=== PATIENT | male | born 1945 | race Caucasian/White ===

== ENCOUNTER 2016-05-16 05:41 | Day surgery (SDC) | payer MEDICARE, MEDICAID ==
[~2016-05-16] VITALS: Ht 177.8 cm; Wt 101.8 kg
[~2016-05-16 05:41] MED LIST: ALBU17I INH; ALLO300T2 PO; COLA100C PO; CYCL-36 PO; DUONI NEB; FURO1TAB93 PO; HYDR-3534 PO; HYDR25 PO; LACT10SO47 PO; MULT-65 PO; PRAM1LOT4; TEMA30CA PO; THIA100T PO; [UNRECOGNIZED DRUG - CODE] PO
[2016-05-16 06:55] VITALS: BP 136/75; PULSE 78; RESP 20; TEMP 98; O2SAT 91
[2016-05-16] MEDS ORDERED: VITA100T54 PO (07:09)
[2016-05-16] MEDS ORDERED: DIPH25CA PO (07:09)
[2016-05-16] MEDS ORDERED: ZOFR8TAB PO (07:09)
[2016-05-16] MEDS ORDERED: ALLO300T2 PO (07:09)
[2016-05-16] MEDS ORDERED: TIZA4CAP3 PO (07:09)
[2016-05-16] MEDS ORDERED: ROBA100S5 (07:09)
[2016-05-16] MEDS ORDERED: CYCL1TAB29 PO (07:09)
[2016-05-16] MEDS ORDERED: LINA145C PO (07:09)
[2016-05-16] MEDS ORDERED: MULT1TAB84 PO (07:09)
[2016-05-16] MEDS ORDERED: TRAZ50TA12 PO (07:09)
[2016-05-16] MEDS ORDERED: TEMA30CA PO (07:09)
[2016-05-16] MEDS ORDERED: TERB1CRE11 TOPICAL (07:09)
[2016-05-16] MEDS ORDERED: FLEE5TAB PO (07:09)
[2016-05-16] MEDS ORDERED: DOCU100C PO (07:09)
[2016-05-16] MEDS ORDERED: MUCI30TA2 PO (07:09)
[2016-05-16] MEDS ORDERED: FURO40TA PO (07:09)
[2016-05-16] MEDS ORDERED: ALBU0.63 NEB (07:09)
[2016-05-16] MEDS ORDERED: MILKSUS PO (07:09)
[2016-05-16] MEDS ORDERED: HYDR-3580 PO (07:09)
[2016-05-16] MEDS ORDERED: HYDR50TA94 PO (07:09)
[2016-05-16] MEDS ORDERED: IPRA0.02 NEB (07:09)
[2016-05-16] MEDS ORDERED: [UNRECOGNIZED DRUG - CODE] TOPICAL (07:09)
[2016-05-16] MEDS ORDERED: VENTAER INH (07:09)
[2016-05-16] MEDS ORDERED: LACT10SO PO (07:09)
[2016-05-16] MEDS ORDERED: ADVA250A INH (07:09)
[2016-05-16] MEDS ORDERED: ceFAZolin 2 GM PREMIX 50 ML - implanted port removal IV SCH (07:15)
[2016-05-16] MEDS ORDERED: SODIUM CHLORIDE 0.9% 1000 ML IV SCH (07:15)
[2016-05-16 07:34] LABS: APTT (PATIENT) 26.4 SEC (24.3-30.1); INTERNATIONAL NORMALIZED RATIO 1.1 RATIO
[2016-05-16] MEDS ORDERED: fentaNYL CITRATE 250 MCG/5 ML AMP ONE (07:41)
[2016-05-16] MEDS ORDERED: MIDAZOLAM HCL 5 MG/5 ML VIAL ONE (07:41)
[2016-05-16] MEDS ORDERED: LIDOCAINE 1%/EPINEPHrine 1:100,000 SOLN 20 ML VIAL ONE (08:02)
--- NOTE | 2016-05-16 08:51 | PD.RAD ---
Post Procedure Progress Note Pre Procedure Diagnosis: (1) Leukemia (2) Malfunctioning port catheter Post Procedure Diagnosis: (1) Leukemia (2) Malfunctioning port catheter Procedure Date: May 16, 2016 Supervising Radiologist: Antwon Whitman Proceduralist/Assist: Finn Denney, RT(R), Nicky Foreman RT(R)() Anesthesia: Local, Analgesia, Conscious Sedation Plan of Activity Patient to Unit: ROPU Patient Condition: Good See PACS Report for procedural detail/treatment Central Venous Access Device Procedure 1 Right Internal Jugular Infusaport Removal Georgian: 8 Antwon Whitman MD May 16, 2016 08:51
[2016-05-16 08:55] VITALS: BP 129/68; PULSE 80; RESP 18; TEMP 98.2; O2SAT 91
[2016-05-16] MEDS ORDERED: ACETAMINOPHEN/HYDROcodone 325 MG/10 MG TAB PO PRN (09:00)
[2016-05-16 09:10] VITALS: BP 128/57; PULSE 78; RESP 16; O2SAT 93
[2016-05-16 09:40] VITALS: BP 121/56; PULSE 75; RESP 18; O2SAT 94
[2016-05-16 10:10] VITALS: BP 116/71; PULSE 72; RESP 18; O2SAT 93
--- NOTE | 2016-05-16 10:31 | RADRPT ---
EXAM DATE/TIME: 05/16/2016 07:30 [facility] COMPARISON: No previous studies available for comparison. INDICATIONS : Patient with hisory of leukemia in need of port removal. MEDICAL HISTORY : 1.SCC Back 2.Leukemia 3.COPD 4.Pulmonary nodules 5.CLL 6.Arthrirtis 7. Hx of MRSA SURGICAL HISTORY : 1.Port placement 2.Bone marrow biopsy ENCOUNTER: Subsequent ACUITY: 4-6 months PAIN SCORE: 8/10 LOCATION: Back. SEDATION TIME: 30 minutes 1.) 5 mg midazolam (Versed) IV 2.) 250 mcg fentanyl (Sublimaze) IV Prophylactic antibiotics were administered with appropriate pre-procedure timing. Vancomycin within 2 hrs of procedure, Ancef (or alternative) within 1 hr of procedure. PROCEDURE : 1. Removal of [id number]. 2. Conscious sedation with continuous EKG and oximetry monitoring. The risk, benefits and potential complications of [id number] removal were discussed. Written conse nt was obtained. The patient was placed supine. The chest wall was prepped in sterile fashion. Full sterile techniqu e was used, including cap, mask, sterile gloves and gown, and a large sterile sheet. Hand hygiene an d 2% chlorhexidine and/or Betadine/alcohol prep was utilized per protocol for cutaneous antisepsis. The skin and subcutaneous tissues were infiltrated with local anesthetic solution. A small incision w as made, the subcutaneous pocket was opened. The port was dissected from the subcutaneous tissues and easily removed in one piece. The pocket incision was closed with subcuticular Vicryl suture. Steri -Strips were applied. Conscious sedation was performed with the prescribed dosages and duration as above in the presence of an independent trained radiology nurse to assist in the monitoring of the patient. EKG and oximetry remained stable throughout the procedure. The patient tolerated the procedure well and there were no complications. The patient was sent to post anesthesia recovery in stable condition. CONCLUSION: Uncomplicated port removal as above. Antwon Whitman MD on May 16, 2016 at 10:29 Board Certified Radiologist. This report was verified electronically.
== END 2016-05-16 10:35 | disposition home or self-care (01) ==
LOC: HROP 05:41 → HRIP 05:49 → HROP 10:35
PROVIDERS: ATTEND Internal Medicine Hematology & Oncology
DX: Z45.2 Encounter for adjustment and management of vascular access device (principal); C95.90 Leukemia, unspecified not having achieved remission; J44.9 Chronic obstructive pulmonary disease, unspecified; Z86.14 Personal history of Methicillin resistant Staphylococcus aureus infection
CPT/HCPCS: 36590; 85610; 85730; 99152; 99153; J0690; J2250; J3010; J7030

== ENCOUNTER 2016-06-28 08:35 | Emergency (ER) | payer MEDICARE, MEDICAID ==
[~2016-06-28] VITALS: Ht 175.3 cm; Wt 100.0 kg
[~2016-06-28 08:35] MED LIST changes: +ADVA250A INH; +ALBU0.63 NEB; -ALBU17I INH; -COLA100C PO; -CYCL-36 PO; +CYCL1TAB29 PO; +DIPH25CA PO; +DOCU100C PO; -DUONI NEB; +FLEE5TAB PO; -FURO1TAB93 PO; +FURO40TA PO; -HYDR-3534 PO; +HYDR-3580 PO; -HYDR25 PO; +HYDR50TA94 PO; +IPRA0.02 NEB; +LACT10SO PO; -LACT10SO47 PO; +LINA145C PO; +MILKSUS PO; +MUCI30TA2 PO; -MULT-65 PO; +MULT1TAB84 PO; -PRAM1LOT4; +ROBA100S5; +TERB1CRE11 TOPICAL; -THIA100T PO; +TIZA4CAP3 PO; +TRAZ50TA12 PO; +VENTAER INH; +VITA100T54 PO; +ZOFR8TAB PO; -[UNRECOGNIZED DRUG - CODE] PO; +[UNRECOGNIZED DRUG - CODE] TOPICAL
[2016-06-28 08:43] VITALS: BP 131/64; PULSE 84; RESP 20; TEMP 98; O2SAT 92
[2016-06-28 09:36] VITALS: BP 119/67; PULSE 77; RESP 19; O2SAT 93
--- NOTE | 2016-06-28 09:58 | PD ---
HPI Chief Complaint: Syncope/Near-Syncope Time Seen by Provider: 09:20 Travel History International Travel<30 days: No Contact w/Intl Traveler<30days: No Traveled to known affect area: No History of Present Illness HPI 70-year-old male complains of syncope and left knee pain and left foot pain. Patient states that he had a syncopal episode last night. Patient states that he fell on the left knee and injured his left knee and left foot. Patient denies any headache. Patient denies any visual change. Patient denies any neck pain. Patient denies any chest pain or shortness of breath. Patient denies abdominal pain. Patient denies any focal weakness or numbness of extremity. Patient has history of COPD, CLL status post chemotherapy, hypertension, chronic pain. PFSH Past Medical History Arthritis: No Asthma: No Blood Disorders: No Anxiety: No Depression: No Heart Rhythm Problems: No Cancer: Yes (LEUKEMIA) Cardiovascular Problems: No High Cholesterol: No Chemotherapy: No Chest Pain: No Congestive Heart Failure: No Cirrhosis: No COPD: Yes Cerebrovascular Accident: No Diabetes: No Diminished Hearing: No Endocrine: No GERD: No Glaucoma: No Gout: Yes Headaches: No Hepatitis: No Hiatal Hernia: No Hypertension: Yes Immune Disorder: No Kidney Stones: No Medical other: Yes (CHRONIC PAIN) Musculoskeletal: No Neurologic: No Psychiatric: No Reproductive: No Respiratory: Yes (COPD) Immunizations Current: Yes Myocardial Infarction: No Pneumonia: Yes Radiation Therapy: No Renal Failure: No Seizures: No Sickle Cell Disease: No Sleep Apnea: No Thyroid Disease: No Ulcer: No Past Surgical History Abdominal Surgery: No AICD: No Cardiac Surgery: No Ear Surgery: No Endocrine Surgery: No Eye Surgery: No Genitourinary Surgery: No Gynecologic Surgery: No Joint Replacement: Yes (HIP REPLACEMENT-RIGHT) Oral Surgery: No Pacemaker: No Thoracic Surgery: No Tonsillectomy: Yes Other Surgery: Yes (PORT REMOVED) Social History Alcohol Use: Yes (BEER) Tobacco Use: No Substance Use: No Allergies-Medications (Allergen,Severity, Reaction): Coded Allergies: No Known Allergies (Verified , 06/28/16) Reported Meds & Prescriptions Reported Meds & Active Scripts Active Reported Ventolin Hfa 18 GM Inh (Albuterol Sulfate) 90 Mcg/Act Aer 2 Puff INH Q6H PRN Zofran (Ondansetron HCl) 8 Mg Tab 8 Mg PO Q8HR PRN Diphenhydramine (Diphenhydramine HCl) 25 Mg Cap 25 Mg PO Q4H PRN Bisacodyl EC (Bisacodyl) 5 Mg Tabec 5 Mg PO DAILY PRN Albuterol Neb (Albuterol Sulfate) 0.63 Mg/3 Ml Neb 0.63 Mg NEB Q6HR NEB PRN Vitamin B-1 (Thiamine HCl) 100 Mg Tab 100 Mg PO DAILY Trazodone (Trazodone HCl) 50 Mg Tab 50 Mg PO HS Tizanidine (Tizanidine HCl) 4 Mg Cap 4 Mg PO HS Terbinafine Topical 1 % Cream 1 Applic TOPICAL DAILY Temazepam 30 Mg Cap 30 Mg PO HS PRN Linzess (Linaclotide) 145 Mcg Cap 145 Mcg PO DAILY Lactulose Liq (Lactulose) 10 Gm/15 Ml Soln 30 Ml PO BID Ipratropium Neb (Ipratropium [place]) 0.5 Mg/2.5 Ml Amp 0.5 Mg NEB Q6HR NEB Hydrocodone-Acetaminophen 7.5-325 mg Tab 1 Tab PO Q4H PRN Furosemide 40 Mg Tab 40 Mg PO BID Eucerin Skin Calming Itch Topical (Menthol Topical) 0.1 % Lot 1 Applic TOPICAL DIRECTED PRN Docusate Sodium 100 Mg Cap 100 Mg PO BID Multivitamin Adults (Multiple Vitamins W/ Minerals) 1 Tab 1 Tab PO DAILY Allopurinol 300 Mg Tab 300 Mg PO DAILY Advair Diskus Inh (Fluticasone-Salmeterol Inh) 250-50 Mcg/Blist Aer 1 Puff INH BID Rinse mouth after use. Review of Systems General / Constitutional: No: Fever Eyes: No: Visual changes HENT: No: Headaches Cardiovascular: No: Chest Pain or Discomfort Respiratory: No: Shortness of Breath Gastrointestinal: No: Abdominal Pain Genitourinary: No: Dysuria Musculoskeletal: Positive: Pain Skin: No Rash Neurologic: Positive: Syncope, No: Weakness Psychiatric: No: Depression Endocrine: No: Polydipsia Hematologic/Lymphatic: No: Easy Bruising Physical Exam Narrative GENERAL: Well-nourished, well-developed patient. SKIN: Focused skin assessment warm/dry. HEAD: Normocephalic. EYES: No scleral icterus. No injection or drainage. NECK: Supple, trachea midline. No JVD or lymphadenopathy. CARDIOVASCULAR: Regular rate and rhythm without murmurs, gallops, or rubs. RESPIRATORY: Breath sounds equal bilaterally. No accessory muscle use. GASTROINTESTINAL: Abdomen soft, non-tender, nondistended. MUSCULOSKELETAL: No cyanosis, or edema. BACK: Nontender without obvious deformity. No CVA tenderness. Neurologic exam: Patient's awake and alert oriented 3. No obvious focal neurological deficit. Data Data Last Documented VS Vital Signs Date Time Temp Pulse Resp B/P Pulse Ox O2 Delivery O2 Flow Rate FiO2 06/28/16 10:08 93 Room Air 06/28/16 09:36 77 19 119/67 06/28/16 08:43 98.0 Orders Electrocardiogram (06/28/16 ) Complete Blood Count With Diff (06/28/16 09:52) Basic Metabolic Panel (Bmp) (06/28/16 09:52) Prothrombin Time / Inr (Pt) (06/28/16 09:52) Act Partial Throm Time (Ptt) (06/28/16 09:52) Ct Brain W/O Iv Contrast(Rout) (06/28/16 09:52) Iv Access Insert/Monitor (06/28/16 09:52) Ecg Monitoring (06/28/16 09:52) Oximetry (06/28/16 09:52) Foot, Complete ([id number]) (06/28/16 09:52) Knee, Complete (4vws) (06/28/16 09:52) Acetamin-Hydrocod 325-7.5 Mg ([place] 7.5 (06/28/16 11:00) Labs Laboratory Tests Test 06/28/16 09:45 White Blood Count 15.8 TH/MM3 Red Blood Count 4.75 MIL/MM3 Hemoglobin 14.5 GM/DL Hematocrit 43.9 % Mean Corpuscular Volume 92.4 FL Mean Corpuscular Hemoglobin 30.5 PG Mean Corpuscular Hemoglobin 33.0 % Concent Red Cell Distribution Width 13.4 % Platelet Count 303 TH/MM3 Mean Platelet Volume 8.3 FL Neutrophils (%) (Auto) 66.9 % Lymphocytes (%) (Auto) 20.6 % Monocytes (%) (Auto) 8.5 % Eosinophils (%) (Auto) 3.1 % Basophils (%) (Auto) 0.9 % Neutrophils # (Auto) 10.6 TH/MM3 Lymphocytes # (Auto) 3.3 TH/MM3 Monocytes # (Auto) 1.3 TH/MM3 Eosinophils # (Auto) 0.5 TH/MM3 Basophils # (Auto) 0.1 TH/MM3 CBC Comment DIFF FINAL Differential Comment Prothrombin Time 12.0 SEC Prothromb Time International 1.1 RATIO Ratio Activated Partial 25.9 SEC Thromboplast Time Sodium Level 137 MEQ/L Potassium Level 4.3 MEQ/L Chloride Level 99 MEQ/L Carbon Dioxide Level 30.2 MEQ/L Anion Gap 8 MEQ/L Blood Urea Nitrogen 7 MG/DL Creatinine 0.84 MG/DL Estimat Glomerular Filtration 90 ML/MIN Rate Random Glucose 128 MG/DL Calcium Level 8.8 MG/DL MDM Medical Decision Making Medical Screen Exam Complete: Yes Emergency Medical Condition: Yes Medical Record Reviewed: Yes Interpretation(s) Last Impressions Knee X-Ray 06/28/16951 Signed Impressions: Service Date/Time: Tuesday, June 28, 2016 10:22 - CONCLUSION: 1. There is no evidence of acute fracture. Jermaine Desir MD Head CT 06/28/16951 Signed Impressions: Service Date/Time: Tuesday, June 28, 2016 10:25 - CONCLUSION: 1. No evidence of acute intracranial pathology. No masses are identified. Jermaine Desir MD Foot X-Ray 06/28/16951 Signed Impressions: Service Date/Time: Tuesday, June 28, 2016 10:20 - CONCLUSION: 1. Possible acute fracture through an old fracture of the proximal both flanks of the fifth digit. Jermaine Desir MD 11:04 AM. CBC WBC 15.8. Normal differential. BMP within normal limit. Differential Diagnosis Differential diagnosis including vasovagal reaction, electrolyte imbalance, dehydration, arrhythmia, TIA, CVA, contusion, fracture, dislocation. Narrative Course 70-year-old male with syncope and left knee left foot injury. Adrián taped fourth and fifth toes. [place]om[place] wrap left knee. Diagnosis Primary Impression: Fracture of fifth toe, left, closed Qualified Code: S92.502A - Fracture of fifth toe, left, closed, initial encounter Additional Impressions: Contusion of left knee Qualified Code: S80.02XA - Contusion of left knee, initial encounter Syncope Qualified Code: R55 - Syncope, unspecified syncope type Patient Instructions: General Instructions Additional Instructions: Continue with medications. Follow-up with drum stock clerk or orthopedist. Follow- up with personal physician. Return if needed. Med/Other Pt SpecificInfo: No Change to Meds Disposition: 01 DISCHARGE HOME Condition: Stable Maurice Roper MD June 28, 2016 09:58
[2016-06-28 10:08] VITALS: O2SAT 93
[2016-06-28 10:24] LABS: AUTOMATED NEUTROPHIL # 10.6 TH/MM3 (1.8-7.7); BASOPHIL # 0.1 TH/MM3 (0-0.2); BASOPHIL % 0.9 % (0.0-2.0); EOSINOPHIL # 0.5 TH/MM3 (0-0.4); EOSINOPHIL % 3.1 % (0.0-4.0); HEMATOCRIT 43.9 % (39.0-51.0); HEMO FLAGS DIFF FINAL; LYMPH % 20.6 % (9.0-44.0); LYMPHOCYTE # 3.3 TH/MM3 (1.0-4.8); MEAN CELL VOLUME 92.4 FL (80.0-100.0); MEAN CORPUSCULAR HEMOGLOBIN 30.5 PG (27.0-34.0); MONO % 8.5 % (0.0-8.0); NEUT % 66.9 % (16.0-70.0); PLATELET COUNT 303 TH/MM3 (150-450); RED BLOOD COUNT 4.75 MIL/MM3 (4.50-5.90); RED CELL DISTRIBUTION WIDTH 13.4 % (11.6-17.2); WHITE BLOOD COUNT 15.8 TH/MM3 (4.0-11.0)
[2016-06-28 10:34] LABS: APTT (PATIENT) 25.9 SEC (24.3-30.1); INTERNATIONAL NORMALIZED RATIO 1.1 RATIO
--- NOTE | 2016-06-28 10:45 | RADRPT ---
EXAM DATE/TIME: 06/28/2016 10:20 [facility] COMPARISON: No previous studies available for comparison. INDICATIONS : Left foot pain after falling this morning. MEDICAL HISTORY : Leukemia. COPD. Pulmonary nodules. Arthritis. History of MRSA. SURGICAL HISTORY : None. ENCOUNTER: Initial ACUITY: 1 day PAIN SCORE: 9/10 LOCATION: Left foot. FINDINGS: There is an old fracture of the shaft of the fifth metatarsal. There is also an old fracture of the p roximal thigh to the fifth digit with a new lucency which may reflect acute fracture. No other fractu res are identified. Bony mineralization is normal. An inferior calcaneal spur is present. CONCLUSION: 1. Possible acute fracture through an old fracture of the proximal both flanks of the fifth digit. Jermaine Desir MD on June 28, 2016 at 10:41 Board Certified Radiologist. This report was verified electronically.
--- NOTE | 2016-06-28 10:46 | RADRPT ---
EXAM DATE/TIME: 06/28/2016 10:22 [facility] COMPARISON: No previous studies available for comparison. INDICATIONS : Left anterior knee pain after falling this morning. MEDICAL HISTORY : Leukemia. COPD. Pulmonary nodules. Arthritis. History of MRSA. SURGICAL HISTORY : None. ENCOUNTER: Initial ACUITY: 1 day PAIN SCORE: 9/10 LOCATION: Left anterior knee. FINDINGS: There is mild osteoarthritis with joint space narrowing but no significant marginal osteophyte format ion in the medial tibiofemoral compartment. There is no evidence of acute fracture. Bony mineralizati on is normal. There is no evidence of joint effusion. CONCLUSION: 1. There is no evidence of acute fracture. Jermaine Desir MD on June 28, 2016 at 10:44 Board Certified Radiologist. This report was verified electronically.
--- NOTE | 2016-06-28 10:48 | RADRPT ---
EXAM DATE/TIME: 06/28/2016 10:25 [facility] COMPARISON: No previous studies available for comparison. INDICATIONS : Patient with syncope. RADIATION DOSE: 56.35 CTDIvol (mGy) MEDICAL HISTORY : Hypertension. Chronic obstructive pulmonary disease. Leukemia. SURGICAL HISTORY : hip replacement ENCOUNTER: Initial ACUITY: 1 day PAIN SCALE: 0/10 LOCATION: cranial TECHNIQUE: Multiple contiguous axial images were obtained of the head. Using automated exposure control and adj ustment of the mA and/or kV according to patient size, radiation dose was kept as low as reasonably a chievable to obtain optimal diagnostic quality images. FINDINGS: CEREBRUM: The ventricles are normal for age. No evidence of midline shift, mass lesion, hemorrhage or acute in farction. No extra-axial fluid collections are seen. POSTERIOR FOSSA: The cerebellum and brainstem are intact. The 4th ventricle is midline. The cerebellopontine angle i s unremarkable. EXTRACRANIAL: The visualized portion of the orbits is intact. SKULL: The calvaria is intact. No evidence of skull fracture. CONCLUSION: 1. No evidence of acute intracranial pathology. No masses are identified. Jermaine Desir MD on June 28, 2016 at 10:44 Board Certified Radiologist. This report was verified electronically.
[2016-06-28 10:52] LABS: BICARBONATE 30.2 MEQ/L (21.0-32.0); POTASSIUM 4.3 MEQ/L (3.5-5.1)
[2016-06-28] MEDS ORDERED: ACETAMINOPHEN/HYDROcodone 325 MG/7.5 MG TAB PO ONE (11:00)
[2016-06-28 11:17] VITALS: BP 124/67
--- NOTE | 2016-06-29 11:18 | EKG ---
Date Performed: 06/28/2016 Time Performed: 09:20:30 PTAGE: 70 years EKG: Sinus rhythm WITH OCCASIONAL VENTRICULAR PREMATURE COMPLEXES BORDERLINE LEFT AXIS DEVIATION INCOMPLETE RIGHT BUND LE BRANCH BLOCK BORDERLINE ECG PREVIOUS TRACING : 05/28/2013 22.27 DOCTOR: Ochoa Herrera Interpretating Date/Time 06/29/2016 11:16:08
== END 2016-06-28 11:21 | disposition home or self-care (01) ==
LOC: NEPC 08:35
DX: S92.502A Displaced unspecified fracture of left lesser toe(s), initial encounter for closed fracture (principal); S80.02XA Contusion of left knee, initial encounter; R55 Syncope and collapse; W19.XXXA Unspecified fall, initial encounter
CPT/HCPCS: 70450; 73564; 73630; 80048; 85025; 85610; 85730; 93005

== ENCOUNTER 2016-08-10 11:22 | Inpatient (IN) | payer MEDICARE, MEDICAID ==
[2016-08-10] VITALS (10 sets, daily range): BP systolic 100–112; BP diastolic 62–73; PULSE 78–87; RESP 18–20; TEMP 96.4–97.7; O2SAT 92–97
[~2016-08-10] VITALS: Ht 175.3 cm; Wt 112.5 kg
[~2016-08-10 11:22] MED LIST changes: -CYCL1TAB29 PO; -HYDR50TA94 PO; -MILKSUS PO; -MUCI30TA2 PO; -ROBA100S5
--- NOTE | 2016-08-10 11:30 | PD ---
Physical Exam Date Seen by Provider: Aug 10, 2016 Time Seen by Provider: 11:29 Narrative 70 yo male that comes here for evaluation of abnormal blood work. Dr Ball his oncologist did lab work today and sent him here for eval. Unclear as to why. He does feel SOB and has abdominal pain and diarrhea. Pain is 8/10. Vitals are stable in triage. Awaiting bed placement. Data Data Last Documented VS Vital Signs Date Time Temp Pulse Resp B/P Pulse Ox O2 Delivery O2 Flow Rate FiO2 08/10/16 11:25 97.7 86 20 112/63 94 Room Air [facility] Medical Record Reviewed: Yes Supervised Visit with LAUREN: No Isauro Raya Aug 10, 2016 11:30
--- NOTE | 2016-08-10 11:38 | PD ---
HPI Chief Complaint: Abnormal Results Time Seen by Provider: 11:38 Travel History International Travel<30 days: No Contact w/Intl Traveler<30days: No Traveled to known affect area: No History of Present Illness HPI 70-year-old male with history of hypertension, COPD, leukemia, currently undergoing chemotherapy with Dr. Ball, resents to the emergency department at the direction of Dr. Ball after lab work being done this morning that showed the patient was in liver failure. Patient states that the last week "or so" his abdomen has become distended. He states he is more short of breath but attributes this to not being able to get his medications secondary to financial reasons. Patient states he resides in a assisted living facility and they have been giving his medications but he is uncertain what he takes. He does tell me that he takes Lortab every 4 hours [id number] for pain. He denies any bowel or bladder changes. No chest pain. Denies any recent illnesses, fever, or chills. Patient does report one beer daily and states he "has a prescription for this." He has no other symptoms to report. PFSH Past Medical History Arthritis: No Asthma: No Blood Disorders: No Anxiety: No Depression: No Heart Rhythm Problems: No Cancer: Yes (LEUKEMIA) Cardiovascular Problems: No High Cholesterol: No Chemotherapy: No Chest Pain: No Congestive Heart Failure: No Cirrhosis: No COPD: Yes Cerebrovascular Accident: No Diabetes: No Diminished Hearing: No Endocrine: No GERD: No Glaucoma: No Gout: Yes Headaches: No Hepatitis: No Hiatal Hernia: No Hypertension: Yes Immune Disorder: No Kidney Stones: No Musculoskeletal: No Neurologic: No Psychiatric: No Reproductive: No Respiratory: Yes Immunizations Current: Yes Myocardial Infarction: No Pneumonia: Yes Radiation Therapy: No Renal Failure: No Seizures: No Sickle Cell Disease: No Sleep Apnea: No Thyroid Disease: No Ulcer: No Past Surgical History Abdominal Surgery: No AICD: No Cardiac Surgery: No Ear Surgery: No Endocrine Surgery: No Eye Surgery: No Genitourinary Surgery: No Gynecologic Surgery: No Joint Replacement: Yes (HIP REPLACEMENT-RIGHT) Oral Surgery: No Pacemaker: No Thoracic Surgery: No Tonsillectomy: Yes Other Surgery: Yes (PORT REMOVED) Social History Alcohol Use: Yes (BEER) Tobacco Use: No Substance Use: No Allergies-Medications (Allergen,Severity, Reaction): Coded Allergies: No Known Allergies (Verified , 08/10/16) Reported Meds & Prescriptions Reported Meds & Active Scripts Active Reported Hydroxyzine HCl 50 Mg Tab 50 Mg PO Q6HR PRN [Perez Tonic] 15 Ml PO DAILY Flexeril (Cyclobenzaprine HCl) 10 Mg Tab 10 Mg PO HS Duoneb (Ipratropium-Albuterol Neb) 0.5-2.5 Mg/3 Ml Neb 3 Ml NEB BID NEB PRN Temazepam 15 Mg Cap 15 Mg PO HS PRN Multi-Vitamins (Multiple Vitamin) 1 Tab Tab 1 Tab PO DAILY Zofran (Ondansetron HCl) 8 Mg Tab 8 Mg PO Q8HR PRN Diphenhydramine (Diphenhydramine HCl) 25 Mg Cap 25 Mg PO Q6HR PRN Vitamin B-1 (Thiamine HCl) 100 Mg Tab 100 Mg PO DAILY Trazodone (Trazodone HCl) 50 Mg Tab 50 Mg PO HS Tizanidine (Tizanidine HCl) 4 Mg Cap 4 Mg PO HS Terbinafine Topical 1 % Cream 1 Applic TOPICAL DAILY Linzess (Linaclotide) 145 Mcg Cap 145 Mcg PO DAILY Lactulose Liq (Lactulose) 10 Gm/15 Ml Soln 30 Ml PO BID Hydrocodone-Acetaminophen 7.5-325 mg Tab 1 Tab PO Q4H PRN Furosemide 40 Mg Tab 40 Mg PO BID Docusate Sodium 100 Mg Cap 100 Mg PO BID Allopurinol 300 Mg Tab 300 Mg PO DAILY Advair Diskus Inh (Fluticasone-Salmeterol Inh) 250-50 Mcg/Blist Aer 1 Puff INH BID Rinse mouth after use. Review of Systems Except as stated in HPI: all other systems reviewed are Neg Physical Exam Narrative GENERAL: Well-nourished but chronically ill-appearing male patient, lying on the stretcher, in no acute distress. SKIN: Focused skin assessment warm/dry. HEAD: Atraumatic. Normocephalic. EYES: Pupils equal and round. scleral icterus. No injection or drainage. ENT: No nasal bleeding or discharge. Mucous membranes pink and moist. NECK: Trachea midline. No JVD. CARDIOVASCULAR: Regular rate and rhythm. RESPIRATORY: Shallow, unlabored respirations.. Diminished to auscultation. Breath sounds equal bilaterally. GASTROINTESTINAL: Ascitic abdomen, rotund, distended, discomfort elicited with palpation.. Hepatic and splenic margins not palpable. MUSCULOSKELETAL: No obvious deformities. No clubbing. No cyanosis. No edema. NEUROLOGICAL: Awake and alert. No obvious cranial nerve deficits. Motor grossly within normal limits. Normal speech. Data Data Last Documented VS Vital Signs Date Time Temp Pulse Resp B/P Pulse Ox O2 Delivery O2 Flow Rate FiO2 08/10/16 11:55 97 Nasal Cannula 2.00 08/10/16 11:49 87 20 08/10/16 11:25 97.7 112/63 Orders Electrocardiogram (08/10/16 ) B-Type Natriuretic Peptide (08/10/16 11:46) Act Partial Throm Time (Ptt) (08/10/16 11:46) Prothrombin Time / Inr (Pt) (08/10/16 11:46) Urinalysis - C+S If Indicated (08/10/16 11:46) Iv Access Insert/Monitor (08/10/16 11:46) Ecg Monitoring (08/10/16 11:46) Oximetry (08/10/16 11:46) Oxygen Administration (08/10/16 11:46) Sodium Chloride 0.9% Flush (Ns Flush) (08/10/16 12:00) Albuterol-Ipratropium Neb (Duoneb Neb) (08/10/16 12:00) Chest, Single Ap (08/10/16 ) Labs Laboratory Tests Test 08/10/16 12:00 Prothrombin Time 16.7 SEC Prothromb Time International 1.5 RATIO Ratio Activated Partial 29.4 SEC Thromboplast Time MDM Medical Decision Making Medical Screen Exam Complete: Yes Emergency Medical Condition: Yes Medical Record Reviewed: Yes Differential Diagnosis Liver failure versus electrolyte abnormality versus cirrhosis versus COPD versus pneumonia versus CHF Narrative Course 70-year-old male presents to emergency department for evaluation. Patient had lab work done this morning that showed CBC with leukocytosis of 18. This is a steady increase from patient's recent lab work. CMP is with mild hyponatremia 133. Total bilirubin is 2.3, AST is 759, ALT is 270, alkaline phosphatase is 390, will lactate dehydrogenase is 678. As the labs were drawn this morning in our facilities lab, I will not repeat them. I have added coags. Laboratory Tests Test 08/10/16 12:00 Prothrombin Time 16.7 SEC Prothromb Time International 1.5 RATIO Ratio Activated Partial 29.4 SEC Thromboplast Time Patient is short of breath. Chest x-ray is ordered in addition to DuoNeb treatment. [facility]. Diagnosis Primary Impression: Acute liver disease Additional Impressions: Abnormal liver enzymes Leukemia Qualified Code: C95.10 - Chronic leukemia, not having achieved remission COPD (chronic obstructive pulmonary disease) Qualified Code: J44.9 - Chronic obstructive pulmonary disease, unspecified COPD type Admitting Information Admitting Physician Requests: Admit Condition: Stable Rose Mary Estrada Aug 10, 2016 11:38
[2016-08-10] MEDS ORDERED: RESP: ALBUTEROL 2.5 MG/IPRATROPIUM 0.5 MG NEB (SCH) INH ONE (12:00)
[2016-08-10] MEDS ORDERED: SODIUM CHLORIDE 0.9% FLUSH 10 ML FLUSH IVF PRN (12:00)
[2016-08-10] MEDS ORDERED: MULTTAB4 PO (12:08)
[2016-08-10] MEDS ORDERED: HYDR50TA94 PO (12:08)
[2016-08-10] MEDS ORDERED: CYCL1TAB29 PO (12:08)
[2016-08-10] MEDS ORDERED: [UNRECOGNIZED DRUG - OTHER] PO (12:08)
[2016-08-10] MEDS ORDERED: TEMA15CA PO (12:08)
[2016-08-10] MEDS ORDERED: IPRASOL NEB (12:08)
[2016-08-10 12:26] LABS: APTT (PATIENT) 29.4 SEC (24.3-30.1); INTERNATIONAL NORMALIZED RATIO 1.5 RATIO; PROTHROMBIN TIME - PATIENT 16.7 SEC (9.8-11.6)
--- NOTE | 2016-08-10 12:57 | RADRPT ---
EXAM DATE/TIME: 08/10/2016 12:33 [facility] COMPARISON: No previous studies available for comparison. INDICATIONS : Shortness of breath. MEDICAL HISTORY : Chronic obstructive pulmonary disease. SURGICAL HISTORY : None. ENCOUNTER: Initial ACUITY: 4 - 6 days PAIN SCORE: 0/10 LOCATION: Bilateral chest FINDINGS: There is patchy infiltrate in the right lower lung zone. Left lung appears grossly clear. No signific ant effusion suspected. Cardiac contours are satisfactory technique and projection. CONCLUSION: Right base infiltrate Serjio Montenegro MD on August 10, 2016 at 12:54 Board Certified Radiologist. This report was verified electronically.
[2016-08-10] MEDS ORDERED: LACTULOSE SYRUP 20 GM/30 ML CUP PO PRN (13:15)
[2016-08-10] MEDS ORDERED: SENNOSIDES 8.6 MG TAB PO PRN (13:15)
[2016-08-10] MEDS ORDERED: MAGNESIUM HYDROXIDE SUSP 30 ML CUP PO PRN (13:15)
[2016-08-10] MEDS ORDERED: SODIUM CHLORIDE 0.9% FLUSH 10 ML FLUSH IV FLUSH PRN (13:15)
[2016-08-10] MEDS ORDERED: NALOXONE HCL 0.4 MG/ML AMP IV PRN (13:15)
[2016-08-10] MEDS ORDERED: BISACODYL 10 MG SUPP RECTAL PRN (13:15)
--- NOTE | 2016-08-10 14:08 | HHI.HP ---
[facility] Service [facility] Primary Care Physician Juan Campbell MD Admission Diagnosis Acute elevation of liver enzymes Diagnoses: Chief Complaint: Acute liver failure and distended abdomen Travel History International Travel<30 Days: No Contact w/Intl Traveler <30 Da: No Traveled to Known Affected Are: No History of Present Illness This is a 70-year-old male past medical history chronic lymphocytic leukemia in remission who presented to the emergency department due to abnormal labs. Patient is a poor historian. He stated that he saw Dr. Ball his oncologist today and he was told to go to the emergency department due to abnormal labs. He stated that his abdomen became larger about 2 weeks ago but he is unsure. He stated that he chronically has shortness of breathing and has not worsened. Patient denies any fevers or chills. He also denies any cough. Patient stated that he has been constipated for many days but is not able to give me any estimated time. He did admit to having small amounts of diarrhea today. Patient stated that he is not a heavy drinker and that he was told by his physician that he has a prescription to drink 1 beer day. Patient stated that he has not seen his primary care physician in a few months and that he has not been given any of his medication because of this. He stated that he is only taking 5 medication and one of them is Lortab. He denies any dependence on alcohol. Patient stated that he is due for his Lortab at 2 PM today. Patient denies any past liver disease or ascites. He stated that this is the first occurrence. Review of Systems Constitutional: DENIES: Diaphoretic episodes, Fatigue, Fever, Weight gain, Weight loss, Chills, Dizziness, Change in appetite, Night Sweats Endocrine: DENIES: Heat/cold intolerance, Polydipsia, Polyuria, Polyphagia Eyes: DENIES: Blurred vision, Diplopia, Eye inflammation, Eye pain, Vision loss , Photosensitivity, Double Vision Ears, nose, mouth, throat: DENIES: Tinnitus, Hearing loss, Vertigo, Nasal discharge, Oral lesions, Throat pain, Hoarseness, Ear Pain, Running Nose, Epistaxis, Sinus Pain, Toothache, Odynophagia Respiratory: COMPLAINS OF: Shortness of breath, DENIES: Apneas, Cough, Snoring , Wheezing, Hemoptysis, Sputum production Cardiovascular: DENIES: Chest pain, Palpitations, Syncope, Dyspnea on Exertion , PND, Lower Extremity Edema, Orthopnea, Claudication Gastrointestinal: DENIES: Abdominal pain, Black stools, Bloody stools, Constipation, Diarrhea, Nausea, Vomiting, Difficulty Swallowing, Anorexia Genitourinary: DENIES: Sexual dysfunction, Urinary frequency, Urinary incontinence, Urgency, Hematuria, Dysuria, Nocturia, Penile Discharge, Testicular Pain, Testicular Swelling Musculoskeletal: DENIES: Joint pain, Muscle aches, Stiffness, Joint Swelling, Back pain, Neck pain Integumentary: DENIES: Abnormal pigmentation, Nail changes, Pruritus, Rash Hematologic/lymphatic: DENIES: Bruising, Lymphadenopathy Immunologic/allergic: DENIES: Eczema, Urticaria Neurologic: DENIES: Abnormal gait, Headache, Localized weakness, Paresthesias, Seizures, Speech Problems, Tremor, Poor Balance Psychiatric: DENIES: Anxiety, Confusion, Mood changes, Depression, Hallucinations, Agitation, Suicidal Ideation, Homicidal Ideation, Delusions Past Family Social History Past Medical History COPD Pulmonary nodules Chronic lymphocytic leukemia completed treatment in May 2014 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 He stated that he is only taking 5 medication and he is unsure the name of this medication. Hydroxyzine HCl 50 Mg Tab 50 Mg PO Q6HR PRN [Perez Tonic] 15 Ml PO DAILY Flexeril (Cyclobenzaprine HCl) 10 Mg Tab 10 Mg PO HS Duoneb (Ipratropium-Albuterol Neb) 0.5-2.5 Mg/3 Ml Neb 3 Ml NEB BID NEB PRN Temazepam 15 Mg Cap 15 Mg PO HS PRN Multi-Vitamins (Multiple Vitamin) 1 Tab Tab 1 Tab PO DAILY Zofran (Ondansetron HCl) 8 Mg Tab 8 Mg PO Q8HR PRN Diphenhydramine (Diphenhydramine HCl) 25 Mg Cap 25 Mg PO Q6HR PRN Vitamin B-1 (Thiamine HCl) 100 Mg Tab 100 Mg PO DAILY Trazodone (Trazodone HCl) 50 Mg Tab 50 Mg PO HS Tizanidine (Tizanidine HCl) 4 Mg Cap 4 Mg PO HS Terbinafine Topical 1 % Cream 1 Applic TOPICAL DAILY Linzess (Linaclotide) 145 Mcg Cap 145 Mcg PO DAILY Lactulose Liq (Lactulose) 10 Gm/15 Ml Soln 30 Ml PO BID Hydrocodone-Acetaminophen 7.5-325 mg Tab 1 Tab PO Q4H PRN Furosemide 40 Mg Tab 40 Mg PO BID Docusate Sodium 100 Mg Cap 100 Mg PO BID Allopurinol 300 Mg Tab 300 Mg PO DAILY Advair Diskus Inh (Fluticasone-Salmeterol Inh) 250-50 Mcg/Blist Aer 1 Puff INH BID Rinse mouth after use. Allergies: Coded Allergies: No Known Allergies (Verified , 08/10/16) Active Ordered Medications Current Medications Sodium Chloride (NS Flush) 2 ml UNSCH PRN IVF FLUSH AFTER USING IV ACCESS Last administered on 08/10/16 11:51; Start 08/10/16 at 12:00; Stop 08/10/16 at 13:12 ; Status DC Albuterol/ Ipratropium (Duoneb Neb) 1 ampule ONCE ONCE INH Last administered on 08/10/16 11:55; Start 08/10/16 at 12:00; Stop 08/10/16 at 12:01; Status DC Sodium Chloride (NS Flush) 2 ml UNSCH PRN IV FLUSH FLUSH AFTER USING IV ACCESS ; Start 08/10/16 at 13:15 Sodium Chloride (NS Flush) 2 ml BID IV FLUSH ; Start 08/10/16 at 21:00 Naloxone HCl (Narcan Inj) 0.4 mg UNSCH PRN IV SEE LABEL COMMENTS; Start at 13:15 Senna/Docusate Sodium (Sharlene-Colace) 1 tab BID PO ; Start 08/10/16 at 21:00 Magnesium Hydroxide (Milk Of Magnesia Liq) 30 ml Q12H PRN PO MILD - MODERATE CONSTIPATION; Start 08/10/16 at 13:15 Sennosides (Senokot) 17.2 mg Q12H PRN PO MODERATE - SEVERE CONSTIPATION; Start 08/10/16 at 13:15 Bisacodyl (Dulcolax Supp) 10 mg DAILY PRN RECTAL SEVERE CONSITIPATION; Start at 13:15 Lactulose (Lactulose Liq) 30 ml DAILY PRN PO SEVERE CONSITIPATION; Start at 13:15 Oxycodone HCl (Roxicodone) 5 mg Q4H PRN PO pain 1-8 Last administered on t 14:04; Start 08/10/16 at 13:15 Oxycodone HCl (Roxicodone) 10 mg Q4H PRN PO pain 9-10; Start 08/10/16 at 13:15 Furosemide (Lasix) 20 mg BID@09,18 PO ; Start 08/10/16 at 14:15; Stop 08/10/16 at 14:15; Status DC Spironolactone (Aldactone) 50 mg BID@09,18 PO ; Start 08/10/16 at 18:00; Status UNV Allopurinol (Zyloprim) 300 mg DAILY PO ; Start 08/11/16 at 09:00; Status UNV Lactulose (Lactulose Liq) 30 ml BID PO ; Start 08/10/16 at 21:00; Status UNV Trazodone HCl (Desyrel) 50 mg HS PO ; Start 08/10/16 at 21:00; Status UNV Non-Formulary Medication 1 puff BID INH ; Start 08/10/16 at 21:00; Status UNV Non-Formulary Medication 145 mcg DAILY PO ; Start 08/11/16 at 09:00; Status UNV Furosemide (Lasix) 40 mg BID@09,18 PO ; Start 08/10/16 at 14:15; Status UNV Family History Unable to obtain. Patient is a poor historian. Social History Denies any tobacco use or illicit drug use. Patient drinks 1 beer a day. Physical Exam Vital Signs Vital Signs Date Time Temp Pulse Resp B/P Pulse Ox O2 Delivery O2 Flow Rate FiO2 08/10/16 11:55 97 Nasal Cannula 2.00 08/10/16 11:49 96 Room Air 08/10/16 11:49 87 20 96 Room Air 08/10/16 11:47 98 20 96 Room Air 08/10/16 11:25 97.7 86 20 112/63 94 Room Air Physical Exam GENERAL: This is a well-nourished, well-developed patient, in no apparent distress. SKIN: old scar on back. HEAD: Atraumatic. Normocephalic. No temporal or scalp tenderness. EYES: Pupils equal round and reactive. Extraocular motions intact. No scleral icterus. No injection or drainage. ENT: Nose without bleeding, purulent drainage or septal hematoma. Throat without erythema, tonsillar hypertrophy or exudate. Uvula midline. Airway patent. NECK: Trachea midline. No JVD or lymphadenopathy. Supple, nontender, no meningeal signs. CARDIOVASCULAR: Regular rate and rhythm without murmurs, gallops, or rubs. RESPIRATORY: Clear to auscultation. Breath sounds equal bilaterally. No wheezes , rales, or rhonchi. GASTROINTESTINAL: Abdomen soft. Positive for distention and positive fluid wave. Positive for diffuse tenderness to palpation with moderate amount of pressure to the abdomen. No hepato-splenomegaly, or palpable masses. No guarding. MUSCULOSKELETAL: Extremities without clubbing, cyanosis, or edema. No joint tenderness, effusion, or edema noted. No calf tenderness. Negative Homans sign bilaterally. NEUROLOGICAL: Awake and alert. Cranial nerves II through XII intact. Motor and sensory grossly within normal limits. Five out of 5 muscle strength in all muscle groups. Normal speech. Laboratory Laboratory Tests Test 08/10/16 12:00 Prothrombin Time 16.7 Prothromb Time International 1.5 Ratio Activated Partial 29.4 Thromboplast Time B-Type Natriuretic Peptide 100 Imaging Last Impressions Chest X-Ray 08/10/16 0000 Signed Impressions: Service Date/Time: Wednesday, August 10, 2016 12:33 - CONCLUSION: Right base infiltrate Serjio Montenegro MD Assessment and Plan Assessment and Plan 70-year-old male with history of chronic lymphocytic leukemia in remission who presented with Acute liver failure with new onset ascites -AST 759, LT 270, alkaline phosphatase 390, LDH 678, total protein 5.9. Prior his LFTs in April 2016 was within normal limits. -Will need to do a workup. Will trend LFTs. Get a therapeutic and diagnostic paracentesis and ultrasound of the abdomen including the liver. Will get hepatitis panel. -Patient is already on lactulose but this seems to be more for his constipation. Will continue with lactulose. -Patient is on Lasix 40 mg by mouth twice a day ID unsure if she was compliant with this medication and on just sure why he was on this medication. Will continue with Lasix 40 mg by mouth twice a day. Start patient on spironolactone 50 mg twice a day. -Consult GI. Chronic lymphocytic leukemia status post chemotherapy completion in May 2014. -Patient is following up with Dr. Ball as outpatient. Last PET scan was in February 2016 which showed mild uptake in bilateral neck, axillae, mediastinum and retroperitoneum. Leukocytosis -close to patient's baseline. continue to monitor. COPD -Stable. Patient stated that he chronically has shortness of breathing and that this has not worsened. CXR shows mild right lower infiltrate which is most likely fluid. no signs of infection. -Will resume his home medication. Chronic musculoskeletal pain/osteoarthritis -Since patient is in liver failure will discontinue Lortab and give oxycodone as needed. Constipation -continue lactulose. Will give a suppository since it has been many weeks. Anxiety/Gout -Resume home medication. DVT prophylaxis -SCDs. INR 1.5. Code Status full Discussed Condition With patient Emma Herzog MD Aug 10, 2016 14:08
[2016-08-10] MEDS ORDERED: FUROSEMIDE 20 MG TAB PO SCH (14:15)
--- NOTE | 2016-08-10 14:37 | RADRPT ---
EXAM DATE/TIME: 08/10/2016 13:32 [facility] COMPARISON: CT ABDOMEN & PELVIS W CONTRAST, December 17, 2010, 21:17. INDICATIONS : Increased labs MEDICAL HISTORY : Hypertension. COPD. Leukemia. SURGICAL HISTORY : Tonsillectomy. Right broken femur repair. Right hip replacement ENCOUNTER: Initial ACUITY: 3 days PAIN SCORE: 7/10 LOCATION: Bilateral abdomen MEASUREMENTS: LIVER: 21.6 cm length COMMON DUCT: 5 mm RIGHT KIDNEY: 10.3 x 4.1 x 3.4 cm LEFT KIDNEY: 11.5 x 4.9 x 5.0 cm SPLEEN: 16.0 cm length AORTA: 2.0cm maximal FINDINGS: LIVER: Diffusely heterogeneous hepatic echotexture with hepatomegaly. No significant intrahepatic ductal dil atation. There is a small amount of ascites. COMMON DUCT: No intraluminal mass or stone visualized. GALLBLADDER: Small bowel wall thickening measuring up to 6 mm with small amount of sludge in very small stones in the gallbladder. There is a small amount of pericholecystic fluid. No significant sonographic Hinkle sign. Gallbladder wall thickening and sludge is last does appear unchanged from prior CT exam. PANCREAS: Visualized portions of the pancreas are grossly unremarkable. RIGHT KIDNEY: No hydronephrosis, stone or mass. LEFT KIDNEY: No hydronephrosis, stone or mass. SPLEEN: Spleen is enlarged measuring 16 cm containing scattered echogenic foci consistent with splenic calcif ications noted on our CT exam. The AORTA: Incompletely visualized but nonaneurysmal in its visualized portions. IVC: Obscured by bowel gas. CONCLUSION: 1. Hepatomegaly with diffusely coarse hepatic echogenicity similar to prior CT examination and consis tent with early cirrhotic changes although differential consideration includes leukemic infiltration in this patient with history of leukemia. 2. Persistent splenomegaly with small amount of ascites likely due to portal hypertension. Again, kiet kemic infiltration is in the differential. 3. Sludge and small number of stones in the gallbladder with associated gallbladder wall thickening a nd pericholecystic fluid. Suspect the gallbladder wall thickening and pericholecystic fluid are due t o patient's ascites and the sludge/stones are chronic in etiology. HIDA scan may be performed to eval uate for cystic duct patency if there is concern regarding acute cholecystitis. Sung Gomez MD on August 10, 2016 at 14:18 Board Certified Radiologist. This report was verified electronically.
[2016-08-10] MEDS: FUROSEMIDE 40 MG TAB PO SCH ×2 (15:19→16:50)
--- NOTE | 2016-08-10 15:44 | RADRPT ---
EXAM DATE/TIME: 08/10/2016 14:47 [facility] COMPARISON: No previous studies available for comparison. INDICATIONS : Ascites. MEDICAL HISTORY : Hypertension. Chronic obstructive pulmonary disease. Methicillin-resistant Staphylococcus aureus. Pne umonia. Dyspnea. Leukemia. Measles. SURGICAL HISTORY : Tonsillectomy. Right hip replacement. ENCOUNTER: Initial ACUITY: 1 day PAIN SCORE: 2/10 LOCATION: Abdomen. AREA EVALUATED: Abdomen. FINDINGS: Imaging of the abdomen and pelvis was performed to evaluate for ascites for possible paracentesis. CONCLUSION: There is no significant ascites. Tong Read MD FACR on August 10, 2016 at 15:41 Board Certified Radiologist. This report was verified electronically.
--- NOTE | 2016-08-10 16:09 | PD.CONS ---
HPI History of Present Illness This is a 70 year old male patient with a history of chronic lymphocytic leukemia, currently in remission, who is referred to the hospital for evaluation of elevated LFTs. He was diagnosed with chronic lymphocytic leukemia and 2013 and treated with Rituxan/Bendamustine x 6 and completed this in May of 2014. He is followed by Dr. Fontanez. He had routine lab work on and was found to have elevated LFTs with total bilirubin 2.3, AST 759, ALT 270, alkaline phosphatase 390. US (08/10/16)---> hepatomegaly with diffusely coarse hepatic echogenicity similar to prior CT examination consistent with early cirrhotic changes other differential consideration includes leukemic infiltration in this patient with a history of leukemia. Persistent splenomegaly with a small amount of ascites likely due to portal hypertension. Again leukemic infiltration is in the differential. Sludge and small number of stones in the gallbladder with associated all bladder wall thickening and pericholecystic fluid suspect the gallbladder wall thickening and pericholecystic fluid or due to patient's ascites on the sludge/stones or chronic in nature. HIDA scan may be performed to evaluate for cystic duct patency if there is a concern regarding acute cholecystitis. The patient reports that he has chronic constipation and takes lens some lactulose at home. He reports that 3 days ago he had not had a bowel movement in several days and therefore he took a dose of milk of magnesia, but did not have a bowel movement by the next day and therefore took another dose at 8 PM yesterday. He reports that this morning he had 2 dark liquid stools followed by a third large solid bowel movement. He did not see any red blood. For the past few days he has had lower abdominal pain which she describes as a constant dull ache that is mild without any radiation. He has had decreased appetite since the weekend and reports that he was unable to eat yesterday that he was able to drink 4-5 32 ounce cups of water. Last night he vomited clear emesis. He denies any fevers or chills. He denies any right upper quadrant pain her pain associated with food intake, although he does have right upper quadrant tenderness on exam. He has lost 65 pounds over the past 2 years but states this was plan and he hasn't lost any significant weight recently. He denies any history of ascites, but states he has been having worsening abdominal distention over the past 2 days. He denies any known history of liver disease or liver cirrhosis. He denies any known history of gallbladder issues. He reports that he can usually eat whatever he feels like he does not have any food intolerances. He does not believe he is been started on any new medications. He has never had an EGD or colonoscopy. 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 back in 2010 Gout Insomnia Anxiety/depression Chronic musculoskeletal pain Chronic constipation Past Surgical History Bone marrow biopsy Port placement and removal Excision of skin cancer in his back Hip surgery Coded Allergies: No Known Allergies (Verified , 08/10/16) Medications Allergies Coded Allergies Type Severity Reaction Last Updated Verified No Known Allergies 08/10/16 Yes Active Scripts Medications Dose Route/Sig Days Date Category Dose Instructions Hydroxyzine HCl 50 Mg Tab 50 Mg PO Q6HR PRN 08/10/16 Reported [Perez Tonic] 15 Ml PO DAILY 08/10/16 Reported Flexeril (Cyclobenzaprine HCl) 10 Mg Tab 10 Mg PO HS 08/10/16 Reported Duoneb (Ipratropium-Albuterol Neb) 0.5-2.5 Mg/3 Ml Neb 3 Ml NEB BID NEB PRN 08/10/16 Reported Temazepam 15 Mg Cap 15 Mg PO HS PRN 08/10/16 Reported Multi-Vitamins (Multiple Vitamin) 1 Tab Tab 1 Tab PO DAILY 08/10/16 Reported Zofran (Ondansetron HCl) 8 Mg Tab 8 Mg PO Q8HR PRN 05/16/16 Reported Diphenhydramine (Diphenhydramine HCl) 25 Mg Cap 25 Mg PO Q6HR PRN 05/16/16 Reported Vitamin B-1 (Thiamine HCl) 100 Mg Tab 100 Mg PO DAILY 05/16/16 Reported Trazodone (Trazodone HCl) 50 Mg Tab 50 Mg PO HS 05/16/16 Reported Tizanidine (Tizanidine HCl) 4 Mg Cap 4 Mg PO HS 05/16/16 Reported Terbinafine Topical 1 % Cream 1 Applic TOPICAL DAILY 05/16/16 Reported Linzess (Linaclotide) 145 Mcg Cap 145 Mcg PO DAILY 05/16/16 Reported Lactulose Liq (Lactulose) 10 Gm/15 Ml Soln 30 Ml PO BID 05/16/16 Reported Hydrocodone-Acetaminophen 7.5-325 mg Tab 1 Tab PO Q4H PRN 05/16/16 Reported Furosemide 40 Mg Tab 40 Mg PO BID 05/16/16 Reported Docusate Sodium 100 Mg Cap 100 Mg PO BID 05/16/16 Reported Allopurinol 300 Mg Tab 300 Mg PO DAILY 05/16/16 Reported Advair Diskus Inh (Fluticasone-Salmeterol Inh) 250-50 Mcg/Blist Aer 1 Puff INH BID 05/16/16 Reported Rinse mouth after use. Family History Mother from unknown type of cancer Does not know his father's history Social History Quit smoking 10 years ago Was a heavy drinker up until currently drinks 1 beer per day at the assisted living facility Review of Systems Constitutional: COMPLAINS OF: Weight loss (planned), Change in appetite, DENIES: Fatigue, Fever, Chills Respiratory: COMPLAINS OF: Cough, Wheezing, Sputum production Cardiovascular: DENIES: Chest pain Gastrointestinal: COMPLAINS OF: Abdominal pain, Constipation, Nausea, Vomiting , Anorexia, Swelling of Abdomen, DENIES: Black stools, Bloody stools Musculoskeletal: COMPLAINS OF: Joint pain, Back pain Integumentary: DENIES: Abnormal pigmentation Hematologic/lymphatic: COMPLAINS OF: Bruising Immunologic/allergic: DENIES: Eczema Neurologic: DENIES: Headache Psychiatric: DENIES: Confusion GI Exam Vitals I&O Vital Signs Date Time Temp Pulse Resp B/P Pulse Ox O2 Delivery O2 Flow Rate FiO2 08/10/16 15:31 107/63 08/10/16 14:45 97.3 79 20 93 08/10/16 14:05 97.7 74 17 100/62 98 08/10/16 11:55 97 Nasal Cannula 2.00 08/10/16 11:49 96 Room Air 08/10/16 11:49 87 20 96 Room Air 08/10/16 11:47 98 20 96 Room Air 08/10/16 11:25 97.7 86 20 112/63 94 Room Air Imaging Last Impressions Chest X-Ray 08/10/16 0000 Signed Impressions: Service Date/Time: Wednesday, August 10, 2016 12:33 - CONCLUSION: Right base infiltrate Serjio Montenegro MD Abdomen Ultrasound 08/10/16 0000 Signed Impressions: Service Date/Time: Wednesday, August 10, 2016 14:47 - CONCLUSION: There is no significant ascites. Tong Read MD FACR Laboratory Test 08/10/16 12:00 Prothrombin Time 16.7 SEC Prothromb Time International 1.5 RATIO Ratio Activated Partial 29.4 SEC Thromboplast Time B-Type Natriuretic Peptide 100 PG/ML Physical Examination HEENT: Normocephalic; atraumatic; no jaundice. CHEST: Resp. even/unlabored, diminished. CARDIAC: RRR ABDOMEN: Soft, distended with ascites, RUQ tenderness; hepatosplenomegaly; bowel sounds are present in all four quadrants. EXTREMITIES: No clubbing, cyanosis, or edema. SKIN: Normal; no rash; no jaundice. 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 Assessment and Plan Plan ASSESSMENT: - Elevated LFTs, unclear etiology. Pt with past hx of heavy ETOH use, now drinks 1 beer per day for several years (has rx at [facility]). Denies any known hx of liver cirrhosis or gallbladder disease. Does have hx of CLL. US (08/10/16)---> hepatomegaly with diffusely coarse hepatic echogenicity similar to prior CT examination consistent with early cirrhotic changes other differential consideration includes leukemic infiltration in this patient with a history of leukemia. Persistent splenomegaly with a small amount of ascites likely due to portal hypertension. Again leukemic infiltration is in the differential. Sludge and small number of stones in the gallbladder with associated all bladder wall thickening and pericholecystic fluid suspect the gallbladder wall thickening and pericholecystic fluid or due to patient's ascites on the sludge/stones or chronic in nature. HIDA scan may be performed to evaluate for cystic duct patency if there is a concern regarding acute cholecystitis. LFTs with total bilirubin 2.3, AST 759, ALT 270, alkaline phosphatase 390. DDx biliary dz vs. liver cirrhosis vs. leukemic infiltration. Will get MRCP to r/o biliary obstruction. Liver workup. - Ascites. US with small amount of ascites, not amenable to paracentesis. Lasix, Spironolactone. - Chronic constipation, takes Linzess, Lactulose. Had BM this am. - Chronic lymphocytic leukemia and 2014 and treated with Rituxan/Bendamustine x 6 and completed this in May of 2014. He is followed by Dr. Ball. - Leukocytosis. WBC 18.0. - Hyponatremia, Chronic pain, COPD, Gout, Anxiety/Depression per primary PLAN: - Clear liquids - MRCP to r/o obstruction - Cont. Lactulose - Cont. Spironolactone, Lasix - Hepatitis profile - AFP - HA, ASMA, AMA - Ferritin, Iron saturation - Alpha 1 antitrypsin, Ceruloplasmin - CBC, CMP - ? Antibiotics, will wait until seen and examined by Dr. Hyman - Further recommendations to follow based on results of above. Michelle Rajan Aug 10, 2016 16:09
[2016-08-10] MEDS: RESP: ALBUTEROL 2.5 MG/IPRATROPIUM 0.5 MG NEB (SCH) NEB ×2 (17:15→19:42)
[2016-08-10] MEDS ORDERED: SODIUM CHLORIDE 0.65% NASAL SPRAY 45 ML BTL NASAL PRN (17:15)
[2016-08-10] MEDS: SPIRONOLACTONE 50 MG TAB PO SCH (17:19)
[2016-08-10 18:12] LABS: AMPHETAMINE, URINE NEG (NEG); BARBITURATES, URINE NEG (NEG); COCAINE, URINE NEG (NEG)
--- NOTE | 2016-08-10 18:22 | RADRPT ---
EXAM DATE/TIME: 08/10/2016 17:57 [facility] COMPARISON: CHEST SINGLE AP, May 09, 2012, 12:22. CHEST SINGLE AP, August 10, 2016, 12:33. INDICATIONS : Short of breath. Aerated right lung infiltrate and pneumonia. MEDICAL HISTORY : Hypertension. Chronic obstructive pulmonary disease. Pneumonia. Dyspnea. Leukemia. Measles. SURGICAL HISTORY : None. ENCOUNTER: Subsequent ACUITY: 1 day PAIN SCORE: 0/10 LOCATION: chest FINDINGS: PA and lateral views the chest were obtained and demonstrate a mild increase in the right lower lobe infiltrate. There is blunting of the right posterior and lateral costophrenic angle consistent with a small effusion. There is mild scarring. The heart size remains within normal limits. The bony thorax is intact. CONCLUSION: 1. Mild interval increase in right lower lobe infiltrate characteristic of pneumonia. 2. Small right effusion. Kevin Hadley MD on August 10, 2016 at 18:19 Board Certified Radiologist. This report was verified electronically.
[2016-08-10 18:57] LABS: HEMATOCRIT 42.4 % (39.0-51.0); MEAN CELL VOLUME 93.9 FL (80.0-100.0); MEAN CORPUSCULAR HEMOGLOBIN 30.5 PG (27.0-34.0); MEAN CORPUSCULAR HGB CONC 32.5 % (32.0-36.0); PLATELET COUNT 210 TH/MM3 (150-450); RED BLOOD COUNT 4.52 MIL/MM3 (4.50-5.90); REVIEW FLAG FINAL; WHITE BLOOD COUNT 17.7 TH/MM3 (4.0-11.0)
[2016-08-10 19:25] LABS: TRANSFERRIN IRON PROFILE 203 MG/DL (200-360)
[2016-08-10 19:27] LABS: FERRITIN 793 NG/ML (26-388)
[2016-08-10 20:08] LABS: MRSA PCR NEGATIVE (NEGATIVE); STAPH AUREUS PCR NEGATIVE (NEGATIVE)
[2016-08-10] MEDS: BUDESONIDE-FORMOTEROL 160/4.5 MCG INHALER INH SCH (20:29)
[2016-08-10] MEDS: DOCUSATE SODIUM 50 MG/SENNA 8.6 MG TAB PO SCH (20:30)
[2016-08-10] MEDS: LACTULOSE SYRUP 20 GM/30 ML CUP PO SCH (21:00)
[2016-08-10] MEDS: traZODone HCL 50 MG TAB PO SCH (22:41)
[2016-08-10] MEDS: SODIUM CHLORIDE 0.9% FLUSH 10 ML FLUSH IV FLUSH SCH (22:42)
[2016-08-10] MEDS: diphenhydrAMINE HCL 25 MG CAP PO PRN (23:50)
[2016-08-11] VITALS (7 sets, daily range): BP systolic 111–131; BP diastolic 55–78; PULSE 85–130; RESP 18–20; TEMP 96–98; O2SAT 92–98
[2016-08-11] MEDS: diphenhydrAMINE HCL 25 MG CAP PO PRN ×2 (07:28→20:33)
[2016-08-11] MEDS: RESP: ALBUTEROL 2.5 MG/IPRATROPIUM 0.5 MG NEB (SCH) NEB ×2 (08:07→19:57)
--- NOTE | 2016-08-11 08:10 | EKG ---
Date Performed: 08/10/2016 Time Performed: 11:57:20 PTAGE: 70 years EKG: Sinus rhythm POSSIBLE RIGHT VENTRICULAR CONDUCTION DELAY LEFT ANTERIOR FASCICULAR BLOCK ABNORMAL ECG PREVIOUS TRACING : 06/28/2016 09.20 DOCTOR: Elroy Gan Interpretating Date/Time 08/11/2016 08:04:22
[2016-08-11 08:12] LABS: AUTOMATED NEUTROPHIL # 11.6 TH/MM3 (1.8-7.7); BASOPHIL # 0.1 TH/MM3 (0-0.2); BASOPHIL % 0.7 % (0.0-2.0); EOSINOPHIL # 0.2 TH/MM3 (0-0.4); EOSINOPHIL % 1.3 % (0.0-4.0); HEMATOCRIT 40.4 % (39.0-51.0); HEMO FLAGS DIFF FINAL; LYMPH % 25.1 % (9.0-44.0); LYMPHOCYTE # 4.6 TH/MM3 (1.0-4.8); MEAN CORPUSCULAR HEMOGLOBIN 31.7 PG (27.0-34.0); MEAN CORPUSCULAR HGB CONC 34.1 % (32.0-36.0); MONO % 9.4 % (0.0-8.0); NEUT % 63.5 % (16.0-70.0); PLATELET COUNT 199 TH/MM3 (150-450); RED BLOOD COUNT 4.34 MIL/MM3 (4.50-5.90); RED CELL DISTRIBUTION WIDTH 16.3 % (11.6-17.2); WHITE BLOOD COUNT 18.3 TH/MM3 (4.0-11.0)
[2016-08-11 08:13] LABS: INTERNATIONAL NORMALIZED RATIO 1.5 RATIO; PROTHROMBIN TIME - PATIENT 16.5 SEC (9.8-11.6)
[2016-08-11 08:39] LABS: ALT (GPT) 409 U/L (12-78); ANION GAP 9 MEQ/L (5-15); BICARBONATE 29.2 MEQ/L (21.0-32.0); BLOOD UREA NITROGEN 9 MG/DL (7-18); CHLORIDE 95 MEQ/L (98-107); SODIUM (NA) 133 MEQ/L (136-145)
[2016-08-11 08:45] LABS: ALKALINE PHOSPHATASE 368 U/L (45-117); AST (GOT) 1145 U/L (15-37); INDIRECT BILIRUBIN 0.8 MG/DL (0.0-0.8); TOTAL BILIRUBIN ADULT 3.2 MG/DL (0.2-1.0)
[2016-08-11] MEDS ORDERED: LINZESS 145 MCG PO SCH (09:00)
[2016-08-11] MEDS: SPIRONOLACTONE 50 MG TAB PO SCH ×2 (09:32→19:38)
[2016-08-11] MEDS: ONDANSETRON HCL 4 MG/2 ML VIAL IV PUSH PRN ×2 (09:33→23:33)
[2016-08-11] MEDS: ALLOPURINOL 300 MG TAB PO SCH (09:33)
[2016-08-11] MEDS: SODIUM CHLORIDE 0.9% FLUSH 10 ML FLUSH IV FLUSH SCH ×2 (09:33→20:39)
[2016-08-11] MEDS: FUROSEMIDE 40 MG TAB PO SCH ×2 (09:33→19:38)
[2016-08-11] MEDS: BUDESONIDE-FORMOTEROL 160/4.5 MCG INHALER INH SCH ×2 (09:34→20:35)
[2016-08-11] MEDS: DOCUSATE SODIUM 50 MG/SENNA 8.6 MG TAB PO SCH ×2 (09:36→20:36)
[2016-08-11] MEDS: LACTULOSE SYRUP 20 GM/30 ML CUP PO SCH ×2 (09:36→20:36)
--- NOTE | 2016-08-11 10:32 | HHI.PR ---
Subjective Remarks Follow up for acute liver failure Patient is no complaints. He had one episode nausea this morning that resolved Zofran. Denied any nausea vomiting when I interviewed patient. Denied any abdominal pain. He remains afebrile. Objective Vitals Vital Signs Date Time Temp Pulse Resp B/P Pulse Ox O2 Delivery O2 Flow Rate FiO2 08/11/16 08:00 97.9 130 20 111/70 92 08/11/16 04:13 19 08/11/16 04:00 97.7 85 18 130/78 98 08/11/16 00:00 96.0 110 18 114/77 94 08/10/16 21:00 78 08/10/16 20:00 96.4 78 18 112/73 92 08/10/16 19:45 96 21 08/10/16 15:31 107/63 08/10/16 15:03 85 08/10/16 14:45 97.3 79 20 93 08/10/16 14:05 97.7 74 17 100/62 98 08/10/16 11:55 97 Nasal Cannula 2.00 08/10/16 11:49 96 Room Air 08/10/16 11:49 87 20 96 Room Air 08/10/16 11:47 98 20 96 Room Air 08/10/16 11:25 97.7 86 20 112/63 94 Room Air I/O 08/10/16 08/10/16 08/10/16 08/11/16 08/11/16 08/11/16 07:00 15:00 23:00 07:00 15:00 23:00 Output Total 100 ml Balance -100 ml Output Urine Total 100 ml Bladder Scan Volume Amount 334 ml Result Diagram: 08/11/16 0644 08/11/16 0644 Imaging Last Impressions Chest X-Ray 08/10/16 1306 Signed Impressions: Service Date/Time: Wednesday, August 10, 2016 17:57 - CONCLUSION: 1. Mild interval increase in right lower lobe infiltrate characteristic of pneumonia. 2. Small right effusion. Kevin Hadley MD Abdomen Ultrasound 08/10/16 0000 Signed Impressions: Service Date/Time: Wednesday, August 10, 2016 14:47 - CONCLUSION: There is no significant ascites. Tong Read MD FACR Objective Remarks GENERAL: SKIN: Warm and dry. HEAD: Normocephalic. EYES: No scleral icterus. No injection or drainage. NECK: Supple, trachea midline. No JVD or lymphadenopathy. CARDIOVASCULAR: Regular rate and rhythm without murmurs, gallops, or rubs. RESPIRATORY: Breath sounds equal bilaterally. No accessory muscle use. GASTROINTESTINAL: Abdomen soft, distended, no TTP. MUSCULOSKELETAL: No cyanosis, or edema. BACK: Nontender without obvious deformity. No CVA tenderness. Medications and IVs Current Medications Sodium Chloride (NS Flush) 2 ml UNSCH PRN IVF FLUSH AFTER USING IV ACCESS Last administered on 08/10/16 11:51; Start 08/10/16 at 12:00; Stop 08/10/16 at 13:12 ; Status DC Albuterol/ Ipratropium (Duoneb Neb) 1 ampule ONCE ONCE INH Last administered on 08/10/16 11:55; Start 08/10/16 at 12:00; Stop 08/10/16 at 12:01; Status DC Sodium Chloride (NS Flush) 2 ml UNSCH PRN IV FLUSH FLUSH AFTER USING IV ACCESS ; Start 08/10/16 at 13:15 Sodium Chloride (NS Flush) 2 ml BID IV FLUSH Last administered on 08/11/16 09: 33; Start 08/10/16 at 21:00 Naloxone HCl (Narcan Inj) 0.4 mg UNSCH PRN IV SEE LABEL COMMENTS; Start at 13:15 Senna/Docusate Sodium (Sharlene-Colace) 1 tab BID PO Last administered on 09:36; Start 08/10/16 at 21:00 Magnesium Hydroxide (Milk Of Magnesia Liq) 30 ml Q12H PRN PO MILD - MODERATE CONSTIPATION; Start 08/10/16 at 13:15 Sennosides (Senokot) 17.2 mg Q12H PRN PO MODERATE - SEVERE CONSTIPATION Last administered on 08/10/16 15:19; Start 08/10/16 at 13:15 Bisacodyl (Dulcolax Supp) 10 mg DAILY PRN RECTAL SEVERE CONSITIPATION; Start at 13:15 Lactulose (Lactulose Liq) 30 ml DAILY PRN PO SEVERE CONSITIPATION; Start at 13:15 Oxycodone HCl (Roxicodone) 5 mg Q4H PRN PO pain 1-8 Last administered on 14:04; Start 08/10/16 at 13:15 Oxycodone HCl (Roxicodone) 10 mg Q4H PRN PO pain 9-10 Last administered on 08/11 07:28; Start 08/10/16 at 13:15 Furosemide (Lasix) 20 mg BID@,18 PO ; Start 08/10/16 at 14:15; Stop 08/10/16 at 14:15; Status DC Spironolactone (Aldactone) 50 mg BID@,18 PO Last administered on 08/11/16 09 :32; Start 08/10/16 at 18:00 Allopurinol (Zyloprim) 300 mg DAILY PO Last administered on 08/11/16 09:33; Start 08/11/16 at 09:00 Lactulose (Lactulose Liq) 30 ml BID PO Last administered on 08/11/16 09:36; Start 08/10/16 at 21:00 Trazodone HCl (Desyrel) 50 mg HS PO Last administered on 08/10/16 22:41; Start 08/10/16 at 21:00 Budesonide/ Formoterol Fumarate (Symbicort 160-4.5 Inh) 2 puff BID INH Last administered on 08/11/16 09:34; Start 08/10/16 at 21:00 Patient Own Medication PT OWN MED: LINZ... DAILY PO ; Start 08/11/16 at 09:00; Status Hold Furosemide (Lasix) 40 mg BID@18 PO Last administered on 08/11/16 09:33; Start 08/10/16 at 15:15 Albuterol/ Ipratropium (Duoneb Neb) 1 ampule Q12HR NEB NEB Last administered on 08/11/16 08:07; Start 08/10/16 at 17:15 Sodium Chloride ([place] Aime Powers) 1 spray Q2H PRN NASAL CONGESTION Last administered on 08/10/16 20:29; Start 08/10/16 at 17:15 Diphenhydramine HCl (Benadryl) 25 mg Q6HR PRN PO ALLERGIES Last administered on 08/11/16 07:28; Start 08/10/16 at 23:45 Ondansetron HCl (Zofran Inj) 4 mg Q6H PRN IV PUSH NAUSEA AND VOMITING Last administered on 08/11/16t 09:33; Start 08/11/16 at 08:00 A/P Assessment and Plan 70-year-old male with history of chronic lymphocytic leukemia in remission who presented with Acute liver failure -AST 759, LT 270, alkaline phosphatase 390, LDH 678, total protein 5.9. Prior his LFTs in April 2016 was within normal limits. -LFTs continued to increase. Abdominal ultrasound shows early signs of liver cirrhosis versus infiltrate. Recommended patient to avoid alcohol use completely. He agreed. -Patient had MRCP done this morning pending results and he is schedule also for HIDA scan today. -Continue with Lasix and spinal lactone. -GI is following. Chronic lymphocytic leukemia status post chemotherapy completion in May 2014. -Patient is following up with Dr. Ball as outpatient. Last PET scan was in February 2016 which showed mild uptake in bilateral neck, axillae, mediastinum and retroperitoneum. Leukocytosis -close to patient's baseline. continue to monitor. COPD -Stable. Patient stated that he chronically has shortness of breathing and that this has not worsened. CXR shows mild right lower infiltrate which is most likely fluid. no signs of infection. -Continue with home medication. Chronic musculoskeletal pain/osteoarthritis -Since patient is in liver failure Lortab was discontinued when he is now on oxycodone. Constipation -continue lactulose. Status post suppository. Per patient he had a bowel movement. Anxiety/Gout -Continue home medication. DVT prophylaxis -SCDs. INR 1.5. Discharge Planning Acute liver failure continues to worsen. Pending workup from further management. Emma Herzog MD Aug 11, 2016 10:32
--- NOTE | 2016-08-11 10:40 | RADRPT ---
EXAM DATE/TIME: 08/11/2016 08:38 [facility] COMPARISON: No previous studies available for comparison. INDICATIONS : Abdominal pain with distension. MEDICAL HISTORY : Hypertension. Leukemia. SURGICAL HISTORY : Rt hip replacement, port placed ENCOUNTER: Subsequent ACUITY: 2 day PAIN SCORE: 3/10 LOCATION: abdomen TECHNIQUE: Multiplanar, multisequence magnetic resonance imaging of the abdomen was performed. High-resolution 3D dataset was utilized to reconstruct maximum-intensity projection (MIP) images. FINDINGS: INTRAHEPATIC BILE DUCTS: Within normal limits. No significant anatomical variant is present. EXTRAHEPATIC BILE DUCTS: The common bile duct measures 5 mm. No stone or filling defect is identified. GALLBLADDER: Gallbladder is moderately distended. There is noticeable thickening or intraluminal filling defects. LIVER: Liver is enlarged measuring 25 cm in craniocaudad dimension. There are no discrete or focal space-occ upying lesions. Portal vein is patent but demonstrates slight increase signal intensity compared to t he other vascular structures. PANCREAS: The main pancreatic duct is normal in size. There is no significant anatomical variant. Signal inte nsity is within normal limits. No mass is visualized on this non-contrast exam. OTHER: Moderate amount of free fluid is identified in the abdomen. The spleen is enlarged measuring 15.4 cm in craniocaudad dimension. CONCLUSION: 1. Hepatosplenomegaly 2. Distended gallbladder otherwise no evidence of biliary obstructive disease. 3. Small to moderate ascites 4. Altered flow in the portal vein which may be indicative of portal hypertension. 5. No other significant abnormalities identified. Steve Acuna MD on August 11, 2016 at 10:28 Board Certified Radiologist. This report was verified electronically.
[2016-08-11 10:58] LABS: BLOOD, URINE NEG (NEG); GLUCOSE,URINE NEG (NEG); HYALINE CAST, URINE 64 /lpf (RARE); KETONE, URINE NEG (NEG); MUCUS URINE FEW /lpf (OCC); NITRITE,URINE NEG (NEG); PH, URINE 5.5 (5.0-8.5); SQUAMOUS EPITHELIAL CELL URINE 1 /hpf (0-5); TRANSITIONAL EPI CELLS, URINE 1 /hpf
[2016-08-11 11:02] LABS: URINE COLOR DARK-BROWN (YELLW/STRAW)
[2016-08-11 11:03] LABS: COMMENT (UR) CULTURE INDICATED; CULTURE IF INDICATED CULTURE INDICATED
[2016-08-11] MEDS ORDERED: SINCALIDE 5 MCG/5 ML VIAL IV ONE (12:16)
--- NOTE | 2016-08-11 15:02 | RADRPT ---
EXAM DATE/TIME: 08/11/2016 10:13 [facility] COMPARISON: No previous studies available for comparison. INDICATIONS : Abdominal pain, nausea and vomiting. DOSE: 4.1 mCi Tc99m Mebrofenin IV MEDICATION: 1.86 mcg Cholecystokinin IV; No symptomatic response. Cholecystokinin was administered by slow infusion over 8 minutes beginning at 80 minutes. MEDICAL HISTORY : Chronic obstructive pulmonary disease. Hypertension. Lymphocytic leukemia. SURGICAL HISTORY : Right leg and hip surgery. ENCOUNTER: Initial ACUITY: 2 days PAIN SCALE: 0/10 LOCATION: Right upper quadrant TECHNIQUE: Following the intravenous administration of radiotracer, dynamic sequential image were performed with continuous acquisition. Time-activity curves were generated. FINDINGS: HEPATIIC KINETICS: There is prompt uptake of radiotracer in the liver. No focal defects are seen. There is normal rate of washout from the hepatic parenchyma. BILIARY CLEARANCE: Activity is first seen in the extrahepatic biliary system at 35 minutes. There is normal excretion i nto the small bowel. GALLBLADDER: Activity is first seen in the gallbladder at 20 minutes. POST CHOLECYSTOKININ: After Cholecystokinin administration, there is prompt emptying of the gallbladder with a normal eject ion fraction. Common bile duct kinetics are normal and there is no evidence of biliary obstruction. BILIARY ENTERIC REFLUX: None observed. CLINICAL: The patient was asymptomatic after Cholecystokinin administration. CONCLUSION: 1. Normal HIDA scan confirming patency of the cystic and common bile ducts. 2. Normal gallbladder EF. 3. The patient was asymptomatic with administration of CCK. Sung Gomez MD on August 11, 2016 at 14:47 Board Certified Radiologist. This report was verified electronically.
--- NOTE | 2016-08-11 16:40 | HHI.GIFU ---
Subjective Remarks Pt resting in bed. Admits jaundice 40y ago. Objective Vitals I&O Vital Signs Date Time Temp Pulse Resp B/P Pulse Ox O2 Delivery O2 Flow Rate FiO2 08/11/16 16:00 97.5 95 18 120/68 92 08/11/16 13:00 98.0 102 18 117/66 93 08/11/16 08:00 97.9 130 20 111/70 92 08/11/16 04:13 19 08/11/16 04:00 97.7 85 18 130/78 98 08/11/16 00:00 96.0 110 18 114/77 94 08/10/16 21:00 78 08/10/16 20:00 96.4 78 18 112/73 92 08/10/16 19:45 96 21 I/O 08/10/16 08/10/16 08/10/16 08/11/16 08/11/16 08/11/16 07:00 15:00 23:00 07:00 15:00 23:00 Output Total 100 ml Balance -100 ml Output Urine Total 100 ml Bladder Scan Volume Amount 334 ml Laboratory Laboratory Tests Test 08/10/16 08/10/16 08/11/16 17:00 17:50 06:44 Urine Opiates Screen POS Urine Barbiturates Screen NEG Urine Amphetamines Screen NEG Urine Benzodiazepines Screen NEG Urine Cocaine Screen NEG Urine Cannabinoids Screen NEG Urine Color DARK-BROWN Urine Turbidity HAZY Urine pH 5.5 Urine Specific [place] 1.022 Urine Protein TRACE Urine Glucose (UA) NEG Urine Ketones NEG Urine Occult Blood NEG Urine Nitrite NEG Urine Bilirubin SMALL Urine Urobilinogen 2.0 Urine Leukocyte Esterase MOD Urine RBC 2 Urine WBC 9 Urine Squamous Epithelial 1 Cells Urine Transitional Epithelial 1 Cells Urine Hyaline Casts 64 Urine Mucus FEW Microscopic Urinalysis Comment CULTURE INDICATED White Blood Count 17.7 18.3 Red Blood Count 4.52 4.34 Hemoglobin 13.8 13.8 Hematocrit 42.4 40.4 Mean Corpuscular Volume 93.9 93.0 Mean Corpuscular Hemoglobin 30.5 31.7 Mean Corpuscular Hemoglobin 32.5 34.1 Concent Red Cell Distribution Width 16.0 16.3 Platelet Count 210 199 Mean Platelet Volume 9.8 9.9 Iron Level 60 Total Iron Binding Capacity 284 Percent Iron Saturation 21.1 Ferritin 793 Lactate Dehydrogenase 644 Total Protein 6.0 5.7 Tumor Marker Alpha Fetoprotein 1.6 Hepatitis A IgM Antibody NEGATIVE Hepatitis B Surface Antigen POSITIVE Hepatitis B Core IgM Antibody REACTIVE Hepatitis C Antibody REACTIVE Neutrophils (%) (Auto) 63.5 Lymphocytes (%) (Auto) 25.1 Monocytes (%) (Auto) 9.4 Eosinophils (%) (Auto) 1.3 Basophils (%) (Auto) 0.7 Neutrophils # (Auto) 11.6 Lymphocytes # (Auto) 4.6 Monocytes # (Auto) 1.7 Eosinophils # (Auto) 0.2 Basophils # (Auto) 0.1 CBC Comment DIFF FINAL Differential Comment Prothrombin Time 16.5 Prothromb Time International 1.5 Ratio Sodium Level 133 Potassium Level 4.0 Chloride Level 95 Carbon Dioxide Level 29.2 Anion Gap 9 Blood Urea Nitrogen 9 Creatinine 0.90 Random Glucose 82 Calcium Level 8.7 Total Bilirubin 3.2 Direct Bilirubin 2.4 Indirect Bilirubin 0.8 Aspartate Amino Transf 1145 (AST/SGOT) Alanine Aminotransferase 409 (ALT/SGPT) Alkaline Phosphatase 368 Albumin 2.9 Date/Time Procedure Status Source Growth 08/10/16 17:00 Urine Culture Received Urine Clean Catch Pending Imaging Last Impressions Hepatobiliary Scan Nuclear Medicine 08/11/16 0000 Signed Impressions: Service Date/Time: July 10:13 - CONCLUSION: 1. Normal HIDA scan confirming patency of the cystic and common bile ducts. 2. Normal gallbladder EF. 3. The patient was asymptomatic with administration of CCK. Sung Gomez MD Cholangiopancreatography MRI 08/11/16 0000 Signed Impressions: Service Date/Time: July 08:38 - CONCLUSION: 1. Hepatosplenomegaly 2. Distended gallbladder otherwise no evidence of biliary obstructive disease. 3. Small to moderate ascites 4. Altered flow in the portal vein which may be indicative of portal hypertension. 5. No other significant abnormalities identified. Steve Acuna MD Chest X-Ray 08/10/16 1306 Signed Impressions: Service Date/Time: Wednesday, August 10, 2016 17:57 - CONCLUSION: 1. Mild interval increase in right lower lobe infiltrate characteristic of pneumonia. 2. Small right effusion. Kevin Hadley MD Abdomen Ultrasound 08/10/16 0000 Signed Impressions: Service Date/Time: Wednesday, August 10, 2016 14:47 - CONCLUSION: There is no significant ascites. Tong Read MD FACR Physical Exam HEENT: PERRL; normocephalic; atraumatic; no jaundice. CHEST: wheezes CARDIAC: RRR ABDOMEN: Soft, distended, diffuse TTP; no hepatosplenomegaly; bowel sounds are present in all four quadrants. EXTREMITIES: No clubbing, cyanosis, or edema. SKIN: Normal; no rash; no jaundice. PHLEBOTOMY DIRECTOR: No focal deficits; alert and oriented times three. Assessment and Plan Plan ASSESSMENT: - Elevated LFTs, unclear etiology. worsening. labs c/w acute Hep B infection, antibody to hep C pos. HIDA 08-11-16 neg. MRCP --> Hepatosplenomegaly 2. Distended gallbladder otherwise no evidence of biliary obstructive disease. 3. Small to moderate ascites 4. Altered flow in the portal vein which may be indicative of portal hypertension. 5. No other significant abnormalities identified. Pt with past hx of heavy ETOH use, now drinks 1 beer per day for several years (has rx at [facility]). Denies any known hx of liver cirrhosis or gallbladder disease. Does have hx of CLL. US (08/10/16)---> hepatomegaly with diffusely coarse hepatic echogenicity similar to prior CT examination consistent with early cirrhotic changes other differential consideration includes leukemic infiltration in this patient with a history of leukemia. Persistent splenomegaly with a small amount of ascites likely due to portal hypertension. Again leukemic infiltration is in the differential. Sludge and small number of stones in the gallbladder with associated all bladder wall thickening and pericholecystic fluid suspect the gallbladder wall thickening and pericholecystic fluid or due to patient's ascites on the sludge/stones or chronic in nature. HIDA scan may be performed to evaluate for cystic duct patency if there is a concern regarding acute cholecystitis. AFP 1.6, iron 60, TIBC 284, sat 21.1, ferritin 793 - Ascites. US with small amount of ascites, not amenable to paracentesis. Lasix, Spironolactone. - Chronic constipation, takes Linzess, Lactulose. Had BM yesterday - Chronic lymphocytic leukemia and 2013 and treated with Rituxan/Bendamustine x 6 and completed this in May of 2014. He is followed by Dr. Ball. - Leukocytosis. WBC 18.0. - Hyponatremia, Chronic pain, COPD, Gout, Anxiety/Depression per primary PLAN: - Clear liquids - Cont. Lactulose - Cont. Spironolactone, Lasix - hep B quant, hep BE ag, hep C genotype & quant - await liver w/u - CBC, CMP - Further recommendations to follow based on results of above. This pt seen by myself and Dr Hyman and this note is written on his behalf Bernie Pruett Aug 11, 2016 16:40
[2016-08-11] MEDS: POLYETHYLENE GLYCOL 17 GM PKG PO SCH ×2 (20:32→21:53)
[2016-08-11] MEDS: traZODone HCL 50 MG TAB PO SCH (20:36)
[2016-08-12] VITALS (9 sets, daily range): BP systolic 100–172; BP diastolic 60–92; PULSE 80–135; RESP 18–22; TEMP 96.6–99.6; O2SAT 91–93
--- NOTE | 2016-08-12 02:37 | RADRPT ---
EXAM DATE/TIME: 08/12/2016 01:56 [facility] COMPARISON: CHEST PA & LAT, August 10, 2016, 17:57. INDICATIONS : Pt has history of CHF and was coughing up fluid. MEDICAL HISTORY : Congestive heart failure. Hypertension. Chronic obstructive pulmonary disease. Pneumonia. SURGICAL HISTORY : None. ENCOUNTER: Initial ACUITY: 1 day PAIN SCORE: 6/10 LOCATION: Bilateral chest FINDINGS: There is improvement in aeration of the right lung base, however persistent parenchymal infiltrate re sadaf. Old right proximal humeral fracture is again seen. The rest of the examination has not signifi cantly changed. CONCLUSION: Slight improvement in right lung base infiltrate. Aleshia Santoro MD on August 12, 2016 at 2:35 Board Certified Radiologist. This report was verified electronically.
[2016-08-12 03:25] LABS: AUTOMATED NEUTROPHIL # 14.2 TH/MM3 (1.8-7.7); BASOPHIL # 0.5 TH/MM3 (0-0.2); BASOPHIL % 2.7 % (0.0-2.0); EOSINOPHIL # 0.1 TH/MM3 (0-0.4); EOSINOPHIL % 0.5 % (0.0-4.0); HEMATOCRIT 41.4 % (39.0-51.0); LYMPH % 14.8 % (9.0-44.0); MEAN CELL VOLUME 93.9 FL (80.0-100.0); MEAN CORPUSCULAR HEMOGLOBIN 31.4 PG (27.0-34.0); MEAN CORPUSCULAR HGB CONC 33.4 % (32.0-36.0); MONO % 11.1 % (0.0-8.0); NEUT % 70.9 % (16.0-70.0); PLATELET COUNT 209 TH/MM3 (150-450); RED BLOOD COUNT 4.41 MIL/MM3 (4.50-5.90); RED CELL DISTRIBUTION WIDTH 16.2 % (11.6-17.2)
[2016-08-12 03:35] LABS: HEMO FLAGS AUTO DIFF
[2016-08-12 03:53] LABS: ALT (GPT) 485 U/L (12-78); ANION GAP 12 MEQ/L (5-15); BICARBONATE 27.5 MEQ/L (21.0-32.0); BLOOD UREA NITROGEN 12 MG/DL (7-18); CHLORIDE 93 MEQ/L (98-107); POTASSIUM 4.1 MEQ/L (3.5-5.1); SODIUM (NA) 132 MEQ/L (136-145)
[2016-08-12 03:59] LABS: ALKALINE PHOSPHATASE 380 U/L (45-117); AST (GOT) 1231 U/L (15-37); TOTAL BILIRUBIN ADULT 3.9 MG/DL (0.2-1.0)
[2016-08-12 04:11] LABS: BASOPHILS 1 % (0-2); NEUTROPHIL # MANUAL DIFF 14.6 TH/MM3 (1.8-7.7); POLYS (SEG NEUTROPHILS) 73 % (16-70); SCAN/DIFF FINAL DIFF MANUAL; WBC DIFF SAMPLE 100
[2016-08-12 04:12] LABS: OVALOCYTES 1+ (NORMAL); PLATELET ESTIMATE SMEAR NORMAL (NORMAL); PLATELET MORPHOLOGY NORMAL (NORMAL)
[2016-08-12] MEDS ORDERED: LEVOFLOXACIN 750 MG PREMIX INJ 150 ML IV SCH (05:00)
[2016-08-12] MEDS: SPIRONOLACTONE 50 MG TAB PO SCH ×2 (08:29→17:07)
[2016-08-12] MEDS: LACTULOSE SYRUP 20 GM/30 ML CUP PO SCH ×2 (08:29→21:02)
[2016-08-12] MEDS: FUROSEMIDE 40 MG TAB PO SCH ×2 (08:29→17:07)
[2016-08-12] MEDS: ALLOPURINOL 300 MG TAB PO SCH (08:29)
[2016-08-12] MEDS: DOCUSATE SODIUM 50 MG/SENNA 8.6 MG TAB PO SCH ×2 (08:29→21:02)
[2016-08-12] MEDS: BUDESONIDE-FORMOTEROL 160/4.5 MCG INHALER INH SCH ×2 (08:35→21:03)
[2016-08-12] MEDS: SODIUM CHLORIDE 0.9% FLUSH 10 ML FLUSH IV FLUSH SCH ×2 (08:35→21:02)
[2016-08-12] MEDS: RESP: ALBUTEROL 2.5 MG/IPRATROPIUM 0.5 MG NEB (SCH) NEB ×2 (08:49→19:46)
--- NOTE | 2016-08-12 10:10 | HHI.PR ---
Subjective Remarks Follow-up for hepatitis Patient denies abdominal pain, nausea vomiting. Remains afebrile. Patient asking for his pain medication to be schedule every 4 hours. Pain has been chronic. No other complaints. Objective Vitals Vital Signs Date Time Temp Pulse Resp B/P Pulse Ox O2 Delivery O2 Flow Rate FiO2 08/12/16 08:00 96.6 89 20 106/60 92 08/12/16 05:12 97.5 85 20 100/65 92 08/12/16 04:38 20 08/12/16 02:32 102/62 08/12/16 00:00 99.6 135 22 172/92 91 08/11/16 21:00 122 08/11/16 20:06 97.5 88 18 131/55 92 08/11/16 16:00 97.5 95 18 120/68 92 08/11/16 13:00 98.0 102 18 117/66 93 I/O 08/11/16 08/11/16 08/11/16 08/12/16 08/12/16 08/12/16 07:00 15:00 23:00 07:00 15:00 23:00 Intake Total 1200 ml 240 ml Output Total 150 ml Balance 1200 ml 240 ml -150 ml Intake Oral 1200 ml 240 ml Output Urine Total 150 ml # Voids 3 1 # Bowel Movements 0 Result Diagram: 08/12/1622108/12/16221 Objective Remarks GENERAL: SKIN: Warm and dry. HEAD: Normocephalic. EYES: No scleral icterus. No injection or drainage. NECK: Supple, trachea midline. No JVD or lymphadenopathy. CARDIOVASCULAR: Regular rate and rhythm without murmurs, gallops, or rubs. RESPIRATORY: Breath sounds equal bilaterally. No accessory muscle use. GASTROINTESTINAL: Abdomen soft, distended less taunt, no TTP. MUSCULOSKELETAL: No cyanosis, or edema. BACK: Nontender without obvious deformity. No CVA tenderness. Medications and IVs Current Medications Sodium Chloride (NS Flush) 2 ml UNSCH PRN IVF FLUSH AFTER USING IV ACCESS Last administered on 08/10/16 11:51; Start 08/10/16 at 12:00; Stop 08/10/16 at 13:12 ; Status DC Albuterol/ Ipratropium (Duoneb Neb) 1 ampule ONCE ONCE INH Last administered on 08/10/16 11:55; Start 08/10/16 at 12:00; Stop 08/10/16 at 12:01; Status DC Sodium Chloride (NS Flush) 2 ml UNSCH PRN IV FLUSH FLUSH AFTER USING IV ACCESS ; Start 08/10/16 at 13:15 Sodium Chloride (NS Flush) 2 ml BID IV FLUSH Last administered on 08/12/16 08: 35; Start 08/10/16 at 21:00 Naloxone HCl (Narcan Inj) 0.4 mg UNSCH PRN IV SEE LABEL COMMENTS; Start at 13:15 Senna/Docusate Sodium (Sharlene-Colace) 1 tab BID PO Last administered on 08:29; Start 08/10/16 at 21:00 Magnesium Hydroxide (Milk Of Magnesia Liq) 30 ml Q12H PRN PO MILD - MODERATE CONSTIPATION; Start 08/10/16 at 13:15 Sennosides (Senokot) 17.2 mg Q12H PRN PO MODERATE - SEVERE CONSTIPATION Last administered on 08/10/16 15:19; Start 08/10/16 at 13:15 Bisacodyl (Dulcolax Supp) 10 mg DAILY PRN RECTAL SEVERE CONSITIPATION; Start at 13:15 Lactulose (Lactulose Liq) 30 ml DAILY PRN PO SEVERE CONSITIPATION; Start at 13:15 Oxycodone HCl (Roxicodone) 5 mg Q4H PRN PO pain 1-8 Last administered on 14:04; Start 08/10/16 at 13:15 Oxycodone HCl (Roxicodone) 10 mg Q4H PRN PO pain 9-10 Last administered on 08/12 08:29; Start 08/10/16 at 13:15 Furosemide (Lasix) 20 mg BID@09,18 PO ; Start 08/10/16 at 14:15; Stop 08/10/16 at 14:15; Status DC Spironolactone (Aldactone) 50 mg BID@09,18 PO Last administered on 08/12/16 08 :29; Start 08/10/16 at 18:00 Allopurinol (Zyloprim) 300 mg DAILY PO Last administered on 08/12/16 08:29; Start 08/11/16 at 09:00 Lactulose (Lactulose Liq) 30 ml BID PO Last administered on 08/12/16 08:29; Start 08/10/16 at 21:00 Trazodone HCl (Desyrel) 50 mg HS PO Last administered on 08/11/16 20:36; Start 08/10/16 at 21:00 Budesonide/ Formoterol Fumarate (Symbicort 160-4.5 Inh) 2 puff BID INH Last administered on 08/12/16 08:35; Start 08/10/16 at 21:00 Patient Own Medication PT OWN MED: LINZ... DAILY PO ; Start 08/11/16 at 09:00; Status Hold Furosemide (Lasix) 40 mg BID@09,18 PO Last administered on 08/12/16 08:29; Start 08/10/16 at 15:15 Albuterol/ Ipratropium (Duoneb Neb) 1 ampule Q12HR NEB NEB Last administered on 08/12/16 08:49; Start 08/10/16 at 17:15 Sodium Chloride ([place]) 1 spray Q2H PRN NASAL CONGESTION Last administered on 08/10/16 20:29; Start 08/10/16 at 17:15 Diphenhydramine HCl (Benadryl) 25 mg Q6HR PRN PO ALLERGIES Last administered on 08/11/16 20:33; Start 08/10/16 at 23:45 Ondansetron HCl (Zofran Inj) 4 mg Q6H PRN IV PUSH NAUSEA AND VOMITING Last administered on 08/11/16 23:33; Start 08/11/16 at 08:00 Sincalide (Kinevac Inj) 1.86 mcg STK-MED ONCE IV Last administered on 12:16; Start 08/11/16 at 12:16; Stop 08/11/16 at 12:17; Status DC Polyethylene Glycol 34 gm 34 gm Q2HR PO Last administered on 08/11/16 20:32; Start 08/11/16 at 20:00; Stop 08/11/16 at 22:01; Status DC Levofloxacin/ Dextrose (Levaquin 750 Mg Premix Inj) 150 ml @ 100 mls/hr Q24H IV Last administered on 08/12/16t 05:52; Start 08/12/16 at 05:00 A/P Assessment and Plan 70-year-old male with history of chronic lymphocytic leukemia in remission who presented with Elevated LFTs secondary to Hepatitis B/C complicated by small amount ascites and portal hypertension -On admission AST 759, LT 270, alkaline phosphatase 390, LDH 678, total protein 5.9. Prior his LFTs in April 2016 was within normal limits. -abdominal ultrasound shows early signs of liver cirrhosis versus infiltrate. HIDA scan negative. MRCP showed possible portal hypertension. -LFTs continue to trend up. Patient is asymptomatic. -Continue with Lasix and spironolactone. -GI is following. Continue to trend LFTs. Leukocytosis -Patient baseline is elevated secondary to history of CLL. -Most likely virally versus CLL. -There are no clinical signs of bacterial infection. Workup has been negative so far. Unsure why Levaquin was started at 5 AM. Will discontinue Levaquin. -Continue to monitor leukocytosis. Chronic lymphocytic leukemia status post chemotherapy completion in May 2014. -Patient is following up with Dr. Ball as outpatient. Last PET scan was in February 2016 which showed mild uptake in bilateral neck, axillae, mediastinum and retroperitoneum. COPD -Stable. Patient stated that he chronically has shortness of breathing and that this has not worsened. CXR shows mild right lower infiltrate which is most likely fluid. no signs of infection. -Continue with home medication. Chronic musculoskeletal pain/osteoarthritis -Will have nurse confirm patient's pain medication dosage with his pharmacist. He was on hydrocodone at home but due to his elevated liver enzymes he was put on oxycodone in the hospital. Continue her current regimen. Constipation -continue lactulose. Status post suppository. Per patient he had a bowel movement. Anxiety/Gout -Continue home medication. DVT prophylaxis -SCDs. INR 1.5. Discharge Planning Continue with management per GI. LFTs continues to worsens. Emma Herzog MD Aug 12, 2016 10:10
[2016-08-12] MEDS: diphenhydrAMINE HCL 25 MG CAP PO PRN ×2 (13:05→23:00)
--- NOTE | 2016-08-12 14:29 | HHI.GIFU ---
Subjective Remarks Resting in bed. Nausea without vomiting, lower abdominal discomfort. No bowel movement. Objective Vitals I&O Vital Signs Date Time Temp Pulse Resp B/P Pulse Ox O2 Delivery O2 Flow Rate FiO2 08/12/16 12:00 96.9 92 18 110/68 93 08/12/16 08:00 96.6 89 20 106/60 92 08/12/16 07:36 83 08/12/16 05:12 97.5 85 20 100/65 92 08/12/16 04:38 20 08/12/16 02:32 102/62 08/12/16 00:00 99.6 135 22 172/92 91 08/11/16 21:00 122 08/11/16 20:06 97.5 88 18 131/55 92 08/11/16 16:00 97.5 95 18 120/68 92 I/O 08/11/16 08/11/16 08/11/16 08/12/16 08/12/16 08/12/16 07:00 15:00 23:00 07:00 15:00 23:00 Intake Total 1200 ml 240 ml Output Total 150 ml Balance 1200 ml 240 ml -150 ml Intake Oral 1200 ml 240 ml Output Urine Total 150 ml # Voids 3 1 # Bowel Movements 0 Laboratory Laboratory Tests Test 08/12/16 08/12/16 02:22 08:35 White Blood Count 20.0 Red Blood Count 4.41 Hemoglobin 13.8 Hematocrit 41.4 Mean Corpuscular Volume 93.9 Mean Corpuscular Hemoglobin 31.4 Mean Corpuscular Hemoglobin 33.4 Concent Red Cell Distribution Width 16.2 Platelet Count 209 Mean Platelet Volume 10.1 Neutrophils (%) (Auto) 70.9 Lymphocytes (%) (Auto) 14.8 Monocytes (%) (Auto) 11.1 Eosinophils (%) (Auto) 0.5 Basophils (%) (Auto) 2.7 Neutrophils # (Auto) 14.2 Lymphocytes # (Auto) 3.0 Monocytes # (Auto) 2.2 Eosinophils # (Auto) 0.1 Basophils # (Auto) 0.5 CBC Comment AUTO DIFF Differential Total Cells 100 Counted Neutrophils % (Manual) 73 Lymphocytes % 17 Monocytes % 9 Basophils % 1 Neutrophils # (Manual) 14.6 Differential Comment FINAL DIFF MANUAL Atypical Lymphocytes Platelet Estimate NORMAL Platelet Morphology Comment NORMAL Ovalocytes 1+ Sodium Level 132 Potassium Level 4.1 Chloride Level 93 Carbon Dioxide Level 27.5 Anion Gap 12 Blood Urea Nitrogen 12 Creatinine 1.21 Random Glucose 113 Calcium Level 8.8 Magnesium Level 2.0 Total Bilirubin 3.9 Aspartate Amino Transf 1231 (AST/SGOT) Alanine Aminotransferase 485 (ALT/SGPT) Alkaline Phosphatase 380 B-Type Natriuretic Peptide 81 Total Protein 6.1 Albumin 3.0 Nasal Screen MRSA (PCR) MRSA NOT DETECTED Date/Time Procedure Status Source Growth 08/10/16 17:00 Urine Culture Received Urine Clean Catch Pending Imaging Last Impressions Chest X-Ray 08/12/16 0000 Signed Impressions: Service Date/Time: Friday, August 12, 2016 01:56 - CONCLUSION: Slight improvement in right lung base infiltrate. Aleshia Santoro MD Hepatobiliary Scan Nuclear Medicine 08/11/16 0000 Signed Impressions: Service Date/Time: July 10:13 - CONCLUSION: 1. Normal HIDA scan confirming patency of the cystic and common bile ducts. 2. Normal gallbladder EF. 3. The patient was asymptomatic with administration of CCK. Sung Gomez MD Cholangiopancreatography MRI 08/11/16 0000 Signed Impressions: Service Date/Time: July 08:38 - CONCLUSION: 1. Hepatosplenomegaly 2. Distended gallbladder otherwise no evidence of biliary obstructive disease. 3. Small to moderate ascites 4. Altered flow in the portal vein which may be indicative of portal hypertension. 5. No other significant abnormalities identified. Steve Acuna MD Abdomen Ultrasound 08/10/16 0000 Signed Impressions: Service Date/Time: Wednesday, August 10, 2016 14:47 - CONCLUSION: There is no significant ascites. Tong Read MD FACR Physical Exam HEENT: Normocephalic; atraumatic CHEST: Resp even/unlabored, diminished. CARDIAC: RRR ABDOMEN: Soft, mildly distended, mild lower abdominal tenderness; no hepatosplenomegaly; bowel sounds are present in all four quadrants. EXTREMITIES: No clubbing, cyanosis, or edema. SKIN: Normal; no rash; no jaundice. TUBE BALANCER: No focal deficits; alert and oriented times three. Assessment and Plan Plan ASSESSMENT: - Elevated LFTs, likely secondary to acute hepatitis B. Pt with past hx of heavy ETOH use, now drinks 1 beer per day for several years (has rx at [facility]). Denies any known hx of liver cirrhosis or gallbladder disease. Does have hx of CLL. US (08/10/16)---> hepatomegaly with diffusely coarse hepatic echogenicity similar to prior CT examination consistent with early cirrhotic changes other differential consideration includes leukemic infiltration in this patient with a history of leukemia. Persistent splenomegaly with a small amount of ascites likely due to portal hypertension. Again leukemic infiltration is in the differential. Sludge and small number of stones in the gallbladder with associated all bladder wall thickening and pericholecystic fluid suspect the gallbladder wall thickening and pericholecystic fluid or due to patient's ascites on the sludge/stones or chronic in nature. HIDA scan may be performed to evaluate for cystic duct patency if there is a concern regarding acute cholecystitis. MRCP (08/11/16)-----> 1. Hepatosplenomegaly 2. Distended gallbladder otherwise no evidence of biliary obstructive disease. 3. Small to moderate ascites 4. Altered flow in the portal vein which may be indicative of portal hypertension. 5. No other significant abnormalities identified. HIDA (08/11/16)----> 1. Normal HIDA scan confirming patency of the cystic and common bile ducts. 2. Normal gallbladder EF. 3. The patient was asymptomatic with administration of CCK. AFP 1.6, iron sat 21.1%, ferritin 793, Ceruloplasmin/alpha 1 antitrypsin pending, HA negative, ASMA negative, AMA pending. LFTs slightly higher today T. Bili 3.9, AST 1231, ALT 485, Alk Phosph 380. THis is most likely secondary to acute hepatitis b. - Acute hepatitis B, with Heb Bs Ag (+), Hep B Core IgM ab (+), DNA Viral load pending. - Hepatitis C Antibodies (+). Genotype and viral load pending. - Ascites. US with small amount of ascites, not amenable to paracentesis. Lasix, Spironolactone. - Chronic constipation, takes Linzess, Lactulose at home. No bm. Will add Miralax. - Lower abdominal pain. ? related to constipation. Will add miralax. - Chronic lymphocytic leukemia and 2014 and treated with Rituxan/Bendamustine x 6 and completed this in May of 2014. He is followed by Dr. Ball. - Leukocytosis. WBC 20.0. - Hyponatremia, Chronic pain, COPD, Gout, Anxiety/Depression per primary PLAN: - DANIELA - Add Miralax - Cont. Lactulose - Cont. Spironolactone, Lasix - Await Hepatitis B Viral DNA - Await Hepatitis C Genotype/Viral load - Await AMA, Ceruloplasmin, Alpha 1 Antitrypsin - Monitor CBC, CMP - Further recommendations to follow based on results of above. - This pt seen by myself and Dr Hyman and this note is written on his behalf Michelle Rajan Aug 12, 2016 14:29
[2016-08-12] MEDS: POLYETHYLENE GLYCOL 17 GM PKG PO SCH (15:16)
--- NOTE | 2016-08-12 20:11 | EKG ---
Date Performed: 08/12/2016 Time Performed: 19:38:43 PTAGE: 70 years EKG: SINUS TACHYCARDIA LOW QRS VOLTAGE IN PRECORDIAL LEADS INCOMPLETE RIGHT BUNDLE BRANCH BLOCK LEFT ANTERIOR FASCICULAR BLOCK ANTEROSEPTAL MYOCARDIAL INFARCTION , PROBABLY OLD ABNORMAL ECG In [facility], rate has increased. PREVIOUS TRACING : 08/10/2016 11.57 DOCTOR: Benjamin Wilson Interpretating Date/Time 08/12/2016 20:10:59
[2016-08-12] MEDS: traZODone HCL 50 MG TAB PO SCH (21:02)
[2016-08-12] MEDS ORDERED: LORazepam 0.5 MG TAB PO ONE (23:45)
[2016-08-13] VITALS (10 sets, daily range): BP systolic 100–129; BP diastolic 59–68; PULSE 80–133; RESP 14–22; TEMP 96.7–97.6; O2SAT 90–94
[2016-08-13 07:27] LABS: HEMATOCRIT 39.7 % (39.0-51.0); MEAN CELL VOLUME 94.8 FL (80.0-100.0); MEAN CORPUSCULAR HEMOGLOBIN 30.6 PG (27.0-34.0); MEAN CORPUSCULAR HGB CONC 32.3 % (32.0-36.0); PLATELET COUNT 186 TH/MM3 (150-450); RED BLOOD COUNT 4.18 MIL/MM3 (4.50-5.90); RED CELL DISTRIBUTION WIDTH 16.9 % (11.6-17.2); REVIEW FLAG FINAL; WHITE BLOOD COUNT 17.8 TH/MM3 (4.0-11.0)
[2016-08-13] MEDS: RESP: ALBUTEROL 2.5 MG/IPRATROPIUM 0.5 MG NEB (SCH) NEB ×2 (07:32→20:06)
[2016-08-13 07:48] LABS: ALT (GPT) 477 U/L (12-78); ANION GAP 10 MEQ/L (5-15); BLOOD UREA NITROGEN 17 MG/DL (7-18); CHLORIDE 93 MEQ/L (98-107); GLOMERULAR FILTRATION RATE 53 ML/MIN (>89); SODIUM (NA) 130 MEQ/L (136-145)
[2016-08-13 07:55] LABS: ALKALINE PHOSPHATASE 310 U/L (45-117); AST (GOT) 1192 U/L (15-37); TOTAL BILIRUBIN ADULT 4.7 MG/DL (0.2-1.0)
[2016-08-13] MEDS: DOCUSATE SODIUM 50 MG/SENNA 8.6 MG TAB PO SCH ×2 (08:30→20:53)
[2016-08-13] MEDS: ONDANSETRON HCL 4 MG/2 ML VIAL IV PUSH PRN (08:30)
[2016-08-13] MEDS: ALLOPURINOL 300 MG TAB PO SCH (08:31)
[2016-08-13] MEDS: FUROSEMIDE 40 MG TAB PO SCH (08:31)
[2016-08-13] MEDS: POLYETHYLENE GLYCOL 17 GM PKG PO SCH (08:32)
[2016-08-13] MEDS: LACTULOSE SYRUP 20 GM/30 ML CUP PO SCH ×2 (08:32→20:52)
[2016-08-13] MEDS: SODIUM CHLORIDE 0.9% FLUSH 10 ML FLUSH IV FLUSH SCH ×2 (08:35→20:55)
[2016-08-13] MEDS: BUDESONIDE-FORMOTEROL 160/4.5 MCG INHALER INH SCH ×2 (08:35→20:52)
[2016-08-13] MEDS: SPIRONOLACTONE 50 MG TAB PO SCH ×2 (10:19→16:57)
[2016-08-13] MEDS: diphenhydrAMINE HCL 25 MG CAP PO PRN (10:20)
--- NOTE | 2016-08-13 11:24 | HHI.PR ---
Subjective Remarks Follow-up for hepatitis Patient complaining of constipation for about 5-6 days, mild shortness of breath. No fever or chills, says with difficulty with urination but no dysuria but with mild frequency. Also with mild nausea but no vomiting. No abdominal pain. Objective Vitals Vital Signs Date Time Temp Pulse Resp B/P Pulse Ox O2 Delivery O2 Flow Rate FiO2 08/13/16 08:59 97.5 80 14 129/66 92 08/13/16 05:35 16 08/13/16 04:00 97.3 120 18 103/65 91 08/13/16 03:50 18 08/13/16 00:00 96.7 133 18 100/68 91 08/12/16 20:03 99 08/12/16 20:00 96.7 130 18 108/68 92 08/12/16 16:00 97.2 80 18 112/64 93 08/12/16 12:00 96.9 92 18 110/68 93 I/O 08/12/16 08/12/16 08/12/16 08/13/16 08/13/16 08/13/16 07:00 15:00 23:00 07:00 15:00 23:00 Intake Total 1320 ml 240 ml Output Total 150 ml Balance 1170 ml 240 ml Intake Oral 1320 ml 240 ml Output Urine Total 150 ml # Voids 1 1 # Bowel Movements 0 Result Diagram: 08/13/1613 08/13/16 0613 Objective Remarks SKIN: Warm and dry. HEAD: Normocephalic. EYES: No scleral icterus. No injection or drainage. NECK: Supple, trachea midline. No JVD or lymphadenopathy. CARDIOVASCULAR: Regular rate and rhythm without murmurs, gallops, or rubs. RESPIRATORY: Breath sounds equal bilaterally. No accessory muscle use. GASTROINTESTINAL: Abdomen soft, distended less taut, no TTP. MUSCULOSKELETAL: 1+ edema. BACK: Nontender without obvious deformity. No CVA tenderness. A/P Assessment and Plan 70-year-old male with history of chronic lymphocytic leukemia in remission who presented with Acute hepatitis B and hepatitis C with ascites and portal hypertension -On admission AST 759, LT 270, alkaline phosphatase 390, LDH 678, total protein 5.9. Prior his LFTs in April 2016 was within normal limits. LFTs still elevated, recheck LFTs tomorrow. -abdominal ultrasound shows early signs of liver cirrhosis versus infiltrate. HIDA scan negative. MRCP showed possible portal hypertension. GI following. Hold Lasix today with increasing creatinine, continue spironolactone, check BMP. Work up pending. Leukocytosis likely secondary to UTI -Patient baseline is elevated secondary to history of CLL. -Most likely virally versus CLL. Urine culture positive for staph epidermidis sensitive to Macrobid, since with leukocytosis, will opt to treat Chronic lymphocytic leukemia status post chemotherapy completion in May 2014. -Patient is following up with Dr. Ball as outpatient. Last PET scan was in February 2016 which showed mild uptake in bilateral neck, axillae, mediastinum and retroperitoneum. COPD -Stable. Patient stated that he chronically has shortness of breathing and that this has not worsened. CXR shows mild right lower infiltrate which is most likely fluid. no signs of infection. -Continue with home medication. Chronic musculoskeletal pain/osteoarthritis -Will have nurse confirm patient's pain medication dosage with his pharmacist. He was on hydrocodone at home but due to his elevated liver enzymes he was put on oxycodone in the hospital. Continue current regimen. Constipation -continue lactulose. Will give suppository and magnesium titrate. Continue MiraLAX daily Anxiety/Gout -Continue home medication. Hyponatremia-hold Lasix today, recheck BMP. DVT prophylaxis -SCDs. INR 1.5. Discharge Planning Once cleared by Tyler Bowen MD Aug 13, 2016 11:24
[2016-08-13] MEDS ORDERED: MAGNESIUM CITRATE SOLN 300 ML BTL PO ONE (11:30)
[2016-08-13] MEDS ORDERED: BISACODYL 10 MG SUPP RECTAL ONE (11:30)
[2016-08-13] MEDS ORDERED: POLYETHYLENE GLYCOL 17 GM PKG PO ONE (11:30)
[2016-08-13] MEDS: NITROFURANTOIN MONOHYD MACROCR 100 MG CAP PO SCH ×2 (12:13→16:57)
--- NOTE | 2016-08-13 15:59 | HHI.GIFU ---
Subjective Remarks Pt still has not had a BM. Reports that his abdomen isn't any more distended than it has been He is passing gas Just finished a bottle of Mag Citrate. (Yolanda Riley) Objective Vitals I&O Vital Signs Date Time Temp Pulse Resp B/P Pulse Ox O2 Delivery O2 Flow Rate FiO2 08/13/16 13:55 90 08/13/16 12:00 97.5 83 20 108/59 90 08/13/16 08:59 97.5 80 14 129/66 92 08/13/16 08:30 90 08/13/16 05:35 16 08/13/16 04:00 97.3 120 18 103/65 91 08/13/16 03:50 18 08/13/16 00:00 96.7 133 18 100/68 91 08/12/16 20:03 99 08/12/16 20:00 96.7 130 18 108/68 92 08/12/16 16:00 97.2 80 18 112/64 93 I/O 08/12/16 08/12/16 08/12/16 08/13/16 08/13/16 08/13/16 07:00 15:00 23:00 07:00 15:00 23:00 Intake Total 1320 ml 240 ml Output Total 150 ml Balance 1170 ml 240 ml Intake Oral 1320 ml 240 ml Output Urine Total 150 ml # Voids 1 1 # Bowel Movements 0 Laboratory Laboratory Tests Test 08/13/16 06:13 White Blood Count 17.8 Red Blood Count 4.18 Hemoglobin 12.8 Hematocrit 39.7 Mean Corpuscular Volume 94.8 Mean Corpuscular Hemoglobin 30.6 Mean Corpuscular Hemoglobin 32.3 Concent Red Cell Distribution Width 16.9 Platelet Count 186 Mean Platelet Volume 9.7 Sodium Level 130 Potassium Level 4.0 Chloride Level 93 Carbon Dioxide Level 27.0 Anion Gap 10 Blood Urea Nitrogen 17 Creatinine 1.32 Estimat Glomerular Filtration 53 Rate Random Glucose 99 Calcium Level 8.6 Total Bilirubin 4.7 Aspartate Amino Transf 1192 (AST/SGOT) Alanine Aminotransferase 477 (ALT/SGPT) Alkaline Phosphatase 310 Total Protein 5.4 Albumin 2.6 Date/Time Procedure Status Source Growth 08/10/16 17:00 Urine Culture - Final Complete Urine Clean Catch Staphylococcus Epidermidis Imaging Last Impressions Chest X-Ray 08/12/16 0000 Signed Impressions: Service Date/Time: Friday, August 12, 2016 01:56 - CONCLUSION: Slight improvement in right lung base infiltrate. Aleshia Santoro MD Hepatobiliary Scan Nuclear Medicine 08/11/16 0000 Signed Impressions: Service Date/Time: July 10:13 - CONCLUSION: 1. Normal HIDA scan confirming patency of the cystic and common bile ducts. 2. Normal gallbladder EF. 3. The patient was asymptomatic with administration of CCK. Sung Gomez MD Cholangiopancreatography MRI 08/11/16 0000 Signed Impressions: Service Date/Time: July 08:38 - CONCLUSION: 1. Hepatosplenomegaly 2. Distended gallbladder otherwise no evidence of biliary obstructive disease. 3. Small to moderate ascites 4. Altered flow in the portal vein which may be indicative of portal hypertension. 5. No other significant abnormalities identified. Steve Acuna MD Abdomen Ultrasound 08/10/16 0000 Signed Impressions: Service Date/Time: Wednesday, August 10, 2016 14:47 - CONCLUSION: There is no significant ascites. Tong Read MD FACR Physical Exam HEENT: Normocephalic; atraumatic CHEST: Resp even/unlabored, diminished. CARDIAC: RRR ABDOMEN: Soft, mildly distended, mild lower abdominal tenderness; no hepatosplenomegaly; bowel sounds are present in all four quadrants. EXTREMITIES: No clubbing, cyanosis, or edema. SKIN: Normal; no rash; no jaundice. GATE TENDER: No focal deficits; alert and oriented times three. (Yolanda Riley) Assessment and Plan Plan ASSESSMENT: - Elevated LFTs, likely secondary to acute hepatitis B. Pt with past hx of heavy ETOH use, now drinks 1 beer per day for several years (has rx at [facility]). Denies any known hx of liver cirrhosis or gallbladder disease. Does have hx of CLL. US (08/10/16)---> hepatomegaly with diffusely coarse hepatic echogenicity similar to prior CT examination consistent with early cirrhotic changes other differential consideration includes leukemic infiltration in this patient with a history of leukemia. Persistent splenomegaly with a small amount of ascites likely due to portal hypertension. Again leukemic infiltration is in the differential. Sludge and small number of stones in the gallbladder with associated gallbladder wall thickening and pericholecystic fluid suspect the gallbladder wall thickening and pericholecystic fluid or due to patient's ascites on the sludge/stones or chronic in nature. MRCP (08/11/16)-----> 1. Hepatosplenomegaly 2. Distended gallbladder otherwise no evidence of biliary obstructive disease. Small to moderate ascites Altered flow in the portal vein which may be indicative of portal hypertension. HIDA (08/11/16)----> 1. Normal HIDA scan confirming patency of the cystic and common bile ducts. 2. Normal gallbladder EF. 3. The patient was asymptomatic with administration of CCK. AFP 1.6, iron sat 21.1%, ferritin 793, Ceruloplasmin/alpha 1 antitrypsin pending, HA negative, ASMA negative, AMA pending. Transaminases slightly decreased today, AST 1192 , ALT 477, Alk Phosph 310. TBili increased today to 4.7. This is most likely secondary to acute hepatitis B. - Acute hepatitis B, with Heb Bs Ag (+), Hep B Core IgM ab (+), DNA Viral load pending. - Hepatitis C Antibodies (+). Genotype and viral load pending. - Ascites. US with small amount of ascites, not amenable to paracentesis. Lasix, Spironolactone. - Chronic constipation, takes Linzess, Lactulose at home. No bm. Miralax daily added. Pt given Dulcolax, Miralax and mag citrate on 08/13. - Lower abdominal pain. ? related to constipation. Miralax daily added. - Chronic lymphocytic leukemia and 2014 and treated with Rituxan/Bendamustine x 6 and completed this in May of 2014. He is followed by Dr. Ball. - Leukocytosis. WBC 17.8 - Hyponatremia, Chronic pain, COPD, Gout, Anxiety/Depression per primary PLAN: - DANIELA - Cont. Miralax - Cont. Lactulose - Cont. Spironolactone, Lasix - Await Hepatitis B Viral DNA - Await Hepatitis C Genotype/Viral load - Await AMA, Ceruloplasmin, Alpha 1 Antitrypsin - Monitor CBC, CMP - Further recommendations to follow based on results of above. - The pt was seen and examined by myself and Dr Carolina and this note is written on his behalf (Yolanda Riley) Physician Comments Patient seen and examined Agree with above Continue with current supportive care Monitor labs (John Carolina MD) Yolanda Riley Aug 13, 2016 15:59 John Carolina MD Aug 13, 2016 18:46
[2016-08-13] MEDS: traZODone HCL 50 MG TAB PO SCH (20:53)
[2016-08-13 23:51] LABS: MITOCHONDRIAL ABS LESS THAN 20.0 U (())
[2016-08-14] VITALS (8 sets, daily range): BP systolic 100–125; BP diastolic 54–79; PULSE 72–122; RESP 16–24; TEMP 96.6–97.3; O2SAT 90–94
[2016-08-14] MEDS: diphenhydrAMINE HCL 25 MG CAP PO PRN ×3 (00:02→21:19)
[2016-08-14] MEDS ORDERED: LORazepam 0.5 MG TAB PO ONE (02:15)
[2016-08-14 07:23] LABS: AUTOMATED NEUTROPHIL # 14.2 TH/MM3 (1.8-7.7); BASOPHIL # 0.2 TH/MM3 (0-0.2); BASOPHIL % 1.2 % (0.0-2.0); BICARBONATE 25.6 MEQ/L (21.0-32.0); EOSINOPHIL % 0.3 % (0.0-4.0); HEMATOCRIT 38.6 % (39.0-51.0); HEMO FLAGS AUTO DIFF; INDIRECT BILIRUBIN 1.2 MG/DL (0.0-0.8); LYMPH % 15.3 % (9.0-44.0); MEAN CELL VOLUME 92.9 FL (80.0-100.0); MEAN CORPUSCULAR HEMOGLOBIN 31.4 PG (27.0-34.0); MEAN CORPUSCULAR HGB CONC 33.8 % (32.0-36.0); MONO % 11.4 % (0.0-8.0); NEUT % 71.8 % (16.0-70.0); PLATELET COUNT 207 TH/MM3 (150-450); POTASSIUM 4.6 MEQ/L (3.5-5.1); RED BLOOD COUNT 4.16 MIL/MM3 (4.50-5.90); RED CELL DISTRIBUTION WIDTH 16.5 % (11.6-17.2); WHITE BLOOD COUNT 19.8 TH/MM3 (4.0-11.0)
[2016-08-14] MEDS: RESP: ALBUTEROL 2.5 MG/IPRATROPIUM 0.5 MG NEB (SCH) NEB ×2 (08:33→21:04)
[2016-08-14] MEDS: DOCUSATE SODIUM 50 MG/SENNA 8.6 MG TAB PO SCH ×2 (09:00→21:15)
[2016-08-14] MEDS: POLYETHYLENE GLYCOL 17 GM PKG PO SCH (09:00)
--- NOTE | 2016-08-14 09:23 | HHI.PR ---
Subjective Remarks Follow-up for cirrhosis, acute renal failure Afebrile, pain is controlled. No overnight events. No urinary symptoms, shortness of breath, cough or diarrhea. Feels weaker today, mild nausea, does not necessarily feels better than yesterday. Objective Vitals Vital Signs Date Time Temp Pulse Resp B/P Pulse Ox O2 Delivery O2 Flow Rate FiO2 08/14/16 08:00 96.6 80 20 109/79 90 08/14/16 04:00 97.3 90 18 125/58 91 08/14/16 01:41 122 08/14/16 00:00 96.7 98 18 116/63 90 08/13/16 20:08 94 21 08/13/16 20:00 97.6 90 18 128/63 91 08/13/16 19:15 95 08/13/16 16:00 97.0 89 22 124/62 90 08/13/16 13:55 90 08/13/16 12:00 97.5 83 20 108/59 90 I/O 08/13/16 08/13/16 08/13/16 08/14/16 08/14/16 08/14/16 07:00 15:00 23:00 07:00 15:00 23:00 Intake Total 1200 ml Balance 1200 ml Intake Oral 1200 ml # Voids 4 Result Diagram: 08/14/16 0616 08/14/16 0616 Objective Remarks Not in distress. SKIN: Warm and dry. HEAD: Normocephalic. EYES: No scleral icterus. NECK: Supple, trachea midline. No JVD or lymphadenopathy. CARDIOVASCULAR: Regular rate and rhythm without murmurs, gallops, or rubs. RESPIRATORY: Breath sounds equal bilaterally. No accessory muscle use. GASTROINTESTINAL: Abdomen soft, distended less taut, no TTP. MUSCULOSKELETAL: Trace edema. BACK: Nontender without obvious deformity. No CVA tenderness. A/P Assessment and Plan This is a 70-year-old male with history of chronic lymphocytic leukemia in remission who presented with abnormal lab work. Acute hepatitis B and hepatitis C with ascites and portal hypertension - LFTs still worsening. Prior his LFTs in April 2016 was within normal limits. Recheck LFTs tomorrow. Start normal saline. -abdominal ultrasound shows early signs of liver cirrhosis versus infiltrate. HIDA scan negative. MRCP showed possible portal hypertension. GI following. Diuretics on hold. Leukocytosis likely secondary to UTI -Patient baseline is elevated secondary to history of CLL. -Most likely virally versus CLL. Urine culture positive for staph epidermidis sensitive to Macrobid, since with leukocytosis, will opt to treat however patient's kidney function is worsening. Hold Macrobid, recheck urinalysis. Acute renal failure-could be from overdiuresis, hold Lasix and Aldactone, hold allopurinol. Check urinalysis, recheck BMP tomorrow, start normal saline. Chronic lymphocytic leukemia status post chemotherapy completion in May 2014. -Patient is following up with Dr. Ball as outpatient. Last PET scan was in February 2016 which showed mild uptake in bilateral neck, axillae, mediastinum and retroperitoneum. COPD -Stable. Patient stated that he chronically has shortness of breathing and that this has not worsened. CXR shows mild right lower infiltrate which is most likely fluid. no signs of infection. -Continue with home medication. Chronic musculoskeletal pain/osteoarthritis -Continue oxycodone for now Constipation -continue lactulose, MiraLAX and magnesium citrate. Suppository as needed Anxiety/Gout - Allopurinol on hold due to worsening renal function Hyponatremia-hold Lasix and spironolactone, recheck BMP tomorrow. Start normal saline DVT prophylaxis -SCDs. INR 1.5. Discharge Planning Discharged once medically cleared to home. Tyler Sorto MD Aug 14, 2016 09:22
[2016-08-14] MEDS: LACTULOSE SYRUP 20 GM/30 ML CUP PO SCH ×2 (10:19→21:19)
[2016-08-14] MEDS: SODIUM CHLORIDE 0.9% FLUSH 10 ML FLUSH IV FLUSH SCH ×2 (10:24→21:00)
[2016-08-14] MEDS: BUDESONIDE-FORMOTEROL 160/4.5 MCG INHALER INH SCH ×2 (10:25→21:20)
[2016-08-14] MEDS: SODIUM CHLOR 0.9% 1000 ML INJ 1,000 ML IV SCH ×2 (10:29→21:20)
[2016-08-14 10:33] LABS: BANDS 2 % (0-6); NEUTROPHIL # MANUAL DIFF 13.9 TH/MM3 (1.8-7.7); POLYS (SEG NEUTROPHILS) 68 % (16-70); WBC DIFF SAMPLE 100
[2016-08-14 10:34] LABS: PLATELET ESTIMATE SMEAR NORMAL (NORMAL); PLATELET MORPHOLOGY NORMAL (NORMAL); SCAN/DIFF FINAL DIFF MANUAL; TARGET CELLS 1+ (NORMAL)
--- NOTE | 2016-08-14 15:07 | HHI.GIFU ---
GI Follow-up Note Consult Follow-up Subjective: Patient laying in bed comfortably, feels weak, tired, abdominal pain better, back pain.Discussed about hep b and c diagnosis .constipation better Objective: PHYSICAL EXAMINATION: Vitals signs stable No fever Vital Signs Date Time Temp Pulse Resp B/P Pulse Ox O2 Delivery O2 Flow Rate FiO2 08/14/16 13:07 97.1 84 24 103/54 94 08/14/16 08:00 96.6 80 20 109/79 90 HEENT: Pupils round and reactive to light; normocephalic; atraumatic; jaundice. Throat is clear. NECK: Neck is supple, no JVD, no lymphadenopathy. CHEST: Chest is clear to auscultation and percussion. CARDIAC: Regular rate and rhythm with no murmur gallop or rubs. ABDOMEN: Soft, distended, nontender; no hepatosplenomegaly; bowel sounds are present in all four quadrants. EXTREMITIES: No clubbing, cyanosis, or edema. SKIN: Normal; no rash; jaundice. 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 Available Data (labs, X- Rays, Procedues) : Laboratory Tests Test 08/13/16 08/13/16 08/14/16 06:13 12:15 06:16 White Blood Count 17.8 TH/MM3 19.8 TH/MM3 Red Blood Count 4.18 MIL/MM3 4.16 MIL/MM3 Hemoglobin 12.8 GM/DL 13.1 GM/DL Hematocrit 39.7 % 38.6 % Mean Corpuscular Volume 94.8 FL 92.9 FL Mean Corpuscular Hemoglobin 30.6 PG 31.4 PG Mean Corpuscular Hemoglobin 32.3 % 33.8 % Concent Red Cell Distribution Width 16.9 % 16.5 % Platelet Count 186 TH/MM3 207 TH/MM3 Mean Platelet Volume 9.7 FL 10.5 FL Sodium Level 130 MEQ/L 129 MEQ/L Potassium Level 4.0 MEQ/L 4.6 MEQ/L Chloride Level 93 MEQ/L 92 MEQ/L Carbon Dioxide Level 27.0 MEQ/L 25.6 MEQ/L Anion Gap 10 MEQ/L 11 MEQ/L Blood Urea Nitrogen 17 MG/DL 25 MG/DL Creatinine 1.32 MG/DL 1.63 MG/DL Estimat Glomerular Filtration 53 ML/MIN 42 ML/MIN Rate Random Glucose 99 MG/DL 101 MG/DL Calcium Level 8.6 MG/DL 8.9 MG/DL Total Bilirubin 4.7 MG/DL 5.0 MG/DL Aspartate Amino Transf 1192 U/L 1247 U/L (AST/SGOT) Alanine Aminotransferase 477 U/L 506 U/L (ALT/SGPT) Alkaline Phosphatase 310 U/L 297 U/L Total Protein 5.4 GM/DL 5.5 GM/DL Albumin 2.6 GM/DL 2.7 GM/DL Nasal Screen MRSA (PCR) MRSA NOT DETECTED Neutrophils (%) (Auto) 71.8 % Lymphocytes (%) (Auto) 15.3 % Monocytes (%) (Auto) 11.4 % Eosinophils (%) (Auto) 0.3 % Basophils (%) (Auto) 1.2 % Neutrophils # (Auto) 14.2 TH/MM3 Lymphocytes # (Auto) 3.0 TH/MM3 Monocytes # (Auto) 2.3 TH/MM3 Eosinophils # (Auto) 0.0 TH/MM3 Basophils # (Auto) 0.2 TH/MM3 CBC Comment AUTO DIFF Differential Total Cells 100 Counted Neutrophils % (Manual) 68 % Band Neutrophils % 2 % Lymphocytes % 18 % Monocytes % 12 % Neutrophils # (Manual) 13.9 TH/MM3 Differential Comment FINAL DIFF MANUAL Platelet Estimate NORMAL Platelet Morphology Comment NORMAL Target Cells 1+ Hematology Comments Direct Bilirubin 3.8 MG/DL Indirect Bilirubin 1.2 MG/DL ASSESSMENT/PLAN: liver cirrhosis multifactorial-acute hepatitis b , hep c ab positive pending viral load constipation-improving acute hepatitis b - stable lfts Recommendations pt/inr , cbc, cmp daily ammonia level continue Lactulose fu hep c viral load further recommendations about treatment once hepatitis c viral load available results to be faxed [facility] consider HIV testing avoid etoh and hepatotoxics It was a pleasure seeing Tommy Rogers. Thank you for this consult. Entered by: Haley Hua MD Aug 14, 2016 15:07
[2016-08-14 17:52] LABS: HCV RNA PCR IU/ML LESS THAN 15 IU/mL (()); HCV RNA PCR LOGIU/ML LESS THAN 1.18 (())
[2016-08-14] MEDS: traZODone HCL 50 MG TAB PO SCH (21:19)
[2016-08-14 21:36] LABS: INTERNATIONAL NORMALIZED RATIO 1.8 RATIO; PROTHROMBIN TIME - PATIENT 20.4 SEC (9.8-11.6)
[2016-08-14 23:40] LABS: BLOOD, URINE SMALL (NEG); COMMENT (UR) CULT NOT INDICATED; CULTURE IF INDICATED CULT NOT INDICATED; GLUCOSE,URINE NEG (NEG); HYALINE CAST, URINE 119 /lpf (RARE); KETONE, URINE NEG (NEG); MUCUS URINE FEW /lpf (OCC); NITRITE,URINE NEG (NEG); PH, URINE 5.5 (5.0-8.5); SQUAMOUS EPITHELIAL CELL URINE 1 /hpf (0-5); TRANSITIONAL EPI CELLS, URINE <1 /hpf
[2016-08-14 23:42] LABS: URINE COLOR ORANGE (YELLW/STRAW)
[2016-08-15] VITALS (8 sets, daily range): BP systolic 92–121; BP diastolic 57–70; PULSE 73–128; RESP 16–20; TEMP 96–97.8; O2SAT 91–94
[2016-08-15] MEDS: diphenhydrAMINE HCL 25 MG CAP PO PRN (03:20)
[2016-08-15] MEDS: SODIUM CHLOR 0.9% 1000 ML INJ 1,000 ML IV SCH ×2 (05:29→12:51)
[2016-08-15 05:53] LABS: AUTOMATED NEUTROPHIL # 14.8 TH/MM3 (1.8-7.7); BASOPHIL # 0.1 TH/MM3 (0-0.2); BASOPHIL % 0.8 % (0.0-2.0); EOSINOPHIL # 0.1 TH/MM3 (0-0.4); EOSINOPHIL % 0.4 % (0.0-4.0); HEMO FLAGS DIFF FINAL; LYMPH % 12.5 % (9.0-44.0); LYMPHOCYTE # 2.4 TH/MM3 (1.0-4.8); MEAN CELL VOLUME 94.4 FL (80.0-100.0); MEAN CORPUSCULAR HEMOGLOBIN 31.2 PG (27.0-34.0); NEUT % 76.3 % (16.0-70.0); PLATELET COUNT 244 TH/MM3 (150-450); RED BLOOD COUNT 4.55 MIL/MM3 (4.50-5.90); RED CELL DISTRIBUTION WIDTH 16.8 % (11.6-17.2); WHITE BLOOD COUNT 19.4 TH/MM3 (4.0-11.0)
[2016-08-15 06:17] LABS: INDIRECT BILIRUBIN 1.4 MG/DL (0.0-0.8)
[2016-08-15 07:21] LABS: BICARBONATE 24.3 MEQ/L (21.0-32.0); POTASSIUM 4.6 MEQ/L (3.5-5.1)
[2016-08-15] MEDS: RESP: ALBUTEROL 2.5 MG/IPRATROPIUM 0.5 MG NEB (SCH) NEB ×2 (08:38→19:10)
[2016-08-15] MEDS: SODIUM CHLORIDE 0.9% FLUSH 10 ML FLUSH IV FLUSH SCH ×2 (09:00→21:05)
[2016-08-15] MEDS: DOCUSATE SODIUM 50 MG/SENNA 8.6 MG TAB PO SCH ×2 (09:00→21:05)
[2016-08-15] MEDS: LACTULOSE SYRUP 20 GM/30 ML CUP PO SCH ×2 (09:09→21:05)
[2016-08-15] MEDS: POLYETHYLENE GLYCOL 17 GM PKG PO SCH ×2 (09:09→21:05)
[2016-08-15] MEDS: BUDESONIDE-FORMOTEROL 160/4.5 MCG INHALER INH SCH ×2 (09:10→21:08)
--- NOTE | 2016-08-15 11:34 | HHI.PR ---
Subjective Remarks In the wheelchair, sleepy. No fever or chills. Cough at times. Says she had some abdominal pain and some nausea in the morning. Did not vomit. Able to keep some food down. No fever or chills. No diarrhea. Objective Vitals Vital Signs Date Time Temp Pulse Resp B/P Pulse Ox O2 Delivery O2 Flow Rate FiO2 08/15/16 08:00 96.4 86 18 107/66 92 08/15/16 04:20 18 08/15/16 04:00 97.6 85 16 110/62 92 08/15/16 00:00 97.8 120 18 104/68 91 08/14/16 20:04 80 08/14/16 20:00 96.8 72 16 110/57 91 08/14/16 16:00 96.9 80 20 100/62 93 08/14/16 13:07 97.1 84 24 103/54 94 I/O 08/14/16 08/14/16 08/14/16 08/15/16 08/15/16 08/15/16 07:00 15:00 23:00 07:00 15:00 23:00 Intake Total 1440 ml 1200 ml Balance 1440 ml 1200 ml Intake Oral 1440 ml 1200 ml # Voids 4 5 # Bowel Movements 1 Result Diagram: 08/15/16 0438 08/15/16 0438 Imaging Last Impressions Chest X-Ray 08/12/16 0000 Signed Impressions: Service Date/Time: Friday, August 12, 2016 01:56 - CONCLUSION: Slight improvement in right lung base infiltrate. Aleshia Santoro MD Hepatobiliary Scan Nuclear Medicine 08/11/16 0000 Signed Impressions: Service Date/Time: July 10:13 - CONCLUSION: 1. Normal HIDA scan confirming patency of the cystic and common bile ducts. 2. Normal gallbladder EF. 3. The patient was asymptomatic with administration of CCK. Sung Gomez MD Cholangiopancreatography MRI 08/11/16 0000 Signed Impressions: Service Date/Time: July 08:38 - CONCLUSION: 1. Hepatosplenomegaly 2. Distended gallbladder otherwise no evidence of biliary obstructive disease. 3. Small to moderate ascites 4. Altered flow in the portal vein which may be indicative of portal hypertension. 5. No other significant abnormalities identified. Steve Acuna MD Abdomen Ultrasound 08/10/16 0000 Signed Impressions: Service Date/Time: Wednesday, August 10, 2016 14:47 - CONCLUSION: There is no significant ascites. Tong Read MD FACR Objective Remarks General: Elderly male, in wheelchair. Not in distress. NECK: Supple, trachea midline. No JVD or lymphadenopathy. CARDIOVASCULAR: Regular rate and rhythm without murmurs, gallops, or rubs. RESPIRATORY: Breath sounds equal bilaterally. No accessory muscle use. GASTROINTESTINAL: Abdomen soft, distended less taut, no TTP. MUSCULOSKELETAL: Trace edema. BACK: Nontender without obvious deformity. No CVA tenderness. A/P Assessment and Plan This is a 70-year-old male with history of chronic lymphocytic leukemia in remission who presented with abnormal lab work. Acute hepatitis B and hepatitis C with ascites and portal hypertension LFTs still worsening. Prior his LFTs in April 2016 was within normal limits. Recheck LFTs tomorrow. Start normal saline. -abdominal ultrasound shows early signs of liver cirrhosis versus infiltrate. HIDA scan negative. MRCP showed possible portal hypertension. GI following. Diuretics on hold. Leukocytosis likely secondary to UTI -Patient baseline is elevated secondary to history of CLL. -Most likely virally versus CLL. Urine culture positive for staph epidermidis sensitive to Macrobid, since with leukocytosis, will opt to treat however patient's kidney function is worsening. Hold Macrobid, recheck urinalysis. Acute renal failure-could be from overdiuresis, hold Lasix and Aldactone, hold allopurinol. Check urinalysis, recheck BMP tomorrow, start normal saline. Chronic lymphocytic leukemia status post chemotherapy completion in May 2014. -Patient is following up with Dr. Ball as outpatient. Last PET scan was in February 2016 which showed mild uptake in bilateral neck, axillae, mediastinum and retroperitoneum. COPD -Stable. Patient stated that he chronically has shortness of breathing and that this has not worsened. CXR shows mild right lower infiltrate which is most likely fluid. no signs of infection. -Continue with home medication. Chronic musculoskeletal pain/osteoarthritis -Continue oxycodone for now Constipation -continue lactulose, MiraLAX and magnesium citrate. Suppository as needed Anxiety/Gout - Allopurinol on hold due to worsening renal function Hyponatremia-hold Lasix and spironolactone, recheck BMP tomorrow. Start normal saline Physical deconditioning. Consult PT DVT prophylaxis -SCDs. INR 1.5. Discharge Planning Discharged once medically cleared to home. Chanell Meehan MD Aug 15, 2016 11:34
[2016-08-15] MEDS ORDERED: MAGNESIUM HYDROXIDE SUSP 30 ML CUP PO ONE (13:00)
--- NOTE | 2016-08-15 13:09 | HHI.GIFU ---
Subjective Remarks Pt OOB to wheelchair. He is having some abd discomfort. He had a liquid stool today and previous stool was 5 days prior and also liquid. He is passing gas but feels distended. Objective Vitals I&O Vital Signs Date Time Temp Pulse Resp B/P Pulse Ox O2 Delivery O2 Flow Rate FiO2 08/15/16 08:00 96.4 86 18 107/66 92 08/15/16 04:20 18 08/15/16 04:00 97.6 85 16 110/62 92 08/15/16 00:00 97.8 120 18 104/68 91 08/14/16 20:04 80 08/14/16 20:00 96.8 72 16 110/57 91 08/14/16 16:00 96.9 80 20 100/62 93 08/14/16 13:07 97.1 84 24 103/54 94 I/O 08/14/16 08/14/16 08/14/16 08/15/16 08/15/16 08/15/16 07:00 15:00 23:00 07:00 15:00 23:00 Intake Total 1440 ml 1200 ml Balance 1440 ml 1200 ml Intake Oral 1440 ml 1200 ml # Voids 4 5 # Bowel Movements 1 Laboratory Laboratory Tests Test 08/14/16 08/14/16 08/15/16 21:05 22:40 04:38 Prothrombin Time 20.4 Prothromb Time International 1.8 Ratio Ammonia 46 Urine Color ORANGE Urine Turbidity CLEAR Urine pH 5.5 Urine Specific [place] 1.016 Urine Protein NEG Urine Glucose (UA) NEG Urine Ketones NEG Urine Occult Blood SMALL Urine Nitrite NEG Urine Bilirubin SMALL Urine Urobilinogen 4.0 Urine Leukocyte Esterase SMALL Urine RBC LESS THAN 1 Urine WBC 2 Urine Squamous Epithelial 1 Cells Urine Transitional Epithelial <1 Cells Urine Hyaline Casts 119 Urine Mucus FEW Microscopic Urinalysis Comment CULT NOT INDICATED White Blood Count 19.4 Red Blood Count 4.55 Hemoglobin 14.2 Hematocrit 43.0 Mean Corpuscular Volume 94.4 Mean Corpuscular Hemoglobin 31.2 Mean Corpuscular Hemoglobin 33.0 Concent Red Cell Distribution Width 16.8 Platelet Count 244 Mean Platelet Volume 9.4 Neutrophils (%) (Auto) 76.3 Lymphocytes (%) (Auto) 12.5 Monocytes (%) (Auto) 10.0 Eosinophils (%) (Auto) 0.4 Basophils (%) (Auto) 0.8 Neutrophils # (Auto) 14.8 Lymphocytes # (Auto) 2.4 Monocytes # (Auto) 2.0 Eosinophils # (Auto) 0.1 Basophils # (Auto) 0.1 CBC Comment DIFF FINAL Differential Comment Sodium Level 127 Potassium Level 4.6 Chloride Level 90 Carbon Dioxide Level 24.3 Anion Gap 13 Blood Urea Nitrogen 33 Creatinine 1.77 Estimat Glomerular Filtration 38 Rate Random Glucose 92 Calcium Level 9.2 Total Bilirubin 7.0 Direct Bilirubin 5.6 Indirect Bilirubin 1.4 Aspartate Amino Transf 1495 (AST/SGOT) Alanine Aminotransferase 584 (ALT/SGPT) Alkaline Phosphatase 317 Total Protein 6.0 Albumin 3.0 Date/Time Procedure Status Source Growth 08/10/16 17:00 Urine Culture - Final Complete Urine Clean Catch Staphylococcus Epidermidis Imaging Last Impressions Chest X-Ray 08/12/16 0000 Signed Impressions: Service Date/Time: Friday, August 12, 2016 01:56 - CONCLUSION: Slight improvement in right lung base infiltrate. Aleshia Santoro MD Hepatobiliary Scan Nuclear Medicine 08/11/16 0000 Signed Impressions: Service Date/Time: July 10:13 - CONCLUSION: 1. Normal HIDA scan confirming patency of the cystic and common bile ducts. 2. Normal gallbladder EF. 3. The patient was asymptomatic with administration of CCK. Sung Gomez MD Cholangiopancreatography MRI 08/11/16 0000 Signed Impressions: Service Date/Time: July 08:38 - CONCLUSION: 1. Hepatosplenomegaly 2. Distended gallbladder otherwise no evidence of biliary obstructive disease. 3. Small to moderate ascites 4. Altered flow in the portal vein which may be indicative of portal hypertension. 5. No other significant abnormalities identified. Steve Acuna MD Abdomen Ultrasound 08/10/16 0000 Signed Impressions: Service Date/Time: Wednesday, August 10, 2016 14:47 - CONCLUSION: There is no significant ascites. Tong Read MD FACR Physical Exam HEENT: Normocephalic; atraumatic CHEST: Resp even/unlabored, diminished. CARDIAC: RRR ABDOMEN: semi firm, distended, diffuse TTP; bowel sounds are present in all four quadrants. EXTREMITIES: No clubbing, cyanosis, BLE edema SKIN: Normal; no rash; no jaundice. 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 Assessment and Plan Plan ASSESSMENT: - Elevated LFTs, likely secondary to acute hepatitis B. Pt with past hx of heavy ETOH use, now drinks 1 beer per day for several years (has rx at [facility]). Denies any known hx of liver cirrhosis or gallbladder disease. Does have hx of CLL. US (08/10/16)---> hepatomegaly with diffusely coarse hepatic echogenicity similar to prior CT examination consistent with early cirrhotic changes other differential consideration includes leukemic infiltration in this patient with a history of leukemia. Persistent splenomegaly with a small amount of ascites likely due to portal hypertension. Again leukemic infiltration is in the differential. Sludge and small number of stones in the gallbladder with associated gallbladder wall thickening and pericholecystic fluid suspect the gallbladder wall thickening and pericholecystic fluid or due to patient's ascites on the sludge/stones or chronic in nature. MRCP (08/11/16)-----> 1. Hepatosplenomegaly 2. Distended gallbladder otherwise no evidence of biliary obstructive disease. Small to moderate ascites Altered flow in the portal vein which may be indicative of portal hypertension. HIDA (08/11/16)----> 1. Normal HIDA scan confirming patency of the cystic and common bile ducts. 2. Normal gallbladder EF. 3. The patient was asymptomatic with administration of CCK. AFP 1.6, iron sat 21.1%, ferritin 793, Ceruloplasmin/alpha 1 antitrypsin unremarkable, HA negative, ASMA negative, AMA neg. This is most likely secondary to acute hepatitis B. - Acute hepatitis B, with Heb Bs Ag (+), Hep B Core IgM ab (+), DNA Viral load pending. - Hepatitis C Antibodies (+). viral load <15, Genotype pending. - Ascites. US with small amount of ascites, not amenable to paracentesis. Lasix, Spironolactone. - Chronic constipation, takes Linzess, Lactulose at home. No bm. Miralax daily added. Pt given Dulcolax, Miralax and mag citrate on 08/13. - Lower abdominal pain. ? related to constipation. Miralax daily added. - Chronic lymphocytic leukemia and 2014 and treated with Rituxan/Bendamustine x 6 and completed this in May of 2014. He is followed by Dr. Ball. - Leukocytosis. worsening - Hyponatremia, Chronic pain, COPD, Gout, Anxiety/Depression per primary PLAN: - heart healthy diet, low sodium - KUB - if edema/ascites worsens consider adding albumin - one time scheduled dose MOM - Cont. Miralax - Cont. Lactulose - Await Hepatitis B Viral DNA - Await Hepatitis C Genotype - Monitor CBC, CMP - Further recommendations to follow based on results of above. - The pt was seen and examined by myself and Dr Hyman and this note is written on his behalf Bernie Pruett Aug 15, 2016 13:09
--- NOTE | 2016-08-15 15:57 | RADRPT ---
EXAM DATE/TIME: 08/15/2016 14:50 [facility] COMPARISON: No previous studies available for comparison. INDICATIONS : Abdominal pain and distention. MEDICAL HISTORY : None. SURGICAL HISTORY : None. ENCOUNTER: Initial ACUITY: 4 - 6 days PAIN SCORE: 10/10 LOCATION: Bilateral lower quadrant abdomen. FINDINGS: Air is seen throughout the colon. There are no dilated loops of bowel. No abnormal calcifications. Ri ght femoral medullary heron fixation. Degenerative changes in the lower lumbar spine. CONCLUSION: 1. Nonobstructive bowel gas pattern. Sung Gomez MD on August 15, 2016 at 15:53 Board Certified Radiologist. This report was verified electronically.
[2016-08-15 19:54] LABS: HEPATITIS C RNA GENOTYPE NOT DETECTED (())
[2016-08-15] MEDS: traZODone HCL 50 MG TAB PO SCH (21:04)
[2016-08-16] VITALS (14 sets, daily range): BP systolic 92–131; BP diastolic 53–78; PULSE 98–134; RESP 18–21; TEMP 95.5–98; O2SAT 91–94
[2016-08-16] MEDS: diphenhydrAMINE HCL 25 MG CAP PO PRN (00:53)
[2016-08-16] MEDS ORDERED: LORazepam 0.5 MG TAB PO ONE (01:45)
[2016-08-16] MEDS: SODIUM CHLOR 0.9% 1000 ML INJ 1,000 ML IV SCH ×3 (02:00→21:13)
[2016-08-16] MEDS ORDERED: METOPROLOL TARTRATE 25 MG TAB PO ONE (03:45)
[2016-08-16 06:07] LABS: AUTOMATED NEUTROPHIL # 14.1 TH/MM3 (1.8-7.7); BASOPHIL % 0.2 % (0.0-2.0); EOSINOPHIL % 0.2 % (0.0-4.0); HEMATOCRIT 42.7 % (39.0-51.0); HEMO FLAGS DIFF FINAL; LYMPH % 15.9 % (9.0-44.0); MEAN CELL VOLUME 93.7 FL (80.0-100.0); MEAN CORPUSCULAR HEMOGLOBIN 31.3 PG (27.0-34.0); MEAN CORPUSCULAR HGB CONC 33.4 % (32.0-36.0); MONO % 9.2 % (0.0-8.0); NEUT % 74.5 % (16.0-70.0); PLATELET COUNT 293 TH/MM3 (150-450); RED BLOOD COUNT 4.55 MIL/MM3 (4.50-5.90); RED CELL DISTRIBUTION WIDTH 17.5 % (11.6-17.2); WHITE BLOOD COUNT 18.9 TH/MM3 (4.0-11.0)
[2016-08-16 06:32] LABS: BICARBONATE 26.7 MEQ/L (21.0-32.0); MAGNESIUM 3.5 MG/DL (1.5-2.5); POTASSIUM 5.1 MEQ/L (3.5-5.1)
[2016-08-16] MEDS: RESP: ALBUTEROL 2.5 MG/IPRATROPIUM 0.5 MG NEB (SCH) NEB ×2 (07:43→21:37)
[2016-08-16] MEDS: POLYETHYLENE GLYCOL 17 GM PKG PO SCH ×3 (09:57→21:00)
[2016-08-16] MEDS: BUDESONIDE-FORMOTEROL 160/4.5 MCG INHALER INH SCH ×2 (09:58→21:13)
[2016-08-16] MEDS: LACTULOSE SYRUP 20 GM/30 ML CUP PO SCH ×3 (09:58→17:42)
[2016-08-16] MEDS: SODIUM CHLORIDE 0.9% FLUSH 10 ML FLUSH IV FLUSH SCH ×2 (09:58→21:00)
[2016-08-16] MEDS: DOCUSATE SODIUM 50 MG/SENNA 8.6 MG TAB PO SCH ×2 (09:58→21:00)
--- NOTE | 2016-08-16 10:02 | HHI.PR ---
Subjective Remarks Patient seen and examined this morning. Afebrile, tachycardic to 123, rest rate 18, pressure 170/61, pulse ox 94. Patient reports that he continue to have abdominal pain. Sitting in his wheelchair. He's felt nauseated this morning but denies any vomiting. He reports being able to eat and keep his food. Objective Vital Signs Date Time Temp Pulse Resp B/P Pulse Ox O2 Delivery O2 Flow Rate FiO2 08/16/16 08:00 95.8 100 18 105/54 91 08/16/16 06:05 114 08/16/16 04:03 96.8 123 18 107/61 94 08/16/16 02:26 134 08/16/16 01:54 18 08/16/16 01:35 127 08/16/16 00:34 98.0 98 18 131/78 93 08/16/16 00:18 129 08/15/16 21:16 97.2 73 18 121/70 93 08/15/16 20:06 128 08/15/16 19:14 91 21 08/15/16 16:00 96.3 122 18 92/67 94 08/15/16 12:00 96.0 126 20 100/57 92 I/O 08/15/16 08/15/16 08/15/16 08/16/16 08/16/16 08/16/16 07:00 15:00 23:00 07:00 15:00 23:00 Intake Total 1200 ml 2126 ml 400 ml 300 ml Balance 1200 ml 2126 ml 400 ml 300 ml Intake Oral 1200 ml 480 ml 400 ml 300 ml IV Total 1646 ml # Voids 5 3 1 1 # Bowel Movements 0 0 Result Diagram: 08/16/16 0347 08/16/16 0347 Imaging Last Impressions Abdomen X-Ray 08/15/16 0000 Signed Impressions: Service Date/Time: Monday, August 15, 2016 14:50 - CONCLUSION: 1. Nonobstructive bowel gas pattern. Sung Gomez MD Chest X-Ray 08/12/16 0000 Signed Impressions: Service Date/Time: Friday, August 12, 2016 01:56 - CONCLUSION: Slight improvement in right lung base infiltrate. Aleshia Santoro MD Hepatobiliary Scan Nuclear Medicine 08/11/16 0000 Signed Impressions: Service Date/Time: July 10:13 - CONCLUSION: 1. Normal HIDA scan confirming patency of the cystic and common bile ducts. 2. Normal gallbladder EF. 3. The patient was asymptomatic with administration of CCK. Sung Gomez MD Cholangiopancreatography MRI 08/11/16 0000 Signed Impressions: Service Date/Time: July 08:38 - CONCLUSION: 1. Hepatosplenomegaly 2. Distended gallbladder otherwise no evidence of biliary obstructive disease. 3. Small to moderate ascites 4. Altered flow in the portal vein which may be indicative of portal hypertension. 5. No other significant abnormalities identified. Steve Acuna MD Abdomen Ultrasound 08/10/16 0000 Signed Impressions: Service Date/Time: Wednesday, August 10, 2016 14:47 - CONCLUSION: There is no significant ascites. Tong Read MD FACR Objective Remarks General: Elderly male, in wheelchair. Not in distress. NECK: Supple, trachea midline. No JVD or lymphadenopathy. CARDIOVASCULAR: Regular rate and rhythm without murmurs, gallops, or rubs. RESPIRATORY: Breath sounds equal bilaterally. No accessory muscle use. GASTROINTESTINAL: Abdomen soft, distended to palpation, no TTP. MUSCULOSKELETAL: Trace edema. BACK: Nontender without obvious deformity. No CVA tenderness. Medications and IVs Current Medications Medications (Trade) Dose Ordered Sig/David Route Start Time Stop Time Status Last Admin (NS Flush) 2 ml UNSCH PRN IV FLUSH 08/10/16 13:15 (NS Flush) 2 ml BID IV FLUSH 08/10/16 21:00 08/15/16 21:05 (Narcan Inj) 0.4 mg UNSCH PRN IV 08/10/16 13:15 (Sharlene-Colace) 1 tab BID PO 08/10/16 21:00 08/15/16 21:05 (Milk Of Magnesia Liq) 30 ml Q12H PRN PO 08/10/16 13:15 (Senokot) 17.2 mg Q12H PRN PO 08/10/16 13:15 08/10/16 15:19 (Dulcolax Supp) 10 mg DAILY PRN RECTAL 08/10/16 13:15 (Lactulose Liq) 30 ml DAILY PRN PO 08/10/16 13:15 (Roxicodone) 5 mg Q4H PRN PO 08/10/16 13:15 08/14/16 14:09 (Roxicodone) 10 mg Q4H PRN PO 08/10/16 13:15 08/16/16 00:54 (Aldactone) 50 mg BID@,18 PO 08/10/16 18:00 Hold 08/13/16 16:57 (Zyloprim) 300 mg DAILY PO 08/11/16 09:00 Hold 08/13/16 08:31 (Lactulose Liq) 30 ml BID PO 08/10/16 21:00 08/15/16 21:05 (Desyrel) 50 mg HS PO 08/10/16 21:00 08/15/16 21:04 (Symbicort 160-4.5 Inh) 2 puff BID INH 08/10/16 21:00 08/15/16 21:08 Patient Own Medication PT OWN MED: LINZ... DAILY PO 08/11/16 09:00 Hold (Lasix) 40 mg BID@ PO 08/10/16 15:15 Hold 08/13/16 08:31 ([place] Aime [place]) 1 spray Q2H PRN NASAL 08/10/16 17:15 08/10/16 20:29 (Benadryl) 25 mg Q6HR PRN PO 08/10/16 23:45 08/16/16 00:53 (Zofran Inj) 4 mg Q6H PRN IV PUSH 08/11/16 08:00 08/13/16 08:30 Nitrofurantoin Macrocrystals 100 mg 100 mg BIDPC PO 08/13/16 12:00 Hold 08/13/16 16:57 (NS 1000 ml Inj) 1,000 ml @ 100 mls/hr Q10H IV 08/14/16 10:00 08/16/16 02:00 (Miralax) 34 gm BID PO 08/15/16 21:00 08/18/16 09:01 08/15/16 21:05 A/P Problem List: (1) Acute liver disease ICD Code: K76.9 (2) COPD (chronic obstructive pulmonary disease) ICD Code: J44.9 (3) Leukocytosis ICD Code: D72.829 (4) Acute hepatitis B ICD Code: B16.9 (5) Acute renal failure ICD Code: N17.9 (6) Gout ICD Code: M10.9 (7) CLL (chronic lymphocytic leukemia) ICD Code: C91.10 Assessment and Plan This is a 70-year-old male with history of chronic lymphocytic leukemia in remission who presented with abnormal lab work found to have acute Hepatitis B. Acute hepatitis B and chronic hepatitis C with ascites and portal hypertension LFTs still worsening. Prior his LFTs in April 2016 was within normal limits. Recheck LFTs tomorrow. Start normal saline. -abdominal ultrasound shows early signs of liver cirrhosis versus infiltrate. HIDA scan negative. MRCP showed possible portal hypertension. GI following. Diuretics on hold. -Hep B DNA viral load pending -Hep C genotype pending Leukocytosis likely secondary to UTI -Patient baseline is elevated secondary to history of CLL. -Most likely virally versus CLL. Urine culture positive for staph epidermidis sensitive to Macrobid, since with leukocytosis, will opt to treat however patient's kidney function is worsening. Hold Macrobid, recheck urinalysis. Acute renal failure-could be from overdiuresis, hold Lasix and Aldactone, hold allopurinol. Check urinalysis, recheck BMP tomorrow, continue normal saline. Continues to worsen -Consult Nephrology Chronic lymphocytic leukemia status post chemotherapy completion in May 2014. -Patient is following up with Dr. Ball as outpatient. Last PET scan was in February 2016 which showed mild uptake in bilateral neck, axillae, mediastinum and retroperitoneum. COPD -Stable. Patient stated that he chronically has shortness of breathing and that this has not worsened. CXR shows mild right lower infiltrate which is most likely fluid. no signs of infection. -Continue with home medication. Chronic musculoskeletal pain/osteoarthritis -Continue oxycodone for now Constipation -continue lactulose, MiraLAX and magnesium citrate. Suppository as needed Anxiety/Gout - Allopurinol on hold due to worsening renal function Hyponatremia- recheck BMP tomorrow. continue normal saline. improved at 131 - Hold Lasix due to DEMETRIO Physical deconditioning. Consult PT DVT prophylaxis -SCDs. INR 1.5. Discharge Planning Pending clinical improvement Problem Qualifiers (1) COPD (chronic obstructive pulmonary disease): Qualified Code: J44.9 - Chronic obstructive pulmonary disease, unspecified COPD type Shaan Echeverria MD R2 Aug 16, 2016 10:02
--- NOTE | 2016-08-16 11:32 | HHI.GIFU ---
Subjective Remarks Resting in w/c. Very lethargic today. Does arouse and oriented to self and place, but drifts back off. States he had a bowel movement yesterday, none today. Objective Vitals I&O Vital Signs Date Time Temp Pulse Resp B/P Pulse Ox O2 Delivery O2 Flow Rate FiO2 08/16/16 08:25 113 08/16/16 08:00 95.8 100 18 105/54 91 08/16/16 06:05 114 08/16/16 04:03 96.8 123 18 107/61 94 08/16/16 02:26 134 08/16/16 01:54 18 08/16/16 01:35 127 08/16/16 00:34 98.0 98 18 131/78 93 08/16/16 00:18 129 08/15/16 21:16 97.2 73 18 121/70 93 08/15/16 20:06 128 08/15/16 19:14 91 21 08/15/16 16:00 96.3 122 18 92/67 94 08/15/16 12:00 96.0 126 20 100/57 92 I/O 08/15/16 08/15/16 08/15/16 08/16/16 08/16/16 08/16/16 07:00 15:00 23:00 07:00 15:00 23:00 Intake Total 1200 ml 2126 ml 400 ml 300 ml Balance 1200 ml 2126 ml 400 ml 300 ml Intake Oral 1200 ml 480 ml 400 ml 300 ml IV Total 1646 ml # Voids 5 3 1 1 # Bowel Movements 0 0 Laboratory Laboratory Tests Test 08/16/16 03:47 White Blood Count 18.9 Red Blood Count 4.55 Hemoglobin 14.3 Hematocrit 42.7 Mean Corpuscular Volume 93.7 Mean Corpuscular Hemoglobin 31.3 Mean Corpuscular Hemoglobin 33.4 Concent Red Cell Distribution Width 17.5 Platelet Count 293 Mean Platelet Volume 9.1 Neutrophils (%) (Auto) 74.5 Lymphocytes (%) (Auto) 15.9 Monocytes (%) (Auto) 9.2 Eosinophils (%) (Auto) 0.2 Basophils (%) (Auto) 0.2 Neutrophils # (Auto) 14.1 Lymphocytes # (Auto) 3.0 Monocytes # (Auto) 1.7 Eosinophils # (Auto) 0.0 Basophils # (Auto) 0.0 CBC Comment DIFF FINAL Differential Comment Sodium Level 131 Potassium Level 5.1 Chloride Level 92 Carbon Dioxide Level 26.7 Anion Gap 12 Blood Urea Nitrogen 47 Creatinine 2.32 Estimat Glomerular Filtration 28 Rate Random Glucose 88 Calcium Level 9.1 Magnesium Level 3.5 Imaging Last Impressions Abdomen X-Ray 08/15/16 0000 Signed Impressions: Service Date/Time: Monday, August 15, 2016 14:50 - CONCLUSION: 1. Nonobstructive bowel gas pattern. Sung Gomez MD Chest X-Ray 08/12/16 0000 Signed Impressions: Service Date/Time: Friday, August 12, 2016 01:56 - CONCLUSION: Slight improvement in right lung base infiltrate. Aleshia Santoro MD Hepatobiliary Scan Nuclear Medicine 08/11/16 0000 Signed Impressions: Service Date/Time: July 10:13 - CONCLUSION: 1. Normal HIDA scan confirming patency of the cystic and common bile ducts. 2. Normal gallbladder EF. 3. The patient was asymptomatic with administration of CCK. Sung Gomez MD Cholangiopancreatography MRI 08/11/16 0000 Signed Impressions: Service Date/Time: July 08:38 - CONCLUSION: 1. Hepatosplenomegaly 2. Distended gallbladder otherwise no evidence of biliary obstructive disease. 3. Small to moderate ascites 4. Altered flow in the portal vein which may be indicative of portal hypertension. 5. No other significant abnormalities identified. Steve Acuna MD Abdomen Ultrasound 08/10/16 0000 Signed Impressions: Service Date/Time: Wednesday, August 10, 2016 14:47 - CONCLUSION: There is no significant ascites. Tong Read MD FACR Physical Exam HEENT: Normocephalic; atraumatic CHEST: Resp even/unlabored, diminished. CARDIAC: RRR ABDOMEN: Abdomen bloated, mildly distended, nontender, bowel sounds are hypoactive EXTREMITIES: No clubbing, cyanosis, BLE edematous/cool, pulses present SKIN: Normal; no rash; no jaundice. MENTAL HEALTH PROGRAM DIRECTOR: No focal deficits; lethargic, oriented to self and place Assessment and Plan Plan ASSESSMENT: - Elevated LFTs, likely secondary to acute hepatitis B. Pt with past hx of heavy ETOH use, now drinks 1 beer per day for several years (has rx at [facility]). Denies any known hx of liver cirrhosis or gallbladder disease. Does have hx of CLL. US (08/10/16)---> hepatomegaly with diffusely coarse hepatic echogenicity similar to prior CT examination consistent with early cirrhotic changes other differential consideration includes leukemic infiltration in this patient with a history of leukemia. Persistent splenomegaly with a small amount of ascites likely due to portal hypertension. Again leukemic infiltration is in the differential. Sludge and small number of stones in the gallbladder with associated gallbladder wall thickening and pericholecystic fluid suspect the gallbladder wall thickening and pericholecystic fluid or due to patient's ascites on the sludge/stones or chronic in nature. MRCP (08/11/16)-----> 1. Hepatosplenomegaly 2. Distended gallbladder otherwise no evidence of biliary obstructive disease. Small to moderate ascites Altered flow in the portal vein which may be indicative of portal hypertension. HIDA (08/11/16)----> 1. Normal HIDA scan confirming patency of the cystic and common bile ducts. 2. Normal gallbladder EF. 3. The patient was asymptomatic with administration of CCK. AFP 1.6, iron sat 21.1%, ferritin 793, Ceruloplasmin 45, alpha 1 antitrypsin 235, HA negative, ASMA negative, AMA neg. This is most likely secondary to acute hepatitis B. - Acute hepatitis B, with Heb Bs Ag (+), Hep B Core IgM ab (+), DNA Viral load pending. - Suspected Cirrhosis. Liver workup as above. - Hepatitis C Antibodies (+). viral load <15. HE DOES NOT HAVE AN ACTIVE HCV INFECTION. - Ascites. US with small amount of ascites, not amenable to paracentesis. Diuretics on hold secondary to worsening renal function. - Chronic constipation, takes Linzess, Lactulose at home. Had BM yesterday, none today. On bowel regimen. - Hepatic Encephalopathy. More lethargic today. Ammonia on 08/14 was 46. Increase Lactulose to TID. Add Xifaxan. - DEMETRIO. Worsening renal function. Creat 2.32. - Chronic lymphocytic leukemia and 2014 and treated with Rituxan/Bendamustine x 6 and completed this in May of 2014. He is followed by Dr. Ball. - Leukocytosis. worsening - Hyponatremia, Chronic pain, COPD, Gout, Anxiety/Depression per primary PLAN: - Heart healthy diet, low sodium - Cont. bowel regimen - Add Ammonia/LFT for today - Increase Lactulose to TID dosing - Add Xifaxan - Await Hepatitis B Viral DNA - Monitor CBC, CMP - If no improvement, consider renal evaluation, albumin - Further recommendations to follow based on results of above. - The pt was seen and examined by myself and Dr Hyman and this note is written on his behalf Michelle Rajan Aug 16, 2016 11:32
[2016-08-16] MEDS ORDERED: HEPARIN SODIUM - SQ 10,000 UNITS/ML VIAL SQ SCH (14:00)
--- NOTE | 2016-08-16 14:15 | PD.CONS ---
HPI Service Nephrology Consult Requested By Dr. Shaan Echeverria Reason for Consult Acute renal failure Primary Care Physician Juan Campbell MD History of Present Illness Patient is a 70-year-old male with history of chronic lymphocytic leukemia treated in 2014, he follows with Dr. Fontanez who sent him here as liver functions were abnormal, during the investigation it was discovered he has active hepatitis B infection, and C antibody was positive however the viral titers a low, his liver functions continued to deteriorate and urine output has declined as well he has retention of fluid in the legs and today he is somnolent, he is unable to provide much of history. He denies getting blood transfusions recently. 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 Gout Insomnia Anxiety/depression Chronic musculoskeletal pain Past Surgical History Excision of skin cancer in his back Bone marrow biopsy Port placement and removal Hip surgery Reported Medications Reported Meds & Active Scripts Active Reported Hydroxyzine HCl 50 Mg Tab 50 Mg PO Q6HR PRN [Perez Tonic] 15 Ml PO DAILY Flexeril (Cyclobenzaprine HCl) 10 Mg Tab 10 Mg PO HS Duoneb (Ipratropium-Albuterol Neb) 0.5-2.5 Mg/3 Ml Neb 3 Ml NEB BID NEB PRN Temazepam 15 Mg Cap 15 Mg PO HS PRN Multi-Vitamins (Multiple Vitamin) 1 Tab Tab 1 Tab PO DAILY Zofran (Ondansetron HCl) 8 Mg Tab 8 Mg PO Q8HR PRN Diphenhydramine (Diphenhydramine HCl) 25 Mg Cap 25 Mg PO Q6HR PRN Vitamin B-1 (Thiamine HCl) 100 Mg Tab 100 Mg PO DAILY Trazodone (Trazodone HCl) 50 Mg Tab 50 Mg PO HS Tizanidine (Tizanidine HCl) 4 Mg Cap 4 Mg PO HS Terbinafine Topical 1 % Cream 1 Applic TOPICAL DAILY Linzess (Linaclotide) 145 Mcg Cap 145 Mcg PO DAILY Lactulose Liq (Lactulose) 10 Gm/15 Ml Soln 30 Ml PO BID Hydrocodone-Acetaminophen 7.5-325 mg Tab 1 Tab PO Q4H PRN Furosemide 40 Mg Tab 40 Mg PO BID Docusate Sodium 100 Mg Cap 100 Mg PO BID Allopurinol 300 Mg Tab 300 Mg PO DAILY Advair Diskus Inh (Fluticasone-Salmeterol Inh) 250-50 Mcg/Blist Aer 1 Puff INH BID Rinse mouth after use. Active Ordered Medications Current Medications Medications (Trade) Dose Ordered Sig/David Route Start Time Stop Time Status Last Admin (NS Flush) 2 ml UNSCH PRN IV FLUSH 08/10/16 13:15 (NS Flush) 2 ml BID IV FLUSH 08/10/16 21:00 08/15/16 21:05 (Narcan Inj) 0.4 mg UNSCH PRN IV 08/10/16 13:15 (Sharlene-Colace) 1 tab BID PO 08/10/16 21:00 08/16/16 09:58 (Milk Of Magnesia Liq) 30 ml Q12H PRN PO 08/10/16 13:15 (Senokot) 17.2 mg Q12H PRN PO 08/10/16 13:15 08/10/16 15:19 (Dulcolax Supp) 10 mg DAILY PRN RECTAL 08/10/16 13:15 (Lactulose Liq) 30 ml DAILY PRN PO 08/10/16 13:15 (Aldactone) 50 mg BID@,18 PO 08/10/16 18:00 Hold 08/13/16 16:57 (Zyloprim) 300 mg DAILY PO 08/11/16 09:00 Hold 08/13/16 08:31 (Desyrel) 50 mg HS PO 08/10/16 21:00 08/15/16 21:04 (Symbicort 160-4.5 Inh) 2 puff BID INH 08/10/16 21:00 08/16/16 09:58 Patient Own Medication PT OWN MED: LINZ... DAILY PO 08/11/16 09:00 Hold (Lasix) 40 mg BID@,18 PO 08/10/16 15:15 Hold 08/13/16 08:31 ([place] Aime [place]) 1 spray Q2H PRN NASAL 08/10/16 17:15 08/10/16 20:29 (Benadryl) 25 mg Q6HR PRN PO 08/10/16 23:45 08/16/16 00:53 (Zofran Inj) 4 mg Q6H PRN IV PUSH 08/11/16 08:00 08/13/16 08:30 Nitrofurantoin Macrocrystals 100 mg 100 mg BIDPC PO 08/13/16 12:00 Hold 08/13/16 16:57 (NS 1000 ml Inj) 1,000 ml @ 100 mls/hr Q10H IV 08/14/16 10:00 08/16/16 02:00 (Miralax) 34 gm BID PO 08/15/16 21:00 08/18/16 09:01 08/16/16 13:46 (Heparin Inj) 5,000 units Q8HR SQ 08/16/16 14:00 Hold (Roxicodone) 5 mg Q6HR PRN PO 08/16/16 12:00 (Roxicodone) 10 mg Q6HR PRN PO 08/16/16 12:00 (Lactulose Liq) 30 ml TID PO 08/16/16 13:00 08/16/16 13:46 (Xifaxan) 550 mg BID PO 08/16/16 21:00 Family History Noncontributory Social History Denies smoking he admits to drinking 1 beer per day Physical Exam Vital Signs Vital Signs Date Time Temp Pulse Resp B/P Pulse Ox O2 Delivery O2 Flow Rate FiO2 08/16/16 12:04 110 08/16/16 12:00 96.0 108 18 92/57 93 08/16/16 08:25 113 08/16/16 08:00 95.8 100 18 105/54 91 08/16/16 06:05 114 08/16/16 04:03 96.8 123 18 107/61 94 08/16/16 02:26 134 08/16/16 01:54 18 08/16/16 01:35 127 08/16/16 00:34 98.0 98 18 131/78 93 08/16/16 00:18 129 08/15/16 21:16 97.2 73 18 121/70 93 08/15/16 20:06 128 08/15/16 19:14 91 21 08/15/16 16:00 96.3 122 18 92/67 94 Physical Exam GENERAL: Well-nourished, well-developed lethargic patient. SKIN: Warm and dry. HEAD: Normocephalic. EYES: No scleral icterus. No injection or drainage. NECK: Supple, trachea midline. No JVD or lymphadenopathy. CARDIOVASCULAR: Regular rate and rhythm without murmurs, gallops, or rubs. RESPIRATORY: Breath sounds equal bilaterally. No accessory muscle use. GASTROINTESTINAL: Abdomen soft, non-tender, nondistended. EXTREMITIES: No cyanosis, 2+ edema. NEUROLOGICAL: Drowsy and lethargic Laboratory Laboratory Tests Test 08/16/16 03:47 White Blood Count 18.9 Red Blood Count 4.55 Hemoglobin 14.3 Hematocrit 42.7 Mean Corpuscular Volume 93.7 Mean Corpuscular Hemoglobin 31.3 Mean Corpuscular Hemoglobin 33.4 Concent Red Cell Distribution Width 17.5 Platelet Count 293 Mean Platelet Volume 9.1 Neutrophils (%) (Auto) 74.5 Lymphocytes (%) (Auto) 15.9 Monocytes (%) (Auto) 9.2 Eosinophils (%) (Auto) 0.2 Basophils (%) (Auto) 0.2 Neutrophils # (Auto) 14.1 Lymphocytes # (Auto) 3.0 Monocytes # (Auto) 1.7 Eosinophils # (Auto) 0.0 Basophils # (Auto) 0.0 CBC Comment DIFF FINAL Differential Comment Sodium Level 131 Potassium Level 5.1 Chloride Level 92 Carbon Dioxide Level 26.7 Anion Gap 12 Blood Urea Nitrogen 47 Creatinine 2.32 Estimat Glomerular Filtration 28 Rate Random Glucose 88 Calcium Level 9.1 Magnesium Level 3.5 Result Diagram: 08/16/16 0347 08/16/16 0347 Imaging Last Impressions Abdomen X-Ray 08/15/16 0000 Signed Impressions: Service Date/Time: Monday, August 15, 2016 14:50 - CONCLUSION: 1. Nonobstructive bowel gas pattern. Sung Gomez MD Chest X-Ray 08/12/16 0000 Signed Impressions: Service Date/Time: Friday, August 12, 2016 01:56 - CONCLUSION: Slight improvement in right lung base infiltrate. K. Salvatore Santoro MD Hepatobiliary Scan Nuclear Medicine 08/11/16 0000 Signed Impressions: Service Date/Time: July 10:13 - CONCLUSION: 1. Normal HIDA scan confirming patency of the cystic and common bile ducts. 2. Normal gallbladder EF. 3. The patient was asymptomatic with administration of CCK. Sung Gomez MD Cholangiopancreatography MRI 08/11/16 0000 Signed Impressions: Service Date/Time: July 08:38 - CONCLUSION: 1. Hepatosplenomegaly 2. Distended gallbladder otherwise no evidence of biliary obstructive disease. 3. Small to moderate ascites 4. Altered flow in the portal vein which may be indicative of portal hypertension. 5. No other significant abnormalities identified. Steve Acuna MD Abdomen Ultrasound 08/10/16 0000 Signed Impressions: Service Date/Time: Wednesday, August 10, 2016 14:47 - CONCLUSION: There is no significant ascites. Tong Read MD FACR Assessment and Plan Problem List: (1) Acute renal failure Plan: Patient is likely have developed hepatorenal syndrome with declining urine output due to liver dysfunction, patient has acute hepatitis due to hepatitis B infection Treatment is supportive Give him albumin and Lasix Follow CMP Avoid dye study or nephrotoxins (2) Acute hepatitis B Plan: Acute infection GI is following (3) Acute liver disease Plan: Elevated liver enzymes due to hepatitis B (4) Leukemia Plan: History of CLL in the past (5) Hyponatremia Plan: Due to liver disease and acute renal insufficiency Problem Qualifiers (1) Leukemia: Qualified Code: C95.10 - Chronic leukemia, not having achieved remission Dante Cruz MD Aug 16, 2016 14:14
[2016-08-16] MEDS ORDERED: ALBUMIN HUMAN 25% 25 GM/100 ML BAGP IV ONE (15:00)
[2016-08-16] MEDS ORDERED: FUROSEMIDE 40 MG/4 ML VIAL IV PUSH ONE (16:00)
[2016-08-16 18:13] LABS: INDIRECT BILIRUBIN 1.9 MG/DL (0.0-0.8); TOTAL BILIRUBIN ADULT 8.7 MG/DL (0.2-1.0)
[2016-08-16] MEDS: traZODone HCL 50 MG TAB PO SCH (21:12)
[2016-08-16] MEDS: RIFAXIMIN 550 MG TAB PO SCH (21:12)
[2016-08-17] VITALS (8 sets, daily range): BP systolic 97–129; BP diastolic 57–71; PULSE 75–119; RESP 18–24; TEMP 96.1–97.7; O2SAT 92–95
[2016-08-17 07:19] LABS: HEMATOCRIT 42.5 % (39.0-51.0); MEAN CELL VOLUME 94.5 FL (80.0-100.0); MEAN CORPUSCULAR HEMOGLOBIN 31.9 PG (27.0-34.0); MEAN CORPUSCULAR HGB CONC 33.7 % (32.0-36.0); PLATELET COUNT 247 TH/MM3 (150-450); RED CELL DISTRIBUTION WIDTH 17.9 % (11.6-17.2); REVIEW FLAG FINAL; WHITE BLOOD COUNT 16.9 TH/MM3 (4.0-11.0)
[2016-08-17 07:30] LABS: ALT (GPT) 535 U/L (12-78); ANION GAP 14 MEQ/L (5-15); BICARBONATE 20.5 MEQ/L (21.0-32.0); BLOOD UREA NITROGEN 59 MG/DL (7-18); CHLORIDE 96 MEQ/L (98-107); GLOMERULAR FILTRATION RATE 27 ML/MIN (>89); POTASSIUM 5.1 MEQ/L (3.5-5.1); SODIUM (NA) 130 MEQ/L (136-145)
[2016-08-17 07:37] LABS: ALKALINE PHOSPHATASE 248 U/L (45-117); AST (GOT) 1515 U/L (15-37); TOTAL BILIRUBIN ADULT 9.6 MG/DL (0.2-1.0)
[2016-08-17] MEDS: RESP: ALBUTEROL 2.5 MG/IPRATROPIUM 0.5 MG NEB (SCH) NEB ×2 (08:02→19:26)
[2016-08-17] MEDS: DOCUSATE SODIUM 50 MG/SENNA 8.6 MG TAB PO SCH ×2 (09:00→21:00)
[2016-08-17] MEDS: POLYETHYLENE GLYCOL 17 GM PKG PO SCH ×2 (09:00→21:00)
--- NOTE | 2016-08-17 09:17 | HHI.PR ---
Subjective Remarks Follow up for Hepatitis B, DEMETRIO - possibly acute hepatorenal syndrome. Patient is currently doing well. Denies any chest pain, shortness of breath, fever, chills. Objective Vitals Vital Signs Date Time Temp Pulse Resp B/P Pulse Ox O2 Delivery O2 Flow Rate FiO2 08/17/16 08:04 95 08/17/16 08:00 96.5 83 18 110/65 95 08/17/16 04:00 96.9 109 18 116/67 93 08/17/16 00:00 96.7 119 18 102/61 93 08/16/16 21:15 92 21 08/16/16 20:00 97.1 114 18 96/53 93 08/16/16 17:27 111 106/73 08/16/16 17:00 95.5 105 21 103/74 92 08/16/16 12:04 110 08/16/16 12:00 96.0 108 18 92/57 93 I/O 08/16/16 08/16/16 08/16/16 08/17/16 08/17/16 08/17/16 07:00 15:00 23:00 07:00 15:00 23:00 Intake Total 300 ml 1253 ml 567 ml 251 ml 360 ml Output Total 700 ml 300 ml Balance 300 ml 1253 ml -133 ml 251 ml 60 ml Intake Oral 300 ml 480 ml 450 ml 360 ml IV Total 773 ml 117 ml 251 ml Output Urine Total 700 ml 300 ml # Voids 1 3 # Bowel Movements 0 3 Result Diagram: 08/17/16 0639 08/17/16 0639 Imaging Last Impressions Abdomen X-Ray 08/15/16 0000 Signed Impressions: Service Date/Time: Monday, August 15, 2016 14:50 - CONCLUSION: 1. Nonobstructive bowel gas pattern. Sung Gomez MD Chest X-Ray 08/12/16 0000 Signed Impressions: Service Date/Time: Friday, August 12, 2016 01:56 - CONCLUSION: Slight improvement in right lung base infiltrate. Aleshia Santoro MD Hepatobiliary Scan Nuclear Medicine 08/11/16 0000 Signed Impressions: Service Date/Time: July 10:13 - CONCLUSION: 1. Normal HIDA scan confirming patency of the cystic and common bile ducts. 2. Normal gallbladder EF. 3. The patient was asymptomatic with administration of CCK. Sung Gomez MD Cholangiopancreatography MRI 08/11/16 0000 Signed Impressions: Service Date/Time: July 08:38 - CONCLUSION: 1. Hepatosplenomegaly 2. Distended gallbladder otherwise no evidence of biliary obstructive disease. 3. Small to moderate ascites 4. Altered flow in the portal vein which may be indicative of portal hypertension. 5. No other significant abnormalities identified. Steve Acuna MD Abdomen Ultrasound 08/10/16 0000 Signed Impressions: Service Date/Time: Wednesday, August 10, 2016 14:47 - CONCLUSION: There is no significant ascites. Tong Read MD FACR Objective Remarks GENERAL: Alert, NAD. SKIN: Warm and dry. HEAD: Normocephalic. EYES: No scleral icterus. No injection or drainage. NECK: Supple, trachea midline. No JVD or lymphadenopathy. CARDIOVASCULAR: Regular rate and rhythm without murmurs, gallops, or rubs. RESPIRATORY: Breath sounds equal bilaterally. No accessory muscle use. GASTROINTESTINAL: Abdomen soft, mildly tender to palpation, nondistended. MUSCULOSKELETAL: No cyanosis. Lower ext trace edema. BACK: Nontender without obvious deformity. No CVA tenderness. A/P Assessment and Plan Mr. Rogers is a 69-year-old male with a history of hypertension, COPD, CLL who presented to the emergency department on 08/10/2016 due to suspected liver failure. He reported abdominal distention in the week prior to this admission. Patient developed acute kidney injury during this admission which likely indicates hepatorenal syndrome. - Liver cirrhosis - likely due to Hep B. - Hepatitis B - Hepato-renal syndrome - type 1 - LFTs are still elevated. - abdominal ultrasound shows early signs of liver cirrhosis versus infiltrate. HIDA scan negative. - MRCP showed possible portal hypertension. - Discussed with Nephrology (Dr. Cruz) regarding octreotide, midodrine in addition to Albumin. - Continue lactulose, rifaximin. - CLL status post chemotherapy completion in May 2014. Patient follows up with Dr. Ball in the outpatient setting. - COPD - continue DuoNeb, Symbicort - Hypertension - hold furosemide. Full code. Heparin subcutaneous. Isa Richards DO Aug 17, 2016 9:17 am
[2016-08-17] MEDS: RIFAXIMIN 550 MG TAB PO SCH ×2 (09:39→22:21)
[2016-08-17] MEDS: SODIUM CHLORIDE 0.9% FLUSH 10 ML FLUSH IV FLUSH SCH ×2 (09:39→22:21)
[2016-08-17] MEDS: BUDESONIDE-FORMOTEROL 160/4.5 MCG INHALER INH SCH ×2 (09:39→22:17)
[2016-08-17] MEDS: LACTULOSE SYRUP 20 GM/30 ML CUP PO SCH ×5 (09:39→21:00)
[2016-08-17] MEDS: SODIUM CHLOR 0.9% 1000 ML INJ 1,000 ML IV SCH ×2 (09:40→22:00)
[2016-08-17] MEDS: MORPHINE SULFATE 4 MG/ML INJ IV PUSH PRN (12:25)
--- NOTE | 2016-08-17 12:49 | HHI.NPPN ---
Objective Data Data 08/16/16 08/17/16 19:00 07:00 Intake Total 1253 ml 818 ml Output Total 700 ml Balance 553 ml 818 ml Intake Oral 480 ml 450 ml IV Total 773 ml 368 ml Output Urine Total 700 ml # Voids 3 # Bowel Movements 3 Vital Signs Date Time Temp Pulse Resp B/P Pulse Ox O2 Delivery O2 Flow Rate FiO2 08/17/16 12:00 97.0 115 24 97/60 93 08/17/16 08:04 95 08/17/16 08:00 96.5 83 18 110/65 95 08/17/16 04:00 96.9 109 18 116/67 93 08/17/16 00:00 96.7 119 18 102/61 93 08/16/16 21:15 92 21 08/16/16 20:00 97.1 114 18 96/53 93 08/16/16 17:27 111 106/73 08/16/16 17:00 95.5 105 21 103/74 92 -: 08/17/16 0639 08/17/16 0639 Microbiology 08/16/16 Aerobic Blood Culture - Preliminary, Resulted NO GROWTH IN 1 DAY 08/16/16 Anaerobic Blood Culture - Preliminary, Resulted NO GROWTH IN 1 DAY 08/16/16 Aerobic Blood Culture - Preliminary, Resulted NO GROWTH IN 1 DAY 08/16/16 Anaerobic Blood Culture - Preliminary, Resulted NO GROWTH IN 1 DAY Physical Exam General Appearance: Well Nourished, Pale Neck Neck Exam: Neck Supple Pulmonary Resp Exam: Clear Bilaterally, Breath Sounds Equal Cardiology CV Exam: Regular, Normal Sinus Rhythm Gastrointestinal/Abdomen GI Exam: Soft, Distended Extremeties Extremities Exam: Moderate Edema Assessment/Plan Problem List: (1) Acute renal failure Plan: Patient is likely have developed hepatorenal syndrome with declining urine output due to liver dysfunction, patient has acute hepatitis due to hepatitis B infection Treatment is supportive add Octreotide and Midodrine UOP improved Avoid dye study or nephrotoxins (2) Acute hepatitis B Plan: Acute infection GI is following (3) Acute liver disease Plan: Elevated liver enzymes due to hepatitis B (4) Leukemia Plan: History of CLL in the past (5) Hyponatremia Plan: Due to liver disease and acute renal insufficiency Problem Qualifiers (1) Leukemia: Qualified Code: C95.10 - Chronic leukemia, not having achieved remission Dante Cruz MD Aug 17, 2016 12:48
[2016-08-17 13:52] LABS: HEP B DNA R1 17000000 IU/mL (()); HEP B DNA R2 7.23 (())
--- NOTE | 2016-08-17 14:53 | HHI.GIFU ---
Subjective Remarks Pt resting in bed. Has some abd discomfort. Objective Vitals I&O Vital Signs Date Time Temp Pulse Resp B/P Pulse Ox O2 Delivery O2 Flow Rate FiO2 08/17/16 12:00 97.0 115 24 97/60 93 08/17/16 08:04 95 08/17/16 08:00 96.5 83 18 110/65 95 08/17/16 04:00 96.9 109 18 116/67 93 08/17/16 00:00 96.7 119 18 102/61 93 08/16/16 21:15 92 21 08/16/16 20:00 97.1 114 18 96/53 93 08/16/16 17:27 111 106/73 08/16/16 17:00 95.5 105 21 103/74 92 I/O 08/16/16 08/16/16 08/16/16 08/17/16 08/17/16 08/17/16 07:00 15:00 23:00 07:00 15:00 23:00 Intake Total 300 ml 1253 ml 567 ml 251 ml 840 ml Output Total 700 ml 300 ml Balance 300 ml 1253 ml -133 ml 251 ml 540 ml Intake Oral 300 ml 480 ml 450 ml 840 ml IV Total 773 ml 117 ml 251 ml Output Urine Total 700 ml 300 ml # Voids 1 3 # Bowel Movements 0 3 0 Laboratory Laboratory Tests Test 08/16/16 08/17/16 17:16 06:39 Total Bilirubin 8.7 9.6 Direct Bilirubin 6.8 Indirect Bilirubin 1.9 Aspartate Amino Transf 1504 1515 (AST/SGOT) Alanine Aminotransferase 561 535 (ALT/SGPT) Alkaline Phosphatase 260 248 Ammonia 91 Total Protein 6.0 5.8 Albumin 3.2 2.9 White Blood Count 16.9 Red Blood Count 4.50 Hemoglobin 14.3 Hematocrit 42.5 Mean Corpuscular Volume 94.5 Mean Corpuscular Hemoglobin 31.9 Mean Corpuscular Hemoglobin 33.7 Concent Red Cell Distribution Width 17.9 Platelet Count 247 Mean Platelet Volume 8.8 Sodium Level 130 Potassium Level 5.1 Chloride Level 96 Carbon Dioxide Level 20.5 Anion Gap 14 Blood Urea Nitrogen 59 Creatinine 2.37 Estimat Glomerular Filtration 27 Rate Random Glucose 71 Calcium Level 8.9 Date/Time Procedure Status Source Growth 08/16/16 17:16 Aerobic Blood Culture - Preliminary Resulted Blood Peripheral NO GROWTH IN 1 DAY 08/16/16 17:16 Anaerobic Blood Culture - Preliminary Resulted Blood Peripheral NO GROWTH IN 1 DAY Imaging Last Impressions Abdomen X-Ray 08/15/16 0000 Signed Impressions: Service Date/Time: Monday, August 15, 2016 14:50 - CONCLUSION: 1. Nonobstructive bowel gas pattern. Sung Gomez MD Chest X-Ray 08/12/16 0000 Signed Impressions: Service Date/Time: Friday, August 12, 2016 01:56 - CONCLUSION: Slight improvement in right lung base infiltrate. Aleshia Santoro MD Hepatobiliary Scan Nuclear Medicine 08/11/16 0000 Signed Impressions: Service Date/Time: July 10:13 - CONCLUSION: 1. Normal HIDA scan confirming patency of the cystic and common bile ducts. 2. Normal gallbladder EF. 3. The patient was asymptomatic with administration of CCK. Sung Gomez MD Cholangiopancreatography MRI 08/11/16 0000 Signed Impressions: Service Date/Time: July 08:38 - CONCLUSION: 1. Hepatosplenomegaly 2. Distended gallbladder otherwise no evidence of biliary obstructive disease. 3. Small to moderate ascites 4. Altered flow in the portal vein which may be indicative of portal hypertension. 5. No other significant abnormalities identified. Steve Acuna MD Abdomen Ultrasound 08/10/16 0000 Signed Impressions: Service Date/Time: Wednesday, August 10, 2016 14:47 - CONCLUSION: There is no significant ascites. Tong Read MD FACR Physical Exam HEENT: Normocephalic; atraumatic CHEST: Resp even/unlabored, diminished. CARDIAC: RRR ABDOMEN: Abdomen bloated, mildly distended, dull, bowel sounds are hypoactive EXTREMITIES: No clubbing, cyanosis, BLE edematous/cool, pulses present SKIN: Normal; no rash; no jaundice. 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 Pt with past hx of heavy ETOH use, now drinks 1 beer per day for several years (has rx at [facility]). Denies any known hx of liver cirrhosis or gallbladder disease. Does have hx of CLL. US (08/10/16)---> hepatomegaly with diffusely coarse hepatic echogenicity similar to prior CT examination consistent with early cirrhotic changes other differential consideration includes leukemic infiltration in this patient with a history of leukemia. Persistent splenomegaly with a small amount of ascites likely due to portal hypertension. Again leukemic infiltration is in the differential. Sludge and small number of stones in the gallbladder with associated gallbladder wall thickening and pericholecystic fluid suspect the gallbladder wall thickening and pericholecystic fluid or due to patient's ascites on the sludge/stones or chronic in nature. MRCP (08/11/16)-----> 1. Hepatosplenomegaly 2. Distended gallbladder otherwise no evidence of biliary obstructive disease. Small to moderate ascites Altered flow in the portal vein which may be indicative of portal hypertension. HIDA (08/11/16)----> 1. Normal HIDA scan confirming patency of the cystic and common bile ducts. 2. Normal gallbladder EF. 3. The patient was asymptomatic with administration of CCK. AFP 1.6, iron sat 21.1%, ferritin 793, Ceruloplasmin 45, alpha 1 antitrypsin 235, HA negative, ASMA negative, AMA neg. This is most likely secondary to acute hepatitis B. - Acute hepatitis B, with Heb Bs Ag (+), Hep B Core IgM ab (+), viral load 17, 000,000 BE ag pos. - Suspected Cirrhosis. Liver workup as above. - Hepatitis C Antibodies (+). viral load <15. HE DOES NOT HAVE AN ACTIVE HCV INFECTION. - Ascites. US with small amount of ascites, not amenable to paracentesis. Diuretics on hold secondary to worsening renal function. - Chronic constipation, takes Linzess, Lactulose at home. Had BM yesterday, none today. On bowel regimen. - Hepatic Encephalopathy. More lethargic today. Ammonia on 08/14 was 46. Increase Lactulose to TID. Add Xifaxan. - DEMETRIO. Worsening renal function. Creat 2.37. poss HRS per nephrology, urine Na pending. on midodrine, ocreotide - Chronic lymphocytic leukemia and 2014 and treated with Rituxan/Bendamustine x 6 and completed this in May of 2014. He is followed by Dr. Ball. - Leukocytosis. improving - Hyponatremia, Chronic pain, COPD, Gout, Anxiety/Depression per primary PLAN: - Heart healthy diet, low sodium - Cont. bowel regimen - rck ammonia - Increase Lactulose to QID dosing - continue xifaxan - Monitor CBC, CMP - Further recommendations to follow based on results of above. - The pt was seen and examined by myself and Dr Hyman and this note is written on his behalf Bernie Pruett Aug 17, 2016 2:53 pm Bernie Pruett Aug 17, 2016 2:53 pm
[2016-08-17] MEDS: OCTREOTIDE INJ 50 MCG/ML AMP SQ SCH ×2 (15:34→22:22)
[2016-08-17] MEDS: MIDODRINE 5 MG TAB PO SCH (18:21)
[2016-08-17] MEDS: traZODone HCL 50 MG TAB PO SCH (22:21)
[2016-08-18] VITALS (16 sets, daily range): BP systolic 80–114; BP diastolic 38–61; PULSE 78–94; RESP 15–22; TEMP 96.9–98.2; O2SAT 92–97
[2016-08-18] MEDS: MIDODRINE 5 MG TAB PO SCH (05:52)
[2016-08-18] MEDS: OCTREOTIDE INJ 50 MCG/ML AMP SQ SCH (05:53)
[2016-08-18 06:55] LABS: ALKALINE PHOSPHATASE 259 U/L (45-117); ALT (GPT) 603 U/L (12-78); ANION GAP 14 MEQ/L (5-15); AST (GOT) 1719 U/L (15-37); BICARBONATE 19.5 MEQ/L (21.0-32.0); BLOOD UREA NITROGEN 75 MG/DL (7-18); CHLORIDE 98 MEQ/L (98-107); GLOMERULAR FILTRATION RATE 21 ML/MIN (>89); SODIUM (NA) 131 MEQ/L (136-145); TOTAL BILIRUBIN ADULT 11.2 MG/DL (0.2-1.0)
[2016-08-18] MEDS: RESP: ALBUTEROL 2.5 MG/IPRATROPIUM 0.5 MG NEB (SCH) NEB ×2 (07:40→20:41)
[2016-08-18] MEDS: RIFAXIMIN 550 MG TAB PO SCH ×2 (07:54→20:17)
[2016-08-18] MEDS: SODIUM CHLOR 0.9% 1000 ML INJ 1,000 ML IV SCH ×5 (07:55→23:30)
[2016-08-18] MEDS: BUDESONIDE-FORMOTEROL 160/4.5 MCG INHALER INH SCH ×2 (07:55→20:20)
[2016-08-18] MEDS: LACTULOSE SYRUP 20 GM/30 ML CUP PO SCH ×3 (07:55→20:17)
[2016-08-18] MEDS: SODIUM CHLORIDE 0.9% FLUSH 10 ML FLUSH IV FLUSH SCH ×2 (07:55→20:17)
[2016-08-18] MEDS: DOCUSATE SODIUM 50 MG/SENNA 8.6 MG TAB PO SCH ×2 (07:59→20:16)
[2016-08-18] MEDS: POLYETHYLENE GLYCOL 17 GM PKG PO SCH (07:59)
[2016-08-18] MEDS ORDERED: INSULIN HUMAN REGULAR 1,000 UNITS/10 ML VIAL IV PUSH ONE ×2 (08:00→15:30)
[2016-08-18] MEDS ORDERED: RESP: ALBUTEROL CONC 2.5 MG/0.5 ML NEB INH ONE (08:00)
[2016-08-18] MEDS ORDERED: DEXTROSE 50% IN WATER 50 ML VIAL(D50) IV PUSH ONE ×2 (08:00→15:30)
--- NOTE | 2016-08-18 08:02 | HHI.PR ---
Subjective Remarks Follow up for hepatorenal syndrome, liver cirrhosis, Hep B. Patient is moaning due to pain. Answers questions appropriately. No fever, chills. Objective Vitals Vital Signs Date Time Temp Pulse Resp B/P Pulse Ox O2 Delivery O2 Flow Rate FiO2 08/18/16 07:40 94 Nasal Cannula 2.00 08/18/16 04:00 96.9 78 17 104/55 92 08/18/16 00:00 97.3 90 18 99/61 93 08/17/16 20:00 75 08/17/16 20:00 96.1 76 18 129/57 94 08/17/16 19:26 92 21 08/17/16 16:00 97.7 88 18 120/71 95 08/17/16 12:00 97.0 115 24 97/60 93 08/17/16 08:04 95 I/O 08/17/16 08/17/16 08/17/16 08/18/16 08/18/16 08/18/16 07:00 15:00 23:00 07:00 15:00 23:00 Intake Total 251 ml 840 ml 2155 ml Output Total 300 ml Balance 251 ml 540 ml 2155 ml Intake Oral 840 ml IV Total 251 ml 2155 ml Output Urine Total 300 ml # Bowel Movements 0 Result Diagram: 08/17/16 0639 08/18/16 0612 Imaging Last Impressions Abdomen X-Ray 08/15/16 0000 Signed Impressions: Service Date/Time: Monday, August 15, 2016 14:50 - CONCLUSION: 1. Nonobstructive bowel gas pattern. Sung Gomez MD Chest X-Ray 08/12/16 0000 Signed Impressions: Service Date/Time: Friday, August 12, 2016 01:56 - CONCLUSION: Slight improvement in right lung base infiltrate. Aleshia Santoro MD Hepatobiliary Scan Nuclear Medicine 08/11/16 0000 Signed Impressions: Service Date/Time: July 10:13 - CONCLUSION: 1. Normal HIDA scan confirming patency of the cystic and common bile ducts. 2. Normal gallbladder EF. 3. The patient was asymptomatic with administration of CCK. Sung Gomez MD Cholangiopancreatography MRI 08/11/16 0000 Signed Impressions: Service Date/Time: July 08:38 - CONCLUSION: 1. Hepatosplenomegaly 2. Distended gallbladder otherwise no evidence of biliary obstructive disease. 3. Small to moderate ascites 4. Altered flow in the portal vein which may be indicative of portal hypertension. 5. No other significant abnormalities identified. Steve Acuna MD Abdomen Ultrasound 08/10/16 0000 Signed Impressions: Service Date/Time: Wednesday, August 10, 2016 14:47 - CONCLUSION: There is no significant ascites. Tong Read MD FACR Objective Remarks GENERAL: Alert, NAD. SKIN: Warm and dry. HEAD: Normocephalic. EYES: No scleral icterus. No injection or drainage. NECK: Supple, trachea midline. No JVD or lymphadenopathy. CARDIOVASCULAR: Regular rate and rhythm without murmurs, gallops, or rubs. RESPIRATORY: Breath sounds equal bilaterally. No accessory muscle use. GASTROINTESTINAL: Abdomen soft, mildly tender to palpation, nondistended. MUSCULOSKELETAL: No cyanosis. Lower ext 2+ edema. BACK: Nontender without obvious deformity. No CVA tenderness. Procedures None. A/P Assessment and Plan Mr. Rogers is a 69-year-old male with a history of hypertension, COPD, CLL who presented to the emergency department on 08/10/2016 due to suspected liver failure. He reported abdominal distention in the week prior to this admission. Patient developed acute kidney injury during this admission which likely indicates hepatorenal syndrome. - Liver cirrhosis - likely due to Hep B. - Hepatitis B - Hepato-renal syndrome - type 1 - LFTs are still elevated, AST, ALT, Alk Phos, Total bilirubin trending up. - abdominal ultrasound shows early signs of liver cirrhosis versus infiltrate. HIDA scan negative. - MRCP showed possible portal hypertension. - Discussed with Nephrology (Dr. Cruz) on 08/17/2016 regarding octreotide, midodrine in addition to Albumin. - Continue lactulose, rifaximin. - Hyperkalemia - likely due to acute kidney injury related to hepatorenal syndrome. - Hyponatremia - Na 131. - K+ 5.1 --> 6.0. - Will start patient on Kayexalate. Also give patient Insulin, D50, Albuterol. - Will check BMP at around 5PM. - CLL status post chemotherapy completion in May 2014. Patient follows up with Dr. Ball in the outpatient setting. - COPD - continue DuoNeb, Symbicort - Hypertension - hold furosemide. Full code. Heparin subcutaneous. Isa Richards DO Aug 18, 2016 8:02 am
[2016-08-18] MEDS: SODIUM POLYSTYRENE SULFONATE SUSP 15 GM/60 ML CUP PO SCH ×3 (08:55→20:17)
--- NOTE | 2016-08-18 10:35 | HHI.GIFU ---
Subjective Remarks Resting in bed. Extremely lethargic. Remains distended, diffuse tenderness, but all moans when lower extremities touched lightly. (+) BM. Objective Vitals I&O Vital Signs Date Time Temp Pulse Resp B/P Pulse Ox O2 Delivery O2 Flow Rate FiO2 08/18/16 08:00 97.0 84 22 100/57 92 08/18/16 07:40 94 Nasal Cannula 2.00 08/18/16 04:00 96.9 78 17 104/55 92 08/18/16 00:00 97.3 90 18 99/61 93 08/17/16 20:00 75 08/17/16 20:00 96.1 76 18 129/57 94 08/17/16 19:26 92 21 08/17/16 16:00 97.7 88 18 120/71 95 08/17/16 12:00 97.0 115 24 97/60 93 I/O 08/17/16 08/17/16 08/17/16 08/18/16 08/18/16 08/18/16 07:00 15:00 23:00 07:00 15:00 23:00 Intake Total 251 ml 840 ml 2155 ml Output Total 300 ml 300 ml Balance 251 ml 540 ml 2155 ml -300 ml Intake Oral 840 ml IV Total 251 ml 2155 ml Output Urine Total 300 ml 300 ml # Bowel Movements 0 Laboratory Laboratory Tests Test 08/18/16 08/18/16 06:12 08:30 Sodium Level 131 Potassium Level 6.0 Chloride Level 98 Carbon Dioxide Level 19.5 Anion Gap 14 Blood Urea Nitrogen 75 Creatinine 3.02 Estimat Glomerular Filtration 21 Rate Random Glucose 77 Calcium Level 8.7 Total Bilirubin 11.2 Aspartate Amino Transf 1719 (AST/SGOT) Alanine Aminotransferase 603 (ALT/SGPT) Alkaline Phosphatase 259 Ammonia 11 Total Protein 6.1 Albumin 2.9 Urine Osmolality 412 Urine Random Sodium 7 Date/Time Procedure Status Source Growth 08/16/16 17:16 Aerobic Blood Culture - Preliminary Resulted Blood Peripheral NO GROWTH IN 1 DAY 08/16/16 17:16 Anaerobic Blood Culture - Preliminary Resulted Blood Peripheral NO GROWTH IN 1 DAY Imaging Last Impressions Abdomen X-Ray 08/15/16 0000 Signed Impressions: Service Date/Time: Monday, August 15, 2016 14:50 - CONCLUSION: 1. Nonobstructive bowel gas pattern. Sung Gomez MD Chest X-Ray 08/12/16 0000 Signed Impressions: Service Date/Time: Friday, August 12, 2016 01:56 - CONCLUSION: Slight improvement in right lung base infiltrate. Aleshia Santoro MD Hepatobiliary Scan Nuclear Medicine 08/11/16 0000 Signed Impressions: Service Date/Time: July 10:13 - CONCLUSION: 1. Normal HIDA scan confirming patency of the cystic and common bile ducts. 2. Normal gallbladder EF. 3. The patient was asymptomatic with administration of CCK. Sung Gomez MD Cholangiopancreatography MRI 08/11/16 0000 Signed Impressions: Service Date/Time: , August 11, 2016 08:38 - CONCLUSION: 1. Hepatosplenomegaly 2. Distended gallbladder otherwise no evidence of biliary obstructive disease. 3. Small to moderate ascites 4. Altered flow in the portal vein which may be indicative of portal hypertension. 5. No other significant abnormalities identified. Steve Acuna MD Abdomen Ultrasound 08/10/16 0000 Signed Impressions: Service Date/Time: Wednesday, August 10, 2016 14:47 - CONCLUSION: There is no significant ascites. Tong Read MD FACR Physical Exam HEENT: Normocephalic; atraumatic CHEST: Resp shallow, even/unlabored, diminished. CARDIAC: RRR ABDOMEN: Abdomen distended, mildly distended, dull, bowel sounds are hypoactive EXTREMITIES: No clubbing, cyanosis, BLE edematous/cool, pulses present SKIN: Normal; no rash; no jaundice. 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 Pt with past hx of heavy ETOH use, now drinks 1 beer per day for several years (has rx at [facility]). Denies any known hx of liver cirrhosis or gallbladder disease. Does have hx of CLL. US (08/10/16)---> hepatomegaly with diffusely coarse hepatic echogenicity similar to prior CT examination consistent with early cirrhotic changes other differential consideration includes leukemic infiltration in this patient with a history of leukemia. Persistent splenomegaly with a small amount of ascites likely due to portal hypertension. Again leukemic infiltration is in the differential. Sludge and small number of stones in the gallbladder with associated gallbladder wall thickening and pericholecystic fluid suspect the gallbladder wall thickening and pericholecystic fluid or due to patient's ascites on the sludge/stones or chronic in nature. MRCP (08/11/16)-----> 1. Hepatosplenomegaly 2. Distended gallbladder otherwise no evidence of biliary obstructive disease. Small to moderate ascites Altered flow in the portal vein which may be indicative of portal hypertension. HIDA (08/11/16)----> 1. Normal HIDA scan confirming patency of the cystic and common bile ducts. 2. Normal gallbladder EF. 3. The patient was asymptomatic with administration of CCK. AFP 1.6, iron sat 21.1%, ferritin 793, Ceruloplasmin 45, alpha 1 antitrypsin 235, HA negative, ASMA negative, AMA neg. This is most likely secondary to acute hepatitis B. LFTs continue to rise with T. Bili 11.2, AST 1719, ALT 603, Alk Phosph 259. He also has worsening renal function and is being treated for possible hepatorenal syndrome by renal. - Acute hepatitis B, with Heb Bs Ag (+), Hep B Core IgM ab (+), viral load 17, 000,000 BE ag pos. - Suspected Cirrhosis. Liver workup as above. - Hepatitis C Antibodies (+). viral load <15. HE DOES NOT HAVE AN ACTIVE HCV INFECTION. - Ascites. US with small amount of ascites, not amenable to paracentesis on , but he does seem to have worsening fluid retention/ascites and rpt. US has been ordered. Albumin. Diuretics on hold secondary to worsening renal function. - Chronic constipation, takes Linzess, Lactulose at home. S/P Miralax. On Lactulose. (+) BM. Also has kaexylate ordered for hyperkalemia and this will help with his constipation as well. - Hepatic Encephalopathy. Ammonia level improved 11. Lactulose, Xifaxan. Remains somnolent, AMS is likely multifactorial at this point. - DEMETRIO, likely hepatorenal syndrome with worsening renal function, decreasing UOP , and electrolyte abnormalities. Octreotide, Midodrine, Albumin. Avoid dye study and nephrotoxins. - Chronic lymphocytic leukemia and 2014 and treated with Rituxan/Bendamustine x 6 and completed this in May of 2014. He is followed by Dr. Ball. - Leukocytosis. WBC 16.9. Going for repeat US to evaluate ascites. If significant ascites, will get paracentesis with fluid cultures/studies - Hyponatremia, Chronic pain, COPD, Gout, Anxiety/Depression per primary PLAN: - Heart healthy diet, low sodium - Await US, if enough fluid consider diagnostic paracentesis - Cont. Lactulose - Cont. Xifaxan - Midodrine, Octreotide, Kaexylate per renal - Monitor CBC, CMP - Trial of baraclude - D/W Dr. Richards - Renal following - [facility] for acute liver disease with hepatorenal in patient with acute hep b/suspected underlying cirrhosis for management vs transplant evaluation. Of note, patient does drink one beer per day and has a history of CLL. - CM to fax face sheet, H&P, last progress notes, labs, and imaging to [facility] at . - Further recommendations to follow based on results of above. - The pt was seen and examined by myself and Dr Hyman and this note is written on his behalf Michelle Rajan Aug 18, 2016 10:35
[2016-08-18] MEDS ORDERED: TERBUTALINE INJ 1 MG/ML AMP SQ PRN (12:30)
[2016-08-18] MEDS ORDERED: NOREPINEPHRINE INJ 4 MG in SODIUM CHLOR 0.9% 250 ML INJ 246 ML IV SCH (12:30)
--- NOTE | 2016-08-18 13:08 | PD.PROCEDR ---
Central Line Procedure REASON FOR PROCEDURE Central venous access PROCEDURE PERFORMED Central line placement: L subclavian central line CONSENT Informed consent for procedure was obtained from patient ANESTHESIA Local injection of 1% Lidocaine DESCRIPTION OF THE PROCEDURE The patient was placed in supine, mild Trendelenburg position. The area was exposed and cleansed with ChloraPrep, times two. Large sterile drape was used to cover the patient, with the site exposed, under sterile conditions including cap, face mask, sterile gown, and sterile gloves. On single attempt, the introducer needle was inserted with negative pressure in syringe and venous flash was obtained. The guide wire was then advanced without any restriction and the needle was removed. The dilator was used without any complications. Using Seldinger technique the 20 CM 7F triple lumen catheter was advanced over the guide wire to a depth of 18 centimeters. The guide wire was removed. All ports were aspirated with dark venous blood return and flushed easily with sterile saline. All ports were capped. Antibiotic disc was placed around central line at puncture site. The central line was secured to the skin with two interrupted 2.0 silk sutures. The area was bandaged with sterile see- through central line bandage. COMPLICATIONS: No apparent complications ESTIMATED BLOOD LOSS: Less than 1 cc. Immanuel Bassett MD Aug 18, 2016 13:08
--- NOTE | 2016-08-18 13:10 | PD.PROCEDR ---
Procedure Note Procedure Procedure Notes: Paracentesis Indication: Moderate Ascites Informed consent obtained from patient A time-out was completed verifying correct patient, procedure, site, positioning , and special equipment if applicable. The patient's right LQ was prepped and draped in a sterile manner after the appropriate infiltration level was confirmed by ultrasound. 1% lidocaine was used anesthetize the surrounding skin. A 10-blade scalpel used to make the incision. The paracentesis Angio cath was then introduced without difficulty and needle was removed. Catheter was connected to Vacutainer bottle and 600 ml of yellow biliary stained ascitic fluid was removed. Estimated Blood Loss: <1 ml The patient tolerated the procedure well and there were no immediate complications. Fluid send out for further studies Immanuel Bassett MD Aug 18, 2016 13:10
[2016-08-18] MEDS ORDERED: ALBUMIN HUMAN 25% 25 GM/100 ML BAGP IV ONE (13:20)
--- NOTE | 2016-08-18 13:33 | RADRPT ---
EXAM DATE/TIME: 08/18/2016 12:59 [facility] COMPARISON: CHEST SINGLE AP, August 12, 2016, 1:56. INDICATIONS : Central line placment. MEDICAL HISTORY : Hypertension. Chronic obstructive pulmonary disease. Congestive heart failure. SURGICAL HISTORY : None. ENCOUNTER: Subsequent ACUITY: 1 day PAIN SCORE: Non-responsive. LOCATION: Bilateral chest FINDINGS: Interval placement of left subclavian central line with tip in the very proximal SVC. Progression of bilateral linear airspace disease with likely trace left and small right pleural effusions. Cardiac s ilhouette is mildly enlarged. Remainder of the exam is unchanged. CONCLUSION: 1. Left subclavian central line with tip in the proximal SVC. No pneumothorax. 2. Progressive bilateral lower lobe linear airspace disease, likely worsening atelectasis. 3. Probable trace left and small right pleural effusions. Sung Gomez MD on August 18, 2016 at 13:22 Board Certified Radiologist. This report was verified electronically.
--- NOTE | 2016-08-18 13:35 | PD.CONS ---
[facility] Service Critical Care Medicine Consult Requested By Dr. Brian Reason for Consult Hypotension Hyperkalemia Encephalopathy Hepatorenal syndrome Primary Care Physician Juan Campbell MD History of Present Illness Patient is a is a 70 year old male patient with history of chronic lymphocytic leukemia, in remission, who was admitted to the hospital for evaluation of elevated LFTs. His lab work on 08/09/16 showed elevated LFTs, total bilirubin 2.3, AST 759, ALT 270, alkaline phosphatase 390. US on 08/10/16 showed early cirrhotic change. Gastroenterology was consulted and further workup revealed patient had acute hepatitis B. Hepatitis C was also positive. Patient was placed on Xifaxan and lactulose by GI for elevated ammonia. Admission creatinine was normal but started climbing up by day 2 of admission. Creatinine was 1.3 on 08/13/16 nephrology was consulted for probable hepatorenal syndrome. Patient was placed on IV albumin, octreotide, and Midodrine for possible HRS. Despite these measures, patient's creatinine continued to deteriorate and he becameoliguric. Urine output was only 300 mL in the last 24 hours. AM labs today showed BUN 75 creatinine 3 with a potassium of 6. This was treated with Kayexalate, IV insulin and dextrose Halicat was called due to blood pressure 82/38. Patient was very lethargic and Dr. Brian transferred to ICU. Patient was started Norepinephrine and critical care was consulted. I evaluated the patient immediately. Patient is currently lethargic hypotensive with systolic blood pressure in mid 80s on 4 mcg/m of Levophed. I have ordered 1 L normal saline bolus, and 25 g IV albumin. I placed a left subclavian central line. A bedside ultrasound showed moderate ascites, I performed a paracentesis and removed 600 ml biliary tinged ascitic fluid. GI and Nephrology following. Repeat labs are pending at this time. Started on cefepime 1 g IV every 8 hours. Review of Systems ROS Limitations: Altered Mental Status (as per HPI), Other Past Family Social History Allergies: Coded Allergies: *MDRO Multi-Drug Resistant Organism (Verified Adverse Reaction, Unknown, Cleared, 08/12/16) *Cleared - MRSA PCR screens negative on 08/10/16 & 08/12/16* MRSA (back) - 12/16/10 MRSA (elbow) - 10/01/03, 11/13/03 Past Medical History COPD Hx of CLL, completed treatment in May 2014 Squamous cell carcinoma of skin Gout Anxiety/depression Chronic pain Past Surgical History Bone marrow biopsy Port placement Hip surgery Skin cancer excision Reported Medications Hydroxyzine HCl 50 Mg Tab 50 Mg PO Q6HR PRN Flexeril (Cyclobenzaprine HCl) 10 Mg Tab 10 Mg PO HS Duoneb (Ipratropium-Albuterol Neb) 0.5-2.5 Mg/3 Ml Neb 3 Ml NEB BID NEB PRN Temazepam 15 Mg Cap 15 Mg PO HS PRN Multi-Vitamins (Multiple Vitamin) 1 Tab Tab 1 Tab PO DAILY Zofran (Ondansetron HCl) 8 Mg Tab 8 Mg PO Q8HR PRN Diphenhydramine (Diphenhydramine HCl) 25 Mg Cap 25 Mg PO Q6HR PRN Vitamin B-1 (Thiamine HCl) 100 Mg Tab 100 Mg PO DAILY Trazodone (Trazodone HCl) 50 Mg Tab 50 Mg PO HS Tizanidine (Tizanidine HCl) 4 Mg Cap 4 Mg PO HS Terbinafine Topical 1 % Cream 1 Applic TOPICAL DAILY Linzess (Linaclotide) 145 Mcg Cap 145 Mcg PO DAILY Lactulose Liq (Lactulose) 10 Gm/15 Ml Soln 30 Ml PO BID Hydrocodone-Acetaminophen 7.5-325 mg Tab 1 Tab PO Q4H PRN Furosemide 40 Mg Tab 40 Mg PO BID Docusate Sodium 100 Mg Cap 100 Mg PO BID Allopurinol 300 Mg Tab 300 Mg PO DAILY Advair Diskus Inh (Fluticasone-Salmeterol Inh) 250-50 Mcg/Blist Aer 1 Puff INH BID Active Ordered Medications Reviewed Family History Unknown cancer in mother Social History Used to drink heavily until 2013, currently drinks 1 beer a day Quit smoking 10 years ago Physical Exam Vital Signs Vital Signs Date Time Temp Pulse Resp B/P Pulse Ox O2 Delivery O2 Flow Rate FiO2 08/18/16 11:48 97.2 82 16 82/38 92 08/18/16 08:00 97.0 84 22 100/57 92 08/18/16 07:40 94 Nasal Cannula 2.00 08/18/16 04:00 96.9 78 17 104/55 92 08/18/16 00:00 97.3 90 18 99/61 93 08/17/16 20:00 75 08/17/16 20:00 96.1 76 18 129/57 94 08/17/16 19:26 92 21 08/17/16 16:00 97.7 88 18 120/71 95 Physical Exam GENERAL: Patient is critically ill, hypotensive, lethargic SKIN: Warm and dry. Jaundiced HEAD: Normocephalic. EYES: Positive scleral icterus. No injection or drainage. ENT: Oral cavity is dry. Airway patent NECK: Supple, trachea midline. No JVD or lymphadenopathy. CARDIOVASCULAR: Regular rate and rhythm without murmurs, gallops, or rubs. Hypotensive on 4 mcg/m of Levothroid RESPIRATORY: Breath sounds equal bilaterally, diminished at the bases. No accessory muscle use. GASTROINTESTINAL: Abdomen soft, mildly tender to palpation, bedside ultrasound shows moderate lower quadrant sinusitis MUSCULOSKELETAL: No cyanosis. Lower ext 2+ edema. Chronic venous stasis changes BACK: Nontender without obvious deformity. No CVA tenderness. NEURO: Patient is lethargic but wakes up Laboratory Laboratory Tests Test 08/18/16 08/18/16 06:12 08:30 Sodium Level 131 Potassium Level 6.0 Chloride Level 98 Carbon Dioxide Level 19.5 Anion Gap 14 Blood Urea Nitrogen 75 Creatinine 3.02 Estimat Glomerular Filtration 21 Rate Random Glucose 77 Calcium Level 8.7 Total Bilirubin 11.2 Aspartate Amino Transf 1719 (AST/SGOT) Alanine Aminotransferase 603 (ALT/SGPT) Alkaline Phosphatase 259 Ammonia 11 Total Protein 6.1 Albumin 2.9 Urine Osmolality 412 Urine Random Sodium 7 Date/Time Procedure Status Source Growth 08/16/16 17:16 Aerobic Blood Culture - Preliminary Resulted Blood Peripheral NO GROWTH IN 2 DAYS 08/16/16 17:16 Anaerobic Blood Culture - Preliminary Resulted Blood Peripheral NO GROWTH IN 2 DAYS Result Diagram: 08/17/16 0639 08/18/16 0612 Imaging Imaging studies personally reviewed Septic Shock Reassessment Heart: Regular rate and rhythm Lungs: Diminished Skin: Cold Peripheral Pulses: Weak Right Radial Weak Left Radial Capillary Refill: Sluggish Assessment and Plan Assessment and Plan NEURO: Acute metabolic encephalopathy - His mental status changes seems to be secondary to sepsis and hepatic encephalopathy - Continue lactulose and Xifaxan - Ammonia level has decreased to 11 from 91. Repeat RESP: Bilateral lower lobe infiltrates/atelectasis - Nasal cannula oxygen - DuoNeb every 6 hours when necessary - Aggressive pulmonary toilet - Rule out healthcare associated pneumonia, cefepime started CV: Shock Lactic acidosis - Normal saline IV fluids 1 L bolus, and maintenance fluid at 125 mL per hour - Norepinephrine to keep map above 65, will also benefit hepatorenal syndrome - Continue IV albumin, midodrine and octreotide - Trend lactic acid. Elevation could be secondary to lack of clearance and sepsis GI: Hepatorenal syndrome Acute hepatic failure Acute hepatitis B Liver cirrhosis - Gastroenterology and nephrology following. GI had contacted [facility] for transplant eval - Trial of Baraclude for Hep B treatment - Continue supportive care, with IV albumin, Levophed, Midrin and octreotide for hepatorenal syndrome - Bedside paracentesis performed 08/18/16 with 600 mL of biliary tinged ascites fluid removed-fluid studies sent - Transfuse FFP, platelets as needed : Hyperkalemia Acute kidney failure/hepatorenal syndrome - Monitor renal function closely. Altman catheter. Remains oliguric to anuric - Received Kayexalate and IV insulin/D50 for hyperkalemia, repeat stat CMP - Currently receiving octreotide Midrin IV albumin and now on norepinephrine - May need hemodialysis depending on the labs. Dr. Cruz following ID: Severe sepsis - Source of sepsis could be SBP or HCAP - Blood cultures and fluid cultures sent. - Empiric cefepime renally adjusted HEME: Coagulopathy secondary to liver failure - Monitor CBC, CMP, INR - FFP, Vit K as needed ENDO: - Hyperkalemia treatment as above PROPH: - Bilateral lower extremity SCDs. Avoid chemical DVT prophylaxis secondary to coagulopathy. IV Protonix LINES: - Left subclavian central line placed emergently CC time 88 min excluding procedures Patient is critically ill, showing signs of acute decompensation. His mental status is deteriorating and he was hypotensive requiring norepinephrine. Broad- spectrum antibiotics added, millan cultured. Liver enzymes also deteriorating, gastroenterology has contacted [facility] for emergent transplant evaluation. At this time with multiorgan failure (liver failure, renal failure , shock, severe sepsis, encephalopathy and coagulopathy) prognosis is guarded Code Status Full Discussed Condition With GI team and Immanuel Lopez MD Aug 18, 2016 13:35
[2016-08-18] MEDS: CEFEPIME INJ 1,000 MG in SODIUM CHLORIDE 0.9% INJ 100 ML IV SCH ×2 (14:00→20:17)
[2016-08-18 14:19] LABS: HEMATOCRIT 37.3 % (39.0-51.0); MEAN CORPUSCULAR HEMOGLOBIN 31.3 PG (27.0-34.0); PLATELET COUNT 254 TH/MM3 (150-450); RED BLOOD COUNT 3.92 MIL/MM3 (4.50-5.90); RED CELL DISTRIBUTION WIDTH 18.8 % (11.6-17.2); REVIEW FLAG FINAL; WHITE BLOOD COUNT 15.3 TH/MM3 (4.0-11.0)
[2016-08-18 14:29] LABS: INTERNATIONAL NORMALIZED RATIO 2.9 RATIO; PROTHROMBIN TIME - PATIENT 33.3 SEC (9.8-11.6)
[2016-08-18 14:52] LABS: ALKALINE PHOSPHATASE 209 U/L (45-117); ANION GAP 13 MEQ/L (5-15); AST (GOT) 1513 U/L (15-37); BICARBONATE 21.2 MEQ/L (21.0-32.0); BLOOD UREA NITROGEN 75 MG/DL (7-18); CHLORIDE 100 MEQ/L (98-107); GLOMERULAR FILTRATION RATE 19 ML/MIN (>89); LDH SERUM 662 U/L (87-241); POTASSIUM 5.9 MEQ/L (3.5-5.1); SODIUM (NA) 134 MEQ/L (136-145); TOTAL BILIRUBIN ADULT 9.8 MG/DL (0.2-1.0)
--- NOTE | 2016-08-18 14:52 | HHI.NPPN ---
Subjective Additional Remarks transfer to [facility] [place] was hypotensive Objective Data Data 08/17/16 08/18/16 19:00 07:00 Intake Total 840 ml 2155 ml Output Total 300 ml Balance 540 ml 2155 ml Intake Oral 840 ml IV Total 2155 ml Output Urine Total 300 ml # Bowel Movements 0 Vital Signs Date Time Temp Pulse Resp B/P Pulse Ox O2 Delivery O2 Flow Rate FiO2 08/18/16 11:48 97.2 82 16 82/38 92 08/18/16 08:00 97.0 84 22 100/57 92 08/18/16 07:40 94 Nasal Cannula 2.00 08/18/16 04:00 96.9 78 17 104/55 92 08/18/16 00:00 97.3 90 18 99/61 93 08/17/16 20:00 75 08/17/16 20:00 96.1 76 18 129/57 94 08/17/16 19:26 92 21 08/17/16 16:00 97.7 88 18 120/71 95 -: 08/18/16 1342 08/18/16 0612 Microbiology 08/18/16 Urine Culture, Received Pending 08/18/16 Gram Stain, Received Pending 08/18/16 Body Fluid Culture, Received Pending Physical Exam General Appearance: Well Nourished, Pale Neck Neck Exam: Neck Supple Pulmonary Resp Exam: Clear Bilaterally, Breath Sounds Equal Cardiology CV Exam: Regular, Normal Sinus Rhythm Gastrointestinal/Abdomen GI Exam: Soft, Distended Extremeties Extremities Exam: Moderate Edema Assessment/Plan Problem List: (1) Acute renal failure Plan: Patient is likely have developed hepatorenal syndrome with declining urine output due to liver dysfunction, patient has acute hepatitis due to hepatitis B infection Treatment add Octreotide and vasopressor, he had low BP stopped Octreotide Avoid dye study or nephrotoxins hyperkalemia was treated repeat LABS pending (2) Acute hepatitis B Plan: Acute infection GI is following (3) Acute liver disease Plan: Elevated liver enzymes due to hepatitis B (4) Leukemia Plan: History of CLL in the past (5) Hyponatremia Plan: Due to liver disease and acute renal insufficiency Problem Qualifiers (1) Leukemia: Qualified Code: C95.10 - Chronic leukemia, not having achieved remission Dante Cruz MD Aug 18, 2016 14:52
[2016-08-18 15:04] LABS: PERITONEAL WBC 27 /MM3 (0-10)
[2016-08-18 15:06] LABS: ALT (GPT) 539 U/L (12-78)
[2016-08-18 15:28] LABS: PERITONEAL LYMPHS 79 %; PERITONEAL POLYS(SEGS) 14 %
[2016-08-18] MEDS ORDERED: CHLORHEXIDINE GLUCONATE 2 % 1 PACK (2 CLOTHS)(extra cloths) TOPICAL PRN (15:30)
[2016-08-18] MEDS ORDERED: SODIUM BICARBONATE 8.4% SOLN 50 MEQ/50 ML VIAL IV PUSH ONE ×2 (15:30)
[2016-08-18 15:34] LABS: PERITONEAL MONOS 7 %
[2016-08-18] MEDS ORDERED: CALCIUM GLUCONATE INJ 2 GM in DEXTROSE 5% IN WATER 100ML INJ 100 ML IV ONE ×2 (16:00)
[2016-08-18] MEDS ORDERED: DEXTROSE 50% IN WATER 50 ML SYRINGE IV ONE (18:00)
[2016-08-18] MEDS: traZODone HCL 50 MG TAB PO SCH (20:17)
[2016-08-18 22:08] LABS: ALT (GPT) 517 U/L (12-78); ANION GAP 11 MEQ/L (5-15); BICARBONATE 20.7 MEQ/L (21.0-32.0); BLOOD UREA NITROGEN 80 MG/DL (7-18); CHLORIDE 102 MEQ/L (98-107); GLOMERULAR FILTRATION RATE 18 ML/MIN (>89); POTASSIUM 5.8 MEQ/L (3.5-5.1); SODIUM (NA) 134 MEQ/L (136-145)
[2016-08-18 22:14] LABS: ALKALINE PHOSPHATASE 202 U/L (45-117); AST (GOT) 1542 U/L (15-37); TOTAL BILIRUBIN ADULT 8.9 MG/DL (0.2-1.0)
[2016-08-19] VITALS (14 sets, daily range): BP systolic 99–125; BP diastolic 54–62; PULSE 83–119; RESP 16–20; TEMP 98–99.1; O2SAT 91–92
[2016-08-19] MEDS: MORPHINE SULFATE 4 MG/ML INJ IV PUSH PRN (01:50)
[2016-08-19] MEDS: RESP: ALBUTEROL 2.5 MG/IPRATROPIUM 0.5 MG NEB (SCH) NEB ×4 (03:32→20:20)
[2016-08-19] MEDS: CHLORHEXIDINE GLUCONATE 2 % 1 PACK (2 CLOTHS)(taper/protocol) TOPICAL SCH (04:00)
[2016-08-19] MEDS: ENTECAVIR 0.5 MG TAB PO SCH (05:19)
[2016-08-19] MEDS: CEFEPIME INJ 1,000 MG in SODIUM CHLORIDE 0.9% INJ 100 ML IV SCH ×3 (05:19→21:34)
[2016-08-19 05:26] LABS: AUTOMATED NEUTROPHIL # 11.8 TH/MM3 (1.8-7.7); BASOPHIL # 0.1 TH/MM3 (0-0.2); BASOPHIL % 0.8 % (0.0-2.0); EOSINOPHIL # 0.1 TH/MM3 (0-0.4); EOSINOPHIL % 0.4 % (0.0-4.0); HEMATOCRIT 34.7 % (39.0-51.0); HEMO FLAGS DIFF FINAL; LYMPH % 15.7 % (9.0-44.0); LYMPHOCYTE # 2.6 TH/MM3 (1.0-4.8); MEAN CELL VOLUME 93.9 FL (80.0-100.0); MONO % 11.7 % (0.0-8.0); NEUT % 71.4 % (16.0-70.0); PLATELET COUNT 227 TH/MM3 (150-450); RED CELL DISTRIBUTION WIDTH 18.4 % (11.6-17.2); WHITE BLOOD COUNT 16.6 TH/MM3 (4.0-11.0)
--- NOTE | 2016-08-19 05:42 | RADRPT ---
EXAM DATE/TIME: 08/19/2016 04:22 [facility] COMPARISON: CHEST SINGLE AP, August 18, 2016, 12:59. INDICATIONS : Evaluate for respiratory disease. MEDICAL HISTORY : Hypertension. Chronic obstructive pulmonary disease. Congestive heart failure. SURGICAL HISTORY : None. ENCOUNTER: Subsequent ACUITY: 1 week PAIN SCORE: Non-responsive. LOCATION: chest FINDINGS: A single view of the chest demonstrates persistent bibasilar airspace disease with associated effusio ns, right greater than left. Heart size is borderline prominent. Osseous structures are intact with d egenerative spurring of the dorsal spine. Stable position of the left subclavian central venous kj ter with the tip projecting over the central venous system. CONCLUSION: Stable bibasilar airspace disease with associated effusions, right greater than left. Antwon Whitman MD on August 19, 2016 at 5:39 Board Certified Radiologist. This report was verified electronically.
[2016-08-19 05:52] LABS: ALT (GPT) 485 U/L (12-78); ANION GAP 14 MEQ/L (5-15); BICARBONATE 21.1 MEQ/L (21.0-32.0); CHLORIDE 102 MEQ/L (98-107); GLOMERULAR FILTRATION RATE 17 ML/MIN (>89); MAGNESIUM 3.6 MG/DL (1.5-2.5); POTASSIUM 5.5 MEQ/L (3.5-5.1); SODIUM (NA) 137 MEQ/L (136-145)
[2016-08-19 05:53] LABS: BLOOD UREA NITROGEN 84 MG/DL (7-18)
[2016-08-19 05:58] LABS: ALKALINE PHOSPHATASE 201 U/L (45-117); AST (GOT) 1443 U/L (15-37); TOTAL BILIRUBIN ADULT 9.2 MG/DL (0.2-1.0)
--- NOTE | 2016-08-19 08:31 | HHI.CCPN ---
Subjective Remarks/Hospital Course Patient is a is a 70 year old male patient with history of chronic lymphocytic leukemia, in remission, who was admitted to the hospital for evaluation of elevated LFTs. His lab work on 08/09/16 showed elevated LFTs, total bilirubin 2.3, AST 759, ALT 270, alkaline phosphatase 390. US on 08/10/16 showed early cirrhotic change. Gastroenterology was consulted and further workup revealed patient had acute hepatitis B. Hepatitis C was also positive. Patient was placed on Xifaxan and lactulose by GI for elevated ammonia. Admission creatinine was normal but started climbing up by day 2 of admission. Creatinine was 1.3 on 08/13/16 nephrology was consulted for probable hepatorenal syndrome. Patient was placed on IV albumin, octreotide, and Midodrine for possible HRS. Despite these measures, patient's creatinine continued to deteriorate and he becameoliguric. Urine output was only 300 mL in the last 24 hours. AM labs today showed BUN 75 creatinine 3 with a potassium of 6. This was treated with Kayexalate, IV insulin and dextrose Halicat was called due to blood pressure 82/38. Patient was very lethargic and Dr. Brian transferred to ICU. Patient was started Norepinephrine and critical care was consulted. I evaluated the patient immediately. Patient is currently lethargic hypotensive with systolic blood pressure in mid 80s on 4 mcg/m of Levophed. I have ordered 1 L normal saline bolus, and 25 g IV albumin. I placed a left subclavian central line. A bedside ultrasound showed moderate ascites, I performed a paracentesis and removed 600 ml biliary tinged ascitic fluid. GI and Nephrology following. Repeat labs are pending at this time. Started on cefepime 1 g IV every 8 hours. 08/19 No events overnight. Afebrile. Off Levophed. Renal function worse today with Cr: 3.60 from 3.40 with UO: 850 ml in Objective Vital Signs Date Time Temp Pulse Resp B/P Pulse Ox O2 Delivery O2 Flow Rate FiO2 08/19/16 06:00 119 08/19/16 06:00 107/57 08/19/16 04:00 98.3 17 91 08/18/16 20:41 Nasal Cannula 3.00 08/17/16 19:26 21 Intake and Output 08/18/16 08/18/16 08/19/16 08:00 16:00 00:00 Intake Total 2155 ml 762 ml Output Total 300 ml 300 ml Balance 2155 ml -300 ml 462 ml Result Diagram: 08/19/16 0445 08/19/16 0445 Other Results Laboratory Tests Test 08/18/16 08/18/16 08/18/16 08/18/16 08:30 13:32 13:42 13:50 Urine Osmolality 412 MOSM/KG Urine Random Sodium 7 MEQ/L Peritoneal Fluid WBC 27 /MM3 Peritoneal Fluid RBC 1095 /MM3 Peritoneal Fluid Neutrophils 14 % Peritoneal Fluid Lymphocytes 79 % Peritoneal Fluid Monocytes 7 % White Blood Count 15.3 TH/MM3 Red Blood Count 3.92 MIL/MM3 Hemoglobin 12.3 GM/DL Hematocrit 37.3 % Mean Corpuscular Volume 95.0 FL Mean Corpuscular Hemoglobin 31.3 PG Mean Corpuscular Hemoglobin 33.0 % Concent Red Cell Distribution Width 18.8 % Platelet Count 254 TH/MM3 Mean Platelet Volume 8.9 FL Sodium Level 134 MEQ/L Potassium Level 5.9 MEQ/L Chloride Level 100 MEQ/L Carbon Dioxide Level 21.2 MEQ/L Anion Gap 13 MEQ/L Blood Urea Nitrogen 75 MG/DL Creatinine 3.28 MG/DL Estimat Glomerular Filtration 19 ML/MIN Rate Random Glucose 99 MG/DL Lactic Acid Level 5.0 mmol/L Calcium Level 7.9 MG/DL Total Bilirubin 9.8 MG/DL Aspartate Amino Transf 1513 U/L (AST/SGOT) Alanine Aminotransferase 539 U/L (ALT/SGPT) Alkaline Phosphatase 209 U/L Ammonia 38 MCMOL/L Lactate Dehydrogenase 662 U/L Total Protein 5.6 GM/DL Albumin 2.8 GM/DL Tumor Marker Alpha Fetoprotein 0.8 NG/ML Prothrombin Time 33.3 SEC Prothromb Time International 2.9 RATIO Ratio Nasal Screen MRSA (PCR) MRSA NOT DETECTED Test 08/18/16 08/18/16 08/18/16 08/19/16 16:10 16:15 19:50 04:45 Blood Type B POSITIVE B POSITIVE Blood Bank Comment Sodium Level 134 MEQ/L 137 MEQ/L Potassium Level 5.8 MEQ/L 5.5 MEQ/L Chloride Level 102 MEQ/L 102 MEQ/L Carbon Dioxide Level 20.7 MEQ/L 21.1 MEQ/L Anion Gap 11 MEQ/L 14 MEQ/L Blood Urea Nitrogen 80 MG/DL 84 MG/DL Creatinine 3.40 MG/DL 3.60 MG/DL Estimat Glomerular Filtration 18 ML/MIN 17 ML/MIN Rate Random Glucose 114 MG/DL 98 MG/DL Calcium Level 8.3 MG/DL 8.1 MG/DL Total Bilirubin 8.9 MG/DL 9.2 MG/DL Aspartate Amino Transf 1542 U/L 1443 U/L (AST/SGOT) Alanine Aminotransferase 517 U/L 485 U/L (ALT/SGPT) Alkaline Phosphatase 202 U/L 201 U/L Total Protein 5.2 GM/DL 5.5 GM/DL Albumin 2.6 GM/DL 2.7 GM/DL White Blood Count 16.6 TH/MM3 Red Blood Count 3.70 MIL/MM3 Hemoglobin 11.8 GM/DL Hematocrit 34.7 % Mean Corpuscular Volume 93.9 FL Mean Corpuscular Hemoglobin 32.0 PG Mean Corpuscular Hemoglobin 34.0 % Concent Red Cell Distribution Width 18.4 % Platelet Count 227 TH/MM3 Mean Platelet Volume 8.6 FL Neutrophils (%) (Auto) 71.4 % Lymphocytes (%) (Auto) 15.7 % Monocytes (%) (Auto) 11.7 % Eosinophils (%) (Auto) 0.4 % Basophils (%) (Auto) 0.8 % Neutrophils # (Auto) 11.8 TH/MM3 Lymphocytes # (Auto) 2.6 TH/MM3 Monocytes # (Auto) 1.9 TH/MM3 Eosinophils # (Auto) 0.1 TH/MM3 Basophils # (Auto) 0.1 TH/MM3 CBC Comment DIFF FINAL Differential Comment Magnesium Level 3.6 MG/DL Imaging Last Impressions Chest X-Ray 08/19/16 0600 Signed Impressions: Service Date/Time: Friday, August 19, 2016 04:22 - CONCLUSION: Stable bibasilar airspace disease with associated effusions, right greater than left. Antwon Whitman MD Abdomen X-Ray 08/15/16 0000 Signed Impressions: Service Date/Time: Monday, August 15, 2016 14:50 - CONCLUSION: 1. Nonobstructive bowel gas pattern. Sung Gomez MD Hepatobiliary Scan Nuclear Medicine 08/11/16 0000 Signed Impressions: Service Date/Time: July 10:13 - CONCLUSION: 1. Normal HIDA scan confirming patency of the cystic and common bile ducts. 2. Normal gallbladder EF. 3. The patient was asymptomatic with administration of CCK. Sung Gomez MD Cholangiopancreatography MRI 08/11/16 0000 Signed Impressions: Service Date/Time: July 08:38 - CONCLUSION: 1. Hepatosplenomegaly 2. Distended gallbladder otherwise no evidence of biliary obstructive disease. 3. Small to moderate ascites 4. Altered flow in the portal vein which may be indicative of portal hypertension. 5. No other significant abnormalities identified. Steve Acuna MD Abdomen Ultrasound 08/10/16 0000 Signed Impressions: Service Date/Time: Wednesday, August 10, 2016 14:47 - CONCLUSION: There is no significant ascites. Tong Read MD FACR Objective Remarks GENERAL: Patient is lying in bed in NAD SKIN: Warm and dry. Jaundiced HEAD: Normocephalic. EYES: Positive scleral icterus. No injection or drainage. ENT: Oral cavity is dry. Airway patent NECK: Supple, trachea midline. No JVD or lymphadenopathy. CARDIOVASCULAR: Regular rate and rhythm without murmurs, gallops, or rubs. RESPIRATORY: Breath sounds equal bilaterally, diminished at the bases. No accessory muscle use. GASTROINTESTINAL: Abdomen soft, mildly tender to palpation, MUSCULOSKELETAL: No cyanosis. Lower ext 2+ edema. Chronic venous stasis changes BACK: Nontender without obvious deformity. No CVA tenderness. NEURO: Awake Procedures None. A/P Assessment and Plan NEURO: Acute metabolic encephalopathy- improving - Continue lactulose and Xifaxan. Check Ammonia level ( 38 yesterday) RESP: Bilateral lower lobe infiltrates/atelectasis -Continue with oxygen keep sat >92% - DuoNeb every 6 hours when necessary CV: s/p Shock Lactic acidosis - Off Levophed monitor HR and BP keep MAP>65mmHg - Serial lactic acid monitoring. Elevated lactic acid likely 2nd sepsis and Liver disease GI: Hepatorenal syndrome Acute hepatic failure Acute hepatitis B Liver cirrhosis - GI and nephrology following. GI [facility] eval - Trial of Baraclude for Hep B treatment - Continue supportive care, with IV albumin, resume Midodrine, Octreotide - s/p paracentesis 08/18/16 with 600 mL of biliary tinged ascites fluid removed- fluid studies sent : Acute kidney failure/hepatorenal syndrome - Monitor renal function, I/O's, avoid nephrotoxins - Cr: 3.6 from 3.4 with UOP: 850ml in 24 hrs, Will give Kayexalate 30gms x1 for K 5.5 repeat K level. -Renal is following- Dr. Cruz, change IVF D5 NS@75ml/hr, on Midodrine and Octreotide -US abdomen: No hydronephrosis ID: Severe sepsis Leukocytosis - Continue with abx ( Cefepime, add Zyvox) avoid Vanco given his renal dysfunction. monitor for signs of infections ( Fever, WBC) follow up on cxs 08/18 Urine cx: Group D enterococcus 08/10 Urine cx: Staph Epi HEME: Coagulopathy secondary to liver failure - Monitor CBC, CMP, INR - FFP, Vit K as needed ENDO: - SSI if needed for glycemic control PROPH: - Bilateral lower extremity SCDs. Avoid chemical DVT prophylaxis secondary to coagulopathy. IV Protonix LINES: - Left subclavian central line placed 08/18 Level 3 Malcolm Camarillo MD Aug 19, 2016 08:31
[2016-08-19] MEDS: SODIUM CHLORIDE 0.9% FLUSH 10 ML FLUSH IV FLUSH SCH ×2 (08:37→21:37)
[2016-08-19] MEDS: SODIUM CHLOR 0.9% 1000 ML INJ 1,000 ML IV SCH (08:38)
[2016-08-19] MEDS ORDERED: SODIUM POLYSTYRENE SULFONATE SUSP 15 GM/60 ML CUP PO ONE ×2 (09:45→16:30)
[2016-08-19] MEDS: DEXT 5%-NACL 0.9% 1000 ML INJ 1,000 ML IV SCH ×2 (09:52→21:36)
--- NOTE | 2016-08-19 09:52 | HHI.NPPN ---
Subjective Additional Remarks transfer to [facility] [place] was hypotensive Objective Data Data 08/18/16 08/19/16 19:00 07:00 Intake Total 1585 ml Output Total 300 ml 550 ml Balance -300 ml 1035 ml Intake Oral 70 ml IV Total 950 ml FFP 565 ml Output Urine Total 300 ml 550 ml Vital Signs Date Time Temp Pulse Resp B/P Pulse Ox O2 Delivery O2 Flow Rate FiO2 08/19/16 08:07 92 Nasal Cannula 3.00 08/19/16 08:00 98.7 88 20 124/61 91 08/19/16 08:00 88 08/19/16 08:00 124/61 08/19/16 06:00 119 08/19/16 06:00 119 107/57 08/19/16 04:00 87 116/56 08/19/16 04:00 87 08/19/16 04:00 98.3 87 17 116/56 91 08/19/16 02:00 86 08/19/16 00:00 86 08/19/16 00:00 98.0 86 17 99/54 92 08/18/16 22:00 94 08/18/16 20:41 92 Nasal Cannula 3.00 08/18/16 20:40 92 20 114/53 92 08/18/16 20:00 90 08/18/16 20:00 98.2 90 15 108/54 93 08/18/16 17:20 97.8 84 16 110/55 97 08/18/16 17:00 97.8 84 16 110/55 97 08/18/16 16:00 97.8 84 16 80/55 97 08/18/16 15:58 97.8 84 16 103/55 97 08/18/16 15:39 82 08/18/16 14:00 97.8 84 16 80/55 97 08/18/16 12:00 97.8 84 16 80/55 97 08/18/16 11:48 97.2 82 16 82/38 92 -: 08/19/16 0445 08/19/16 0445 Microbiology 08/18/16 Gram Stain - Final, Resulted 08/18/16 Body Fluid Culture, Resulted Pending 08/18/16 Aerobic Blood Culture, Received Pending 08/18/16 Anaerobic Blood Culture, Received Pending 08/19/16 Aerobic Blood Culture, Received Pending 08/19/16 Anaerobic Blood Culture, Received Pending Physical Exam General Appearance: Well Nourished, Pale Neck Neck Exam: Neck Supple Pulmonary Resp Exam: Clear Bilaterally, Breath Sounds Equal Cardiology CV Exam: Regular, Normal Sinus Rhythm Gastrointestinal/Abdomen GI Exam: Soft, Distended Extremeties Extremities Exam: Moderate Edema Assessment/Plan Problem List: (1) Acute renal failure Plan: Patient is non oliguric UOP 850 CC BP improved off vasopressor IVF changed Avoid dye study or nephrotoxins hyperkalemia was treated K 5.5 monitor ARF due to severe Liver dysfunction from Hep B infection (2) Acute hepatitis B Plan: Acute infection GI is following (3) Acute liver disease Plan: Elevated liver enzymes due to hepatitis B (4) Leukemia Plan: History of CLL in the past (5) Hyponatremia Plan: Due to liver disease and acute renal insufficiency resolved Problem Qualifiers (1) Leukemia: Qualified Code: C95.10 - Chronic leukemia, not having achieved remission Dante Cruz MD Aug 19, 2016 09:52
[2016-08-19] MEDS: BUDESONIDE-FORMOTEROL 160/4.5 MCG INHALER INH SCH ×2 (09:54→21:34)
[2016-08-19] MEDS: LACTULOSE SYRUP 20 GM/30 ML CUP PO SCH ×4 (09:54→21:33)
[2016-08-19] MEDS: ALBUMIN HUMAN 25% 12.5 GM/50 ML BAGP IV SCH ×2 (09:54→21:34)
[2016-08-19] MEDS: RIFAXIMIN 550 MG TAB PO SCH ×2 (09:56→21:34)
[2016-08-19] MEDS: PANTOPRAZOLE SODIUM 40 MG VIAL IV PUSH SCH (09:57)
[2016-08-19] MEDS: DOCUSATE SODIUM 50 MG/SENNA 8.6 MG TAB PO SCH ×2 (09:57→21:34)
--- NOTE | 2016-08-19 11:15 | HHI.GIFU ---
GI Follow-up Note Consult Follow-up Called and spoke to Janna at [facility] to discuss status of transfer. States medical team is still reviewing case and will notify us later today to let us know if they will accept the patient. Entered by: Michelle Cheng Aug 19, 2016 11:15
[2016-08-19 15:33] LABS: BLOOD GAS BASE EXCESS -6.6 mmol/L (-2-2); BLOOD GAS CARBOXYHEMOGLOBIN 1.6 % (0-4); BLOOD GAS HCO3 18 mmol/L (22-26); BLOOD GAS METHEMOGLOBIN 1.1 % (0-2); BLOOD GAS O2 HGB SATURATION 91 % (90-100); BLOOD GAS OXYGEN CONTENT 16.5 Vol % (12.0-20.0); BLOOD GAS PCO2 32 mmHg (38-42); BLOOD GAS PO2 73 mmHg (61-120); BLOOD GAS TOTAL HGB 12.9 G/DL (12.0-16.0); CRITICAL VALUE NO; DRAW SITE RT RADIAL; LITER FLOW 3 L/M; NUMBER OF ARTERIAL PUNCTURES 1; OXYGEN DEVICE NASAL CANNULA; STAT YES; TEMP CORR TO 98.6; ULNAR PULSE PRESENT
[2016-08-19] MEDS ORDERED: OCTREOTIDE INJ 50 MCG/ML AMP SQ SCH (15:45)
--- NOTE | 2016-08-19 16:07 | HHI.GIFU ---
Subjective Remarks Resting in bed. Extremely lethargic. Does arouse, but confused and drifts right back to sleep. Spoke to Dr. Novoa at [facility]- states that he is not a candidate for transplant and does not feel that they can offer anything more than this facility, given the fact that he is not a transplant candidate. Objective Vitals I&O Vital Signs Date Time Temp Pulse Resp B/P Pulse Ox O2 Delivery O2 Flow Rate FiO2 08/19/16 14:00 88 08/19/16 12:00 99.1 91 20 118/58 92 08/19/16 12:00 91 08/19/16 10:00 90 08/19/16 08:07 92 Nasal Cannula 3.00 08/19/16 08:00 98.7 88 20 124/61 91 08/19/16 08:00 88 08/19/16 08:00 124/61 08/19/16 06:00 119 08/19/16 06:00 119 107/57 08/19/16 04:00 87 116/56 08/19/16 04:00 87 08/19/16 04:00 98.3 87 17 116/56 91 08/19/16 02:00 86 08/19/16 00:00 86 08/19/16 00:00 98.0 86 17 99/54 92 08/18/16 22:00 94 08/18/16 20:41 92 Nasal Cannula 3.00 08/18/16 20:40 92 20 114/53 92 08/18/16 20:00 90 08/18/16 20:00 98.2 90 15 108/54 93 08/18/16 17:20 97.8 84 16 110/55 97 08/18/16 17:00 97.8 84 16 110/55 97 08/18/16 16:00 97.8 84 16 80/55 97 08/18/16 15:58 97.8 84 16 103/55 97 I/O 08/18/16 08/18/16 08/18/16 08/19/16 08/19/16 08/19/16 07:00 15:00 23:00 07:00 15:00 23:00 Intake Total 2155 ml 762 ml 823 ml 851 ml Output Total 300 ml 300 ml 250 ml 250 ml Balance 2155 ml -300 ml 462 ml 573 ml 601 ml Intake Oral 50 ml 20 ml IV Total 2155 ml 410 ml 540 ml 851 ml FFP 302 ml 263 ml Output Urine Total 300 ml 300 ml 250 ml 250 ml # Bowel Movements 0 Laboratory Laboratory Tests Test 08/18/16 08/18/16 08/18/16 08/19/16 16:10 16:15 19:50 04:45 Blood Type B POSITIVE B POSITIVE Blood Bank Comment Sodium Level 134 137 Potassium Level 5.8 5.5 Chloride Level 102 102 Carbon Dioxide Level 20.7 21.1 Anion Gap 11 14 Blood Urea Nitrogen 80 84 Creatinine 3.40 3.60 Estimat Glomerular Filtration 18 17 Rate Random Glucose 114 98 Calcium Level 8.3 8.1 Total Bilirubin 8.9 9.2 Aspartate Amino Transf 1542 1443 (AST/SGOT) Alanine Aminotransferase 517 485 (ALT/SGPT) Alkaline Phosphatase 202 201 Total Protein 5.2 5.5 Albumin 2.6 2.7 White Blood Count 16.6 Red Blood Count 3.70 Hemoglobin 11.8 Hematocrit 34.7 Mean Corpuscular Volume 93.9 Mean Corpuscular Hemoglobin 32.0 Mean Corpuscular Hemoglobin 34.0 Concent Red Cell Distribution Width 18.4 Platelet Count 227 Mean Platelet Volume 8.6 Neutrophils (%) (Auto) 71.4 Lymphocytes (%) (Auto) 15.7 Monocytes (%) (Auto) 11.7 Eosinophils (%) (Auto) 0.4 Basophils (%) (Auto) 0.8 Neutrophils # (Auto) 11.8 Lymphocytes # (Auto) 2.6 Monocytes # (Auto) 1.9 Eosinophils # (Auto) 0.1 Basophils # (Auto) 0.1 CBC Comment DIFF FINAL Differential Comment Magnesium Level 3.6 Test 08/19/16 08/19/16 08:25 15:24 Lactic Acid Level 3.7 Ammonia 57 Blood Gas Puncture Site RT RADIAL Blood Gas Patient Temperature 98.6 Blood Gas HCO3 18 Blood Gas Base Excess -6.6 Blood Gas Oxygen Saturation 91 Arterial Blood pH 7.36 Arterial Blood Partial 32 Pressure CO2 Arterial Blood Partial 73 Pressure O2 Arterial Blood Oxygen Content 16.5 Arterial Blood 1.6 Carboxyhemoglobin Arterial Blood Methemoglobin 1.1 Blood Gas Hemoglobin 12.9 Oxygen Delivery Device NASAL CANNULA Blood Gas Liter Flow 3 Date/Time Procedure Status Source Growth 08/19/16 06:29 Aerobic Blood Culture Received Blood Peripheral Pending 08/19/16 06:29 Anaerobic Blood Culture Received Blood Peripheral Pending 08/18/16 19:50 Aerobic Blood Culture - Preliminary Resulted Blood Peripheral NO GROWTH IN 1 DAY 08/18/16 19:50 Anaerobic Blood Culture - Preliminary Resulted Blood Peripheral NO GROWTH IN 1 DAY 08/18/16 13:32 Gram Stain - Final Resulted Fluid Peritoneal Fluid 08/18/16 13:32 Body Fluid Culture - Preliminary Resulted Fluid Peritoneal Fluid NO GROWTH IN 24 HOURS. 08/18/16 08:30 Urine Culture - Preliminary Resulted Urine Catheterized Urine Group D Enterococcus Imaging Last Impressions Chest X-Ray 08/19/16 0600 Signed Impressions: Service Date/Time: Friday, August 19, 2016 04:22 - CONCLUSION: Stable bibasilar airspace disease with associated effusions, right greater than left. Antwon Whitman MD Abdomen X-Ray 08/15/16 0000 Signed Impressions: Service Date/Time: Monday, August 15, 2016 14:50 - CONCLUSION: 1. Nonobstructive bowel gas pattern. Sung Gomez MD Hepatobiliary Scan Nuclear Medicine 08/11/16 0000 Signed Impressions: Service Date/Time: July 10:13 - CONCLUSION: 1. Normal HIDA scan confirming patency of the cystic and common bile ducts. 2. Normal gallbladder EF. 3. The patient was asymptomatic with administration of CCK. Sung Gomez MD Cholangiopancreatography MRI 08/11/16 0000 Signed Impressions: Service Date/Time: July 08:38 - CONCLUSION: 1. Hepatosplenomegaly 2. Distended gallbladder otherwise no evidence of biliary obstructive disease. 3. Small to moderate ascites 4. Altered flow in the portal vein which may be indicative of portal hypertension. 5. No other significant abnormalities identified. Steve Acuna MD Abdomen Ultrasound 08/10/16 0000 Signed Impressions: Service Date/Time: Wednesday, August 10, 2016 14:47 - CONCLUSION: There is no significant ascites. Tong Read MD FACR Physical Exam HEENT: Normocephalic; atraumatic CHEST: Resp shallow, even/unlabored, diminished. CARDIAC: RRR ABDOMEN: Abdomen distended, mildly distended, dull, bowel sounds are hypoactive EXTREMITIES: No clubbing, cyanosis, BLE edematous/cool, pulses present SKIN: Normal; no rash; no jaundice. 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 Pt with past hx of heavy ETOH use, now drinks 1 beer per day for several years (has rx at [facility]). Denies any known hx of liver cirrhosis or gallbladder disease. Does have hx of CLL. US (08/10/16)---> hepatomegaly with diffusely coarse hepatic echogenicity similar to prior CT examination consistent with early cirrhotic changes other differential consideration includes leukemic infiltration in this patient with a history of leukemia. Persistent splenomegaly with a small amount of ascites likely due to portal hypertension. Again leukemic infiltration is in the differential. Sludge and small number of stones in the gallbladder with associated gallbladder wall thickening and pericholecystic fluid suspect the gallbladder wall thickening and pericholecystic fluid or due to patient's ascites on the sludge/stones or chronic in nature. MRCP (08/11/16)-----> 1. Hepatosplenomegaly 2. Distended gallbladder otherwise no evidence of biliary obstructive disease. Small to moderate ascites Altered flow in the portal vein which may be indicative of portal hypertension. HIDA (08/11/16)----> 1. Normal HIDA scan confirming patency of the cystic and common bile ducts. 2. Normal gallbladder EF. 3. The patient was asymptomatic with administration of CCK. AFP 1.6, iron sat 21.1%, ferritin 793, Ceruloplasmin 45, alpha 1 antitrypsin 235, HA negative, ASMA negative, AMA neg. This is most likely secondary to acute hepatitis B. He also has worsening renal function and is being treated for possible hepatorenal syndrome by renal- midodine, octreotide. LFT 9.2, AST 1443, ALT 485, Alk Phosph 201. Spoke to Dr. Novoa at [facility]. Per hepatology department, patient is not a candidate for transplant and was not accepted as medical management transfer, as they do not feel that they have anything to offer at their facility that we cannot provide, given the fact that he is not a transplant candidate. Will ask CM to look for family/next of kin, run accurint report. - Acute hepatitis B, with Heb Bs Ag (+), Hep B Core IgM ab (+), viral load 17, 000,000 BE ag pos. Started on Baraclude. - Hepatic encephalopathy. Lactulose. Xifaxan. - Suspected Cirrhosis. Liver workup as above. - Hepatitis C Antibodies (+). viral load <15. HE DOES NOT HAVE AN ACTIVE HCV INFECTION. This is either a false positive or he cleared the the virus on his own. - Ascites. US with small amount of ascites, not amenable to paracentesis on . Had paracentesis at bedside on 08/18/16. Peritoneal WBC 27, RBC 1095. Rest of studies still pending. Peritoneal culture no growth 24 hours. Diuretics on hold secondary to worsening renal function. - Chronic constipation, takes Linzess, Lactulose at home. S/P Miralax. On Lactulose. (+) BM. Also has kaexylate ordered for hyperkalemia and this will help with his constipation as well. - Hepatic Encephalopathy. Ammonia level improved 11. Lactulose, Xifaxan. Remains somnolent, AMS is likely multifactorial at this point. - DEMETRIO, likely hepatorenal syndrome with worsening renal function, decreasing UOP , and electrolyte abnormalities. Octreotide, Midodrine, Albumin. Avoid dye study and nephrotoxins. - Leukocytosis. WBC 16.9. Going for repeat US to evaluate ascites. If significant ascites, will get paracentesis with fluid cultures/studies - Hyponatremia, Chronic pain, COPD, Gout, Anxiety/Depression per primary - Chronic lymphocytic leukemia and 2014 and treated with Rituxan/Bendamustine x 6 and completed this in May of 2014. He is followed by Dr. Ball. 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 Lactulose - Cont. Xifaxan - Cont. Baraclude - Midodrine, Octreotide per renal - Monitor labs - Renal following - Per Dr. Novoa at [facility], patient is not a candidate for transplant. Not accepted for tx, as they feel that they do not have anything to offer that cannot be done at this facility, given the fact that he is not a candidate for transplant. - CM to assist with trying to locate any family/next of kin, accurint report - Further recommendations to follow based on results of above. - The pt was seen and examined by myself and Dr Hyman and this note is written on his behalf Michelle Rajan Aug 19, 2016 16:07
[2016-08-19] MEDS ORDERED: SODIUM BICARBONATE 8.4% INJ 50 MEQ/50 ML SYR IV PUSH ONE (17:00)
[2016-08-19] MEDS: LINEZOLID 600 MG PREMIX 300 ML IV SCH (17:50)
[2016-08-19] MEDS: MIDODRINE 5 MG TAB PO SCH (17:51)
[2016-08-19] MEDS: OCTREOTIDE INJ 50 MCG/ML AMP IV PUSH SCH (17:52)
[2016-08-20] VITALS (17 sets, daily range): BP systolic 111–122; BP diastolic 59–69; PULSE 82–130; RESP 17–26; TEMP 98.3–100.6; O2SAT 91–96
[2016-08-20] MEDS: LACTULOSE SYRUP 20 GM/30 ML CUP PO SCH ×6 (01:00→19:45)
[2016-08-20] MEDS: OCTREOTIDE INJ 50 MCG/ML AMP IV PUSH SCH ×3 (02:56→16:51)
[2016-08-20] MEDS: RESP: ALBUTEROL 2.5 MG/IPRATROPIUM 0.5 MG NEB (SCH) NEB ×4 (04:02→20:08)
[2016-08-20] MEDS: CHLORHEXIDINE GLUCONATE 2 % 1 PACK (2 CLOTHS)(taper/protocol) TOPICAL SCH (04:19)
[2016-08-20] MEDS: LINEZOLID 600 MG PREMIX 300 ML IV SCH ×2 (04:19→16:50)
[2016-08-20 04:42] LABS: BODY FLUID LDH 115 U/L (()); BODY FLUID LDH SOURCE PERITONEAL (())
[2016-08-20 05:16] LABS: AUTOMATED NEUTROPHIL # 11.1 TH/MM3 (1.8-7.7); BASOPHIL # 0.1 TH/MM3 (0-0.2); BASOPHIL % 0.9 % (0.0-2.0); EOSINOPHIL % 0.3 % (0.0-4.0); HEMATOCRIT 37.3 % (39.0-51.0); HEMO FLAGS DIFF FINAL; LYMPH % 15.7 % (9.0-44.0); LYMPHOCYTE # 2.4 TH/MM3 (1.0-4.8); MEAN CELL VOLUME 94.4 FL (80.0-100.0); MEAN CORPUSCULAR HEMOGLOBIN 31.8 PG (27.0-34.0); MEAN CORPUSCULAR HGB CONC 33.7 % (32.0-36.0); MONO % 11.7 % (0.0-8.0); NEUT % 71.4 % (16.0-70.0); PLATELET COUNT 191 TH/MM3 (150-450); RED BLOOD COUNT 3.95 MIL/MM3 (4.50-5.90); RED CELL DISTRIBUTION WIDTH 19.2 % (11.6-17.2); WHITE BLOOD COUNT 15.5 TH/MM3 (4.0-11.0)
[2016-08-20 05:35] LABS: INTERNATIONAL NORMALIZED RATIO 2.5 RATIO; PROTHROMBIN TIME - PATIENT 29.1 SEC (9.8-11.6)
[2016-08-20] MEDS: MIDODRINE 5 MG TAB PO SCH ×3 (05:38→16:51)
[2016-08-20] MEDS: CEFEPIME INJ 1,000 MG in SODIUM CHLORIDE 0.9% INJ 100 ML IV SCH ×3 (05:38→21:47)
[2016-08-20] MEDS: ENTECAVIR 0.5 MG TAB PO SCH (05:38)
[2016-08-20] MEDS: MORPHINE SULFATE 4 MG/ML INJ IV PUSH PRN ×2 (05:39→12:24)
[2016-08-20 06:26] LABS: ALKALINE PHOSPHATASE 205 U/L (45-117); ALT (GPT) 480 U/L (12-78); ANION GAP 13 MEQ/L (5-15); AST (GOT) 1318 U/L (15-37); BICARBONATE 22.1 MEQ/L (21.0-32.0); CHLORIDE 105 MEQ/L (98-107); GLOMERULAR FILTRATION RATE 15 ML/MIN (>89); MAGNESIUM 3.6 MG/DL (1.5-2.5); POTASSIUM 4.9 MEQ/L (3.5-5.1); SODIUM (NA) 140 MEQ/L (136-145); TOTAL BILIRUBIN ADULT 10.9 MG/DL (0.2-1.0)
[2016-08-20 06:27] LABS: BLOOD UREA NITROGEN 82 MG/DL (7-18)
[2016-08-20] MEDS: RIFAXIMIN 550 MG TAB PO SCH ×2 (08:26→19:45)
[2016-08-20] MEDS: ALBUMIN HUMAN 25% 12.5 GM/50 ML BAGP IV SCH ×2 (08:26→21:43)
[2016-08-20] MEDS: PANTOPRAZOLE SODIUM 40 MG VIAL IV PUSH SCH (08:26)
[2016-08-20] MEDS: DOCUSATE SODIUM 50 MG/SENNA 8.6 MG TAB PO SCH ×2 (08:26→19:46)
[2016-08-20] MEDS: BUDESONIDE-FORMOTEROL 160/4.5 MCG INHALER INH SCH ×2 (08:27→19:45)
[2016-08-20] MEDS: SODIUM CHLORIDE 0.9% FLUSH 10 ML FLUSH IV FLUSH SCH ×2 (08:27→19:45)
[2016-08-20] MEDS: ACETYLCYSTEINE 20% 6,000 MG/30 ML ORAL SOLN VIAL PO SCH ×2 (09:00→19:46)
--- NOTE | 2016-08-20 11:29 | HHI.NPPN ---
Subjective Additional Remarks Renal function is worse. On IVF. Notes were reviewed. Poorly responsive. Objective Data Data 08/19/16 08/20/16 19:00 07:00 Intake Total 851 ml 1316 ml Output Total 250 ml 600 ml Balance 601 ml 716 ml Intake Oral 30 ml IV Total 851 ml 1236 ml Albumin 50 ml Output Urine Total 250 ml 600 ml # Bowel Movements 0 2 Vital Signs Date Time Temp Pulse Resp B/P Pulse Ox O2 Delivery O2 Flow Rate FiO2 08/20/16 08:00 93 Venturi Mask 6.00 50 08/20/16 06:00 124 08/20/16 05:05 93 Venturi Mask 6.00 50 08/20/16 04:00 121 118/67 08/20/16 04:00 98.9 121 18 118/67 91 08/20/16 04:00 121 08/20/16 02:00 122 08/20/16 00:00 87 111/59 08/20/16 00:00 87 08/20/16 00:00 98.9 87 18 111/59 92 08/19/16 22:00 87 08/19/16 20:21 92 Nasal Cannula 3.50 08/19/16 20:00 99.1 86 17 107/58 91 08/19/16 20:00 86 08/19/16 20:00 86 107/58 08/19/16 18:00 83 08/19/16 16:00 99.0 83 16 125/62 91 08/19/16 16:00 88 08/19/16 14:00 88 08/19/16 12:00 99.1 91 20 118/58 92 08/19/16 12:00 91 -: 08/20/16 0410 08/20/16 0410 Physical Exam General Appearance: Well Nourished, Pale Neck Neck Exam: Neck Supple Pulmonary Resp Exam: Clear Bilaterally, Breath Sounds Equal Cardiology CV Exam: Regular, Normal Sinus Rhythm Gastrointestinal/Abdomen GI Exam: Soft, Distended Extremeties Extremities Exam: Moderate Edema Assessment/Plan Problem List: (1) Acute renal failure Plan: Worsening renal function: poor prognosis, may have to consider HRS. On D5NS, on albumin. Obtain urine electrolytes. Avoid nephrotoxins. Poor prognosis. (2) Acute hepatitis B Plan: Acute infection GI is following (3) Acute liver disease Plan: Elevated liver enzymes due to hepatitis B (4) Leukemia Plan: History of CLL in the past (5) Hyponatremia Plan: Resolved. Problem Qualifiers (1) Leukemia: Qualified Code: C95.10 - Chronic leukemia, not having achieved remission Danish Ahumada MD Aug 20, 2016 11:29
[2016-08-20] MEDS: DEXT 5%-NACL 0.9% 1000 ML INJ 1,000 ML IV SCH (12:40)
[2016-08-20] MEDS ORDERED: ALBUMIN HUMAN 25% 25 GM/100 ML BAGP IV ONE (13:45)
--- NOTE | 2016-08-20 14:05 | HHI.CCPN ---
Subjective Remarks/Hospital Course Patient is a is a 70 year old male patient with history of chronic lymphocytic leukemia, in remission, who was admitted to the hospital for evaluation of elevated LFTs. His lab work on 08/09/16 showed elevated LFTs, total bilirubin 2.3, AST 759, ALT 270, alkaline phosphatase 390. US on 08/10/16 showed early cirrhotic change. Gastroenterology was consulted and further workup revealed patient had acute hepatitis B. Hepatitis C was also positive. Patient was placed on Xifaxan and lactulose by GI for elevated ammonia. Admission creatinine was normal but started climbing up by day 2 of admission. Creatinine was 1.3 on 08/13/16 nephrology was consulted for probable hepatorenal syndrome. Patient was placed on IV albumin, octreotide, and Midodrine for possible HRS. Despite these measures, patient's creatinine continued to deteriorate and he becameoliguric. Urine output was only 300 mL in the last 24 hours. AM labs today showed BUN 75 creatinine 3 with a potassium of 6. This was treated with Kayexalate, IV insulin and dextrose Halicat was called due to blood pressure 82/38. Patient was very lethargic and Dr. Brian transferred to ICU. Patient was started Norepinephrine and critical care was consulted. I evaluated the patient immediately. Patient is currently lethargic hypotensive with systolic blood pressure in mid 80s on 4 mcg/m of Levophed. I have ordered 1 L normal saline bolus, and 25 g IV albumin. I placed a left subclavian central line. A bedside ultrasound showed moderate ascites, I performed a paracentesis and removed 600 ml biliary tinged ascitic fluid. GI and Nephrology following. Repeat labs are pending at this time. Started on cefepime 1 g IV every 8 hours. 08/19 No events overnight. Afebrile. Off Levophed. Renal function worse today with Cr: 3.60 from 3.40 with UO: 850 ml in 08/20: Patient is more encephalopathic today, less responsive. Very lethargic, low grade fever. Bedside ultrasound shows reaccumulation of ascites fluid left lower quadrant. Renal function slightly worsened with increasing creatinine, urine output 850 mL in 24 hours. Tachycardic with heart rate in the 130s sinus rhythm, SIRS response most likely due to new infection Objective Vital Signs Date Time Temp Pulse Resp B/P Pulse Ox O2 Delivery O2 Flow Rate FiO2 08/20/16 12:29 16 08/20/16 12:00 130 08/20/16 12:00 116/65 08/20/16 08:00 93 Venturi Mask 6.00 50 08/20/16 08:00 99.0 Intake and Output 08/19/16 08/19/16 08/20/16 08:00 16:00 00:00 Intake Total 823 ml 851 ml 816 ml Output Total 250 ml 250 ml 300 ml Balance 573 ml 601 ml 516 ml Result Diagram: 08/20/16 0410 08/20/16 0410 Other Results Laboratory Tests Test 08/19/16 15:24 Blood Gas Puncture Site RT RADIAL Blood Gas Patient Temperature 98.6 Blood Gas HCO3 18 mmol/L (22-26) Blood Gas Base Excess -6.6 mmol/L (-2-2) Blood Gas Oxygen Saturation 91 % (90-100) Arterial Blood pH 7.36 (7.380-7.420) Arterial Blood Partial 32 mmHg (38-42) Pressure CO2 Arterial Blood Partial 73 mmHg Pressure O2 (61-120) Arterial Blood Oxygen Content 16.5 Vol % (12.0-20.0) Arterial Blood 1.6 % (0-4) Carboxyhemoglobin Arterial Blood Methemoglobin 1.1 % (0-2) Blood Gas Hemoglobin 12.9 G/DL (12.0-16.0) Oxygen Delivery Device NASAL CANNULA Blood Gas Liter Flow 3 L/M Imaging Last Impressions Chest X-Ray 08/19/16 0600 Signed Impressions: Service Date/Time: Friday, August 19, 2016 04:22 - CONCLUSION: Stable bibasilar airspace disease with associated effusions, right greater than left. Antwon Whitman MD Abdomen X-Ray 08/15/16 0000 Signed Impressions: Service Date/Time: Monday, August 15, 2016 14:50 - CONCLUSION: 1. Nonobstructive bowel gas pattern. Sung Gomez MD Hepatobiliary Scan Nuclear Medicine 08/11/16 0000 Signed Impressions: Service Date/Time: July 10:13 - CONCLUSION: 1. Normal HIDA scan confirming patency of the cystic and common bile ducts. 2. Normal gallbladder EF. 3. The patient was asymptomatic with administration of CCK. Sung Gomez MD Cholangiopancreatography MRI 08/11/16 0000 Signed Impressions: Service Date/Time: July 08:38 - CONCLUSION: 1. Hepatosplenomegaly 2. Distended gallbladder otherwise no evidence of biliary obstructive disease. 3. Small to moderate ascites 4. Altered flow in the portal vein which may be indicative of portal hypertension. 5. No other significant abnormalities identified. Steve Acuna MD Abdomen Ultrasound 08/10/16 0000 Signed Impressions: Service Date/Time: Wednesday, August 10, 2016 14:47 - CONCLUSION: There is no significant ascites. Tong Read MD FACR Objective Remarks GENERAL: Patient is lying in bed very lethargic critically ill SKIN: Warm and dry. Jaundiced HEAD: Normocephalic. EYES: Positive scleral icterus. No injection or drainage. ENT: Oral cavity is dry. Airway patent NECK: Supple, trachea midline. No JVD or lymphadenopathy. CARDIOVASCULAR: Tachycardic rate and rhythm without murmurs, gallops, or rubs. RESPIRATORY: Breath sounds equal bilaterally, diminished at the bases. No accessory muscle use. GASTROINTESTINAL: Abdomen soft, mildly tender to palpation, LLQ ascites MUSCULOSKELETAL: No cyanosis. Lower ext 2+ edema. Chronic venous stasis changes BACK: Nontender without obvious deformity. No CVA tenderness. NEURO: Patient is unresponsive moaning, but protecting airway. Did not follow commands Procedures None. A/P Assessment and Plan NEURO: Acute metabolic encephalopathy-worsening - Acute worsening of mental status today most likely from new sepsis - Continue lactulose (currently hospital out of lactulose per RN) and Xifaxan. Check Ammonia level ( 57 on 08/19/16) RESP: Bilateral lower lobe infiltrates/atelectasis - Continue with oxygen keep sat >92% - DuoNeb every 6 hours when necessary - Send sputum culture if available - ABX as below CV: Shock -resolved SIRS/sinus tachycardia Lactic acidosis - New-onset sinus tachycardia/service response may indicate new infection - Off Levophed monitor HR and BP keep MAP>65mmHg - Serial lactic acid monitoring. Elevated lactic acid likely 2nd sepsis and Liver disease GI: Hepatorenal syndrome Acute hepatic failure Acute hepatitis B Liver cirrhosis - GI and nephrology following. GI had contacted [facility] for transplant eval-GI poke to Dr. Novoa at [facility]- states that he is not a candidate for transplant. - Trial of Baraclude for Hep B treatment - Continue supportive care, with IV albumin, resume Midodrine, Octreotide - s/p paracentesis 08/18/16 with 600 mL of biliary tinged ascites fluid removed- fluid studies sent. Repeat paracentesis today : Acute kidney failure/hepatorenal syndrome - Monitor renal function, I/O's, avoid nephrotoxins. Interval worsening of kidney function - Cr: 3.6 from 3.4 with UOP: 850ml in 24 hrs, 08/19. Repeat CMP today -Renal is following- Dr. Cruz, changed IVF D5 NS@75ml/hr, on Midodrine and Octreotide -US abdomen: No hydronephrosis ID: Severe sepsis Leukocytosis - Continue with abx ( Cefepime, Zyvox) avoid Vanco given his renal dysfunction. monitor for signs of infections ( Fever, WBC) follow up on cxs - Consider antifungal if not improving in 24 hours 08/18 Urine cx: Group D enterococcus 08/10 Urine cx: Staph Epi Repeat cultures today, blood urine and sputum HEME: Coagulopathy secondary to liver failure - Monitor CBC, CMP, INR - FFP, Vit K as needed ENDO: - SSI if needed for glycemic control PROPH: - Bilateral lower extremity SCDs. Avoid chemical DVT prophylaxis secondary to coagulopathy. IV Protonix LINES: - Left subclavian central line placed 08/18 CCT 35 MIN Patient took a turn for the worse currently more encephalopathy unresponsive tachycardic indicating worsening metabolic encephalopathy and probable new sepsis. Further workup including cultures and paracentesis indicated. Add antifungal coverage also if not improving. Prognosis guarded Immanuel Bassett MD Aug 20, 2016 14:05
[2016-08-20 14:38] LABS: ALKALINE PHOSPHATASE 190 U/L (45-117); ALT (GPT) 452 U/L (12-78); ANION GAP 14 MEQ/L (5-15); AST (GOT) 1189 U/L (15-37); BICARBONATE 22.1 MEQ/L (21.0-32.0); BLOOD UREA NITROGEN 87 MG/DL (7-18); CHLORIDE 106 MEQ/L (98-107); GLOMERULAR FILTRATION RATE 14 ML/MIN (>89); SODIUM (NA) 142 MEQ/L (136-145)
--- NOTE | 2016-08-20 15:03 | EKG ---
Date Performed: 08/20/2016 Time Performed: 12:48:01 PTAGE: 70 years EKG: SINUS TACHYCARDIA LOW QRS VOLTAGE IN PRECORDIAL LEADS INCOMPLETE RIGHT BUNDLE BRANCH BLOCK LEFT ANTERIOR FASCICULAR BLOCK POSSIBLE ANTERIOR MYOCARDIAL INFARCTION , PROBABLY OLD ABNORMAL ECG PREVIOUS TRACING : 08/12/2016 19.38 Compared to prior tracing no significant change DOCTOR: Hugh Contreras Interpretating Date/Time 08/20/2016 15:03:20
--- NOTE | 2016-08-20 15:10 | PD.PROCEDR ---
Procedure Note Procedure Procedure Notes: Paracentesis Moderate Ascites, new sepsis r/o SBP Informed consent obtained from patient A time-out was completed verifying correct patient, procedure, site, positioning , and special equipment if applicable. The patient's left LQ was prepped and draped in a sterile manner after the appropriate infiltration level was confirmed by ultrasound. 1% lidocaine was used anesthetize the surrounding skin. A 10-blade scalpel used to make the incision. The paracentesis Angio cath was then introduced without difficulty and needle was removed. Catheter was connected to Vacutainer bottle and 2000 ml of yellow bile stained ascitic fluid was removed. Estimated Blood Loss: <1 ml. The patient tolerated the procedure well and there were no immediate complications. Fluid send out for further studies Immanuel Bassett MD Aug 20, 2016 15:10
[2016-08-20 17:05] LABS: PERITONEAL LYMPHS 72 %; PERITONEAL MONOS 10 %; PERITONEAL POLYS(SEGS) 18 %; PERITONEAL WBC 82 /MM3 (0-10)
--- NOTE | 2016-08-20 18:42 | HHI.GIFU ---
GI Follow-up Note Consult Follow-up Subjective: Patient laying in bed , confused , lethargic , s/p paracentesis today.NGT was placed today, Lactulose restarted today along with Rifaximin.No next of kin available Objective: PHYSICAL EXAMINATION: Vitals signs stable No fever HEENT: Pupils round and reactive to light; normocephalic; atraumatic; jaundice. Throat is clear. NECK: Neck is supple, no JVD, no lymphadenopathy. CHEST: Chest is clear to auscultation and percussion. CARDIAC: Regular rate and rhythm with no murmur gallop or rubs. ABDOMEN: Soft, distended, nontender; no hepatosplenomegaly; bowel sounds are present in all four quadrants. EXTREMITIES: No clubbing, cyanosis, or edema. SKIN: Normal; no rash; jaundice. YEAST PUMPER: lethargic , confused Available Data (labs, X- Rays, Procedues) : Laboratory Tests Test 08/18/16 08/19/16 08/19/16 08/19/16 19:50 04:45 08:25 13:00 Sodium Level 134 MEQ/L 137 MEQ/L Potassium Level 5.8 MEQ/L 5.5 MEQ/L 5.3 MEQ/L Chloride Level 102 MEQ/L 102 MEQ/L Carbon Dioxide Level 20.7 MEQ/L 21.1 MEQ/L Anion Gap 11 MEQ/L 14 MEQ/L Blood Urea Nitrogen 80 MG/DL 84 MG/DL Creatinine 3.40 MG/DL 3.60 MG/DL Estimat Glomerular Filtration 18 ML/MIN 17 ML/MIN Rate Random Glucose 114 MG/DL 98 MG/DL Calcium Level 8.3 MG/DL 8.1 MG/DL Total Bilirubin 8.9 MG/DL 9.2 MG/DL Aspartate Amino Transf 1542 U/L 1443 U/L (AST/SGOT) Alanine Aminotransferase 517 U/L 485 U/L (ALT/SGPT) Alkaline Phosphatase 202 U/L 201 U/L Total Protein 5.2 GM/DL 5.5 GM/DL Albumin 2.6 GM/DL 2.7 GM/DL White Blood Count 16.6 TH/MM3 Red Blood Count 3.70 MIL/MM3 Hemoglobin 11.8 GM/DL Hematocrit 34.7 % Mean Corpuscular Volume 93.9 FL Mean Corpuscular Hemoglobin 32.0 PG Mean Corpuscular Hemoglobin 34.0 % Concent Red Cell Distribution Width 18.4 % Platelet Count 227 TH/MM3 Mean Platelet Volume 8.6 FL Neutrophils (%) (Auto) 71.4 % Lymphocytes (%) (Auto) 15.7 % Monocytes (%) (Auto) 11.7 % Eosinophils (%) (Auto) 0.4 % Basophils (%) (Auto) 0.8 % Neutrophils # (Auto) 11.8 TH/MM3 Lymphocytes # (Auto) 2.6 TH/MM3 Monocytes # (Auto) 1.9 TH/MM3 Eosinophils # (Auto) 0.1 TH/MM3 Basophils # (Auto) 0.1 TH/MM3 CBC Comment DIFF FINAL Differential Comment Magnesium Level 3.6 MG/DL Lactic Acid Level 3.7 mmol/L Ammonia 57 MCMOL/L Test 08/19/16 08/19/16 08/20/16 08/20/16 15:24 21:10 04:10 13:13 Blood Gas Puncture Site RT RADIAL Blood Gas Patient Temperature 98.6 Blood Gas HCO3 18 mmol/L Blood Gas Base Excess -6.6 mmol/L Blood Gas Oxygen Saturation 91 % Arterial Blood pH 7.36 Arterial Blood Partial 32 mmHg Pressure CO2 Arterial Blood Partial 73 mmHg Pressure O2 Arterial Blood Oxygen Content 16.5 Vol % Arterial Blood 1.6 % Carboxyhemoglobin Arterial Blood Methemoglobin 1.1 % Blood Gas Hemoglobin 12.9 G/DL Oxygen Delivery Device NASAL CANNULA Blood Gas Liter Flow 3 L/M Potassium Level 5.2 MEQ/L 4.9 MEQ/L 5.0 MEQ/L White Blood Count 15.5 TH/MM3 Red Blood Count 3.95 MIL/MM3 Hemoglobin 12.6 GM/DL Hematocrit 37.3 % Mean Corpuscular Volume 94.4 FL Mean Corpuscular Hemoglobin 31.8 PG Mean Corpuscular Hemoglobin 33.7 % Concent Red Cell Distribution Width 19.2 % Platelet Count 191 TH/MM3 Mean Platelet Volume 8.6 FL Neutrophils (%) (Auto) 71.4 % Lymphocytes (%) (Auto) 15.7 % Monocytes (%) (Auto) 11.7 % Eosinophils (%) (Auto) 0.3 % Basophils (%) (Auto) 0.9 % Neutrophils # (Auto) 11.1 TH/MM3 Lymphocytes # (Auto) 2.4 TH/MM3 Monocytes # (Auto) 1.8 TH/MM3 Eosinophils # (Auto) 0.0 TH/MM3 Basophils # (Auto) 0.1 TH/MM3 CBC Comment DIFF FINAL Differential Comment Prothrombin Time 29.1 SEC Prothromb Time International 2.5 RATIO Ratio Sodium Level 140 MEQ/L 142 MEQ/L Chloride Level 105 MEQ/L 106 MEQ/L Carbon Dioxide Level 22.1 MEQ/L 22.1 MEQ/L Anion Gap 13 MEQ/L 14 MEQ/L Blood Urea Nitrogen 82 MG/DL 87 MG/DL Creatinine 3.96 MG/DL 4.09 MG/DL Estimat Glomerular Filtration 15 ML/MIN 14 ML/MIN Rate Random Glucose 132 MG/DL 133 MG/DL Calcium Level 8.2 MG/DL 8.0 MG/DL Phosphorus Level 5.1 MG/DL Magnesium Level 3.6 MG/DL Total Bilirubin 10.9 MG/DL 11.0 MG/DL Aspartate Amino Transf 1318 U/L 1189 U/L (AST/SGOT) Alanine Aminotransferase 480 U/L 452 U/L (ALT/SGPT) Alkaline Phosphatase 205 U/L 190 U/L Total Protein 6.0 GM/DL 5.9 GM/DL Albumin 2.7 GM/DL 2.7 GM/DL Ammonia 93 MCMOL/L Test 08/20/16 08/20/16 08/20/16 14:01 15:00 17:15 Lactic Acid Level 5.3 mmol/L Peritoneal Fluid WBC 82 /MM3 Peritoneal Fluid RBC 629 /MM3 Peritoneal Fluid Neutrophils 18 % Peritoneal Fluid Lymphocytes 72 % Peritoneal Fluid Monocytes 10 % Urine Random Creatinine 110.7 MG/DL Urine Random Sodium 13 MEQ/L ASSESSMENT/PLAN: liver cirrhosis secondary etoh/fatty liver with superimposed acute hepatitis b on Baraclude hep c ab positive, viral load undetectable coagulopathy secondary end stage live disease sepsis CLL hepatic encephalopathy ascites s/p paracentesis , no indication of sbp not a liver transplant candidate as per tertiary center Recommendations lactulose/rifaximin supportive care poor prognosis consider palliative care consult Mucomyst bid It was a pleasure seeing Tommy Rogers. Thank you for this consult. Entered by: Haley Hua MD Aug 20, 2016 18:42
[2016-08-21] VITALS (18 sets, daily range): BP systolic 115–141; BP diastolic 64–72; PULSE 79–126; RESP 18–26; TEMP 97.7–101.2; O2SAT 94–98
[2016-08-21] MEDS: OCTREOTIDE INJ 50 MCG/ML AMP IV PUSH SCH ×3 (00:23→18:18)
[2016-08-21] MEDS: LACTULOSE SYRUP 20 GM/30 ML CUP PO SCH ×6 (00:24→22:20)
[2016-08-21] MEDS: CHLORHEXIDINE GLUCONATE 2 % 1 PACK (2 CLOTHS)(taper/protocol) TOPICAL SCH ×2 (00:25→22:21)
[2016-08-21] MEDS: DEXT 5%-NACL 0.9% 1000 ML INJ 1,000 ML IV SCH (00:45)
[2016-08-21] MEDS: RESP: ALBUTEROL 2.5 MG/IPRATROPIUM 0.5 MG NEB (SCH) NEB ×4 (03:23→21:44)
[2016-08-21] MEDS: LINEZOLID 600 MG PREMIX 300 ML IV SCH ×2 (03:54→18:19)
[2016-08-21 04:37] LABS: AUTOMATED NEUTROPHIL # 13.3 TH/MM3 (1.8-7.7); BASOPHIL # 0.1 TH/MM3 (0-0.2); BASOPHIL % 0.5 % (0.0-2.0); EOSINOPHIL # 0.1 TH/MM3 (0-0.4); EOSINOPHIL % 0.4 % (0.0-4.0); HEMATOCRIT 36.3 % (39.0-51.0); HEMO FLAGS DIFF FINAL; LYMPH % 15.3 % (9.0-44.0); LYMPHOCYTE # 2.8 TH/MM3 (1.0-4.8); MEAN CELL VOLUME 95.5 FL (80.0-100.0); MEAN CORPUSCULAR HEMOGLOBIN 31.2 PG (27.0-34.0); MEAN CORPUSCULAR HGB CONC 32.6 % (32.0-36.0); MONO % 10.1 % (0.0-8.0); NEUT % 73.7 % (16.0-70.0); PLATELET COUNT 141 TH/MM3 (150-450); RED BLOOD COUNT 3.81 MIL/MM3 (4.50-5.90); RED CELL DISTRIBUTION WIDTH 19.7 % (11.6-17.2); WHITE BLOOD COUNT 18.1 TH/MM3 (4.0-11.0)
[2016-08-21 05:05] LABS: ALKALINE PHOSPHATASE 157 U/L (45-117)
[2016-08-21 05:07] LABS: ALT (GPT) 373 U/L (12-78); ANION GAP 12 MEQ/L (5-15); AST (GOT) 940 U/L (15-37); BICARBONATE 21.1 MEQ/L (21.0-32.0); BLOOD UREA NITROGEN 92 MG/DL (7-18); CHLORIDE 108 MEQ/L (98-107); GLOMERULAR FILTRATION RATE 14 ML/MIN (>89); POTASSIUM 4.8 MEQ/L (3.5-5.1); SODIUM (NA) 141 MEQ/L (136-145)
[2016-08-21] MEDS: CEFEPIME INJ 1,000 MG in SODIUM CHLORIDE 0.9% INJ 100 ML IV SCH ×3 (05:26→22:21)
[2016-08-21] MEDS: MIDODRINE 5 MG TAB PO SCH ×3 (05:28→18:18)
[2016-08-21] MEDS: ENTECAVIR 0.5 MG TAB PO SCH (05:28)
--- NOTE | 2016-08-21 05:36 | RADRPT ---
EXAM DATE/TIME: 08/21/2016 04:22 [place] COMPARISON: CHEST SINGLE AP, August 19, 2016, 4:22. INDICATIONS : Shortness of breath, possible pulmonary disease. MEDICAL HISTORY : Chronic obstructive pulmonary disease. Hypertension Congestive heart failure. Gout SURGICAL HISTORY : Bone marrow biopsy Hip surgery ENCOUNTER: Subsequent ACUITY: 2 weeks PAIN SCORE: Non-responsive. LOCATION: Bilateral chest FINDINGS: A single view of the chest demonstrates minimal bibasilar densities. Heart mildly enlarged. Nasogastr ic tube with tip in stomach. Left subclavian central line stable in position. Osseous structures are intact. CONCLUSION: 1. Improving bibasilar densities. 2. Nasogastric tube with tip in stomach. Jeremy Garcia MD on August 21, 2016 at 5:34 Board Certified Radiologist. This report was verified electronically.
--- NOTE | 2016-08-21 08:50 | HHI.NPPN ---
Subjective Additional Remarks Renal function is worse. Low urine Sodium. Low FeNa. Suggestive of hepatorenal syndrome. Objective Data Data 08/20/16 08/21/16 19:00 07:00 Intake Total 1109 ml 1769 ml Output Total 350 ml 450 ml Balance 759 ml 1319 ml Intake Oral 30 ml IV Total 929 ml 1469 ml Tube Feeding 100 ml Albumin 150 ml 100 ml Other 100 ml Output Urine Total 350 ml 450 ml # Bowel Movements 2 1 Vital Signs Date Time Temp Pulse Resp B/P Pulse Ox O2 Delivery O2 Flow Rate FiO2 08/21/16 07:26 98 Nasal Cannula 4.00 08/21/16 06:00 120 08/21/16 04:00 124 123/65 08/21/16 04:00 98.5 124 26 123/65 94 08/21/16 04:00 124 08/21/16 02:00 80 08/21/16 00:00 98.1 118 24 115/64 95 08/21/16 00:00 118 115/64 08/21/16 00:00 118 08/20/16 22:00 82 08/20/16 20:08 96 Nasal Cannula 4.00 08/20/16 20:00 127 112/68 08/20/16 20:00 120 08/20/16 20:00 98.3 120 26 112/68 95 08/20/16 18:00 121 08/20/16 17:00 89 08/20/16 16:00 127 08/20/16 16:00 99.9 127 17 122/69 93 08/20/16 16:00 127 122/69 08/20/16 14:00 127 08/20/16 12:29 16 08/20/16 12:00 130 08/20/16 12:00 130 116/65 08/20/16 12:00 100.6 130 19 116/65 93 08/20/16 11:00 127 08/20/16 10:00 129 08/20/16 09:00 130 -: 08/21/16 0343 08/21/16 0343 Microbiology 08/20/16 Gram Stain, Received Pending 08/20/16 Body Fluid Culture, Received Pending 08/20/16 Aerobic Blood Culture, Received Pending 08/20/16 Anaerobic Blood Culture, Received Pending 08/20/16 Aerobic Blood Culture, Received Pending 08/20/16 Anaerobic Blood Culture, Received Pending Physical Exam General Appearance: Well Nourished, Pale Neck Neck Exam: Neck Supple Pulmonary Resp Exam: Clear Bilaterally, Breath Sounds Equal Cardiology CV Exam: Regular, Normal Sinus Rhythm Gastrointestinal/Abdomen GI Exam: Soft, Distended Extremeties Extremities Exam: Moderate Edema Assessment/Plan Problem List: (1) Acute renal failure Plan: Worsening renal function: poor prognosis, may have to consider HRS. Had urine output of 800 ml, so was non-oliguric. Oliguria is a feature of HRS. Urine studies are suggestive of either pre-renal or HRS. No response to IVF. Also on Albumin. Apparently not a candidate for liver transplantation. If he indeed has HRS, his condition is terminal. Consider palliative care consult. Start diuresis. (2) Acute hepatitis B Plan: Acute infection GI is following. Notes were reviewed. (3) Acute liver disease Plan: Elevated liver enzymes due to hepatitis B (4) Leukemia Plan: History of CLL in the past (5) Hyponatremia Plan: Resolved. Problem Qualifiers (1) Leukemia: Qualified Code: C95.10 - Chronic leukemia, not having achieved remission Danish Ahumada MD Aug 21, 2016 08:50
[2016-08-21] MEDS: BUDESONIDE-FORMOTEROL 160/4.5 MCG INHALER INH SCH ×2 (09:00→21:00)
[2016-08-21] MEDS: BUMETANIDE INJ 1 MG/4 ML VIAL IV PUSH SCH ×2 (09:25→18:17)
[2016-08-21] MEDS: PANTOPRAZOLE SODIUM 40 MG VIAL IV PUSH SCH (09:25)
[2016-08-21] MEDS: DOCUSATE SODIUM 50 MG/SENNA 8.6 MG TAB PO SCH ×2 (09:25→22:20)
[2016-08-21] MEDS: RIFAXIMIN 550 MG TAB PO SCH ×2 (09:25→22:20)
[2016-08-21] MEDS: ALBUMIN HUMAN 25% 12.5 GM/50 ML BAGP IV SCH ×2 (09:26→22:21)
[2016-08-21] MEDS: ACETYLCYSTEINE 20% 6,000 MG/30 ML ORAL SOLN VIAL PO SCH ×2 (09:28→21:00)
[2016-08-21] MEDS: SODIUM CHLORIDE 0.9% FLUSH 10 ML FLUSH IV FLUSH SCH ×2 (09:28→22:20)
--- NOTE | 2016-08-21 11:56 | HHI.CCPN ---
Subjective Remarks/Hospital Course Patient is a is a 70 year old male patient with history of chronic lymphocytic leukemia, in remission, who was admitted to the hospital for evaluation of elevated LFTs. His lab work on 08/09/16 showed elevated LFTs, total bilirubin 2.3, AST 759, ALT 270, alkaline phosphatase 390. US on 08/10/16 showed early cirrhotic change. Gastroenterology was consulted and further workup revealed patient had acute hepatitis B. Hepatitis C was also positive. Patient was placed on Xifaxan and lactulose by GI for elevated ammonia. Admission creatinine was normal but started climbing up by day 2 of admission. Creatinine was 1.3 on 08/13/16 nephrology was consulted for probable hepatorenal syndrome. Patient was placed on IV albumin, octreotide, and Midodrine for possible HRS. Despite these measures, patient's creatinine continued to deteriorate and he becameoliguric. Urine output was only 300 mL in the last 24 hours. AM labs today showed BUN 75 creatinine 3 with a potassium of 6. This was treated with Kayexalate, IV insulin and dextrose Halicat was called due to blood pressure 82/38. Patient was very lethargic and Dr. Brian transferred to ICU. Patient was started Norepinephrine and critical care was consulted. I evaluated the patient immediately. Patient is currently lethargic hypotensive with systolic blood pressure in mid 80s on 4 mcg/m of Levophed. I have ordered 1 L normal saline bolus, and 25 g IV albumin. I placed a left subclavian central line. A bedside ultrasound showed moderate ascites, I performed a paracentesis and removed 600 ml biliary tinged ascitic fluid. GI and Nephrology following. Repeat labs are pending at this time. Started on cefepime 1 g IV every 8 hours. 08/19 No events overnight. Afebrile. Off Levophed. Renal function worse today with Cr: 3.60 from 3.40 with UO: 850 ml in 08/20: Patient is more encephalopathic today, less responsive. Very lethargic, low grade fever. Bedside ultrasound shows reaccumulation of ascites fluid left lower quadrant. Renal function slightly worsened with increasing creatinine, urine output 850 mL in 24 hours. Tachycardic with heart rate in the 130s sinus rhythm, SIRS response most likely due to new infection 08/21: Patient had paracentesis yesterday 2 L. remains critical but slightly improved level of consciousness. Wakes up and following commands but, wakes up and tracks. UO 800 ml in 24 hours, creatinine getting worse. Dr. Ahumada has started IV Bumex BID. Prognosis appears guarded. Liver enzymes slightly trending down Objective Vital Signs Date Time Temp Pulse Resp B/P Pulse Ox O2 Delivery O2 Flow Rate FiO2 08/21/16 07:26 98 Nasal Cannula 4.00 08/21/16 06:00 120 08/21/16 04:00 123/65 08/21/16 04:00 98.5 26 08/20/16 08:00 50 Intake and Output 08/20/16 08/20/16 08/21/16 08:00 16:00 00:00 Intake Total 500 ml 1109 ml 790 ml Output Total 300 ml 350 ml 150 ml Balance 200 ml 759 ml 640 ml Result Diagram: 08/21/16 0343 08/21/16 0343 Other Results Microbiology Date/Time Procedure Status Source Growth 08/18/16 13:32 Gram Stain - Final Complete Fluid Peritoneal Fluid 08/18/16 13:32 Body Fluid Culture - Final Complete Fluid Peritoneal Fluid NO GROWTH IN 72 HRS.--AEROBICALLY OR ... Imaging Last Impressions Chest X-Ray 08/19/16 0600 Signed Impressions: Service Date/Time: Friday, August 19, 2016 04:22 - CONCLUSION: Stable bibasilar airspace disease with associated effusions, right greater than left. Antwon Whitman MD Abdomen X-Ray 08/15/16 0000 Signed Impressions: Service Date/Time: Monday, August 15, 2016 14:50 - CONCLUSION: 1. Nonobstructive bowel gas pattern. Sung Gomez MD Hepatobiliary Scan Nuclear Medicine 08/11/16 0000 Signed Impressions: Service Date/Time: July 10:13 - CONCLUSION: 1. Normal HIDA scan confirming patency of the cystic and common bile ducts. 2. Normal gallbladder EF. 3. The patient was asymptomatic with administration of CCK. Sung Gomez MD Cholangiopancreatography MRI 08/11/16 0000 Signed Impressions: Service Date/Time: July 08:38 - CONCLUSION: 1. Hepatosplenomegaly 2. Distended gallbladder otherwise no evidence of biliary obstructive disease. 3. Small to moderate ascites 4. Altered flow in the portal vein which may be indicative of portal hypertension. 5. No other significant abnormalities identified. Steve Acuna MD Abdomen Ultrasound 08/10/16 0000 Signed Impressions: Service Date/Time: Monday, August 10, 2016 14:47 - CONCLUSION: There is no significant ascites. Tong Read MD FACR Objective Remarks GENERAL: Patient is lying in bed lethargic critically ill, opens eyes track. No verbal response SKIN: Warm and dry. Jaundiced HEAD: Normocephalic. EYES: Positive scleral icterus. No injection or drainage. ENT: Oral cavity is dry. Airway patent NECK: Supple, trachea midline. No JVD or lymphadenopathy. CARDIOVASCULAR: Tachycardic rate and rhythm without murmurs, gallops, or rubs. RESPIRATORY: Breath sounds equal bilaterally, diminished at the bases. No accessory muscle use. GASTROINTESTINAL: Abdomen soft, mildly tender to palpation, s/p paracentesis with 2L fluid removed 08/20/16 MUSCULOSKELETAL: No cyanosis. Lower ext 2+ edema. Chronic venous stasis changes BACK: Nontender without obvious deformity. No CVA tenderness. NEURO: Patient is unresponsive moaning, but protecting airway. Did not follow commands, but appears slightly more awake Procedures None. A/P Assessment and Plan NEURO: Acute metabolic encephalopathy Hepatic encephalopathy - Worsening encephalopathy secondary to hyperammonemia and sepsis - Continue lactulose (currently hospital out of lactulose per RN) and Xifaxan. Ammonia level (87 on 08/21/16) RESP: Bilateral lower lobe infiltrates/atelectasis - Continue with oxygen keep sat >90% - DuoNeb every 6 hours when necessary - Send sputum culture if available - ABX as below CV: Shock -resolved SIRS/sinus tachycardia Lactic acidosis - New-onset sinus tachycardia/service response may indicate new infection - Off Levophed monitor HR and BP keep MAP>65mmHg - Serial lactic acid monitoring. Elevated lactic acid likely 2nd sepsis and Liver disease GI: Hepatorenal syndrome Acute hepatic failure Acute hepatitis B Liver cirrhosis - GI and nephrology following. GI had contacted [facility] for transplant eval-GI spoke to Dr. Novoa at [facility]- states that he is not a candidate for transplant. - Trial of Baraclude for Hep B treatment - Continue supportive care, with IV albumin, resume Midodrine, Octreotide - s/p paracentesis 08/18/16 with 600 mL of biliary tinged ascites fluid removed- fluid studies sent. Repeat paracentesis 08/20 with 2L removed : Acute kidney failure/hepatorenal syndrome - Monitor renal function, I/O's, avoid nephrotoxins. Interval worsening of kidney function - Cr: 4.3 with UOP: 800ml in 24 hrs, 0 -Renal is following- Dr. Cruz, changed IVF to D5 NS@75ml/hr, on Midodrine and Octreotide - IV Bumex started today by Dr. Ahumada -US abdomen: No hydronephrosis ID: Severe sepsis Leukocytosis - Continue with abx ( Cefepime, Zyvox) avoid Vanco given his renal dysfunction. monitor for signs of infections ( Fever, WBC) follow up on cxs - Consider antifungal, ID consult requested 08/18 Urine cx: Group D enterococcus 08/10 Urine cx: Staph Epi F/U Repeat cultures, blood urine and sputum HEME: Coagulopathy secondary to liver failure - Monitor CBC, CMP, INR - FFP, Vit K as needed ENDO: - SSI if needed for glycemic control PROPH: - Bilateral lower extremity SCDs. Avoid chemical DVT prophylaxis secondary to coagulopathy. IV Protonix LINES: - Left subclavian central line placed 08/18 CCT 35 MIN Critically ill with encephalopathy SIRS, worsening sepsis, worsening renal failure most likely from hepatorenal syndrome. Infectious disease consulted. Prognosis guarded Immanuel Bassett MD Aug 21, 2016 11:56
[2016-08-21] MEDS ORDERED: AMPICILLIN 500 MG VIAL IV PUSH SCH (12:00)
--- NOTE | 2016-08-21 14:12 | HHI.GIFU ---
Subjective Remarks Pt lethargic but somewhat arousable, not following commands for me this afternoon. Patient had paracentesis yesterday with removal of 2L of ascetic fluid. Afebrile. (Yolanda Riley) Objective Vitals I&O Vital Signs Date Time Temp Pulse Resp B/P Pulse Ox O2 Delivery O2 Flow Rate FiO2 08/21/16 07:26 98 Nasal Cannula 4.00 08/21/16 06:00 120 08/21/16 04:00 124 123/65 08/21/16 04:00 98.5 124 26 123/65 94 08/21/16 04:00 124 08/21/16 02:00 80 08/21/16 00:00 98.1 118 24 115/64 95 08/21/16 00:00 118 115/64 08/21/16 00:00 118 08/20/16 22:00 82 08/20/16 20:08 96 Nasal Cannula 4.00 08/20/16 20:00 127 112/68 08/20/16 20:00 120 08/20/16 20:00 98.3 120 26 112/68 95 08/20/16 18:00 121 08/20/16 17:00 89 08/20/16 16:00 127 08/20/16 16:00 99.9 127 17 122/69 93 08/20/16 16:00 127 122/69 08/20/16 14:00 127 I/O 08/20/16 08/20/16 08/20/16 08/21/16 08/21/16 08/21/16 07:00 15:00 23:00 07:00 15:00 23:00 Intake Total 500 ml 1109 ml 790 ml 979 ml Output Total 300 ml 350 ml 150 ml 300 ml Balance 200 ml 759 ml 640 ml 679 ml Intake Oral 30 ml IV Total 500 ml 929 ml 590 ml 879 ml Tube Feeding 100 ml Albumin 150 ml 100 ml Other 100 ml Output Urine Total 300 ml 350 ml 150 ml 300 ml # Bowel Movements 1 2 1 0 Laboratory Laboratory Tests Test 08/20/16 08/20/16 08/20/16 08/21/16 14:01 15:00 17:15 03:43 Lactic Acid Level 5.3 Peritoneal Fluid WBC 82 Peritoneal Fluid RBC 629 Peritoneal Fluid Neutrophils 18 Peritoneal Fluid Lymphocytes 72 Peritoneal Fluid Monocytes 10 Urine Random Creatinine 110.7 Urine Random Sodium 13 White Blood Count 18.1 Red Blood Count 3.81 Hemoglobin 11.9 Hematocrit 36.3 Mean Corpuscular Volume 95.5 Mean Corpuscular Hemoglobin 31.2 Mean Corpuscular Hemoglobin 32.6 Concent Red Cell Distribution Width 19.7 Platelet Count 141 Mean Platelet Volume 8.5 Neutrophils (%) (Auto) 73.7 Lymphocytes (%) (Auto) 15.3 Monocytes (%) (Auto) 10.1 Eosinophils (%) (Auto) 0.4 Basophils (%) (Auto) 0.5 Neutrophils # (Auto) 13.3 Lymphocytes # (Auto) 2.8 Monocytes # (Auto) 1.8 Eosinophils # (Auto) 0.1 Basophils # (Auto) 0.1 CBC Comment DIFF FINAL Differential Comment Sodium Level 141 Potassium Level 4.8 Chloride Level 108 Carbon Dioxide Level 21.1 Anion Gap 12 Blood Urea Nitrogen 92 Creatinine 4.28 Estimat Glomerular Filtration 14 Rate Random Glucose 111 Calcium Level 8.1 Total Bilirubin 12.0 Aspartate Amino Transf 940 (AST/SGOT) Alanine Aminotransferase 373 (ALT/SGPT) Alkaline Phosphatase 157 Total Protein 5.7 Albumin 2.7 Test 08/21/16 04:40 Ammonia 87 Date/Time Procedure Status Source Growth 08/20/16 15:09 Aerobic Blood Culture - Preliminary Resulted Blood Peripheral NO GROWTH IN 1 DAY 08/20/16 15:09 Anaerobic Blood Culture - Preliminary Resulted Blood Peripheral NO GROWTH IN 1 DAY 08/20/16 15:00 Gram Stain - Final Resulted Fluid Peritoneal Fluid 08/20/16 15:00 Body Fluid Culture - Preliminary Resulted Fluid Peritoneal Fluid NO GROWTH IN 24 HOURS. 08/18/16 08:30 Urine Culture - Final Complete Urine Catheterized Urine Enterococcus Faecalis 08/16/16 17:16 Aerobic Blood Culture - Final Complete Blood Peripheral NO GROWTH IN 5 DAYS 08/16/16 17:16 Anaerobic Blood Culture - Final Complete Blood Peripheral NO GROWTH IN 5 DAYS Imaging Last Impressions Chest X-Ray 08/21/16 0600 Signed Impressions: Service Date/Time: Sunday, August 21, 2016 04:22 - CONCLUSION: 1. Improving bibasilar densities. 2. Nasogastric tube with tip in stomach. Jeremy Garcia MD Abdomen X-Ray 08/15/16 0000 Signed Impressions: Service Date/Time: Monday, August 15, 2016 14:50 - CONCLUSION: 1. Nonobstructive bowel gas pattern. Sung Gomez MD Hepatobiliary Scan Nuclear Medicine 08/11/16 0000 Signed Impressions: Service Date/Time: July 10:13 - CONCLUSION: 1. Normal HIDA scan confirming patency of the cystic and common bile ducts. 2. Normal gallbladder EF. 3. The patient was asymptomatic with administration of CCK. Sung Gomez MD Cholangiopancreatography MRI 08/11/16 0000 Signed Impressions: Service Date/Time: July 08:38 - CONCLUSION: 1. Hepatosplenomegaly 2. Distended gallbladder otherwise no evidence of biliary obstructive disease. 3. Small to moderate ascites 4. Altered flow in the portal vein which may be indicative of portal hypertension. 5. No other significant abnormalities identified. Steve Acuna MD Abdomen Ultrasound 08/10/16 0000 Signed Impressions: Service Date/Time: Wednesday, August 10, 2016 14:47 - CONCLUSION: There is no significant ascites. Tong Read MD FACR Physical Exam HEENT: Normocephalic; atraumatic CHEST: Resp shallow, even/unlabored, diminished. CARDIAC: Tachy, regular ABDOMEN: Abdomen distended, mildly distended, dull, bowel sounds are hypoactive EXTREMITIES: bilateral LE edematous/cool, pulses present SKIN: Normal; no rash; no jaundice. SUPERVISOR TUMBLERS: Lethargic/somnolent (Yolanda Riley) Assessment and Plan Plan ASSESSMENT: - Elevated LFTs, likely secondary to acute hepatitis B. Pt with past hx of heavy ETOH use, now drinks 1 beer per day for several years (has rx at [facility]). Denies any known hx of liver cirrhosis or gallbladder disease. Does have hx of CLL. US (08/10/16)---> hepatomegaly with diffusely coarse hepatic echogenicity similar to prior CT examination consistent with early cirrhotic changes other differential consideration includes leukemic infiltration in this patient with a history of leukemia. Persistent splenomegaly with a small amount of ascites likely due to portal hypertension. Again leukemic infiltration is in the differential. Sludge and small number of stones in the gallbladder with associated gallbladder wall thickening and pericholecystic fluid suspect the gallbladder wall thickening and pericholecystic fluid or due to patient's ascites on the sludge/stones or chronic in nature. MRCP (08/11/16)-----> 1. Hepatosplenomegaly 2. Distended gallbladder otherwise no evidence of biliary obstructive disease. Small to moderate ascites Altered flow in the portal vein which may be indicative of portal hypertension. HIDA (08/11/16)----> 1. Normal HIDA scan confirming patency of the cystic and common bile ducts. 2. Normal gallbladder EF. 3. The patient was asymptomatic with administration of CCK. AFP 1.6, iron sat 21.1%, ferritin 793, Ceruloplasmin 45, alpha 1 antitrypsin 235, HA negative, ASMA negative, AMA neg. This is most likely secondary to acute hepatitis B. He also has worsening renal function and is being treated for possible hepatorenal syndrome by renal- midodrine, octreotide. LFT 9.2, AST 1443, ALT 485, Alk Phosph 201. Spoke to Dr. Novoa at [facility]. Per hepatology department, patient is not a candidate for transplant and was not accepted as medical management transfer, as they do not feel that they have anything to offer at their facility that we cannot provide, given the fact that he is not a transplant candidate. Mucomyst BID. - Acute hepatitis B, with Heb Bs Ag (+), Hep B Core IgM ab (+), viral load 17, 000,000 BE ag pos. Baraclude. - Hepatic encephalopathy. Lactulose. Xifaxan. - Suspected Cirrhosis. Liver workup as above. - Hepatitis C Antibodies (+). viral load <15. HE DOES NOT HAVE AN ACTIVE HCV INFECTION. This is either a false positive or he cleared the the virus on his own. - Ascites. US with small amount of ascites, not amenable to paracentesis on . Had paracentesis at bedside on 08/18/16 and on 08/20/16 with removal of 2L on 08/20. Peritoneal WBC 82, RBC 629. Peritoneal culture no growth 24 hours (08/20). - Chronic constipation, takes Linzess, Lactulose at home. S/P Miralax. On Lactulose. (+) BM. Also has Kayexalate ordered for hyperkalemia and this will help with his constipation as well. - Hepatic Encephalopathy. Ammonia level improved 11. Lactulose, Xifaxan. Remains somnolent, AMS is likely multifactorial at this point. - DEMETRIO, likely hepatorenal syndrome with worsening renal function, decreasing UOP , and electrolyte abnormalities. Octreotide, Midodrine, Albumin. Avoid dye study and nephrotoxins. Pt started on Bumex 2mg IV BID. Nephrology following. - Leukocytosis. WBC 18.1. ID has been consulted. Pt is on Linezolid. - Hyponatremia, Chronic pain, COPD, Gout, Anxiety/Depression per primary - Chronic lymphocytic leukemia and 2013 and treated with Rituxan/Bendamustine x 6 and completed this in May of 2014. He is followed by Dr. Ball. PLAN: - DANIELA - Place NGT for meds - Braille Operator evaluation for TF, don't see that the pt has had a nutrition assessment yet. - ID consulted. - Abx per ID - Cont. Lactulose - Cont. Xifaxan - Cont. Baraclude - Midodrine, Octreotide per renal - Monitor labs - Renal following - Per Dr. Novoa at [facility], patient is not a candidate for transplant. Not accepted for tx, as they feel that they do not have anything to offer that cannot be done at this facility, given the fact that he is not a candidate for transplant. - Mucomyst BID - Further recommendations to follow based on results of above. - The pt was seen and examined by myself and Dr Ray and this note is written on her behalf (Yolanda Riley) Yolanda Riley Aug 21, 2016 14:12 Haley Ray MD Aug 21, 2016 15:37
--- NOTE | 2016-08-21 14:59 | MB ---
cc: BETHANY HAMLIN MD DATE OF CONSULTATION: 08/21/2016. REASON FOR CONSULTATION: Worsening sepsis. REQUESTING PHYSICIAN: Dr. Bassett. HISTORY OF PRESENT ILLNESS: This is a 70-year-old white male who was admitted to the hospital on 08/10. The patient was evaluated for abnormal blood work. The patient was discovered to have acute hepatitis B. His lab work on presentation revealed evidence of liver failure. He had developed abdominal distension. He has had multiple cultures sent. Urine culture on 08/18 was positive for E coli with less than 10,000 colony-forming units recovered. Paracentesis was performed on 08/18 and the culture showed no growth. It was repeated again on 08/20 and the repeat culture is pending. The peritoneal fluid on 08/20 revealed 629 red cells and 82 white cells with 72% lymphocytes. The patient had positive hepatitis B surface antigen and hepatitis B e-antigen was reactive. The patient has been treated with lactulose. He has markedly abnormal liver function tests and also he has renal failure. He had one temperature of 100.6 degrees, which was the maximum on 08/20. The temperature after that has normalized. His white blood cell count is elevated. The patient just basically moans when his name is called. He keeps repeating the same sound which sounds like the letter "I" interspersed by a couple seconds of silence. I cannot get him to follow any commands or awaken. The patient has markedly diminished urine output. His heart rate is currently 127. PAST MEDICAL HISTORY: 1. COPD. 2. Chronic lymphocytic leukemia treated with chemotherapy until May of 2014. 3. Gout. 4. Anxiety. 5. Depression. 6. Squamous cell carcinoma of the back in 2010. 7. Hip surgery. ALLERGIES: NO KNOWN DRUG ALLERGIES. MEDICATIONS: 1. Linezolid. 2. Cefepime. 3. Bumex. 4. Mucomyst. 5. Midodrine. 6. Octreotide. 7. Lactulose. 8. Protonix. 9. Baraclude. 10. Rifaximin. 11. Morphine sulfate PRN. 12. Oxycodone PRN. SOCIAL HISTORY: Positive alcohol use in the form of beer. No tobacco use noted. No illicit drugs noted. FAMILY HISTORY: Unable to obtain. REVIEW OF SYSTEMS: Unable to obtain. PHYSICAL EXAMINATION: GENERAL: This is a well-developed male who is somnolent and difficult to arouse. He is nonresponsive. VITAL SIGNS: Temperature 98.5, blood pressure 129/75, respirations 28. HEAD, EYES, EARS, NOSE, THROAT: The head is atraumatic. Extraocular movements cannot be fully assessed. Positive icterus. Oropharynx has dry mucosa without lesions. NECK: No swelling or adenopathy. LUNGS: Decreased breath sounds throughout. HEART: Regular S1 and S2 without murmurs or rubs or gallops. ABDOMEN: Distended, soft. The patient has a fluid collection bag over the left lower abdomen in the area where it appears paracentesis may have been performed. There is clear ismael drainage coming from that location. RECTAL: Not performed. EXTREMITIES: No clubbing or cyanosis. Trace edema. SKIN: Markedly jaundiced. NEUROLOGIC: Unable to assess. PSYCHIATRIC: Unable to assess. LABORATORY DATA: WBC 18.1, platelet count 141,000, 73% neutrophils, hemoglobin 11.9. Creatinine 4.28, BUN 92, sodium 141,, AST 940, ALT 373, alkaline phosphatase 157. Ammonia level elevated at 87. IMAGING STUDIES: Chest x-ray shows improving bibasilar densities. IMPRESSION: 1. Sepsis. 2. Acute renal failure. 3. Hepatic failure. 4. Probable hepatorenal syndrome. 5. Acute hepatitis B, cirrhosis, hepatic encephalopathy. RECOMMENDATIONS: 1. Continue linezolid. 2. Continue cefepime but change the dose to 1 gram every 24 hours because of the acute renal failure. 3. Monitor blood cultures and peritoneal fluid cultures. The patient is currently very critically ill at this point. I will monitor the patient's progress and will follow for infection. Bethany Hamlin MD FD/TRACY /2:03 PM /2:29 PM MIK
--- NOTE | 2016-08-21 21:48 | RADRPT ---
EXAM DATE/TIME: 08/21/2016 20:10 [facility] COMPARISON: No previous studies available for comparison. INDICATIONS : Left arm swelling. MEDICAL HISTORY : Hypertension. Chronic obstructive pulmonary disease. Leukemia. Gout. MRSA. SURGICAL HISTORY : Tonsillectomy. Right broken femur repair. Right hip replacement ENCOUNTER: Initial ACUITY: 1 day PAIN SCORE: /10 LOCATION: Left arm. FINDINGS: Visualization was suboptimal secondary to overlying bandages from a sub-clavian line. There is spontaneous flow documented in the brachial, basilic, cephalic, axillary, and subclavian vei ns. The vessels are compressible and augmentation response is documented. No filling defects are se en. The flow is phasic with respiration. Direction of flow in the jugular vein is caudal. CONCLUSION: No evidence of deep venous thrombosis. Visualization was suboptimal. Kevin Hadley MD on August 21, 2016 at 21:46 Board Certified Radiologist. This report was verified electronically.
[2016-08-22] VITALS (23 sets, daily range): BP systolic 102–135; BP diastolic 58–77; PULSE 75–123; RESP 14–28; TEMP 97.6–99.5; O2SAT 92–98
[2016-08-22] MEDS: LACTULOSE SYRUP 20 GM/30 ML CUP PO SCH ×6 (01:35→22:02)
[2016-08-22] MEDS: OCTREOTIDE INJ 50 MCG/ML AMP IV PUSH SCH ×3 (01:35→17:20)
[2016-08-22] MEDS: RESP: ALBUTEROL 2.5 MG/IPRATROPIUM 0.5 MG NEB (SCH) NEB ×3 (04:00→15:10)
[2016-08-22] MEDS: LINEZOLID 600 MG PREMIX 300 ML IV SCH ×2 (05:16→17:19)
[2016-08-22] MEDS: CEFEPIME INJ 1,000 MG in SODIUM CHLORIDE 0.9% INJ 100 ML IV SCH ×3 (05:17→22:00)
[2016-08-22] MEDS: ENTECAVIR 0.5 MG TAB PO SCH (05:17)
[2016-08-22] MEDS: MIDODRINE 5 MG TAB PO SCH ×3 (05:17→17:20)
[2016-08-22 05:30] LABS: AUTOMATED NEUTROPHIL # 15.6 TH/MM3 (1.8-7.7); BASOPHIL # 0.2 TH/MM3 (0-0.2); BASOPHIL % 1.1 % (0.0-2.0); EOSINOPHIL # 0.1 TH/MM3 (0-0.4); EOSINOPHIL % 0.3 % (0.0-4.0); HEMATOCRIT 39.8 % (39.0-51.0); HEMO FLAGS DIFF FINAL; LYMPH % 13.3 % (9.0-44.0); LYMPHOCYTE # 2.7 TH/MM3 (1.0-4.8); MEAN CELL VOLUME 95.1 FL (80.0-100.0); MEAN CORPUSCULAR HEMOGLOBIN 31.5 PG (27.0-34.0); MEAN CORPUSCULAR HGB CONC 33.1 % (32.0-36.0); MONO % 8.2 % (0.0-8.0); NEUT % 77.1 % (16.0-70.0); PLATELET COUNT 133 TH/MM3 (150-450); RED BLOOD COUNT 4.19 MIL/MM3 (4.50-5.90); RED CELL DISTRIBUTION WIDTH 20.1 % (11.6-17.2); WHITE BLOOD COUNT 20.2 TH/MM3 (4.0-11.0)
[2016-08-22 05:55] LABS: ALT (GPT) 344 U/L (12-78); ANION GAP 16 MEQ/L (5-15); AST (GOT) 814 U/L (15-37); BICARBONATE 20.8 MEQ/L (21.0-32.0); BLOOD UREA NITROGEN 99 MG/DL (7-18); CHLORIDE 107 MEQ/L (98-107); GLOMERULAR FILTRATION RATE 12 ML/MIN (>89); MAGNESIUM 3.4 MG/DL (1.5-2.5); POTASSIUM 4.8 MEQ/L (3.5-5.1); SODIUM (NA) 144 MEQ/L (136-145)
[2016-08-22 05:56] LABS: ALKALINE PHOSPHATASE 151 U/L (45-117); TOTAL BILIRUBIN ADULT 15.7 MG/DL (0.2-1.0)
[2016-08-22] MEDS: BUDESONIDE-FORMOTEROL 160/4.5 MCG INHALER INH SCH ×2 (09:00→22:06)
--- NOTE | 2016-08-22 09:20 | HHI.CCPN ---
Subjective Remarks/Hospital Course Patient is a is a 70 year old male patient with history of chronic lymphocytic leukemia, in remission, who was admitted to the hospital for evaluation of elevated LFTs. His lab work on 08/09/16 showed elevated LFTs, total bilirubin 2.3, AST 759, ALT 270, alkaline phosphatase 390. US on 08/10/16 showed early cirrhotic change. Gastroenterology was consulted and further workup revealed patient had acute hepatitis B. Hepatitis C was also positive. Patient was placed on Xifaxan and lactulose by GI for elevated ammonia. Admission creatinine was normal but started climbing up by day 2 of admission. Creatinine was 1.3 on 08/13/16 nephrology was consulted for probable hepatorenal syndrome. Patient was placed on IV albumin, octreotide, and Midodrine for possible HRS. Despite these measures, patient's creatinine continued to deteriorate and he becameoliguric. Urine output was only 300 mL in the last 24 hours. AM labs today showed BUN 75 creatinine 3 with a potassium of 6. This was treated with Kayexalate, IV insulin and dextrose Halicat was called due to blood pressure 82/38. Patient was very lethargic and Dr. Brian transferred to ICU. Patient was started Norepinephrine and critical care was consulted. I evaluated the patient immediately. Patient is currently lethargic hypotensive with systolic blood pressure in mid 80s on 4 mcg/m of Levophed. I have ordered 1 L normal saline bolus, and 25 g IV albumin. I placed a left subclavian central line. A bedside ultrasound showed moderate ascites, I performed a paracentesis and removed 600 ml biliary tinged ascitic fluid. GI and Nephrology following. Repeat labs are pending at this time. Started on cefepime 1 g IV every 8 hours. 08/19 No events overnight. Afebrile. Off Levophed. Renal function worse today with Cr: 3.60 from 3.40 with UO: 850 ml in 08/20: Patient is more encephalopathic today, less responsive. Very lethargic, low grade fever. Bedside ultrasound shows reaccumulation of ascites fluid left lower quadrant. Renal function slightly worsened with increasing creatinine, urine output 850 mL in 24 hours. Tachycardic with heart rate in the 130s sinus rhythm, SIRS response most likely due to new infection 08/21: Patient had paracentesis yesterday 2 L. remains critical but slightly improved level of consciousness. Wakes up and following commands but, wakes up and tracks. UO 800 ml in 24 hours, creatinine getting worse. Dr. Ahumada has started IV Bumex BID. Prognosis appears guarded. Liver enzymes slightly trending down 08/22 Patient is lying in bed in NAD. Renal function worse today with Cr:4.91 from 4.28 with UOP:1750ml in 24 hrs Objective Vital Signs Date Time Temp Pulse Resp B/P Pulse Ox O2 Delivery O2 Flow Rate FiO2 08/22/16 08:44 98 Nasal Cannula 4.00 08/22/16 06:00 89 08/22/16 04:00 97.6 14 113/66 08/20/16 08:00 50 Intake and Output 08/21/16 08/21/16 08/22/16 08:00 16:00 00:00 Intake Total 979 ml 669 ml Output Total 300 ml 950 ml Balance 679 ml -281 ml Result Diagram: 08/22/16 0515 08/22/16 0515 Other Results Laboratory Tests Test 08/22/16 05:15 White Blood Count 20.2 TH/MM3 Red Blood Count 4.19 MIL/MM3 Hemoglobin 13.2 GM/DL Hematocrit 39.8 % Mean Corpuscular Volume 95.1 FL Mean Corpuscular Hemoglobin 31.5 PG Mean Corpuscular Hemoglobin 33.1 % Concent Red Cell Distribution Width 20.1 % Platelet Count 133 TH/MM3 Mean Platelet Volume 9.4 FL Neutrophils (%) (Auto) 77.1 % Lymphocytes (%) (Auto) 13.3 % Monocytes (%) (Auto) 8.2 % Eosinophils (%) (Auto) 0.3 % Basophils (%) (Auto) 1.1 % Neutrophils # (Auto) 15.6 TH/MM3 Lymphocytes # (Auto) 2.7 TH/MM3 Monocytes # (Auto) 1.7 TH/MM3 Eosinophils # (Auto) 0.1 TH/MM3 Basophils # (Auto) 0.2 TH/MM3 CBC Comment DIFF FINAL Differential Comment Sodium Level 144 MEQ/L Potassium Level 4.8 MEQ/L Chloride Level 107 MEQ/L Carbon Dioxide Level 20.8 MEQ/L Anion Gap 16 MEQ/L Blood Urea Nitrogen 99 MG/DL Creatinine 4.91 MG/DL Estimat Glomerular Filtration 12 ML/MIN Rate Random Glucose 103 MG/DL Calcium Level 8.3 MG/DL Magnesium Level 3.4 MG/DL Total Bilirubin 15.7 MG/DL Aspartate Amino Transf 814 U/L (AST/SGOT) Alanine Aminotransferase 344 U/L (ALT/SGPT) Alkaline Phosphatase 151 U/L Ammonia 43 MCMOL/L Total Protein 5.9 GM/DL Albumin 2.7 GM/DL Imaging Last Impressions Chest X-Ray 08/21/16 0600 Signed Impressions: Service Date/Time: Sunday, August 21, 2016 04:22 - CONCLUSION: 1. Improving bibasilar densities. 2. Nasogastric tube with tip in stomach. Jeremy Garcia MD Upper Extremity Ultrasound 08/21/16 0000 Signed Impressions: Service Date/Time: Sunday, August 21, 2016 20:10 - CONCLUSION: No evidence of deep venous thrombosis. Visualization was suboptimal. Kevin Hadley MD Abdomen X-Ray 08/15/16 0000 Signed Impressions: Service Date/Time: Monday, August 15, 2016 14:50 - CONCLUSION: 1. Nonobstructive bowel gas pattern. Sung Gomez MD Hepatobiliary Scan Nuclear Medicine 08/11/16 0000 Signed Impressions: Service Date/Time: July 10:13 - CONCLUSION: 1. Normal HIDA scan confirming patency of the cystic and common bile ducts. 2. Normal gallbladder EF. 3. The patient was asymptomatic with administration of CCK. Sung Gomez MD Cholangiopancreatography MRI 08/11/16 0000 Signed Impressions: Service Date/Time: July 08:38 - CONCLUSION: 1. Hepatosplenomegaly 2. Distended gallbladder otherwise no evidence of biliary obstructive disease. 3. Small to moderate ascites 4. Altered flow in the portal vein which may be indicative of portal hypertension. 5. No other significant abnormalities identified. Steve Acuna MD Abdomen Ultrasound 08/10/16 0000 Signed Impressions: Service Date/Time: Wednesday, August 10, 2016 14:47 - CONCLUSION: There is no significant ascites. Tong Read MD FACR Objective Remarks GENERAL: Patient is lying in bed lethargic critically ill, opens eyes track. No verbal response SKIN: Warm and dry. Jaundiced HEAD: Normocephalic. EYES: Positive scleral icterus. No injection or drainage. ENT: Oral cavity is dry. Airway patent NECK: Supple, trachea midline. No JVD or lymphadenopathy. CARDIOVASCULAR: Tachycardic rate and rhythm without murmurs, gallops, or rubs. RESPIRATORY: Breath sounds equal bilaterally, diminished at the bases. No accessory muscle use. GASTROINTESTINAL: Abdomen soft, mildly tender to palpation, s/p paracentesis with 2L fluid removed 08/20/16 MUSCULOSKELETAL: No cyanosis. Lower ext 2+ edema. Chronic venous stasis changes BACK: Nontender without obvious deformity. No CVA tenderness. NEURO: Patient is unresponsive moaning, but protecting airway. Did not follow commands, but appears slightly more awake Procedures None. A/P Assessment and Plan NEURO: Acute metabolic encephalopathy Hepatic encephalopathy - Encephalopathy 2nd to hyperammonemia and sepsis. Ammonia level 43 today from 87 - Continue lactulose and Xifaxan. RESP: Bilateral lower lobe infiltrates/atelectasis - Continue with oxygen keep sat >90% - DuoNeb every 6 hours when necessary CV: Shock -resolved SIRS/sinus tachycardia Lactic acidosis - Monitor HR and BP keep MAP>65mmHg - Serial lactic acid monitoring. Elevated lactic acid likely 2nd sepsis and Liver disease GI: Hepatorenal syndrome Acute hepatic failure Acute hepatitis B Liver cirrhosis - GI and nephrology following. GI had contacted [facility] for transplant eval-GI spoke to Dr. Novoa at [facility]- states that he is not a candidate for transplant. - Trial of Baraclude for Hep B treatment - Continue supportive care, with IV albumin, Midodrine, Octreotide - s/p paracentesis 08/18/16 with 600 mL of biliary tinged ascites fluid removed- fluid studies sent. Repeat paracentesis 08/20 with 2L removed - KUB abdomen today- non-specific. Check CT abd/peliv if negative start tube feeds. : Acute kidney failure/hepatorenal syndrome - Monitor renal function, I/O's, avoid nephrotoxins. Interval worsening of kidney function - Cr: 4.91 from 4.28 with UOP: 1750ml in 24hrs -Renal is following- Dr. Cruz, - IV Bumex 2mg BID per Dr. Ahumada. Hold Bumex for worsening renal function, NS 500ml x1 -US abdomen: No hydronephrosis ID: Severe sepsis Leukocytosis - Continue with abx ( Cefepime, Zyvox) avoid Vanco given his renal dysfunction. monitor for signs of infections ( Fever, WBC) follow up on cxs- NGTD - ID is following 08/18 Urine cx: Group D enterococcus 08/10 Urine cx: Staph Epi F/U Repeat cultures, blood urine and sputum HEME: Coagulopathy secondary to liver failure - Monitor CBC, CMP, INR - FFP, Vit K as needed ENDO: - SSI if needed for glycemic control PROPH: - Bilateral lower extremity SCDs. Avoid chemical DVT prophylaxis secondary to coagulopathy. IV Protonix LINES: - Left subclavian central line placed 08/18 Palliative care eval to asses with goals of care Level 3 Critically ill with encephalopathy SIRS, worsening sepsis, worsening renal failure most likely from hepatorenal syndrome. Prognosis guarded Malcolm Camarillo MD Aug 22, 2016 09:20
[2016-08-22] MEDS: ALBUMIN HUMAN 25% 12.5 GM/50 ML BAGP IV SCH ×2 (10:00→21:57)
[2016-08-22] MEDS: DOCUSATE SODIUM 50 MG/SENNA 8.6 MG TAB PO SCH ×2 (10:01→22:02)
[2016-08-22] MEDS: BUMETANIDE INJ 1 MG/4 ML VIAL IV PUSH SCH (10:01)
[2016-08-22] MEDS: RIFAXIMIN 550 MG TAB PO SCH ×2 (10:01→22:02)
[2016-08-22] MEDS: SODIUM CHLORIDE 0.9% FLUSH 10 ML FLUSH IV FLUSH SCH ×2 (10:02→22:03)
[2016-08-22] MEDS: PANTOPRAZOLE SODIUM 40 MG VIAL IV PUSH SCH (10:02)
[2016-08-22] MEDS: ACETYLCYSTEINE 20% 6,000 MG/30 ML ORAL SOLN VIAL PO SCH ×2 (10:02→22:04)
--- NOTE | 2016-08-22 10:10 | RADRPT ---
EXAM DATE/TIME: 08/22/2016 09:35 [facility] COMPARISON: No previous studies available for comparison. INDICATIONS : Abdominal distention; evaluate for ileus. MEDICAL HISTORY : Hypertension. Chronic obstructive pulmonary disease. Congestive heart failure. SURGICAL HISTORY : None. ENCOUNTER: Subsequent ACUITY: 1 week PAIN SCORE: Non-responsive. LOCATION: Bilateral abdomen. FINDINGS: The bowel gas is nonspecific. There are no signs of obstruction or free air for technique. No defini te calcified stones are identified for technique. NG tube is present with tip in the stomach. CONCLUSION: Nonspecific abdomen. Aleshia Santoro MD on August 22, 2016 at 10:07 Board Certified Radiologist. This report was verified electronically.
[2016-08-22] MEDS ORDERED: SODIUM CHLORID 0.9% 500 ML INJ 500 ML IV ONE ×2 (10:45→23:45)
--- NOTE | 2016-08-22 12:17 | HHI.HCPN ---
Palliative care consulted to assist with goals of care. Reportedly patient has a son he has not had contact with for many years. Name of son unknown. Spoke with SALES PROJECT ENGINEER Anu Martin to request accurants report. Currently awaiting results. Google search produced multiple mug shots for patient, no known linkage to any family in these searches. No match for patient on facebook/social media. superior court judge no additional information. Will continue to follow to assist with conversation, goals of care when medical proxy decision maker can be identified. Received results of accurants. Per Anu there are no known next of kin, reports records reviewed back to before 2009. Left message with patient's previous residence in [facility] to obtain additional information on patient's next of kin/family. GI progress notes indicate they spoke with manager facility, [facility], and they have no additional information. If unable to locate next of kin, may need to consider social work advantage. Janna Crespo, MAGAZINE WORKER Aug 22, 2016 12:17
--- NOTE | 2016-08-22 12:48 | PD.CONS ---
Consult Service Palliative Care . Consult Requested By Dr. Pool . Primary Care Physician Juan Campbell MD . Reason for Consultation a. To assist with evaluation and management of symptoms including: debility , pain, confusion, malnutrition b. To assist medical decision maker(s) with: better understanding of current medical conditions; weighing benefits/burdens of medical treatment options; making medical treatment decisions. . HPI History of Present Illness Mr. Rogers is a 70-year-old male with a past medical history of COPD, HTN, pulmonary nodules, h/o chronic lymphocytic leukemia s/p chemotherapy completed in 05/2014, squamous cell carcinoma, gout, insomnia, anxiety/depression and chronic musculoskeletal pain. On 08/10/2016, the patient was advised by his oncologist (Dr. Ball) to go to [facility] ED for evaluation of abnormal lab work which was concerning for liver failure. Upon presentation to the ED, the patient complained of abdominal pain rated 8/10 and diarrhea. The patient reported increasing abdominal distention over the previous week or two. Mr. Rogers also reported progressively increased shortness of breath, stating he had not been able to. His medications secondary to financial issues. He is a resident of [facility]. He stated he was uncertain what medications he was taking because his medications were administered by the [facility] staff. He did report he was on Lortab q4 hours [id number] for pain. The patient's lab work earlier that day showed CBC with leukocytosis of 18 which has steadily increased from the patient's recent lab work. CMP with mild hyponatremia 133. Total bilirubin: 2.3, AST: 759, ALT: 270: Alkaline phosphatase: 390; Lactate dehydrogenase: 678. Additional diagnostic findings while in the ED included: * Vital signs: Pulse 86, respirations 20, BP 112/63, oxygen saturation 94% on room air, oral temperature 97.7 * WBC: 17.7, hemoglobin 13.8, hematocrit 42.4, platelets 210 * BNP: 100 * Lactate hydrogenase: X 44 * Total protein: 6.0 * Iron: 60, TIBC 284, % saturation 21.1, Ferritin 793 * PT: 16.7, INR 1.5, APTT 29.4 * Urinalysis with bilirubin, leukocyte esterase, WBC and mucus. Urine culture indicated. * Chest x-ray showed right base infiltrate characteristic of pneumonia, small right effusion. The patient's LFTs in April, were within normal limits. The patient was admitted for further evaluation and medical management of acute liver disease. An abdominal ultrasound revealed hepatomegaly with diffuse coarse hepatic echogenicity similar to prior CT examination and consistent with early cirrhotic changes although differential considerations include leukemic infiltration in this patient with history of leukemia; persistent splenomegaly with a small amount of ascites likely due to portal hypertension (again, leukemic infiltration is in the differential); sludge and small number of stones in the gallbladder with associated gallbladder wall thickening and pericholecystic fluid, SPECT gallbladder wall thickening and pericholecystic fluid or due to the patient's ascites in the sludge/stones are chronic in etiology. Gastroenterology was consulted. The patient reported chronic constipation for which he had taken lactulose and MOM; he subsequently had a few episodes of nonbloody diarrhea. The patient reported mild abdominal pain which he described as a constant, nonradiating dull ache. His appetite has been poor; he reported a 65 pound weight loss over the past 2 years. The patient denied any known history of liver disease or liver cirrhosis; denied history of ascites ; denied history of gallbladder issues. The patient has never had an EGD or colonoscopy. HIDA scan on 08/11/2016 was normal. MRCP showed hepatosplenomegaly; distended gallbladder otherwise no evidence of biliary obstructive disease; smallmoderate ascites; altered flow in the portal vein which may be indicative of portal hypertension; no other significant abnormalities were identified. Patient is somnolent, ammonia level trending upward at 91. Nephrology was consulted on 08/16/2016 to evaluate patient for acute renal failure. Per Dr. Cruz , patient has likely developed hepatorenal syndrome with decreased urine output secondary to liver dysfunction. Patient has acute hepatitis due to hepatitis B infection. Gastroenterology contacted Dr. Novoa from [facility]. The patient was not accepted for treatment there was no interventions they could offer the patient could not be provided at this facility, given the fact the patient is not a candidate for transplant. A paracentesis was performed on 08/18/2016 and the culture showed no growth. A repeat paracentesis was done on 08/20/2016 for reaccumulation of ascitic fluid and worsening sepsis to rule out SBP - 2000ml of yellow bile-stained ascitic fluid was removed. Peritoneal WBC 82, RBC 629. Peritoneal culture no growth 24 hours; worsening leukocytosis and elevated lactic acid. Renal functioning is slightly worse with increasing creatinine, UOP 850 mL in 24 hours. Patient is tachycardic, heart rate in the 130s Infectious disease was consulted for worsening/new sepsis. Plan to continue cefepime, dose changed to 1 gram q24 hours he has a patient's acute renal failure. Patient remains on Lactulose, Xifaxan, Baraclude. Midodrine and Octreotide per renal. Palliative Care was consulted to assist with symptom management and to discuss with the patient/family the benefits and burdens of his current illnesses and the options regarding future care. Janna Crespo, Palliative Care FURNACE PROCESS SUPERVISOR, attempted to identify possible family members. Janna spoke with [employer] Anu Martin to request accurants report; received results from Anu stating records were reviewed back to before 2009 and no next of kin were identified. Google search produced multiple mug shots for patient, but no known linkage to any family was found in these searches. No match for patient was found on facebook/social media. court usher had no additional information. Per Michelle Rajan notes, the director from [facility] (Shereen Jalloh at [phone]) was in the patient's room earlier today and stated the patient does have a son, but they are estranged. They have no information on the reported son's name or where he may reside. There are no other known family members. Case management contacted to contact [employer]. . Function/Cognitive Trajectory No known family/friends . Review of Systems ROS Limitations: Altered Mental Status (per information obtained through review of documents and report) Constitutional: COMPLAINS OF: Change in appetite Ears, nose, mouth, throat: DENIES: Epistaxis Respiratory: DENIES: Wheezing Cardiovascular: COMPLAINS OF: Lower Extremity Edema Gastrointestinal: DENIES: Vomiting blood Genitourinary: COMPLAINS OF: Testicular Swelling Hematologic/Lymphatics: COMPLAINS OF: Bruising Psychiatric: COMPLAINS OF: Confusion Past Family Social History Coded Allergies: *MDRO Multi-Drug Resistant Organism (Verified Adverse Reaction, Unknown, Cleared, 08/12/16) *Cleared - MRSA PCR screens negative on 08/10/16 & 08/12/16* MRSA (back) - 12/16/10 MRSA (elbow) - 10/01/03, 11/13/03 Past Medical History COPD Hypertension Pulmonary nodules Chronic lymphocytic leukemia completed treatment in May 2014 Squamous cell carcinoma of his back in 2010 Gout Insomnia Anxiety/depression Chronic musculoskeletal pain Chronic constipation . Past Surgical History Bone marrow biopsy Port placement and removal Excision of skin cancer in his back Hip surgery . Reported Medications Hydroxyzine HCl 50 Mg Tab 50 Mg PO Q6HR PRN [Perez Tonic] 15 Ml PO DAILY Flexeril (Cyclobenzaprine HCl) 10 Mg Tab 10 Mg PO HS Duoneb (Ipratropium-Albuterol Neb) 0.5-2.5 Mg/3 Ml Neb 3 Ml NEB BID NEB PRN Temazepam 15 Mg Cap 15 Mg PO HS PRN Multi-Vitamins (Multiple Vitamin) 1 Tab Tab 1 Tab PO DAILY Zofran (Ondansetron HCl) 8 Mg Tab 8 Mg PO Q8HR PRN Diphenhydramine (Diphenhydramine HCl) 25 Mg Cap 25 Mg PO Q6HR PRN Vitamin B-1 (Thiamine HCl) 100 Mg Tab 100 Mg PO DAILY Trazodone (Trazodone HCl) 50 Mg Tab 50 Mg PO HS Tizanidine (Tizanidine HCl) 4 Mg Cap 4 Mg PO HS Terbinafine Topical 1 % Cream 1 Applic TOPICAL DAILY Linzess (Linaclotide) 145 Mcg Cap 145 Mcg PO DAILY Lactulose Liq (Lactulose) 10 Gm/15 Ml Soln 30 Ml PO BID Hydrocodone-Acetaminophen 7.5-325 mg Tab 1 Tab PO Q4H PRN Furosemide 40 Mg Tab 40 Mg PO BID Docusate Sodium 100 Mg Cap 100 Mg PO BID Allopurinol 300 Mg Tab 300 Mg PO DAILY Advair Diskus Inh (Fluticasone-Salmeterol Inh) 250-50 Mcg/Blist Aer 1 Puff INH BID Rinse mouth after use. . Current Medications Medications (Trade) Dose Ordered Sig/David Route Start Time Stop Time Status Last Admin (NS Flush) 2 ml UNSCH PRN IV FLUSH 08/10/16 13:15 (NS Flush) 2 ml BID IV FLUSH 08/10/16 21:00 08/22/16 10:02 (Narcan Inj) 0.4 mg UNSCH PRN IV 08/10/16 13:15 (Sharlene-Colace) 1 tab BID PO 08/10/16 21:00 08/22/16 10:01 (Milk Of Magnesia Liq) 30 ml Q12H PRN PO 08/10/16 13:15 (Senokot) 17.2 mg Q12H PRN PO 08/10/16 13:15 08/10/16 15:19 (Dulcolax Supp) 10 mg DAILY PRN RECTAL 08/10/16 13:15 (Lactulose Liq) 30 ml DAILY PRN PO 08/10/16 13:15 (Aldactone) 50 mg BID@,18 PO 08/10/16 18:00 Hold 08/13/16 16:57 (Zyloprim) 300 mg DAILY PO 08/11/16 09:00 Hold 08/13/16 08:31 (Desyrel) 50 mg HS PO 08/10/16 21:00 Hold 08/18/16 20:17 (Symbicort 160-4.5 Inh) 2 puff BID INH 08/10/16 21:00 08/20/16 19:45 Patient Own Medication PT OWN MED: LINZ... DAILY PO 08/11/16 09:00 Hold (Lasix) 40 mg BID@ PO 08/10/16 15:15 Hold 08/13/16 08:31 (Parker Aime Whitney) 1 spray Q2H PRN NASAL 08/10/16 17:15 08/10/16 20:29 (Benadryl) 25 mg Q6HR PRN PO 08/10/16 23:45 08/16/16 00:53 (Zofran Inj) 4 mg Q6H PRN IV PUSH 08/11/16 08:00 08/13/16 08:30 (Macrobid) 100 mg BIDPC PO 08/13/16 12:00 Hold 08/13/16 16:57 (Heparin Inj) 5,000 units Q8HR SQ 08/16/16 14:00 Hold (Roxicodone) 5 mg Q6HR PRN PO 08/16/16 12:00 08/19/16 09:57 (Roxicodone) 10 mg Q6HR PRN PO 08/16/16 12:00 08/18/16 05:52 (Xifaxan) 550 mg BID PO 08/16/16 21:00 08/22/16 10:01 (Morphine Inj) 4 mg Q3H PRN IV PUSH 08/17/16 12:15 08/20/16 12:24 Entecavir 0.5 mg 0.5 mg DAILY@06 PO 08/19/16 06:00 08/22/16 05:17 (Levophed-Dextrose Drip) 250 ml @ 0 mls/hr TITRATE IV 08/18/16 12:30 Terbutaline Sulfate 1 mg 1 mg UNSCH PRN SQ 08/18/16 12:30 (Maxipime Inj/NS Inj) 100 ml @ 200 mls/hr Q8H IV 08/18/16 14:00 08/22/16 05:17 Miscellaneous Information Patient in critical care unit? Ass... [id number] .XX 08/18/16 15:30 08/18/16 19:27 (Chlorhexidine 2% Cloth) 3 pack DAILY@04 TOPICAL 08/19/16 04:00 08/23/16 04:01 08/21/16 22:21 (Chlorhexidine 2% Cloth) 3 pack UNSCH PRN TOPICAL 08/18/16 15:30 08/23/16 15:19 Albumin Human 12.5 gm 12.5 gm Q12H IV 08/19/16 10:00 08/22/16 10:00 (D5W-NS 1000 ml Inj) 1,000 ml @ 75 mls/hr [id number] IV 08/19/16 10:00 Hold 08/21/16 00:45 (Protonix Inj) 40 mg Q24H IV PUSH 08/19/16 10:00 08/22/16 10:02 Lactulose 30 ml 30 ml Q4H PO 08/19/16 13:00 08/22/16 11:54 (Zyvox 600 Mg Premix) 300 ml @ 300 mls/hr Q12H IV 08/19/16 17:00 08/22/16 05:16 (Proamatine) 5 mg TID@,12,17 PO 08/19/16 17:00 08/22/16 11:54 (SandoSTATIN INJ) 50 mcg Q8H IV PUSH 08/19/16 17:00 08/22/16 10:01 (Mucomyst 20% Liq) 600 mg BID PO 08/20/16 09:00 08/22/16 10:02 (Bumex Inj) 2 mg BID@,18 IV PUSH 08/21/16 09:00 Hold 08/22/16 10:01 . Family History Both parents are . Mother from unknown type of cancer; father' s medical history is unknown. Patient has no siblings. . Substance Use Tobacco: Smoked at least halfpack per day for 30 years; quit smoking 10 years ago Alcohol: Heavy EtOH consumption up until . Patient reported he currently drinks 1-2 beers daily. Prescription med abuse: None known Illicits: None known . Psychosocial History Patient worked in construction, cabinet work. Reported long history of exposure to dust. . Spiritual/Cultural Factors Non-druze per notes . Documented care wishes: No documented care wishes are available. . Today's verbally stated goals: Patient is unable to verbalize medical treatment goals secondary to clinical condition, hepatic encephalopathy. . Family/friends goals: No known family/friends have been identified. . Ethical and Legal Issues Janna Crespo, Palliative Care FURNACE PROCESS SUPERVISOR, attempted to identify possible family members. Janna spoke with [employer] Anu Martin to request accurants report; received results from Anu stating records were reviewed back to before 2009 and no next of kin were identified. Google search produced multiple mug shots for patient, but no known linkage to any family was found in these searches. No match for patient was found on facebook/social media. court usher had no additional information. Per Michelle Rajan notes, the director from [facility] (Shereen Jalloh at [phone]) was in the patient's room earlier today and stated the patient does have a son, but they are estranged. They have no information on the reported son's name or where he may reside. There are no other known family members. Case management contacted to contact [employer] [facility]. . Physical Exam Vital Signs Date Time Temp Pulse Resp B/P Pulse Ox O2 Delivery O2 Flow Rate FiO2 08/22/16 11:23 98 Nasal Cannula 4.00 08/22/16 08:44 98 Nasal Cannula 4.00 08/22/16 06:00 89 08/22/16 04:00 97.6 75 14 113/66 94 08/22/16 04:00 78 08/22/16 02:00 76 08/22/16 00:00 98.8 79 15 120/68 95 08/22/16 00:00 79 08/21/16 22:00 124 08/21/16 20:00 79 08/21/16 20:00 94 Nasal Cannula 4.00 08/21/16 20:00 97.7 79 21 123/70 95 08/21/16 18:00 123 08/21/16 16:00 99.5 126 19 120/68 95 08/21/16 16:00 126 08/21/16 15:00 126 08/21/16 14:00 126 08/21/16 13:00 95 . 08/21/16 08/22/16 19:00 07:00 Intake Total 669 ml 150 ml Output Total 950 ml 1300 ml Balance -281 ml -1150 ml IV Total 619 ml 100 ml Albumin 50 ml 50 ml Output Urine Total 950 ml 800 ml Stool Total 500 ml Bladder Scan Volume Amount 334 ml # Bowel Movements 2 . Exam CONSTITUTIONAL/GENERAL: This is a critically ill, elderly male patient no acute distress TUBES/LINES/DRAINS: CVL, Altman, Dignashield, NGT, SCD, nasal cannula SKIN: Jaundice. Ecchymoses on upper extremities. Skin temperature appropriate. Not diaphoretic. HEAD: Atraumatic. Normocephalic. EYES: Pupils equal and round and reactive. Extraocular motions intact. No scleral icterus. No injection or drainage. Fundi not examined. ENT: Hearing grossly normal. Nose without bleeding or purulent drainage. NECK: Trachea midline. Supple, nontender. No palpable thyroid enlargement or nodularity. CARDIOVASCULAR: Tachycardic. No JVD. Peripheral pulses symmetric. RESPIRATORY/CHEST: Symmetric, unlabored respirations. Breath sounds diminished bilaterally. No wheezes, rales, or rhonchi. GASTROINTESTINAL: Abdomen firm, distended, diffuse tenderness to palpation.Bowel sounds present. GENITOURINARY: Without palpable bladder distension. Altman catheter in place. MUSCULOSKELETAL: BLE cool to touch, trace edema. Hands swollen bilaterally. LYMPHATICS: No palpable cervical or supraclavicular adenopathy. NEUROLOGICAL: Patient is somnolent. Gibberish speech. Does not follow commands , unable to make needs known. PSYCHIATRIC: Unable to assess due to patient's current clinical condition. . Diagnostic Tests Laboratory Laboratory Tests Test 08/19/16 08/19/16 08/19/16 08/20/16 13:00 15:24 21:10 04:10 Potassium Level 5.3 MEQ/L 5.2 MEQ/L 4.9 MEQ/L (3.5-5.1) (3.5-5.1) (3.5-5.1) Blood Gas Puncture Site RT RADIAL Blood Gas Patient Temperature 98.6 Blood Gas HCO3 18 mmol/L (22-26) Blood Gas Base Excess -6.6 mmol/L (-2-2) Blood Gas Oxygen Saturation 91 % (90-100) Arterial Blood pH 7.36 (7.380-7.420) Arterial Blood Partial 32 mmHg (38-42) Pressure CO2 Arterial Blood Partial 73 mmHg Pressure O2 (61-120) Arterial Blood Oxygen Content 16.5 Vol % (12.0-20.0) Arterial Blood 1.6 % (0-4) Carboxyhemoglobin Arterial Blood Methemoglobin 1.1 % (0-2) Blood Gas Hemoglobin 12.9 G/DL (12.0-16.0) Oxygen Delivery Device NASAL CANNULA Blood Gas Liter Flow 3 L/M White Blood Count 15.5 TH/MM3 (4.0-11.0) Red Blood Count 3.95 MIL/MM3 (4.50-5.90) Hemoglobin 12.6 GM/DL (13.0-17.0) Hematocrit 37.3 % (39.0-51.0) Mean Corpuscular Volume 94.4 FL (80.0-100.0) Mean Corpuscular Hemoglobin 31.8 PG (27.0-34.0) Mean Corpuscular Hemoglobin 33.7 % Concent (32.0-36.0) Red Cell Distribution Width 19.2 % (11.6-17.2) Platelet Count 191 TH/MM3 (150-450) Mean Platelet Volume 8.6 FL (7.0-11.0) Neutrophils (%) (Auto) 71.4 % (16.0-70.0) Lymphocytes (%) (Auto) 15.7 % (9.0-44.0) Monocytes (%) (Auto) 11.7 % (0.0-8.0) Eosinophils (%) (Auto) 0.3 % (0.0-4.0) Basophils (%) (Auto) 0.9 % (0.0-2.0) Neutrophils # (Auto) 11.1 TH/MM3 (1.8-7.7) Lymphocytes # (Auto) 2.4 TH/MM3 (1.0-4.8) Monocytes # (Auto) 1.8 TH/MM3 (0-0.9) Eosinophils # (Auto) 0.0 TH/MM3 (0-0.4) Basophils # (Auto) 0.1 TH/MM3 (0-0.2) CBC Comment DIFF FINAL Differential Comment Prothrombin Time 29.1 SEC (9.8-11.6) Prothromb Time International 2.5 RATIO Ratio Sodium Level 140 MEQ/L (136-145) Chloride Level 105 MEQ/L (98-107) Carbon Dioxide Level 22.1 MEQ/L (21.0-32.0) Anion Gap 13 MEQ/L (5-15) Blood Urea Nitrogen 82 MG/DL (7-18) Creatinine 3.96 MG/DL (0.60-1.30) Estimat Glomerular Filtration 15 ML/MIN (>89) Rate Random Glucose 132 MG/DL (74-106) Calcium Level 8.2 MG/DL (8.5-10.1) Phosphorus Level 5.1 MG/DL (2.5-4.9) Magnesium Level 3.6 MG/DL (1.5-2.5) Total Bilirubin 10.9 MG/DL (0.2-1.0) Aspartate Amino Transf 1318 U/L (AST/SGOT) (15-37) Alanine Aminotransferase 480 U/L (12-78) (ALT/SGPT) Alkaline Phosphatase 205 U/L (45-117) Total Protein 6.0 GM/DL (6.4-8.2) Albumin 2.7 GM/DL (3.4-5.0) Test 08/20/16 08/20/16 08/20/16 08/20/16 13:13 14:01 15:00 17:15 Sodium Level 142 MEQ/L (136-145) Potassium Level 5.0 MEQ/L (3.5-5.1) Chloride Level 106 MEQ/L (98-107) Carbon Dioxide Level 22.1 MEQ/L (21.0-32.0) Anion Gap 14 MEQ/L (5-15) Blood Urea Nitrogen 87 MG/DL (7-18) Creatinine 4.09 MG/DL (0.60-1.30) Estimat Glomerular Filtration 14 ML/MIN (>89) Rate Random Glucose 133 MG/DL (74-106) Calcium Level 8.0 MG/DL (8.5-10.1) Total Bilirubin 11.0 MG/DL (0.2-1.0) Aspartate Amino Transf 1189 U/L (AST/SGOT) (15-37) Alanine Aminotransferase 452 U/L (12-78) (ALT/SGPT) Alkaline Phosphatase 190 U/L (45-117) Ammonia 93 MCMOL/L (11-32) Total Protein 5.9 GM/DL (6.4-8.2) Albumin 2.7 GM/DL (3.4-5.0) Lactic Acid Level 5.3 mmol/L (0.4-2.0) Peritoneal Fluid WBC 82 /MM3 (0-10) Peritoneal Fluid RBC 629 /MM3 (0-0) Peritoneal Fluid Neutrophils 18 % Peritoneal Fluid Lymphocytes 72 % Peritoneal Fluid Monocytes 10 % Urine Random Creatinine 110.7 MG/DL Urine Random Sodium 13 MEQ/L Test 08/21/16 08/21/16 08/22/16 08/22/16 03:43 04:40 05:15 09:40 White Blood Count 18.1 TH/MM3 20.2 TH/MM3 (4.0-11.0) (4.0-11.0) Red Blood Count 3.81 MIL/MM3 4.19 MIL/MM3 (4.50-5.90) (4.50-5.90) Hemoglobin 11.9 GM/DL 13.2 GM/DL (13.0-17.0) (13.0-17.0) Hematocrit 36.3 % 39.8 % (39.0-51.0) (39.0-51.0) Mean Corpuscular Volume 95.5 FL 95.1 FL (80.0-100.0) (80.0-100.0) Mean Corpuscular Hemoglobin 31.2 PG 31.5 PG (27.0-34.0) (27.0-34.0) Mean Corpuscular Hemoglobin 32.6 % 33.1 % Concent (32.0-36.0) (32.0-36.0) Red Cell Distribution Width 19.7 % 20.1 % (11.6-17.2) (11.6-17.2) Platelet Count 141 TH/MM3 133 TH/MM3 (150-450) (150-450) Mean Platelet Volume 8.5 FL 9.4 FL (7.0-11.0) (7.0-11.0) Neutrophils (%) (Auto) 73.7 % 77.1 % (16.0-70.0) (16.0-70.0) Lymphocytes (%) (Auto) 15.3 % 13.3 % (9.0-44.0) (9.0-44.0) Monocytes (%) (Auto) 10.1 % 8.2 % (0.0-8.0) (0.0-8.0) Eosinophils (%) (Auto) 0.4 % (0.0-4.0) 0.3 % (0.0-4.0) Basophils (%) (Auto) 0.5 % (0.0-2.0) 1.1 % (0.0-2.0) Neutrophils # (Auto) 13.3 TH/MM3 15.6 TH/MM3 (1.8-7.7) (1.8-7.7) Lymphocytes # (Auto) 2.8 TH/MM3 2.7 TH/MM3 (1.0-4.8) (1.0-4.8) Monocytes # (Auto) 1.8 TH/MM3 1.7 TH/MM3 (0-0.9) (0-0.9) Eosinophils # (Auto) 0.1 TH/MM3 0.1 TH/MM3 (0-0.4) (0-0.4) Basophils # (Auto) 0.1 TH/MM3 0.2 TH/MM3 (0-0.2) (0-0.2) CBC Comment DIFF FINAL DIFF FINAL Differential Comment Sodium Level 141 MEQ/L 144 MEQ/L (136-145) (136-145) Potassium Level 4.8 MEQ/L 4.8 MEQ/L (3.5-5.1) (3.5-5.1) Chloride Level 108 MEQ/L 107 MEQ/L (98-107) (98-107) Carbon Dioxide Level 21.1 MEQ/L 20.8 MEQ/L (21.0-32.0) (21.0-32.0) Anion Gap 12 MEQ/L (5-15) 16 MEQ/L (5-15) Blood Urea Nitrogen 92 MG/DL (7-18) 99 MG/DL (7-18) Creatinine 4.28 MG/DL 4.91 MG/DL (0.60-1.30) (0.60-1.30) Estimat Glomerular Filtration 14 ML/MIN (>89) 12 ML/MIN (>89) Rate Random Glucose 111 MG/DL 103 MG/DL (74-106) (74-106) Calcium Level 8.1 MG/DL 8.3 MG/DL (8.5-10.1) (8.5-10.1) Total Bilirubin 12.0 MG/DL 15.7 MG/DL (0.2-1.0) (0.2-1.0) Aspartate Amino Transf 940 U/L (15-37) 814 U/L (15-37) (AST/SGOT) Alanine Aminotransferase 373 U/L (12-78) 344 U/L (12-78) (ALT/SGPT) Alkaline Phosphatase 157 U/L 151 U/L (45-117) (45-117) Total Protein 5.7 GM/DL 5.9 GM/DL (6.4-8.2) (6.4-8.2) Albumin 2.7 GM/DL 2.7 GM/DL (3.4-5.0) (3.4-5.0) Ammonia 87 MCMOL/L 43 MCMOL/L (11-32) (11-32) Magnesium Level 3.4 MG/DL (1.5-2.5) Lactic Acid Level 5.5 mmol/L (0.4-2.0) . Result Diagram: 08/22/1651408/22/1615 Microbiology Microbiology Date/Time Procedure Status Source Growth 08/20/16 15:00 Gram Stain - Final Resulted Fluid Peritoneal Fluid 08/20/16 15:00 Body Fluid Culture - Preliminary Resulted Fluid Peritoneal Fluid NO GROWTH IN 48 HOURS. 08/20/16 15:05 Aerobic Blood Culture - Preliminary Resulted Blood Peripheral NO GROWTH IN 2 DAYS 08/20/16 15:05 Anaerobic Blood Culture - Preliminary Resulted Blood Peripheral NO GROWTH IN 2 DAYS 08/20/16 15:09 Aerobic Blood Culture - Preliminary Resulted Blood Peripheral NO GROWTH IN 2 DAYS 08/20/16 15:09 Anaerobic Blood Culture - Preliminary Resulted Blood Peripheral NO GROWTH IN 2 DAYS Imaging Last 72 hours Impressions Abdomen X-Ray 08/22/16 0000 Signed Impressions: Service Date/Time: Monday, August 22, 2016 09:35 - CONCLUSION: Nonspecific abdomen. K. Salvatore Santoro MD Chest X-Ray 08/21/16 0600 Signed Impressions: Service Date/Time: Sunday, August 21, 2016 04:22 - CONCLUSION: 1. Improving bibasilar densities. 2. Nasogastric tube with tip in stomach. Jeremy Garcia MD Upper Extremity Ultrasound 08/21/16 0000 Signed Impressions: Service Date/Time: Sunday, August 21, 2016 20:10 - CONCLUSION: No evidence of deep venous thrombosis. Visualization was suboptimal. Kevin Hadley MD . Procedures 08/18/16: CVL placement 08/18/16: Paracentesis 08/20/16: Paracentesis . 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 Spiritual: None druze per Legal:Janna Crespo, Palliative Care FURNACE PROCESS SUPERVISOR, attempted to identify possible family members. Janna spoke with [employer] Anu Mratin to request accurants report; received results from Anu stating records were reviewed back to before 2009 and no next of kin were identified. Google search produced multiple mug shots for patient, but no known linkage to any family was found in these searches. No match for patient was found on facebook/social media. court usher had no additional information. Per Michelle Rajan notes, the director from [facility] (Shereen Jalloh at [phone]) was in the patient's room earlier today and stated the patient does have a son, but they are estranged. They have no information on the reported son's name or where he may reside. There are no other known family members. Case management contacted to contact [employer]. Ethical issues impacting care: No known ethical issues impacting care at this time. Important Contacts No known family/friends. . Prognosis Patient is a 70-year-old male who was recently hospitalized with acute liver failure. Now with newly diagnosed acute hepatitis B, cirrhosis, hepatic encephalopathy, suspected sepsis likely from peritoneum. Patient is not a candidate for liver transplant. Concern for hepatorenal syndrome with decreased urine output secondary to liver dysfunction; if hepatorenal syndrome patient would be terminal. Prognosis is poor. . Code Status: Full Code Plan * FULL CODE * Janna Crespo, Palliative Care FURNACE PROCESS SUPERVISOR, attempted to identify possible family members. Janna spoke with [employer] Anu Martin to request accurants report; received results from Anu stating records were reviewed back to before 2009 and no next of kin were identified. Google search produced multiple mug shots for patient, but no known linkage to any family was found in these searches. No match for patient was found on facebook/social media. court usher had no additional information. Per Michelle Rajan notes, the director from [facility] (Shereen Jalloh at [phone]) was in the patient's room earlier today and stated the patient does have a son, but they are estranged. They have no information on the reported son's name or where he may reside. There are no other known family members. Case management contacted to contact [employer]. * Discussed with patient's nurse (Aleksandr), Dr. Camarillo and charge nurse. * Symptom managementmalnutrition: Nutritional intake is poor. Patient reported a 65 pound weight loss over the past 2 years. Total protein 5.9, albumin 2.7. Speech therapy and dietary following. * Symptom managementpain: Patient moaning on examination but shows no other non verbal s/s pain. Possible causes of pain include infection, abdominal distention/ascites, edema, invasive lines, NGT, immobility, bedbound status, impaired skin integrity. Current orders for morphine 4 mg IV every 3 hours as needed for pain scale of 510 and Oxycodone 5mg-10mg PO q6 hours PRN for pain; no medication have been administered in the past 24 hour. * Symptom managementconfusion: Likely secondary to hepatic encephalopathy; on lactulose. Continue to monitor, no further medications. * Palliative care will follow this patient throughout his/her hospitalization to establish trust, assist with symptom management and clarification of medical treatment goals. . Thank you for the opportunity to participate in the care of Mr. Rogers. Korina Piña Aug 22, 2016 12:47
--- NOTE | 2016-08-22 12:50 | HHI.IDPN ---
Note Infectious Disease Note Patient is moaning mono sylable when name is called. Not responding to commands. Afebrile. PAST MEDICAL HISTORY: 1. COPD. 2. Chronic lymphocytic leukemia treated with chemotherapy until May of 2014. 3. Gout. 4. Anxiety. 5. Depression. 6. Squamous cell carcinoma of the back in 2010. 7. Hip surgery. ALLERGIES: NO KNOWN DRUG ALLERGIES. MEDICATIONS: Current Medications Medications (Trade) Dose Ordered Sig/David Route PRN Reason Start Time Stop Time Status Last Admin Dose Admin Sodium Chloride (NS Flush) 2 ml UNSCH PRN IV FLUSH FLUSH AFTER USING IV ACCESS 08/10/16 13:15 Sodium Chloride (NS Flush) 2 ml BID IV FLUSH 08/10/16 21:00 08/22/16 10:02 Naloxone HCl (Narcan Inj) 0.4 mg UNSCH PRN IV SEE LABEL COMMENTS 08/10/16 13:15 Senna/Docusate Sodium (Sharlene-Colace) 1 tab BID PO 08/10/16 21:00 08/22/16 10:01 Magnesium Hydroxide (Milk Of Magnesia Liq) 30 ml Q12H PRN PO MILD - MODERATE CONSTIPATION 08/10/16 13:15 Sennosides (Senokot) 17.2 mg Q12H PRN PO MODERATE - SEVERE CONSTIPATION 08/10/16 13:15 08/10/16 15:19 Bisacodyl (Dulcolax Supp) 10 mg DAILY PRN RECTAL SEVERE CONSITIPATION 08/10/16 13:15 Lactulose (Lactulose Liq) 30 ml DAILY PRN PO SEVERE CONSITIPATION 08/10/16 13:15 Spironolactone (Aldactone) 50 mg BID@18 PO 08/10/16 18:00 Hold 08/13/16 16:57 Allopurinol (Zyloprim) 300 mg DAILY PO 08/11/16 09:00 Hold 08/13/16 08:31 Trazodone HCl (Desyrel) 50 mg HS PO 08/10/16 21:00 Hold 08/18/16 20:17 Budesonide/ Formoterol Fumarate (Symbicort 160-4.5 Inh) 2 puff BID INH 08/10/16 21:00 08/20/16 19:45 Patient Own Medication PT OWN MED: LINZ... DAILY PO 08/11/16 09:00 Hold Furosemide (Lasix) 40 mg BID@09,18 PO 08/10/16 15:15 Hold 08/13/16 08:31 Sodium Chloride (Quitman Aime Keaton) 1 spray Q2H PRN NASAL CONGESTION 08/10/16 17:15 08/10/16 20:29 Diphenhydramine HCl (Benadryl) 25 mg Q6HR PRN PO ALLERGIES 08/10/16 23:45 08/16/16 00:53 Ondansetron HCl (Zofran Inj) 4 mg Q6H PRN IV PUSH NAUSEA AND VOMITING 08/11/16 08:00 08/13/16 08:30 Nitrofurantoin Macrocrystals (Macrobid) 100 mg BIDPC PO 08/13/16 12:00 Hold 08/13/16 16:57 Heparin Sodium (Porcine) (Heparin Inj) 5,000 units Q8HR SQ 08/16/16 14:00 Hold Oxycodone HCl (Roxicodone) 5 mg Q6HR PRN PO pain 1-8 08/16/16 12:00 08/19/16 09:57 Oxycodone HCl (Roxicodone) 10 mg Q6HR PRN PO pain 9-10 08/16/16 12:00 08/18/16 05:52 Rifaximin (Xifaxan) 550 mg BID PO 08/16/16 21:00 08/22/16 10:01 Morphine Sulfate (Morphine Inj) 4 mg Q3H PRN IV PUSH PAIN SCALE 5 TO 10 08/17/16 12:15 08/20/16 12:24 Entecavir 0.5 mg 0.5 mg DAILY@06 PO 08/19/16 06:00 08/22/16 05:17 Norepinephrine Bitartrate (Levophed-Dextrose Drip) 250 ml @ 0 mls/hr TITRATE IV 08/18/16 12:30 Terbutaline Sulfate 1 mg 1 mg UNSCH PRN SQ For Extravasation 08/18/16 12:30 Cefepime HCl/ Sodium Chloride (Maxipime Inj/NS Inj) 100 ml @ 200 mls/hr Q8H IV 08/18/16 14:00 08/22/16 05:17 Miscellaneous Information Patient in critical care unit? Ass... [id number] .XX 08/18/16 15:30 08/18/16 19:27 Chlorhexidine Gluconate (Chlorhexidine 2% Cloth) 3 pack DAILY@04 TOPICAL 08/19/16 04:00 08/23/16 04:01 08/21/16 22:21 Chlorhexidine Gluconate (Chlorhexidine 2% Cloth) 3 pack UNSCH PRN TOPICAL HYGIENIC CARE 08/18/16 15:30 08/23/16 15:19 Albumin Human 12.5 gm 12.5 gm Q12H IV 08/19/16 10:00 08/22/16 10:00 Dextrose/Sodium Chloride (D5W-NS 1000 ml Inj) 1,000 ml @ 75 mls/hr [id number] IV 08/19/16 10:00 Hold 08/21/16 00:45 Pantoprazole Sodium (Protonix Inj) 40 mg Q24H IV PUSH 08/19/16 10:00 08/22/16 10:02 Lactulose 30 ml 30 ml Q4H PO 08/19/16 13:00 08/22/16 11:54 Linezolid (Zyvox 600 Mg Premix) 300 ml @ 300 mls/hr Q12H IV 08/19/16 17:00 08/22/16 05:16 Midodrine (Proamatine) 5 mg TID@,, PO 08/19/16 17:00 08/22/16 11:54 Octreotide Acetate (SandoSTATIN INJ) 50 mcg Q8H IV PUSH 08/19/16 17:00 08/22/16 10:01 Acetylcysteine (Mucomyst 20% Liq) 600 mg BID PO 08/20/16 09:00 08/22/16 10:02 Bumetanide (Bumex Inj) 2 mg BID@,18 IV PUSH 08/21/16 09:00 Hold 08/22/16 10:01 OBJECTIVE: Vital Signs Date Time Temp Pulse Resp B/P Pulse Ox O2 Delivery O2 Flow Rate FiO2 08/22/16 11:23 98 Nasal Cannula 4.00 08/22/16 08:44 98 Nasal Cannula 4.00 08/22/16 06:00 89 08/22/16 04:00 97.6 75 14 113/66 94 08/22/16 04:00 78 08/22/16 02:00 76 08/22/16 00:00 98.8 79 15 120/68 95 08/22/16 00:00 79 08/21/16 22:00 124 08/21/16 20:00 79 08/21/16 20:00 94 Nasal Cannula 4.00 08/21/16 20:00 97.7 79 21 123/70 95 08/21/16 18:00 123 08/21/16 16:00 99.5 126 19 120/68 95 08/21/16 16:00 126 08/21/16 15:00 126 08/21/16 14:00 126 08/21/16 13:00 95 08/21/16 08/21/16 08/22/16 15:00 23:00 07:00 Intake Total 669 ml 150 ml Output Total 950 ml 1300 ml Balance -281 ml -1150 ml IV Total 619 ml 100 ml Albumin 50 ml 50 ml Output Urine Total 950 ml 800 ml Stool Total 500 ml Bladder Scan Volume Amount 334 ml # Bowel Movements 2 Laboratory Tests Test 08/21/16 08/22/16 03:43 05:15 White Blood Count 18.1 TH/MM3 20.2 TH/MM3 Red Blood Count 3.81 MIL/MM3 4.19 MIL/MM3 Hemoglobin 11.9 GM/DL 13.2 GM/DL Hematocrit 36.3 % 39.8 % Mean Corpuscular Volume 95.5 FL 95.1 FL Mean Corpuscular Hemoglobin 31.2 PG 31.5 PG Mean Corpuscular Hemoglobin 32.6 % 33.1 % Concent Red Cell Distribution Width 19.7 % 20.1 % Platelet Count 141 TH/MM3 133 TH/MM3 Mean Platelet Volume 8.5 FL 9.4 FL Neutrophils (%) (Auto) 73.7 % 77.1 % Lymphocytes (%) (Auto) 15.3 % 13.3 % Monocytes (%) (Auto) 10.1 % 8.2 % Eosinophils (%) (Auto) 0.4 % 0.3 % Basophils (%) (Auto) 0.5 % 1.1 % Neutrophils # (Auto) 13.3 TH/MM3 15.6 TH/MM3 Lymphocytes # (Auto) 2.8 TH/MM3 2.7 TH/MM3 Monocytes # (Auto) 1.8 TH/MM3 1.7 TH/MM3 Eosinophils # (Auto) 0.1 TH/MM3 0.1 TH/MM3 Basophils # (Auto) 0.1 TH/MM3 0.2 TH/MM3 CBC Comment DIFF FINAL DIFF FINAL Differential Comment Laboratory Tests Test 08/20/16 08/20/16 08/21/16 08/21/16 13:13 14:01 03:43 04:40 Sodium Level 142 MEQ/L 141 MEQ/L Potassium Level 5.0 MEQ/L 4.8 MEQ/L Chloride Level 106 MEQ/L 108 MEQ/L Carbon Dioxide Level 22.1 MEQ/L 21.1 MEQ/L Anion Gap 14 MEQ/L 12 MEQ/L Blood Urea Nitrogen 87 MG/DL 92 MG/DL Creatinine 4.09 MG/DL 4.28 MG/DL Estimat Glomerular Filtration 14 ML/MIN 14 ML/MIN Rate Random Glucose 133 MG/DL 111 MG/DL Calcium Level 8.0 MG/DL 8.1 MG/DL Total Bilirubin 11.0 MG/DL 12.0 MG/DL Aspartate Amino Transf 1189 U/L 940 U/L (AST/SGOT) Alanine Aminotransferase 452 U/L 373 U/L (ALT/SGPT) Alkaline Phosphatase 190 U/L 157 U/L Ammonia 93 MCMOL/L 87 MCMOL/L Total Protein 5.9 GM/DL 5.7 GM/DL Albumin 2.7 GM/DL 2.7 GM/DL Lactic Acid Level 5.3 mmol/L Test 08/22/16 08/22/16 05:15 09:40 Sodium Level 144 MEQ/L Potassium Level 4.8 MEQ/L Chloride Level 107 MEQ/L Carbon Dioxide Level 20.8 MEQ/L Anion Gap 16 MEQ/L Blood Urea Nitrogen 99 MG/DL Creatinine 4.91 MG/DL Estimat Glomerular Filtration 12 ML/MIN Rate Random Glucose 103 MG/DL Calcium Level 8.3 MG/DL Magnesium Level 3.4 MG/DL Total Bilirubin 15.7 MG/DL Aspartate Amino Transf 814 U/L (AST/SGOT) Alanine Aminotransferase 344 U/L (ALT/SGPT) Alkaline Phosphatase 151 U/L Ammonia 43 MCMOL/L Total Protein 5.9 GM/DL Albumin 2.7 GM/DL Lactic Acid Level 5.5 mmol/L Microbiology Date/Time Procedure Status Source Growth 08/20/16 15:00 Gram Stain - Final Resulted Fluid Peritoneal Fluid 08/20/16 15:00 Body Fluid Culture - Preliminary Resulted Fluid Peritoneal Fluid NO GROWTH IN 48 HOURS. 7/8/17 15:05 Aerobic Blood Culture - Preliminary Resulted Blood Peripheral NO GROWTH IN 2 DAYS 08/20/16 15:05 Anaerobic Blood Culture - Preliminary Resulted Blood Peripheral NO GROWTH IN 2 DAYS 08/20/16 15:09 Aerobic Blood Culture - Preliminary Resulted Blood Peripheral NO GROWTH IN 2 DAYS 08/20/16 15:09 Anaerobic Blood Culture - Preliminary Resulted Blood Peripheral NO GROWTH IN 2 DAYS IMAGING: Abdomen X-Ray 08/22/16 0000 Signed Impressions: Service Date/Time: Monday, August 22, 2016 09:35 - CONCLUSION: Nonspecific abdomen. K. Salvatore Santoro MD Chest X-Ray 08/21/16 0600 Signed Impressions: Service Date/Time: Sunday, August 21, 2016 04:22 - CONCLUSION: 1. Improving bibasilar densities. 2. Nasogastric tube with tip in stomach. Jeremy Garcia MD Upper Extremity Ultrasound 08/21/16 0000 Signed Impressions: Service Date/Time: Sunday, August 21, 2016 20:10 - CONCLUSION: No evidence of deep venous thrombosis. Visualization was suboptimal. Kevin Hadley MD Hepatobiliary Scan Nuclear Medicine 08/11/16 0000 Signed Impressions: Service Date/Time: July 10:13 - CONCLUSION: 1. Normal HIDA scan confirming patency of the cystic and common bile ducts. 2. Normal gallbladder EF. 3. The patient was asymptomatic with administration of CCK. Sung Gomez MD Cholangiopancreatography MRI 08/11/16 0000 Signed Impressions: Service Date/Time: July 08:38 - CONCLUSION: 1. Hepatosplenomegaly 2. Distended gallbladder otherwise no evidence of biliary obstructive disease. 3. Small to moderate ascites 4. Altered flow in the portal vein which may be indicative of portal hypertension. 5. No other significant abnormalities identified. Steve Acuna MD Abdomen Ultrasound 08/10/16 0000 Signed Impressions: Service Date/Time: Wednesday, August 10, 2016 14:47 - CONCLUSION: There is no significant ascites. Tong Read MD FACR PHYSICAL EXAMINATION: GENERAL: Somnolent and moaning. HEAD, EYES, EARS, NOSE, THROAT: Positive icterus. Oropharynx has dry mucosa without lesions. NECK: No swelling or adenopathy. LUNGS: Decreased breath sounds. HEART: Regular S1 and S2 without murmurs or rubs or gallops. ABDOMEN: Distended, soft. The patient has a fluid collection bag over the left lower abdomen in the area where it appears paracentesis may have been performed. There is clear ismael drainage coming from that location. EXTREMITIES: No clubbing or cyanosis. Trace edema. SKIN: Markedly jaundiced. NEUROLOGIC: Unable to assess. PSYCHIATRIC: Unable to assess. Chest x-ray shows improving bibasilar densities. IMPRESSION: 1. Sepsis. likely from peritoneum. However acute hep B could be mimicking infection. 2. Acute renal failure. 3. Hepatic failure. 4. Probable hepatorenal syndrome. 5. Acute hepatitis B, cirrhosis, hepatic encephalopathy. RECOMMENDATIONS: 1. Continue linezolid. 2. Continue cefepime. 3. Monitor blood cultures and peritoneal fluid cultures. Akhil Bundy MD Aug 22, 2016 12:50
--- NOTE | 2016-08-22 12:57 | HHI.GIFU ---
Subjective Remarks Pt somnolent. Moaning, but does not verbalize where discomfort is and does not follow commands. The director from [facility] ([facility] [phone]) is in room and states that patient does have a son, but they are estranged and she does not know his name or what state he resides in. There are no other family members that she is aware of. Objective Vitals I&O Vital Signs Date Time Temp Pulse Resp B/P Pulse Ox O2 Delivery O2 Flow Rate FiO2 08/22/16 11:23 98 Nasal Cannula 4.00 08/22/16 08:44 98 Nasal Cannula 4.00 08/22/16 06:00 89 08/22/16 04:00 97.6 75 14 113/66 94 08/22/16 04:00 78 08/22/16 02:00 76 08/22/16 00:00 98.8 79 15 120/68 95 08/22/16 00:00 79 08/21/16 22:00 124 08/21/16 20:00 79 08/21/16 20:00 94 Nasal Cannula 4.00 08/21/16 20:00 97.7 79 21 123/70 95 08/21/16 18:00 123 08/21/16 16:00 99.5 126 19 120/68 95 08/21/16 16:00 126 08/21/16 15:00 126 08/21/16 14:00 126 08/21/16 13:00 95 I/O 08/21/16 08/21/16 08/21/16 08/22/16 08/22/16 08/22/16 07:00 15:00 23:00 07:00 15:00 23:00 Intake Total 979 ml 669 ml 150 ml Output Total 300 ml 950 ml 1300 ml Balance 679 ml -281 ml -1150 ml IV Total 879 ml 619 ml 100 ml Tube Feeding 100 ml Albumin 50 ml 50 ml Output Urine Total 300 ml 950 ml 800 ml Stool Total 500 ml Bladder Scan Volume Amount 334 ml # Bowel Movements 0 2 Laboratory Laboratory Tests Test 08/22/16 08/22/16 05:15 09:40 White Blood Count 20.2 Red Blood Count 4.19 Hemoglobin 13.2 Hematocrit 39.8 Mean Corpuscular Volume 95.1 Mean Corpuscular Hemoglobin 31.5 Mean Corpuscular Hemoglobin 33.1 Concent Red Cell Distribution Width 20.1 Platelet Count 133 Mean Platelet Volume 9.4 Neutrophils (%) (Auto) 77.1 Lymphocytes (%) (Auto) 13.3 Monocytes (%) (Auto) 8.2 Eosinophils (%) (Auto) 0.3 Basophils (%) (Auto) 1.1 Neutrophils # (Auto) 15.6 Lymphocytes # (Auto) 2.7 Monocytes # (Auto) 1.7 Eosinophils # (Auto) 0.1 Basophils # (Auto) 0.2 CBC Comment DIFF FINAL Differential Comment Sodium Level 144 Potassium Level 4.8 Chloride Level 107 Carbon Dioxide Level 20.8 Anion Gap 16 Blood Urea Nitrogen 99 Creatinine 4.91 Estimat Glomerular Filtration 12 Rate Random Glucose 103 Calcium Level 8.3 Magnesium Level 3.4 Total Bilirubin 15.7 Aspartate Amino Transf 814 (AST/SGOT) Alanine Aminotransferase 344 (ALT/SGPT) Alkaline Phosphatase 151 Ammonia 43 Total Protein 5.9 Albumin 2.7 Lactic Acid Level 5.5 Date/Time Procedure Status Source Growth 08/20/16 15:09 Aerobic Blood Culture - Preliminary Resulted Blood Peripheral NO GROWTH IN 2 DAYS 08/20/16 15:09 Anaerobic Blood Culture - Preliminary Resulted Blood Peripheral NO GROWTH IN 2 DAYS 08/20/16 15:00 Gram Stain - Final Resulted Fluid Peritoneal Fluid 08/20/16 15:00 Body Fluid Culture - Preliminary Resulted Fluid Peritoneal Fluid NO GROWTH IN 48 HOURS. 08/18/16 08:30 Urine Culture - Final Complete Urine Catheterized Urine Enterococcus Faecalis Imaging Last Impressions Abdomen X-Ray 08/22/16 0000 Signed Impressions: Service Date/Time: Monday, August 22, 2016 09:35 - CONCLUSION: Nonspecific abdomen. KMaribell Santoro MD Chest X-Ray 08/21/16 0600 Signed Impressions: Service Date/Time: Sunday, August 21, 2016 04:22 - CONCLUSION: 1. Improving bibasilar densities. 2. Nasogastric tube with tip in stomach. Jeremy Garcia MD Upper Extremity Ultrasound 08/21/16 0000 Signed Impressions: Service Date/Time: Sunday, August 21, 2016 20:10 - CONCLUSION: No evidence of deep venous thrombosis. Visualization was suboptimal. Kevin Hadley MD Hepatobiliary Scan Nuclear Medicine 08/11/16 0000 Signed Impressions: Service Date/Time: July 10:13 - CONCLUSION: 1. Normal HIDA scan confirming patency of the cystic and common bile ducts. 2. Normal gallbladder EF. 3. The patient was asymptomatic with administration of CCK. Sung Gomez MD Cholangiopancreatography MRI 08/11/16 0000 Signed Impressions: Service Date/Time: July 08:38 - CONCLUSION: 1. Hepatosplenomegaly 2. Distended gallbladder otherwise no evidence of biliary obstructive disease. 3. Small to moderate ascites 4. Altered flow in the portal vein which may be indicative of portal hypertension. 5. No other significant abnormalities identified. Steve Acuna MD Abdomen Ultrasound 08/10/16 0000 Signed Impressions: Service Date/Time: Wednesday, August 10, 2016 14:47 - CONCLUSION: There is no significant ascites. Tong Read MD FACR Physical Exam HEENT: Normocephalic; atraumatic CHEST: Resp shallow, even/unlabored, diminished. CARDIAC: Tachy, regular ABDOMEN: Abdomen distended, mildly distended, dull, bowel sounds are hypoactive EXTREMITIES: bilateral LE edematous/cool, pulses present SKIN: Normal; no rash; no jaundice. LEARNING OFFICER: Lethargic/somnolent Assessment and Plan Plan ASSESSMENT: - Elevated LFTs, likely secondary to acute hepatitis B. Pt with past hx of heavy ETOH use, now drinks 1 beer per day for several years (has rx at [facility]). Denies any known hx of liver cirrhosis or gallbladder disease. Does have hx of CLL. US (08/10/16)---> hepatomegaly with diffusely coarse hepatic echogenicity similar to prior CT examination consistent with early cirrhotic changes other differential consideration includes leukemic infiltration in this patient with a history of leukemia. Persistent splenomegaly with a small amount of ascites likely due to portal hypertension. Again leukemic infiltration is in the differential. Sludge and small number of stones in the gallbladder with associated gallbladder wall thickening and pericholecystic fluid suspect the gallbladder wall thickening and pericholecystic fluid or due to patient's ascites on the sludge/stones or chronic in nature. MRCP (08/11/16)-----> 1. Hepatosplenomegaly 2. Distended gallbladder otherwise no evidence of biliary obstructive disease. Small to moderate ascites Altered flow in the portal vein which may be indicative of portal hypertension. HIDA (08/11/16)----> 1. Normal HIDA scan confirming patency of the cystic and common bile ducts. 2. Normal gallbladder EF. 3. The patient was asymptomatic with administration of CCK. AFP 1.6, iron sat 21.1%, ferritin 793, Ceruloplasmin 45, alpha 1 antitrypsin 235, HA negative, ASMA negative, AMA neg. This is most likely secondary to acute hepatitis B. He also has worsening renal function and is being treated for possible hepatorenal syndrome by renal- midodrine, octreotide. LFT 9.2, AST 1443, ALT 485, Alk Phosph 201. Spoke to Dr. Novoa at [facility]. Per hepatology department, patient is not a candidate for transplant and was not accepted as medical management transfer, as they do not feel that they have anything to offer at their facility that we cannot provide, given the fact that he is not a transplant candidate. Mucomyst BID. - Acute hepatitis B, with Heb Bs Ag (+), Hep B Core IgM ab (+), viral load 17, 000,000 BE ag pos. Baraclude. - Hepatic encephalopathy. Lactulose. Xifaxan. - Suspected Cirrhosis. Liver workup as above. - Hepatitis C Antibodies (+). viral load <15. HE DOES NOT HAVE AN ACTIVE HCV INFECTION. This is either a false positive or he cleared the the virus on his own. - Ascites. US with small amount of ascites, not amenable to paracentesis on . Had paracentesis at bedside on 08/18/16 and on 08/20/16 with removal of 2L on 08/20. Peritoneal WBC 82, RBC 629. Peritoneal culture no growth 24 hours (08/20). Pt with worsening leukocytosis and elevated lactic acid. CT pending. - Chronic constipation, takes Linzess, Lactulose at home. S/P Miralax. On Lactulose. Worsening distention. Going for CT scan. - Hepatic Encephalopathy. Ammonia level 43. Lactulose, Xifaxan. Remains somnolent, AMS is likely multifactorial at this point. - DEMETRIO, likely hepatorenal syndrome with worsening renal function, decreasing UOP , and electrolyte abnormalities. Octreotide, Midodrine. Albumin. Avoid dye study and nephrotoxins. Pt started on Bumex 2mg IV BID. Nephrology following. - Leukocytosis. WBC 20.2. ID has been consulted. Pt is on Linezolid. - Hyponatremia, Chronic pain, COPD, Gout, Anxiety/Depression per primary - Chronic lymphocytic leukemia and 2014 and treated with Rituxan/Bendamustine x 6 and completed this in May of 2014. He is followed by Dr. Ball. PLAN: - NGT - Overhead Foreman evaluation for TF recommendations - CT scan abdomen and pelvis without iv contrast - ID consulted. - Abx per ID - Cont. Lactulose - Cont. Xifaxan - Cont. Baraclude - Cont. Mucomyst BID - Midodrine, Octreotide per renal - Monitor labs - Renal following - Per Dr. Novoa at [facility], patient is not a candidate for transplant. Not accepted for tx, as they feel that they do not have anything to offer that cannot be done at this facility, given the fact that he is not a candidate for transplant. - Palliative care consult - Further recommendations to follow based on results of above. - The pt was seen and examined by myself and Dr Ray and this note is written on her behalf Michelle Rajan Aug 22, 2016 12:57
--- NOTE | 2016-08-22 14:13 | HHI.NPPN ---
Subjective Additional Remarks Renal function is worse. Objective Data Data 08/21/16 08/22/16 19:00 07:00 Intake Total 669 ml 150 ml Output Total 950 ml 1300 ml Balance -281 ml -1150 ml IV Total 619 ml 100 ml Albumin 50 ml 50 ml Output Urine Total 950 ml 800 ml Stool Total 500 ml Bladder Scan Volume Amount 334 ml # Bowel Movements 2 Vital Signs Date Time Temp Pulse Resp B/P Pulse Ox O2 Delivery O2 Flow Rate FiO2 08/22/16 11:23 98 Nasal Cannula 4.00 08/22/16 08:44 98 Nasal Cannula 4.00 08/22/16 06:00 89 08/22/16 04:00 97.6 75 14 113/66 94 08/22/16 04:00 78 08/22/16 02:00 76 08/22/16 00:00 98.8 79 15 120/68 95 08/22/16 00:00 79 08/21/16 22:00 124 08/21/16 20:00 79 08/21/16 20:00 94 Nasal Cannula 4.00 08/21/16 20:00 97.7 79 21 123/70 95 08/21/16 18:00 123 08/21/16 16:00 99.5 126 19 120/68 95 08/21/16 16:00 126 08/21/16 15:00 126 -: 08/22/16 0515 08/22/16 0515 Physical Exam General Appearance: Well Nourished, Pale Neck Neck Exam: Neck Supple Pulmonary Resp Exam: Clear Bilaterally, Breath Sounds Equal Cardiology CV Exam: Regular, Normal Sinus Rhythm Gastrointestinal/Abdomen GI Exam: Soft, Distended Extremeties Extremities Exam: Moderate Edema Assessment/Plan Problem List: (1) Acute renal failure Plan: Worsening renal function: poor prognosis, Hep B uop Improved Cr higher Apparently not a candidate for liver transplantation. If he indeed has HRS, his condition is terminal. Consider palliative care consult. (2) Acute hepatitis B Plan: Acute infection GI is following. Notes were reviewed. (3) Acute liver disease Plan: Elevated liver enzymes due to hepatitis B (4) Leukemia Plan: History of CLL in the past (5) Hyponatremia Plan: Resolved. Problem Qualifiers (1) Leukemia: Qualified Code: C95.10 - Chronic leukemia, not having achieved remission Dante Cruz MD Aug 22, 2016 14:13
--- NOTE | 2016-08-22 17:07 | RADRPT ---
EXAM DATE/TIME: 08/22/2016 16:16 [place] COMPARISON: US ABDOMEN - COMPLETE, August 10, 2016, 13:32. US ABDOMEN - LOWER LIMITED, Jul, 14:47. CT ABDOMEN & PELVIS W CONTRAST, December 17, 2010, 21:17. CT THORAX W CONTRAST, December 16, 2010, 16:23. INDICATIONS : Abdominal pain, lactic acidemia. ORAL CONTRAST: No oral contrast ingested. RADIATION DOSE: 9.96 CTDIvol (mGy) MEDICAL HISTORY : Cardiovascular disease. Hypertension. Chronic obstructive pulmonary disease.Olivia kemia. SURGICAL HISTORY : None. ENCOUNTER: Initial ACUITY: 1 day PAIN SCALE: 10/10 LOCATION: Bilateral lower quadrant TECHNIQUE: Volumetric scanning of the abdomen and pelvis was performed. Using automated exposure control and adjustment of the mA and/or kV according to patient size, radiation dose was kept as low as reasonably achievable to obtain optimal diagnostic quality images. DICOM format image data is av ailable electronically for review and comparison. FINDINGS: LOWER LUNGS: Partially imaged 9 mm nodule in the right lower lobe not noted on prior CT exam alth ough other focal regions of nodular airspace disease were present. There is trace left and small to m oderate right pleural effusions with associated airspace disease. LIVER: Liver demonstrates a nodular contour new since previous examination. There is also focal n early masslike isodense deformity of the anterior segment IV liver contour. No focal mass was noted o n recent ultrasound exam. Small amount of increased density in the gallbladder is again consistent wi th sludge and small gallstones. SPLEEN: Spleen is mildly enlarged measuring up to 14.5 cm in length. PANCREAS: Within normal limits. KIDNEYS: Kidneys are symmetrical in size without evidence for radiopaque renal calculi or hydrone phrosis. ADRENAL GLANDS: Within normal limits. VASCULAR: Calcified infrarenal abdominal aorta BOWEL/MESENTERY: Bowel is nearly completely decompressed without evidence of fluid or significant pneumatosis. The appendix appears grossly unremarkable. There is a moderate amount of ascites. No po rtal venous air is noted. No free air. There is an NGT in the stomach. ABDOMINAL WALL: Bilateral diffuse anasarca. RETROPERITONEUM: Subcentimeter lymph nodes which do not meet CT size criteria. BLADDER: Decompressed secondary to Altman catheter. REPRODUCTIVE: Within normal limits. INGUINAL: There is no lymphadenopathy or hernia. MUSCULOSKELETAL: No abnormal focal lytic or blastic bony lesions. Intramedullary fixation of righ t femoral neck. CONCLUSION: 1. No definitive findings to explain patient's lactic acidosis. Limited evaluation of the bowel due t o lack of IV and oral contrast, demonstrates no evidence for obstruction, infarction, or perforation. 2. Cirrhotic appearing liver with evidence for portal hypertension including moderate ascites and spl enomegaly. 3. Trace left and small to moderate right pleural effusionswith associated airspace disease in the lo wer lobes. 4. 9 mm solid nodule in the right lower lobe, new since 2010. Followup examination in 3 months to doc ument stability per 2017 Fleischner criteria is recommended. Sung Gomez MD on August 22, 2016 at 16:52 Board Certified Radiologist. This report was verified electronically.
[2016-08-22] MEDS: MORPHINE SULFATE 4 MG/ML INJ IV PUSH PRN (17:19)
[2016-08-22] MEDS ORDERED: DEXT 5%-NACL 0.45% 1000 ML INJ 1,000 ML IV SCH (18:00)
[2016-08-23] VITALS (41 sets, daily range): BP systolic 106–160; BP diastolic 63–83; PULSE 85–134; RESP 14–42; TEMP 98.1–100.9; O2SAT 90–93
[2016-08-23] MEDS: OCTREOTIDE INJ 50 MCG/ML AMP IV PUSH SCH ×3 (01:21→18:56)
[2016-08-23] MEDS: LACTULOSE SYRUP 20 GM/30 ML CUP PO SCH ×6 (01:23→23:05)
[2016-08-23] MEDS: MORPHINE SULFATE 4 MG/ML INJ IV PUSH PRN ×2 (01:23→23:24)
[2016-08-23] MEDS: CHLORHEXIDINE GLUCONATE 2 % 1 PACK (2 CLOTHS)(taper/protocol) TOPICAL SCH (01:24)
[2016-08-23] MEDS ORDERED: SODIUM CHLORID 0.9% 500 ML INJ 500 ML IV SCH (02:30)
[2016-08-23] MEDS: LINEZOLID 600 MG PREMIX 300 ML IV SCH ×2 (04:47→18:02)
[2016-08-23] MEDS: CEFEPIME INJ 1,000 MG in SODIUM CHLORIDE 0.9% INJ 100 ML IV SCH ×3 (04:48→23:07)
[2016-08-23] MEDS: ENTECAVIR 0.5 MG TAB PO SCH (04:48)
[2016-08-23 05:23] LABS: INTERNATIONAL NORMALIZED RATIO 5.2 RATIO; PROTHROMBIN TIME - PATIENT 62.3 SEC (9.8-11.6)
[2016-08-23 05:25] LABS: AUTOMATED NEUTROPHIL # 15.7 TH/MM3 (1.8-7.7); BASOPHIL # 0.1 TH/MM3 (0-0.2); BASOPHIL % 0.4 % (0.0-2.0); EOSINOPHIL # 0.2 TH/MM3 (0-0.4); EOSINOPHIL % 0.9 % (0.0-4.0); HEMATOCRIT 40.7 % (39.0-51.0); HEMO FLAGS DIFF FINAL; LYMPHOCYTE # 2.7 TH/MM3 (1.0-4.8); MEAN CELL VOLUME 96.6 FL (80.0-100.0); MEAN CORPUSCULAR HGB CONC 33.2 % (32.0-36.0); MONO % 9.5 % (0.0-8.0); NEUT % 76.2 % (16.0-70.0); PLATELET COUNT 135 TH/MM3 (150-450); RED BLOOD COUNT 4.22 MIL/MM3 (4.50-5.90); RED CELL DISTRIBUTION WIDTH 20.7 % (11.6-17.2); WHITE BLOOD COUNT 20.6 TH/MM3 (4.0-11.0)
[2016-08-23 05:44] LABS: ALKALINE PHOSPHATASE 149 U/L (45-117); ALT (GPT) 307 U/L (12-78); ANION GAP 18 MEQ/L (5-15); AST (GOT) 680 U/L (15-37); BLOOD UREA NITROGEN 113 MG/DL (7-18); CHLORIDE 109 MEQ/L (98-107); GLOMERULAR FILTRATION RATE 10 ML/MIN (>89); POTASSIUM 4.8 MEQ/L (3.5-5.1); SODIUM (NA) 143 MEQ/L (136-145)
[2016-08-23 05:45] LABS: TOTAL BILIRUBIN ADULT 15.7 MG/DL (0.2-1.0)
[2016-08-23] MEDS: MIDODRINE 5 MG TAB PO SCH ×3 (08:15→18:02)
[2016-08-23] MEDS: RIFAXIMIN 550 MG TAB PO SCH ×2 (08:15→23:06)
[2016-08-23] MEDS: ACETYLCYSTEINE 20% 6,000 MG/30 ML ORAL SOLN VIAL PO SCH ×2 (08:16→23:05)
[2016-08-23] MEDS: SODIUM CHLORIDE 0.9% FLUSH 10 ML FLUSH IV FLUSH SCH ×2 (08:16→23:05)
[2016-08-23] MEDS: BUDESONIDE-FORMOTEROL 160/4.5 MCG INHALER INH SCH ×2 (08:16→23:01)
[2016-08-23] MEDS: DOCUSATE SODIUM 50 MG/SENNA 8.6 MG TAB PO SCH ×2 (08:16→21:00)
--- NOTE | 2016-08-23 09:10 | HHI.HCPN ---
Received call from Shereen, retail account manager. She reports she spoke with [facility] therapeutic case manager, Tiffany, who may have a lead on the patient's son 's name. Shereen did not get the son's potential name. Attempted to call Tiffany, left message requesting call back. charlie Allen therapeutic case manager: #[phone]-Attempted to call Tiffany again. She reports son's name is Juan Jose [facility]. States he is from [place]. Requested accurant report. Awaiting results. Janna Crespo, MASTER CONTROL ENGINEER Aug 23, 2016 09:10
--- NOTE | 2016-08-23 09:15 | HHI.CCPN ---
Subjective Remarks/Hospital Course Patient is a is a 70 year old male patient with history of chronic lymphocytic leukemia, in remission, who was admitted to the hospital for evaluation of elevated LFTs. His lab work on 08/09/16 showed elevated LFTs, total bilirubin 2.3, AST 759, ALT 270, alkaline phosphatase 390. US on 08/10/16 showed early cirrhotic change. Gastroenterology was consulted and further workup revealed patient had acute hepatitis B. Hepatitis C was also positive. Patient was placed on Xifaxan and lactulose by GI for elevated ammonia. Admission creatinine was normal but started climbing up by day 2 of admission. Creatinine was 1.3 on 08/13/16 nephrology was consulted for probable hepatorenal syndrome. Patient was placed on IV albumin, octreotide, and Midodrine for possible HRS. Despite these measures, patient's creatinine continued to deteriorate and he becameoliguric. Urine output was only 300 mL in the last 24 hours. AM labs today showed BUN 75 creatinine 3 with a potassium of 6. This was treated with Kayexalate, IV insulin and dextrose Halicat was called due to blood pressure 82/38. Patient was very lethargic and Dr. Brian transferred to ICU. Patient was started Norepinephrine and critical care was consulted. I evaluated the patient immediately. Patient is currently lethargic hypotensive with systolic blood pressure in mid 80s on 4 mcg/m of Levophed. I have ordered 1 L normal saline bolus, and 25 g IV albumin. I placed a left subclavian central line. A bedside ultrasound showed moderate ascites, I performed a paracentesis and removed 600 ml biliary tinged ascitic fluid. GI and Nephrology following. Repeat labs are pending at this time. Started on cefepime 1 g IV every 8 hours. 08/19 No events overnight. Afebrile. Off Levophed. Renal function worse today with Cr: 3.60 from 3.40 with UO: 850 ml in 08/20: Patient is more encephalopathic today, less responsive. Very lethargic, low grade fever. Bedside ultrasound shows reaccumulation of ascites fluid left lower quadrant. Renal function slightly worsened with increasing creatinine, urine output 850 mL in 24 hours. Tachycardic with heart rate in the 130s sinus rhythm, SIRS response most likely due to new infection 08/21: Patient had paracentesis yesterday 2 L. remains critical but slightly improved level of consciousness. Wakes up and following commands but, wakes up and tracks. UO 800 ml in 24 hours, creatinine getting worse. Dr. Ahumada has started IV Bumex BID. Prognosis appears guarded. Liver enzymes slightly trending down 08/22 Patient is lying in bed in NAD. Renal function worse today with Cr:4.91 from 4.28 with UOP:1750ml in 24 hrs 08/23 No events overnight. On 2L oxygen. Cr: 5.71 from 4.91 with UO: 553 ml in 24 hrs. Afebrile. Objective Vital Signs Date Time Temp Pulse Resp B/P Pulse Ox O2 Delivery O2 Flow Rate FiO2 08/23/16 08:10 93 Nasal Cannula 2.00 08/23/16 08:00 98.3 127 18 116/79 08/20/16 08:00 50 Intake and Output 08/22/16 08/22/16 08/23/16 08:00 16:00 00:00 Intake Total 150 ml 940 ml 595 ml Output Total 1300 ml 958 ml 560 ml Balance -1150 ml -18 ml 35 ml Result Diagram: 08/23/16 0439 08/23/16 0439 Other Results Laboratory Tests Test 08/22/16 08/22/16 08/23/16 09:40 20:30 04:39 Lactic Acid Level 5.5 mmol/L 7.2 mmol/L White Blood Count 20.6 TH/MM3 Red Blood Count 4.22 MIL/MM3 Hemoglobin 13.5 GM/DL Hematocrit 40.7 % Mean Corpuscular Volume 96.6 FL Mean Corpuscular Hemoglobin 32.0 PG Mean Corpuscular Hemoglobin 33.2 % Concent Red Cell Distribution Width 20.7 % Platelet Count 135 TH/MM3 Mean Platelet Volume 10.6 FL Neutrophils (%) (Auto) 76.2 % Lymphocytes (%) (Auto) 13.0 % Monocytes (%) (Auto) 9.5 % Eosinophils (%) (Auto) 0.9 % Basophils (%) (Auto) 0.4 % Neutrophils # (Auto) 15.7 TH/MM3 Lymphocytes # (Auto) 2.7 TH/MM3 Monocytes # (Auto) 2.0 TH/MM3 Eosinophils # (Auto) 0.2 TH/MM3 Basophils # (Auto) 0.1 TH/MM3 CBC Comment DIFF FINAL Differential Comment Prothrombin Time 62.3 SEC Prothromb Time International 5.2 RATIO Ratio Sodium Level 143 MEQ/L Potassium Level 4.8 MEQ/L Chloride Level 109 MEQ/L Carbon Dioxide Level 16.0 MEQ/L Anion Gap 18 MEQ/L Blood Urea Nitrogen 113 MG/DL Creatinine 5.71 MG/DL Estimat Glomerular Filtration 10 ML/MIN Rate Random Glucose 132 MG/DL Calcium Level 7.9 MG/DL Total Bilirubin 15.7 MG/DL Aspartate Amino Transf 680 U/L (AST/SGOT) Alanine Aminotransferase 307 U/L (ALT/SGPT) Alkaline Phosphatase 149 U/L Ammonia 59 MCMOL/L Total Protein 5.7 GM/DL Albumin 2.6 GM/DL Imaging Last Impressions Abdomen/Pelvis CT 08/22/16 0000 Signed Impressions: Service Date/Time: Monday, August 22, 2016 16:16 - CONCLUSION: 1. No definitive findings to explain patient's lactic acidosis. Limited evaluation of the bowel due to lack of IV and oral contrast, demonstrates no evidence for obstruction, infarction, or perforation. 2. Cirrhotic appearing liver with evidence for portal hypertension including moderate ascites and splenomegaly. 3. Trace left and small to moderate right pleural effusionswith associated airspace disease in the lower lobes. 4. 9 mm solid nodule in the right lower lobe, new since 2010. Followup examination in 3 months to document stability per 2017 Fleischner criteria is recommended. Sung Gomez MD Abdomen X-Ray 08/22/16 0000 Signed Impressions: Service Date/Time: Monday, August 22, 2016 09:35 - CONCLUSION: Nonspecific abdomen. K. Salvatore Santoro MD Chest X-Ray 08/21/16 0600 Signed Impressions: Service Date/Time: Sunday, August 21, 2016 04:22 - CONCLUSION: 1. Improving bibasilar densities. 2. Nasogastric tube with tip in stomach. Jeremy Garcia MD Upper Extremity Ultrasound 08/21/16 0000 Signed Impressions: Service Date/Time: Sunday, August 21, 2016 20:10 - CONCLUSION: No evidence of deep venous thrombosis. Visualization was suboptimal. Kevin Hadley MD Hepatobiliary Scan Nuclear Medicine 08/11/16 0000 Signed Impressions: Service Date/Time: July 10:13 - CONCLUSION: 1. Normal HIDA scan confirming patency of the cystic and common bile ducts. 2. Normal gallbladder EF. 3. The patient was asymptomatic with administration of CCK. Sung Gomez MD Cholangiopancreatography MRI 08/11/16 0000 Signed Impressions: Service Date/Time: July 08:38 - CONCLUSION: 1. Hepatosplenomegaly 2. Distended gallbladder otherwise no evidence of biliary obstructive disease. 3. Small to moderate ascites 4. Altered flow in the portal vein which may be indicative of portal hypertension. 5. No other significant abnormalities identified. Steve Acuna MD Abdomen Ultrasound 08/10/16 0000 Signed Impressions: Service Date/Time: Wednesday, August 10, 2016 14:47 - CONCLUSION: There is no significant ascites. Tong Read MD FACR Objective Remarks GENERAL: Patient is lying in bed lethargic critically ill, opens eyes track. No verbal response SKIN: Warm and dry. Jaundiced HEAD: Normocephalic. EYES: Positive scleral icterus. No injection or drainage. ENT: Oral cavity is dry. Airway patent NECK: Supple, trachea midline. No JVD or lymphadenopathy. CARDIOVASCULAR: Tachycardic rate and rhythm without murmurs, gallops, or rubs. RESPIRATORY: Breath sounds equal bilaterally, diminished at the bases. No accessory muscle use. GASTROINTESTINAL: Abdomen soft, mildly tender to palpation, s/p paracentesis with 2L fluid removed 08/20/16 MUSCULOSKELETAL: No cyanosis. Lower ext 2+ edema. Chronic venous stasis changes BACK: Nontender without obvious deformity. No CVA tenderness. NEURO: Patient is unresponsive moaning, but protecting airway. Did not follow commands, but appears slightly more awake Procedures None. A/P Assessment and Plan NEURO: Acute metabolic encephalopathy Hepatic encephalopathy - Encephalopathy 2nd to hyperammonemia, Uremia, sepsis. Ammonia level 59 today - Continue lactulose 30ml Q4 and Xifaxan. RESP: Bilateral lower lobe infiltrates/atelectasis - Continue with oxygen keep sat >90% - DuoNeb every 6 hours when necessary CV: Shock -resolved SIRS/sinus tachycardia Lactic acidosis - Place on Lopressor 25mg BID- Monitor HR and BP keep MAP>65mmHg - Serial lactic acid monitoring. Elevated lactic acid likely 2nd sepsis and Liver disease GI: Hepatorenal syndrome Acute hepatic failure Acute hepatitis B Liver cirrhosis - GI and nephrology following. GI had contacted [facility] for transplant eval-GI spoke to Dr. Novoa at [facility]- states that he is not a candidate for transplant. - Trial of Baraclude for Hep B treatment - Continue supportive care, with IV albumin, Midodrine, Octreotide - s/p paracentesis 08/18/16 with 600 mL of biliary tinged ascites fluid removed- fluid studies sent. Repeat paracentesis 08/20 with 2L removed - KUB abdomen today- non-specific. -CT abdomen/pelvis 08/22: Cirrhosis of liver with evidence of portal HTN, ascites. -On tube feeds via NGT- Jamar with goal rate 40ml/hr : Acute kidney failure/hepatorenal syndrome - Monitor renal function, I/O's, avoid nephrotoxins. Interval worsening of kidney function - Cr: 5.71 from 4.91 with UOP: 553 0ml in 24hrs -Renal is following- Dr. Cruz, discussed with renal patient is not a candidate for HD prognosis poor given likely HRS, -US abdomen: No hydronephrosis -Change IVF to D5W+ 1amp bicarb @50ml/hr, give sodium bicarb 1 amp IVP ID: Severe sepsis Leukocytosis - Continue with abx ( Cefepime, Zyvox) avoid Vanco given his renal dysfunction. monitor for signs of infections ( Fever, WBC) follow up on cxs- NGTD - ID is following 08/18 Urine cx: Group D enterococcus 08/10 Urine cx: Staph Epi F/U Repeat cultures, blood urine and sputum HEME: Coagulopathy secondary to liver failure - Monitor CBC, CMP, INR 5.2 today, for 2units FFP per GI. - FFP, Vit K as needed ENDO: - SSI if needed for glycemic control PROPH: - Bilateral lower extremity SCDs. Avoid chemical DVT prophylaxis secondary to coagulopathy. IV Protonix LINES: - Left subclavian central line placed 08/18 Palliative care is following Level 3 Critically ill with encephalopathy SIRS, worsening renal failure most likely from hepatorenal syndrome. Prognosis guarded Malcolm Camarillo MD Aug 23, 2016 09:15
[2016-08-23] MEDS ORDERED: SODIUM BICARBONATE 8.4% INJ 50 MEQ/50 ML SYR IV PUSH ONE (09:30)
[2016-08-23] MEDS: PANTOPRAZOLE SODIUM 40 MG VIAL IV PUSH SCH (10:07)
[2016-08-23] MEDS: ALBUMIN HUMAN 25% 12.5 GM/50 ML BAGP IV SCH ×2 (10:08→23:07)
[2016-08-23] MEDS: METOPROLOL TARTRATE 25 MG TAB PO SCH ×2 (10:22→23:05)
[2016-08-23] MEDS: SODIUM BICARBONATE 8.4% INJ 50 MEQ in DEXTROSE 5% IN WATE 1000ML INJ 1,000 ML IV SCH ×2 (10:28)
--- NOTE | 2016-08-23 11:23 | HHI.GIFU ---
Subjective Remarks Pt resting in bed. Tachypneic, breathing mildly labored. Confused, moans. Palliative care following, attempting to locate son. Objective Vitals I&O Vital Signs Date Time Temp Pulse Resp B/P Pulse Ox O2 Delivery O2 Flow Rate FiO2 08/23/16 11:04 99.0 118 36 120/78 91 08/23/16 08:10 93 Nasal Cannula 2.00 08/23/16 08:00 98.3 127 18 116/79 92 08/23/16 07:36 93 Nasal Cannula 2.00 08/23/16 06:30 126 08/23/16 06:00 125 08/23/16 05:00 125 16 142/82 93 08/23/16 05:00 125 08/23/16 04:30 124 15 107/67 93 08/23/16 04:30 124 08/23/16 04:00 124 08/23/16 04:00 98.3 124 14 113/70 93 08/23/16 03:30 122 08/23/16 03:30 122 17 148/79 92 08/23/16 03:00 120 08/23/16 03:00 120 14 117/68 93 08/23/16 02:30 122 08/23/16 02:30 122 14 119/66 93 08/23/16 02:00 123 08/23/16 02:00 123 29 128/72 92 08/23/16 01:52 24 08/23/16 01:30 123 31 127/73 93 08/23/16 01:30 123 08/23/16 01:00 121 27 125/73 92 08/23/16 01:00 121 08/23/16 00:30 120 15 106/63 93 08/23/16 00:30 120 08/23/16 00:00 124 08/23/16 00:00 98.1 124 29 131/73 93 08/22/16 23:30 123 08/22/16 23:30 123 28 135/77 93 08/22/16 23:00 121 08/22/16 23:00 121 20 131/70 93 08/22/16 22:30 122 17 102/66 92 08/22/16 22:30 122 08/22/16 22:00 123 28 111/74 92 08/22/16 22:00 123 08/22/16 21:30 122 28 135/75 92 08/22/16 21:30 122 08/22/16 21:00 121 14 107/66 93 08/22/16 21:00 121 08/22/16 20:50 84 26 123/58 93 08/22/16 20:00 98.2 80 26 93 08/22/16 20:00 80 08/22/16 19:02 94 Nasal Cannula 2.00 08/22/16 19:00 79 14 92 08/22/16 18:00 84 08/22/16 18:00 84 27 94 08/22/16 17:00 80 15 93 08/22/16 16:00 81 08/22/16 16:00 97.9 82 16 114/65 95 08/22/16 14:00 79 08/22/16 12:00 77 08/22/16 12:00 98.0 77 14 121/64 95 08/22/16 11:23 98 Nasal Cannula 4.00 I/O 08/22/16 08/22/16 08/22/16 08/23/16 08/23/16 08/23/16 07:00 15:00 23:00 07:00 15:00 23:00 Intake Total 150 ml 940 ml 595 ml 1567 ml Output Total 1300 ml 958 ml 560 ml 1005 ml Balance -1150 ml -18 ml 35 ml 562 ml IV Total 100 ml 890 ml 466 ml 1332 ml Tube Feeding 19 ml 175 ml Albumin 50 ml 50 ml 50 ml Tube Irrigant 60 ml 60 ml Output Urine Total 800 ml 208 ml 170 ml 175 ml Stool Total 500 ml 700 ml 370 ml 830 ml Drainage Total 50 ml 20 ml Bladder Scan Volume Amount 334 ml Laboratory Laboratory Tests Test 08/22/16 08/23/16 08/23/16 20:30 04:39 09:53 Lactic Acid Level 7.2 White Blood Count 20.6 Red Blood Count 4.22 Hemoglobin 13.5 Hematocrit 40.7 Mean Corpuscular Volume 96.6 Mean Corpuscular Hemoglobin 32.0 Mean Corpuscular Hemoglobin 33.2 Concent Red Cell Distribution Width 20.7 Platelet Count 135 Mean Platelet Volume 10.6 Neutrophils (%) (Auto) 76.2 Lymphocytes (%) (Auto) 13.0 Monocytes (%) (Auto) 9.5 Eosinophils (%) (Auto) 0.9 Basophils (%) (Auto) 0.4 Neutrophils # (Auto) 15.7 Lymphocytes # (Auto) 2.7 Monocytes # (Auto) 2.0 Eosinophils # (Auto) 0.2 Basophils # (Auto) 0.1 CBC Comment DIFF FINAL Differential Comment Prothrombin Time 62.3 Prothromb Time International 5.2 Ratio Sodium Level 143 Potassium Level 4.8 Chloride Level 109 Carbon Dioxide Level 16.0 Anion Gap 18 Blood Urea Nitrogen 113 Creatinine 5.71 Estimat Glomerular Filtration 10 Rate Random Glucose 132 Calcium Level 7.9 Total Bilirubin 15.7 Aspartate Amino Transf 680 (AST/SGOT) Alanine Aminotransferase 307 (ALT/SGPT) Alkaline Phosphatase 149 Ammonia 59 Total Protein 5.7 Albumin 2.6 Blood Bank Comment Date/Time Procedure Status Source Growth 08/20/16 15:09 Aerobic Blood Culture - Preliminary Resulted Blood Peripheral NO GROWTH IN 2 DAYS 08/20/16 15:09 Anaerobic Blood Culture - Preliminary Resulted Blood Peripheral NO GROWTH IN 2 DAYS 08/20/16 15:00 Gram Stain - Final Complete Fluid Peritoneal Fluid 08/20/16 15:00 Body Fluid Culture - Final Complete Fluid Peritoneal Fluid NO GROWTH IN 72 HRS.--AEROBICALLY OR ... 08/18/16 19:50 Aerobic Blood Culture - Final Complete Blood Peripheral NO GROWTH IN 5 DAYS 08/18/16 19:50 Anaerobic Blood Culture - Final Complete Blood Peripheral NO GROWTH IN 5 DAYS Imaging Last Impressions Abdomen/Pelvis CT 08/22/16 0000 Signed Impressions: Service Date/Time: Monday, August 22, 2016 16:16 - CONCLUSION: 1. No definitive findings to explain patient's lactic acidosis. Limited evaluation of the bowel due to lack of IV and oral contrast, demonstrates no evidence for obstruction, infarction, or perforation. 2. Cirrhotic appearing liver with evidence for portal hypertension including moderate ascites and splenomegaly. 3. Trace left and small to moderate right pleural effusionswith associated airspace disease in the lower lobes. 4. 9 mm solid nodule in the right lower lobe, new since 2010. Followup examination in 3 months to document stability per 2017 Fleischner criteria is recommended. Sung Gomez MD Abdomen X-Ray 08/22/16 0000 Signed Impressions: Service Date/Time: Monday, August 22, 2016 09:35 - CONCLUSION: Nonspecific abdomen. K. Salvatore Santoro MD Chest X-Ray 08/21/16 0600 Signed Impressions: Service Date/Time: Sunday, August 21, 2016 04:22 - CONCLUSION: 1. Improving bibasilar densities. 2. Nasogastric tube with tip in stomach. Jeremy Garcia MD Upper Extremity Ultrasound 08/21/16 0000 Signed Impressions: Service Date/Time: Sunday, August 21, 2016 20:10 - CONCLUSION: No evidence of deep venous thrombosis. Visualization was suboptimal. Kevin Hadley MD Hepatobiliary Scan Nuclear Medicine 08/11/16 0000 Signed Impressions: Service Date/Time: July 10:13 - CONCLUSION: 1. Normal HIDA scan confirming patency of the cystic and common bile ducts. 2. Normal gallbladder EF. 3. The patient was asymptomatic with administration of CCK. Sung Gomez MD Cholangiopancreatography MRI 08/11/16 0000 Signed Impressions: Service Date/Time: July 08:38 - CONCLUSION: 1. Hepatosplenomegaly 2. Distended gallbladder otherwise no evidence of biliary obstructive disease. 3. Small to moderate ascites 4. Altered flow in the portal vein which may be indicative of portal hypertension. 5. No other significant abnormalities identified. Steve Acuna MD Abdomen Ultrasound 08/10/16 0000 Signed Impressions: Service Date/Time: Wednesday, August 10, 2016 14:47 - CONCLUSION: There is no significant ascites. Tong Read MD FACR Physical Exam HEENT: Normocephalic; atraumatic + jaundice CHEST: Resp shallow, mildly labored, diminished. CARDIAC: Tachy, regular ABDOMEN: Abdomen distended (more distended today), soft, hepatomegaly. bowel sounds are hypoactive EXTREMITIES: bilateral LE cool, pulses present SKIN: + jaundice. BRIMMER BLOCKER: Lethargic/confused. Assessment and Plan Plan ASSESSMENT: - Elevated LFTs, likely secondary to acute hepatitis B. Pt with past hx of heavy ETOH use, now drinks 1 beer per day for several years (has rx at [facility]). Denies any known hx of liver cirrhosis or gallbladder disease. Does have hx of CLL. US (08/10/16)---> hepatomegaly with diffusely coarse hepatic echogenicity similar to prior CT examination consistent with early cirrhotic changes other differential consideration includes leukemic infiltration in this patient with a history of leukemia. Persistent splenomegaly with a small amount of ascites likely due to portal hypertension. Again leukemic infiltration is in the differential. Sludge and small number of stones in the gallbladder with associated gallbladder wall thickening and pericholecystic fluid suspect the gallbladder wall thickening and pericholecystic fluid or due to patient's ascites on the sludge/stones or chronic in nature. MRCP (08/11/16)-----> 1. Hepatosplenomegaly 2. Distended gallbladder otherwise no evidence of biliary obstructive disease. Small to moderate ascites Altered flow in the portal vein which may be indicative of portal hypertension. HIDA (08/11/16)----> 1. Normal HIDA scan confirming patency of the cystic and common bile ducts. 2. Normal gallbladder EF. 3. The patient was asymptomatic with administration of CCK. AFP 1.6, iron sat 21.1%, ferritin 793, Ceruloplasmin 45, alpha 1 antitrypsin 235, HA negative, ASMA negative, AMA neg. This is most likely secondary to acute hepatitis B. He also has worsening renal function and is being treated for possible hepatorenal syndrome by renal- midodrine, octreotide. Worsening liver failure and renal function. T. Bili 15.7, AST 680, ALT 307, Alk Phosph 149. Worsening coagulopathy with PT-62.3, INR 5.2. No active bleeding. Spoke to Dr. Novoa at [facility]-per hepatology department, patient is not a candidate for transplant and was not accepted as medical management transfer, as they do not feel that they have anything to offer at their facility that we cannot provide, given the fact that he is not a transplant candidate 08/19. Mucomyst BID, Octreotide, Midodrine, Baraclude. Will order 2 units of FFP. MELD is now 52- pt is in liver failure. Declined at [facility] for transfer. Pt with extremely poor prognosis - Acute hepatitis B, with Heb Bs Ag (+), Hep B Core IgM ab (+), viral load 17, 000,000 BE ag pos. Baraclude. - Hepatic encephalopathy. Lactulose. Xifaxan. - Liver cirrhosis with possible portal vein thrombosis. Pt appears to be going into fulminant liver failure. Declined at [facility] for transfer. - Ascites. US with small amount of ascites, not amenable to paracentesis on . Had paracentesis at bedside on 08/18/16 and on 08/20/16 with removal of 2L on 08/20. Peritoneal WBC 82, RBC 629. Peritoneal culture no growth 24 hours (08/20). Pt with worsening leukocytosis and elevated lactic acid. Rpt. CT as above, moderate ascites, INR elevated, cant have paracentesis. Likely would reaccumulate - Hepatitis C Antibodies (+). viral load <15. HE DOES NOT HAVE AN ACTIVE HCV INFECTION. This is either a false positive or he cleared the the virus on his own. - Chronic constipation, takes Linzess, Lactulose at home. S/P Miralax. On Lactulose. Worsening distention. Going for CT scan. - Hepatic Encephalopathy. Ammonia level 43. Lactulose, Xifaxan. Remains somnolent, AMS is likely multifactorial at this point. - ARF/hepatorenal syndrome with worsening renal function, decreasing UOP, and electrolyte abnormalities. Octreotide, Midodrine. Albumin. Avoid dye study and nephrotoxins. Pt started on Bumex 2mg IV BID. Nephrology following. - Worsening Leukocytosis, Lactic acidosis. Abdomen/Pelvis CT (08/22/16)-----> 1. No definitive findings to explain patient's lactic acidosis. Limited evaluation of the bowel due to lack of IV and oral contrast, demonstrates no evidence for obstruction, infarction, or perforation. 2. Cirrhotic appearing liver with evidence for portal hypertension including moderate ascites and splenomegaly. 3. Trace left and small to moderate right pleural effusions with associated airspace disease in the lower lobes. 4. 9 mm solid nodule in the right lower lobe, new since 2010. Followup examination in 3 months to document stability per 2017 Fleischner criteria is recommended. Pt does have worsening ascites/distention. He is on Cefepime, Zyvox. ? Rpt. Paracentesis with cx. WBC 20.6. ID following - Hyponatremia, Chronic pain, COPD, Gout, Anxiety/Depression per primary - Chronic lymphocytic leukemia and 2014 and treated with Rituxan/Bendamustine x 6 and completed this in May of 2014. He is followed by Dr. Ball. PLAN: - Nepro w/goal rate of 40 ml/hr - Give 2 units FFP - Cont. Abx per ID recommendations - Cont. acetylcysteine - Cont. Baraclude - Cont. Lactulose - Cont. Xifaxan - Cont. Abx per ID recommendations (Zyvox, Cefepime) - Midodrine, Octreotide per renal - Monitor labs - Renal following - ID following - CCM following - Palliative care following, attempting to find son- [employer] may have patient's son's name, call has been placed, awaiting call back per palliative care note. - Per Dr. Novoa at [facility], patient is not a candidate for transplant. Not accepted for tx, as they feel that they do not have anything to offer that cannot be done at this facility, given the fact that he is not a candidate for transplant. - Pt is in liver failure and has poor prognosis, recommend comfort measures once family identified and contacted. - The pt was seen and examined by myself and Dr Hyman and this note is written on his behalf Michelle Rajan Aug 23, 2016 11:23
--- NOTE | 2016-08-23 11:38 | HHI.NPPN ---
Subjective Additional Remarks Renal function is worse. Objective Data Data 08/22/16 08/23/16 19:00 07:00 Intake Total 940 ml 2162 ml Output Total 958 ml 1565 ml Balance -18 ml 597 ml IV Total 890 ml 1798 ml Tube Feeding 194 ml Albumin 50 ml 50 ml Tube Irrigant 120 ml Output Urine Total 208 ml 345 ml Stool Total 700 ml 1200 ml Drainage Total 50 ml 20 ml Vital Signs Date Time Temp Pulse Resp B/P Pulse Ox O2 Delivery O2 Flow Rate FiO2 08/23/16 11:32 99.3 114 24 116/70 91 08/23/16 11:04 99.0 118 36 120/78 91 08/23/16 08:10 93 Nasal Cannula 2.00 08/23/16 08:00 98.3 127 18 116/79 92 08/23/16 07:36 93 Nasal Cannula 2.00 08/23/16 06:30 126 08/23/16 06:00 125 08/23/16 05:00 125 16 142/82 93 08/23/16 05:00 125 08/23/16 04:30 124 15 107/67 93 08/23/16 04:30 124 08/23/16 04:00 124 08/23/16 04:00 98.3 124 14 113/70 93 08/23/16 03:30 122 08/23/16 03:30 122 17 148/79 92 08/23/16 03:00 120 08/23/16 03:00 120 14 117/68 93 08/23/16 02:30 122 08/23/16 02:30 122 14 119/66 93 08/23/16 02:00 123 08/23/16 02:00 123 29 128/72 92 08/23/16 01:52 24 08/23/16 01:30 123 31 127/73 93 08/23/16 01:30 123 08/23/16 01:00 121 27 125/73 92 08/23/16 01:00 121 08/23/16 00:30 120 15 106/63 93 08/23/16 00:30 120 08/23/16 00:00 124 08/23/16 00:00 98.1 124 29 131/73 93 08/22/16 23:30 123 08/22/16 23:30 123 28 135/77 93 08/22/16 23:00 121 08/22/16 23:00 121 20 131/70 93 08/22/16 22:30 122 17 102/66 92 08/22/16 22:30 122 08/22/16 22:00 123 28 111/74 92 08/22/16 22:00 123 08/22/16 21:30 122 28 135/75 92 08/22/16 21:30 122 08/22/16 21:00 121 14 107/66 93 08/22/16 21:00 121 08/22/16 20:50 84 26 123/58 93 08/22/16 20:00 98.2 80 26 93 08/22/16 20:00 80 08/22/16 19:02 94 Nasal Cannula 2.00 08/22/16 19:00 79 14 92 08/22/16 18:00 84 08/22/16 18:00 84 27 94 08/22/16 17:00 80 15 93 08/22/16 16:00 81 08/22/16 16:00 97.9 82 16 114/65 95 08/22/16 14:00 79 08/22/16 12:00 77 08/22/16 12:00 98.0 77 14 121/64 95 -: 08/23/16 0439 08/23/16 0439 Physical Exam General Appearance: Well Nourished, Pale Neck Neck Exam: Neck Supple Pulmonary Resp Exam: Clear Bilaterally, Breath Sounds Equal Cardiology CV Exam: Regular, Normal Sinus Rhythm Gastrointestinal/Abdomen GI Exam: Soft, Distended Extremeties Extremities Exam: Moderate Edema Assessment/Plan Problem List: (1) Acute renal failure Plan: Worsening renal function: poor prognosis, Hep B uop Improved Cr higher Apparently not a candidate for liver transplantation. If he indeed has HRS, his condition is terminal. palliative care consult. poor candidate for hemodialysis outcome would not change with liver failure a bad prognostic indicator (2) Acute hepatitis B Plan: Acute infection GI is following. Notes were reviewed. (3) Acute liver disease Plan: Elevated liver enzymes due to hepatitis B (4) Leukemia Plan: History of CLL in the past (5) Hyponatremia Plan: Resolved. Problem Qualifiers (1) Leukemia: Qualified Code: C95.10 - Chronic leukemia, not having achieved remission Dante Cruz MD Aug 23, 2016 11:38
[2016-08-23] MEDS ORDERED: PHYTONADIONE 10 MG/ML VIAL SQ SCH (13:00)
--- NOTE | 2016-08-23 13:26 | HHI.IDPN ---
Note Infectious Disease Note Patient is moaning. Not tracking or responding to commands. Afebrile x 48 hours. D/W RN no changes overnight. PAST MEDICAL HISTORY: 1. COPD. 2. Chronic lymphocytic leukemia treated with chemotherapy until May of 2014. 3. Gout. 4. Anxiety. 5. Depression. 6. Squamous cell carcinoma of the back in 2010. 7. Hip surgery. ALLERGIES: NO KNOWN DRUG ALLERGIES. MEDICATIONS: OBJECTIVE: Vital Signs Date Time Temp Pulse Resp B/P Pulse Ox O2 Delivery O2 Flow Rate FiO2 08/23/16 11:32 99.3 114 24 116/70 91 08/23/16 11:04 99.0 118 36 120/78 91 08/23/16 08:10 93 Nasal Cannula 2.00 08/23/16 08:00 98.3 127 18 116/79 92 08/23/16 07:36 93 Nasal Cannula 2.00 08/23/16 06:30 126 08/23/16 06:00 125 08/23/16 05:00 125 16 142/82 93 08/23/16 05:00 125 08/23/16 04:30 124 15 107/67 93 08/23/16 04:30 124 08/23/16 04:00 124 08/23/16 04:00 98.3 124 14 113/70 93 08/23/16 03:30 122 08/23/16 03:30 122 17 148/79 92 08/23/16 03:00 120 08/23/16 03:00 120 14 117/68 93 08/23/16 02:30 122 08/23/16 02:30 122 14 119/66 93 08/23/16 02:00 123 08/23/16 02:00 123 29 128/72 92 08/23/16 01:52 24 08/23/16 01:30 123 31 127/73 93 08/23/16 01:30 123 08/23/16 01:00 121 27 125/73 92 08/23/16 01:00 121 08/23/16 00:30 120 15 106/63 93 08/23/16 00:30 120 08/23/16 00:00 124 08/23/16 00:00 98.1 124 29 131/73 93 08/22/16 23:30 123 08/22/16 23:30 123 28 135/77 93 08/22/16 23:00 121 7/10/17 23:00 121 20 131/70 93 08/22/16 22:30 122 17 102/66 92 08/22/16 22:30 122 08/22/16 22:00 123 28 111/74 92 08/22/16 22:00 123 08/22/16 21:30 122 28 135/75 92 08/22/16 21:30 122 08/22/16 21:00 121 14 107/66 93 08/22/16 21:00 121 08/22/16 20:50 84 26 123/58 93 08/22/16 20:00 98.2 80 26 93 08/22/16 20:00 80 08/22/16 19:02 94 Nasal Cannula 2.00 08/22/16 19:00 79 14 92 08/22/16 18:00 84 08/22/16 18:00 84 27 94 08/22/16 17:00 80 15 93 08/22/16 16:00 81 08/22/16 16:00 97.9 82 16 114/65 95 08/22/16 14:00 79 08/22/16 08/22/16 08/23/16 15:00 23:00 07:00 Intake Total 940 ml 595 ml 1567 ml Output Total 958 ml 560 ml 1005 ml Balance -18 ml 35 ml 562 ml IV Total 890 ml 466 ml 1332 ml Tube Feeding 19 ml 175 ml Albumin 50 ml 50 ml Tube Irrigant 60 ml 60 ml Output Urine Total 208 ml 170 ml 175 ml Stool Total 700 ml 370 ml 830 ml Drainage Total 50 ml 20 ml Laboratory Tests Test 08/22/16 08/23/16 05:15 04:39 White Blood Count 20.2 TH/MM3 20.6 TH/MM3 Red Blood Count 4.19 MIL/MM3 4.22 MIL/MM3 Hemoglobin 13.2 GM/DL 13.5 GM/DL Hematocrit 39.8 % 40.7 % Mean Corpuscular Volume 95.1 FL 96.6 FL Mean Corpuscular Hemoglobin 31.5 PG 32.0 PG Mean Corpuscular Hemoglobin 33.1 % 33.2 % Concent Red Cell Distribution Width 20.1 % 20.7 % Platelet Count 133 TH/MM3 135 TH/MM3 Mean Platelet Volume 9.4 FL 10.6 FL Neutrophils (%) (Auto) 77.1 % 76.2 % Lymphocytes (%) (Auto) 13.3 % 13.0 % Monocytes (%) (Auto) 8.2 % 9.5 % Eosinophils (%) (Auto) 0.3 % 0.9 % Basophils (%) (Auto) 1.1 % 0.4 % Neutrophils # (Auto) 15.6 TH/MM3 15.7 TH/MM3 Lymphocytes # (Auto) 2.7 TH/MM3 2.7 TH/MM3 Monocytes # (Auto) 1.7 TH/MM3 2.0 TH/MM3 Eosinophils # (Auto) 0.1 TH/MM3 0.2 TH/MM3 Basophils # (Auto) 0.2 TH/MM3 0.1 TH/MM3 CBC Comment DIFF FINAL DIFF FINAL Differential Comment Laboratory Tests Test 08/22/16 08/22/16 08/22/16 08/23/16 05:15 09:40 20:30 04:39 Sodium Level 144 MEQ/L 143 MEQ/L Potassium Level 4.8 MEQ/L 4.8 MEQ/L Chloride Level 107 MEQ/L 109 MEQ/L Carbon Dioxide Level 20.8 MEQ/L 16.0 MEQ/L Anion Gap 16 MEQ/L 18 MEQ/L Blood Urea Nitrogen 99 MG/DL 113 MG/DL Creatinine 4.91 MG/DL 5.71 MG/DL Estimat Glomerular Filtration 12 ML/MIN 10 ML/MIN Rate Random Glucose 103 MG/DL 132 MG/DL Calcium Level 8.3 MG/DL 7.9 MG/DL Magnesium Level 3.4 MG/DL Total Bilirubin 15.7 MG/DL 15.7 MG/DL Aspartate Amino Transf 814 U/L 680 U/L (AST/SGOT) Alanine Aminotransferase 344 U/L 307 U/L (ALT/SGPT) Alkaline Phosphatase 151 U/L 149 U/L Ammonia 43 MCMOL/L 59 MCMOL/L Total Protein 5.9 GM/DL 5.7 GM/DL Albumin 2.7 GM/DL 2.6 GM/DL Lactic Acid Level 5.5 mmol/L 7.2 mmol/L Microbiology Date/Time Procedure Status Source Growth 08/20/16 15:00 Gram Stain - Final Complete Fluid Peritoneal Fluid 08/20/16 15:00 Body Fluid Culture - Final Complete Fluid Peritoneal Fluid NO GROWTH IN 72 HRS.--AEROBICALLY OR ... 08/20/16 15:05 Aerobic Blood Culture - Preliminary Resulted Blood Peripheral NO GROWTH IN 3 DAYS 08/20/16 15:05 Anaerobic Blood Culture - Preliminary Resulted Blood Peripheral NO GROWTH IN 3 DAYS 08/20/16 15:09 Aerobic Blood Culture - Preliminary Resulted Blood Peripheral NO GROWTH IN 3 DAYS 08/20/16 15:09 Anaerobic Blood Culture - Preliminary Resulted Blood Peripheral NO GROWTH IN 3 DAYS IMAGING: Abdomen/Pelvis CT 08/22/16 0000 Signed Impressions: Service Date/Time: Monday, August 22, 2016 16:16 - CONCLUSION: 1. No definitive findings to explain patient's lactic acidosis. Limited evaluation of the bowel due to lack of IV and oral contrast, demonstrates no evidence for obstruction, infarction, or perforation. 2. Cirrhotic appearing liver with evidence for portal hypertension including moderate ascites and splenomegaly. 3. Trace left and small to moderate right pleural effusionswith associated airspace disease in the lower lobes. 4. 9 mm solid nodule in the right lower lobe, new since 2010. Followup examination in 3 months to document stability per 2017 Fleischner criteria is recommended. Sung Gomez MD Abdomen X-Ray 08/22/16 0000 Signed Impressions: Service Date/Time: Monday, August 22, 2016 09:35 - CONCLUSION: Nonspecific abdomen. Aleshia Santoro MD Abdomen X-Ray 08/22/16 0000 Signed Impressions: Service Date/Time: Monday, August 22, 2016 09:35 - CONCLUSION: Nonspecific abdomen. Aleshia Santoro MD Chest X-Ray 08/21/16 0600 Signed Impressions: Service Date/Time: Sunday, August 21, 2016 04:22 - CONCLUSION: 1. Improving bibasilar densities. 2. Nasogastric tube with tip in stomach. Jeremy Garcia MD Upper Extremity Ultrasound 08/21/16 0000 Signed Impressions: Service Date/Time: Sunday, August 21, 2016 20:10 - CONCLUSION: No evidence of deep venous thrombosis. Visualization was suboptimal. Kevin Hadley MD Hepatobiliary Scan Nuclear Medicine 08/11/16 0000 Signed Impressions: Service Date/Time: July 10:13 - CONCLUSION: 1. Normal HIDA scan confirming patency of the cystic and common bile ducts. 2. Normal gallbladder EF. 3. The patient was asymptomatic with administration of CCK. Sung Gomez MD Cholangiopancreatography MRI 08/11/16 0000 Signed Impressions: Service Date/Time: July 08:38 - CONCLUSION: 1. Hepatosplenomegaly 2. Distended gallbladder otherwise no evidence of biliary obstructive disease. 3. Small to moderate ascites 4. Altered flow in the portal vein which may be indicative of portal hypertension. 5. No other significant abnormalities identified. Steve Acuna MD Abdomen Ultrasound 08/10/16 0000 Signed Impressions: Service Date/Time: Wednesday, August 10, 2016 14:47 - CONCLUSION: There is no significant ascites. Tong Read MD FACR PHYSICAL EXAMINATION: GENERAL: Somnolent and moaning. HEAD, EYES, EARS, NOSE, THROAT: Positive icterus. Oropharynx has dry mucosa without lesions. NECK: No swelling or adenopathy. LUNGS: Decreased breath sounds. slight rhonchi at bases. HEART: Regular S1 and S2 without murmurs or rubs or gallops. ABDOMEN: Distended, soft. Distended. EXTREMITIES: No clubbing or cyanosis. Trace edema. SKIN: Markedly jaundiced. NEUROLOGIC: Unable to assess. PSYCHIATRIC: Unable to assess. IMPRESSION: 1. Sepsis. likely from peritoneum. However acute hep B could be mimicking infection. 2. Acute renal failure. 3. Hepatic failure. 4. Probable hepatorenal syndrome. 5. Acute hepatitis B, cirrhosis, hepatic encephalopathy. RECOMMENDATIONS: 1. Continue linezolid. 2. Continue cefepime. 3. Monitor temp and clinical status. Akhil Bundy MD Aug 23, 2016 13:26
[2016-08-23 13:29] LABS: BODY FLUID LDH 133 U/L (()); BODY FLUID LDH SOURCE PERITONEAL FLUID (())
[2016-08-23 16:42] LABS: INTERNATIONAL NORMALIZED RATIO 2.5 RATIO; PROTHROMBIN TIME - PATIENT 28.4 SEC (9.8-11.6)
[2016-08-24] VITALS (36 sets, daily range): BP systolic 76–134; BP diastolic 50–77; PULSE 94–111; RESP 15–30; TEMP 98.9–100.1; O2SAT 91–98
[2016-08-24] MEDS: OCTREOTIDE INJ 50 MCG/ML AMP IV PUSH SCH ×3 (01:00→16:46)
[2016-08-24] MEDS: LACTULOSE SYRUP 20 GM/30 ML CUP PO SCH ×6 (02:15→21:03)
[2016-08-24] MEDS: LINEZOLID 600 MG PREMIX 300 ML IV SCH ×2 (04:29→16:45)
[2016-08-24] MEDS: CEFEPIME INJ 1,000 MG in SODIUM CHLORIDE 0.9% INJ 100 ML IV SCH ×3 (06:07→21:04)
[2016-08-24] MEDS: ENTECAVIR 0.5 MG TAB PO SCH (06:08)
[2016-08-24] MEDS: MIDODRINE 5 MG TAB PO SCH ×3 (06:08→16:46)
[2016-08-24] MEDS: SODIUM BICARBONATE 8.4% INJ 50 MEQ in DEXTROSE 5% IN WATE 1000ML INJ 1,000 ML IV SCH ×2 (07:09)
[2016-08-24 07:20] LABS: BASOPHIL # 0.1 TH/MM3 (0-0.2); BASOPHIL % 0.5 % (0.0-2.0); EOSINOPHIL # 0.1 TH/MM3 (0-0.4); EOSINOPHIL % 0.5 % (0.0-4.0); HEMATOCRIT 40.9 % (39.0-51.0); LYMPH % 13.1 % (9.0-44.0); LYMPHOCYTE # 3.3 TH/MM3 (1.0-4.8); MEAN CELL VOLUME 97.6 FL (80.0-100.0); MEAN CORPUSCULAR HEMOGLOBIN 31.3 PG (27.0-34.0); NEUT % 75.9 % (16.0-70.0); PLATELET COUNT 130 TH/MM3 (150-450); RED CELL DISTRIBUTION WIDTH 21.6 % (11.6-17.2); WHITE BLOOD COUNT 25.1 TH/MM3 (4.0-11.0)
[2016-08-24 07:26] LABS: HEMO FLAGS AUTO DIFF; INTERNATIONAL NORMALIZED RATIO 2.5 RATIO; PROTHROMBIN TIME - PATIENT 28.4 SEC (9.8-11.6)
[2016-08-24] MEDS: METOPROLOL TARTRATE 25 MG TAB PO SCH ×2 (07:39→21:03)
[2016-08-24] MEDS: RIFAXIMIN 550 MG TAB PO SCH ×2 (07:39→21:03)
[2016-08-24] MEDS: ACETYLCYSTEINE 20% 6,000 MG/30 ML ORAL SOLN VIAL PO SCH ×2 (07:39→23:05)
[2016-08-24] MEDS: BUDESONIDE-FORMOTEROL 160/4.5 MCG INHALER INH SCH ×2 (07:40→21:00)
[2016-08-24] MEDS: SODIUM CHLORIDE 0.9% FLUSH 10 ML FLUSH IV FLUSH SCH ×2 (07:40→21:02)
[2016-08-24] MEDS: DOCUSATE SODIUM 50 MG/SENNA 8.6 MG TAB PO SCH ×2 (07:40→21:03)
[2016-08-24 08:00] LABS: ALKALINE PHOSPHATASE 152 U/L (45-117); ALT (GPT) 233 U/L (12-78); ANION GAP 21 MEQ/L (5-15); AST (GOT) 501 U/L (15-37); BICARBONATE 16.3 MEQ/L (21.0-32.0); BLOOD UREA NITROGEN 124 MG/DL (7-18); CHLORIDE 106 MEQ/L (98-107); GLOMERULAR FILTRATION RATE 8 ML/MIN (>89); POTASSIUM 4.6 MEQ/L (3.5-5.1); SODIUM (NA) 143 MEQ/L (136-145); TOTAL BILIRUBIN ADULT 16.2 MG/DL (0.2-1.0)
[2016-08-24 08:54] LABS: SCAN/DIFF AUTO DIFF CONFIRMED
--- NOTE | 2016-08-24 09:19 | HHI.CCPN ---
Subjective Remarks/Hospital Course Patient is a is a 70 year old male patient with history of chronic lymphocytic leukemia, in remission, who was admitted to the hospital for evaluation of elevated LFTs. His lab work on 08/09/16 showed elevated LFTs, total bilirubin 2.3, AST 759, ALT 270, alkaline phosphatase 390. US on 08/10/16 showed early cirrhotic change. Gastroenterology was consulted and further workup revealed patient had acute hepatitis B. Hepatitis C was also positive. Patient was placed on Xifaxan and lactulose by GI for elevated ammonia. Admission creatinine was normal but started climbing up by day 2 of admission. Creatinine was 1.3 on 08/13/16 nephrology was consulted for probable hepatorenal syndrome. Patient was placed on IV albumin, octreotide, and Midodrine for possible HRS. Despite these measures, patient's creatinine continued to deteriorate and he becameoliguric. Urine output was only 300 mL in the last 24 hours. AM labs today showed BUN 75 creatinine 3 with a potassium of 6. This was treated with Kayexalate, IV insulin and dextrose Halicat was called due to blood pressure 82/38. Patient was very lethargic and Dr. Brian transferred to ICU. Patient was started Norepinephrine and critical care was consulted. I evaluated the patient immediately. Patient is currently lethargic hypotensive with systolic blood pressure in mid 80s on 4 mcg/m of Levophed. I have ordered 1 L normal saline bolus, and 25 g IV albumin. I placed a left subclavian central line. A bedside ultrasound showed moderate ascites, I performed a paracentesis and removed 600 ml biliary tinged ascitic fluid. GI and Nephrology following. Repeat labs are pending at this time. Started on cefepime 1 g IV every 8 hours. 08/19 No events overnight. Afebrile. Off Levophed. Renal function worse today with Cr: 3.60 from 3.40 with UO: 850 ml in 08/20: Patient is more encephalopathic today, less responsive. Very lethargic, low grade fever. Bedside ultrasound shows reaccumulation of ascites fluid left lower quadrant. Renal function slightly worsened with increasing creatinine, urine output 850 mL in 24 hours. Tachycardic with heart rate in the 130s sinus rhythm, SIRS response most likely due to new infection 08/21: Patient had paracentesis yesterday 2 L. remains critical but slightly improved level of consciousness. Wakes up and following commands but, wakes up and tracks. UO 800 ml in 24 hours, creatinine getting worse. Dr. Ahumada has started IV Bumex BID. Prognosis appears guarded. Liver enzymes slightly trending down 08/22 Patient is lying in bed in NAD. Renal function worse today with Cr:4.91 from 4.28 with UOP:1750ml in 24 hrs 08/23 No events overnight. On 2L oxygen. Cr: 5.71 from 4.91 with UO: 553 ml in 24 hrs. Afebrile. Subjective 08/24: Tmax 100.9. Currently 99. On 3 L nasal cannula saturation 92%. Positive BM. Patient is minimally responsive. Objective Vital Signs Date Time Temp Pulse Resp B/P Pulse Ox O2 Delivery O2 Flow Rate FiO2 08/24/16 07:25 92 Nasal Cannula 08/24/16 06:00 111 08/24/16 04:00 99.0 15 103/62 08/23/16 19:49 2.00 08/20/16 08:00 50 Intake and Output 08/23/16 08/23/16 08/24/16 08:00 16:00 00:00 Intake Total 1567 ml 1562 ml 1069 ml Output Total 1005 ml 1125 ml 300 ml Balance 562 ml 437 ml 769 ml Result Diagram: 08/24/16 0615 08/24/16 0615 Other Results Microbiology Date/Time Procedure Status Source Growth 08/20/16 15:09 Aerobic Blood Culture - Preliminary Resulted Blood Peripheral NO GROWTH IN 3 DAYS 08/20/16 15:09 Anaerobic Blood Culture - Preliminary Resulted Blood Peripheral NO GROWTH IN 3 DAYS 08/20/16 15:00 Gram Stain - Final Complete Fluid Peritoneal Fluid 08/20/16 15:00 Body Fluid Culture - Final Complete Fluid Peritoneal Fluid NO GROWTH IN 72 HRS.--AEROBICALLY OR ... Imaging Last 72 hours Impressions Abdomen/Pelvis CT 08/22/16 0000 Signed Impressions: Service Date/Time: Monday, August 22, 2016 16:16 - CONCLUSION: 1. No definitive findings to explain patient's lactic acidosis. Limited evaluation of the bowel due to lack of IV and oral contrast, demonstrates no evidence for obstruction, infarction, or perforation. 2. Cirrhotic appearing liver with evidence for portal hypertension including moderate ascites and splenomegaly. 3. Trace left and small to moderate right pleural effusionswith associated airspace disease in the lower lobes. 4. 9 mm solid nodule in the right lower lobe, new since 2010. Followup examination in 3 months to document stability per 2017 Fleischner criteria is recommended. Sung Gomez MD Abdomen X-Ray 08/22/16 0000 Signed Impressions: Service Date/Time: Monday, August 22, 2016 09:35 - CONCLUSION: Nonspecific abdomen. K. Salvatore Santoro MD Objective Remarks GENERAL: 70-year-old male, critically ill currently resting in bed unresponsive SKIN: Warm and dry. Jaundiced. Perfused HEAD: Normocephalic. EYES: Pupils are about 3 mm bilaterally and reactive Positive scleral icterus. No injection or drainage. ENT: Oral cavity is dry. Airway patent NECK: Supple, trachea midline. No JVD or lymphadenopathy. CARDIOVASCULAR: Tachycardic, RR. S1, S2.Currently without murmurs, gallops, or rubs. RESPIRATORY: Breath sounds diminished at the bases bilaterally. No accessory muscle use. GASTROINTESTINAL: Abdomen soft, distended, mildly tender to palpation, s/p paracentesis with 2L fluid removed 08/20/16 MUSCULOSKELETAL: No cyanosis. Lower ext 2+ edema. Chronic venous stasis changes BACK: Nontender without obvious deformity. No CVA tenderness. NEURO: Patient is unresponsive moaning, but protecting airway. Not following commands. Withdraws to pain in all 4 extremities. Procedures None. A/P Assessment and Plan NEURO/PSYCH: Acute toxic metabolic encephalopathy Hepatic encephalopathy EtOH use - Encephalopathy secondary to metabolic hyperammonemia, Uremia, sepsis. Ammonia level 59 on 08/22 - Continue lactulose 30ml Q4 and Xifaxan 550 twice a day. Daily thiamine 100 mg IV daily RESP: Bilateral lower lobe infiltrates/atelectasis History of COPD Right lower lobe pulmonary nodule 9 mm - 3 month follow-up recommended - Continue with oxygen keep sat >92% - DuoNeb every 6 hours when necessary On Symbicort 160/4.52 puffs twice a day CV: Shock -resolved SIRS/sinus tachycardia Lactic acidosis - Place on Lopressor 25mg BID- Monitor HR and BP keep MAP>65mmHg - Serial lactic acid monitoring. Elevated lactic acid likely 2nd sepsis and Liver disease -On Midodrine 5 mg 3 times a day GI: Hepatorenal syndrome/likely Acute hepatic failure Acute hepatitis B/IgM positive with viral load 17 million Liver cirrhosis Hepatitis C antibody positive - GI and nephrology following. GI had contacted [facility] for transplant eval-GI spoke to Dr. Novoa at [facility]- states that he is not a candidate for transplant. - Trial of Baraclude 0.5 mg daily for Hep B treatment - Continue supportive care, with IV albumin 12.5 g IV every 12 hours, Midodrine 10 mg 3 times a day, Octreotide 50 mcg subcutaneous every 8 hours and Mucomyst 600 twice a day - s/p paracentesis 08/18/16 with 600 mL of biliary tinged ascites fluid removed- fluid studies sent. Repeat paracentesis 08/20 with 2L removed -CT abdomen/pelvis 08/22: Cirrhosis of liver with evidence of portal HTN, ascites. -On tube feeds via NGT- Nepro with goal rate 40ml/hr Renal/: Acute kidney failure/hepatorenal syndrome - Monitor renal function, I/O's, avoid nephrotoxins. Interval worsening of kidney function - Cr: 5.71 to 6.62 today -Renal is following- Dr. Cruz, discussed with renal patient is not a candidate for HD prognosis poor given likely HRS, -US abdomen: No hydronephrosis -Continue IVF to D5W+ 1amp bicarb @50ml/hr ID: Severe sepsis Leukocytosis E faecalis UTI - Continue with abx ( Cefepime, Zyvox) avoid Vanco given his renal dysfunction. monitor for signs of infections ( Fever, WBC) follow up on cxs- NGTD - ID is following 08/18 Urine cx: Enterococcus faecalis 08/10 Urine cx: Staph Epi F/U Repeat cultures, blood urine and sputum HEME: History CLL Coagulopathy secondary to liver failure Leukocytosis Thrombocytopenia - Monitor CBC, CMP, INR 2.5 today, for 2units FFP per GI. - FFP has been given past, Vit K 10 mg 2 days ordered. Recheck coags in a.m. ENDO: - SSI if needed for glycemic control PROPH: - Bilateral lower extremity SCDs. Avoid chemical DVT prophylaxis secondary to coagulopathy. IV Protonix LINES: - Left subclavian central line placed 08/18 Palliative care is following Level 3 Critically ill with encephalopathy SIRS, worsening renal failure most likely from hepatorenal syndrome. Prognosis guarded Delmar Hair MD Aug 24, 2016 09:19
[2016-08-24] MEDS: ALBUMIN HUMAN 25% 12.5 GM/50 ML BAGP IV SCH ×2 (09:47→21:04)
[2016-08-24] MEDS: PANTOPRAZOLE SODIUM 40 MG VIAL IV PUSH SCH (09:48)
--- NOTE | 2016-08-24 12:34 | HHI.HCPN ---
Reason for visit a. To assist with evaluation and management of symptoms including: debility , pain, confusion, malnutrition b. To assist medical decision maker(s) with: better understanding of current medical conditions; weighing benefits/burdens of medical treatment options; making medical treatment decisions. . Subjective/Interval History Patient seen and assessed in room 517. Patient remains lethargic, disoriented. Intermittent moaning is noted. Arouses to verbal stimuli, speech is garbled. Patient does not follow commands and is unable to make his needs known or participate in clarification of medical treatment goals. Total bilirubin 16.2, AST 501, ALT 233, alkaline phosphatase 152 Ammonia level of 59 on 08/23/2016. Remains on lactulose 30ml q4 hours and Xifaxan 550 twice a day. Worsening renal function, concern for hepatorenal syndrome. BUN: 124, creatinine 6.63, GFR 8 Nephrology continues to follow; not a good candidate for hemodialysis and not a candidate for liver transplantation. HR 108; respirations 15; BP 97/59; Oxygen saturation 93% via nasal cannula. Tolerating artificial nutrition via TF at 40ml/hour. WBC 25.1, hemoglobin 13.1, hematocrit 40.9, platelets 1:30, neutrophils 75.9% Sodium: 143, potassium 4.6, chloride 106, carbon dioxide 16.3, glucose 155, calcium 8.2 Ongoing low-grade fever. Blood cultures and peritoneal cultures on 08/20/2016 remain negative to date. Peritoneal fluid cytology negative for malignancy 2. Patient remains on IV antibiotics, Zyvox and Cefepime. Infectious disease following. . Advance Directives Advance Directive Specifics Documented care wishes: No documented care wishes are available. . Objective Vital Signs Date Time Temp Pulse Resp B/P Pulse Ox O2 Delivery O2 Flow Rate FiO2 08/24/16 07:25 92 Nasal Cannula 08/24/16 06:00 111 08/24/16 04:00 99.0 103 15 103/62 94 08/24/16 04:00 103 08/24/16 02:00 104 08/24/16 00:00 105 08/24/16 00:00 98.9 105 18 114/65 93 08/23/16 22:00 113 08/23/16 20:00 99.2 111 22 147/75 91 08/23/16 20:00 111 08/23/16 19:49 93 Nasal Cannula 2.00 08/23/16 19:00 112 32 160/82 90 08/23/16 19:00 112 08/23/16 18:00 115 08/23/16 18:00 115 32 138/72 91 08/23/16 17:00 113 08/23/16 17:00 113 32 136/77 91 08/23/16 16:00 100.3 112 30 139/80 90 08/23/16 16:00 112 08/23/16 15:00 111 38 149/83 91 08/23/16 15:00 111 08/23/16 14:30 100.9 111 36 147/75 91 08/23/16 14:30 110 38 147/75 91 08/23/16 14:10 99.3 109 36 142/77 92 08/23/16 14:00 85 08/23/16 14:00 85 38 142/77 91 08/23/16 13:30 109 36 131/75 92 08/23/16 13:00 107 37 119/71 92 08/23/16 13:00 107 08/23/16 12:30 109 32 114/76 92 Intake & Output 08/24/16 08/24/16 07:00 19:00 Intake Total 1752 ml Output Total 850 ml Balance 902 ml IV Total 1167 ml Tube Feeding 535 ml Albumin 50 ml Output Urine Total 250 ml Stool Total 500 ml Drainage Total 100 ml Physical Exam CONSTITUTIONAL/GENERAL: This is a critically ill, elderly male patient no acute distress TUBES/LINES/DRAINS: CVL, Altman, Dignashield, NGT, SCD, nasal cannula SKIN: Jaundice. Ecchymoses on upper extremities. Skin temperature appropriate. Not diaphoretic. HEAD: Atraumatic. Normocephalic. EYES: Pupils 2mm, equal and sluggish Fundi not examined. ENT: Hearing grossly normal. Nose without bleeding or purulent drainage. NECK: Trachea midline. Supple, nontender. No palpable thyroid enlargement or nodularity. CARDIOVASCULAR: Tachycardic. No JVD. Peripheral pulses symmetric. RESPIRATORY/CHEST: Respirations symmetrical and unlabored; no accessory muscles being used. Breath sounds diminished bilaterally. + Term cough GASTROINTESTINAL: Abdomen firm, distended, diffuse tenderness to palpation. Bowel sounds present. GENITOURINARY: Without palpable bladder distension. Altman catheter in place. MUSCULOSKELETAL: BLE cool to touch, trace edema. Hands swollen bilaterally. LYMPHATICS: No palpable cervical or supraclavicular adenopathy. NEUROLOGICAL: Patient is lethargic and disoriented; garbled speech. Intermittent moaning. Does not follow commands, unable to make needs known. PSYCHIATRIC: Unable to assess due to patient's current clinical condition. . Diagnostic Tests Laboratory Laboratory Tests Test 08/22/16 08/22/16 08/22/16 08/23/16 05:15 09:40 20:30 04:39 White Blood Count 20.2 TH/MM3 20.6 TH/MM3 (4.0-11.0) (4.0-11.0) Red Blood Count 4.19 MIL/MM3 4.22 MIL/MM3 (4.50-5.90) (4.50-5.90) Hemoglobin 13.2 GM/DL 13.5 GM/DL (13.0-17.0) (13.0-17.0) Hematocrit 39.8 % 40.7 % (39.0-51.0) (39.0-51.0) Mean Corpuscular Volume 95.1 FL 96.6 FL (80.0-100.0) (80.0-100.0) Mean Corpuscular Hemoglobin 31.5 PG 32.0 PG (27.0-34.0) (27.0-34.0) Mean Corpuscular Hemoglobin 33.1 % 33.2 % Concent (32.0-36.0) (32.0-36.0) Red Cell Distribution Width 20.1 % 20.7 % (11.6-17.2) (11.6-17.2) Platelet Count 133 TH/MM3 135 TH/MM3 (150-450) (150-450) Mean Platelet Volume 9.4 FL 10.6 FL (7.0-11.0) (7.0-11.0) Neutrophils (%) (Auto) 77.1 % 76.2 % (16.0-70.0) (16.0-70.0) Lymphocytes (%) (Auto) 13.3 % 13.0 % (9.0-44.0) (9.0-44.0) Monocytes (%) (Auto) 8.2 % (0.0-8.0) 9.5 % (0.0-8.0) Eosinophils (%) (Auto) 0.3 % (0.0-4.0) 0.9 % (0.0-4.0) Basophils (%) (Auto) 1.1 % (0.0-2.0) 0.4 % (0.0-2.0) Neutrophils # (Auto) 15.6 TH/MM3 15.7 TH/MM3 (1.8-7.7) (1.8-7.7) Lymphocytes # (Auto) 2.7 TH/MM3 2.7 TH/MM3 (1.0-4.8) (1.0-4.8) Monocytes # (Auto) 1.7 TH/MM3 2.0 TH/MM3 (0-0.9) (0-0.9) Eosinophils # (Auto) 0.1 TH/MM3 0.2 TH/MM3 (0-0.4) (0-0.4) Basophils # (Auto) 0.2 TH/MM3 0.1 TH/MM3 (0-0.2) (0-0.2) CBC Comment DIFF FINAL DIFF FINAL Differential Comment Sodium Level 144 MEQ/L 143 MEQ/L (136-145) (136-145) Potassium Level 4.8 MEQ/L 4.8 MEQ/L (3.5-5.1) (3.5-5.1) Chloride Level 107 MEQ/L 109 MEQ/L (98-107) (98-107) Carbon Dioxide Level 20.8 MEQ/L 16.0 MEQ/L (21.0-32.0) (21.0-32.0) Anion Gap 16 MEQ/L (5-15) 18 MEQ/L (5-15) Blood Urea Nitrogen 99 MG/DL (7-18) 113 MG/DL (7-18) Creatinine 4.91 MG/DL 5.71 MG/DL (0.60-1.30) (0.60-1.30) Estimat Glomerular Filtration 12 ML/MIN (>89) 10 ML/MIN (>89) Rate Random Glucose 103 MG/DL 132 MG/DL (74-106) (74-106) Calcium Level 8.3 MG/DL 7.9 MG/DL (8.5-10.1) (8.5-10.1) Magnesium Level 3.4 MG/DL (1.5-2.5) Total Bilirubin 15.7 MG/DL 15.7 MG/DL (0.2-1.0) (0.2-1.0) Aspartate Amino Transf 814 U/L (15-37) 680 U/L (15-37) (AST/SGOT) Alanine Aminotransferase 344 U/L (12-78) 307 U/L (12-78) (ALT/SGPT) Alkaline Phosphatase 151 U/L 149 U/L (45-117) (45-117) Ammonia 43 MCMOL/L 59 MCMOL/L (11-32) (11-32) Total Protein 5.9 GM/DL 5.7 GM/DL (6.4-8.2) (6.4-8.2) Albumin 2.7 GM/DL 2.6 GM/DL (3.4-5.0) (3.4-5.0) Lactic Acid Level 5.5 mmol/L 7.2 mmol/L (0.4-2.0) (0.4-2.0) Prothrombin Time 62.3 SEC (9.8-11.6) Prothromb Time International 5.2 RATIO Ratio Test 08/23/16 08/23/16 08/24/16 09:53 16:20 06:15 Blood Bank Comment Prothrombin Time 28.4 SEC 28.4 SEC (9.8-11.6) (9.8-11.6) Prothromb Time International 2.5 RATIO 2.5 RATIO Ratio White Blood Count 25.1 TH/MM3 (4.0-11.0) Red Blood Count 4.20 MIL/MM3 (4.50-5.90) Hemoglobin 13.1 GM/DL (13.0-17.0) Hematocrit 40.9 % (39.0-51.0) Mean Corpuscular Volume 97.6 FL (80.0-100.0) Mean Corpuscular Hemoglobin 31.3 PG (27.0-34.0) Mean Corpuscular Hemoglobin 32.0 % Concent (32.0-36.0) Red Cell Distribution Width 21.6 % (11.6-17.2) Platelet Count 130 TH/MM3 (150-450) Mean Platelet Volume 10.0 FL (7.0-11.0) Neutrophils (%) (Auto) 75.9 % (16.0-70.0) Lymphocytes (%) (Auto) 13.1 % (9.0-44.0) Monocytes (%) (Auto) 10.0 % (0.0-8.0) Eosinophils (%) (Auto) 0.5 % (0.0-4.0) Basophils (%) (Auto) 0.5 % (0.0-2.0) Neutrophils # (Auto) 19.0 TH/MM3 (1.8-7.7) Lymphocytes # (Auto) 3.3 TH/MM3 (1.0-4.8) Monocytes # (Auto) 2.5 TH/MM3 (0-0.9) Eosinophils # (Auto) 0.1 TH/MM3 (0-0.4) Basophils # (Auto) 0.1 TH/MM3 (0-0.2) CBC Comment AUTO DIFF Differential Comment AUTO DIFF CONFIRMED Sodium Level 143 MEQ/L (136-145) Potassium Level 4.6 MEQ/L (3.5-5.1) Chloride Level 106 MEQ/L (98-107) Carbon Dioxide Level 16.3 MEQ/L (21.0-32.0) Anion Gap 21 MEQ/L (5-15) Blood Urea Nitrogen 124 MG/DL (7-18) Creatinine 6.63 MG/DL (0.60-1.30) Estimat Glomerular Filtration 8 ML/MIN (>89) Rate Random Glucose 155 MG/DL (74-106) Calcium Level 8.2 MG/DL (8.5-10.1) Total Bilirubin 16.2 MG/DL (0.2-1.0) Aspartate Amino Transf 501 U/L (15-37) (AST/SGOT) Alanine Aminotransferase 233 U/L (12-78) (ALT/SGPT) Alkaline Phosphatase 152 U/L (45-117) Total Protein 5.9 GM/DL (6.4-8.2) Albumin 2.6 GM/DL (3.4-5.0) Result Diagram: 08/24/16 0615 08/24/16 0615 Procedures 08/18/16: CVL placement 08/18/16: Paracentesis 08/20/16: Paracentesis . Assessment and Plan Disease Oriented Problem List: (1) COPD (chronic obstructive pulmonary disease) (2) Gout (3) Acute renal failure (4) Leukocytosis (5) Acute liver disease (6) Acute hepatitis B (7) CLL (chronic lymphocytic leukemia) (8) LFT elevation (9) Ascites (10) Hepatic encephalopathy Symptom Scale: (1) Debility (2) Pain (3) Malnutrition (4) Confusion Pertinent Non-Medical Issues Psychosocial: Patient worked in construction, cabinet work. Reported long history of exposure to dust. Spiritual: None mosque per Legal:Janna Crespo, Palliative Care CAT DRIVER, attempted to identify possible family members. Janna spoke with MOLD INSERT CHANGER Anu Martin to request accurants report; received results from Anu stating records were reviewed back to before 2009 and no next of kin were identified. Google search produced multiple mug shots for patient, but no known linkage to any family was found in these searches. No match for patient was found on facebook/social media. deputy sheriff court services had no additional information. Per Michelle Rajan notes, the director from [facility] (Shereen Jalloh at [phone]) was in the patient's room earlier today and stated the patient does have a son, but they are estranged. They have no information on the reported son's name or where he may reside. There are no other known family members. Case management contacted to contact slinkset. Ethical issues impacting care: No known ethical issues impacting care at this time. Important Contacts No known family/friends. . Prognosis Patient is a 70-year-old male who was recently hospitalized with acute liver failure. Now with newly diagnosed acute hepatitis B, cirrhosis, hepatic encephalopathy, suspected sepsis likely from peritoneum. Patient is not a candidate for liver transplant. Concern for hepatorenal syndrome with decreased urine output secondary to liver dysfunction; if hepatorenal syndrome patient would be terminal. Prognosis is poor. . Code Status: Full Code Plan * FULL CODE * Decision-making: Per Janna Aguilar (Palliative care SHOTWELD OPERATOR, CAT DRIVER), Possible name of son received from Tiffany Bowling CM. She reports the patient's son's name is Juan Jose Rogers, from [place]. Requested accurant report. Awaiting results. * Goals remain aggressive at this time * Discussed with patient's nurse (Radha) and Dr. Hair * Symptom managementmalnutrition: Nutritional intake is poor. Patient reported a 65 pound weight loss over the past 2 years. Tolerating artificial nutrition via TF at 40 mL's/hour. Speech therapy and dietary following. * Symptom managementpain: Intermittent moaning is noted Possible causes of pain include infection, abdominal distention/ascites, edema, invasive lines, NGT , immobility, bedbound status, impaired skin integrity. Current orders for morphine 4 mg IV every 3 hours as needed for pain scale of 510 and Oxycodone 5mg-10mg PO q6 hours PRN for pain. Morphine 4mg x 2 administered in the past 24 hours; no oxycodone administered. * Symptom managementconfusion: Likely secondary to hepatic encephalopathy; on lactulose. Continue to monitor, no further medications. Ammonia level of 59 on 08/23/2016 . Attestation To help prompt me to consider important information that might be impacting today's encounter and assessment, information from prior notes written by myself or my colleagues may have been "brought forward" into today's note. My signature on this note, however, is an attestation that I personally performed the exam, history, and/or decision-making noted today, and, unless otherwise indicated, the interactions with patient, family, and staff as well as the review of records all occurred today. I also attest that the listed assessment and stated plan reflect my best clinical judgment today based on the combination of historical information, prior notes, and today's exam/ interactions. When time spent is documented, it refers only to time spent today by the signer, or if indicated, combined time spent today by collaborating physician/nurse practitioner. . Korina Piña Aug 24, 2016 12:33
--- NOTE | 2016-08-24 13:00 | HHI.HCPN ---
[employer] results for potential son, Rob Oseguera, obtained. 1- ROB OSEGUERA AGE 30 [facility] [phone]-- left message requesting call back 2- ROB OSEGUERA AGE 47 [facility] [phone] / [phone] POS CELL-- left messages requesting call back Received call back from Rob @ #[phone]-- no known relationship with patient. Reports his family is from [place] so he will ask relatives if anyone knows of relationship to patient and have them contact palliative care SW. 3- ROB OSEGUERA AGE 45 [id number] [facility] [id number] (NO PHONE LISTED) 4- ROB OSEGUERA AGE 37 [facility] [phone] AND [phone]-- left message requesting call back Google search produced following results: #[phone]: just rings unable to leave message; will continue to try #[phone]: just rings unable to leave message; will continue to try #[phone]: just rings unable to leave message; will continue to try #[phone]: just rings unable to leave message; will continue to try Currently awaiting calls back from potential matches. Janna Crespo FOLDING MACHINE FEEDER, TENSILE TESTER Aug 24, 2016 13:00
--- NOTE | 2016-08-24 13:30 | PD.WCN.NOT ---
Wound Consult Description: Screening for possible wound per nursing. Communicated with: NADJA Garcia Recommendation: Calazime BID and PRN to left buttock DTI and partial thickness skin loss areas Obtain and place patient on Airapy 1100 Continue to reposition patient every 2 hours and PRN from back to right sides only Additional Information: Patient seen with NADJA Garcia on [facility] for nursing documentation regarding left buttock. Patient was noted to be on his right side and was assisted further to his right side for assessment of bilateral buttocks. Patient was noted with a non blanchable dark maroon/purple discoloration indicating a Deep Tissue Injury to left buttock measuring 9cm x 4.5cm with denuded periwound indicating moisture and friction etiology as well. Calazime was applied to left buttock and returned to his right side. Perlita Chávez [facility] Aug 24, 2016 13:30
--- NOTE | 2016-08-24 14:04 | HHI.IDPN ---
Note Infectious Disease Note Patient is moaning. Not following commands. Afebrile. Low grade fever. PAST MEDICAL HISTORY: 1. COPD. 2. Chronic lymphocytic leukemia treated with chemotherapy until May of 2014. 3. Gout. 4. Anxiety. 5. Depression. 6. Squamous cell carcinoma of the back in 2010. 7. Hip surgery. ALLERGIES: NO KNOWN DRUG ALLERGIES. MEDICATIONS: OBJECTIVE: Vital Signs Date Time Temp Pulse Resp B/P Pulse Ox O2 Delivery O2 Flow Rate FiO2 08/24/16 07:25 92 Nasal Cannula 08/24/16 06:00 111 08/24/16 04:00 99.0 103 15 103/62 94 08/24/16 04:00 103 08/24/16 02:00 104 08/24/16 00:00 105 08/24/16 00:00 98.9 105 18 114/65 93 08/23/16 22:00 113 08/23/16 20:00 99.2 111 22 147/75 91 08/23/16 20:00 111 08/23/16 19:49 93 Nasal Cannula 2.00 08/23/16 19:00 112 32 160/82 90 08/23/16 19:00 112 08/23/16 18:00 115 08/23/16 18:00 115 32 138/72 91 08/23/16 17:00 113 08/23/16 17:00 113 32 136/77 91 08/23/16 16:00 100.3 112 30 139/80 90 08/23/16 16:00 112 08/23/16 15:00 111 38 149/83 91 08/23/16 15:00 111 08/23/16 14:30 100.9 111 36 147/75 91 08/23/16 14:30 110 38 147/75 91 08/23/16 14:10 99.3 109 36 142/77 92 08/23/16 08/23/16 08/24/16 15:00 23:00 07:00 Intake Total 1562 ml 1069 ml 908 ml Output Total 1125 ml 300 ml 550 ml Balance 437 ml 769 ml 358 ml IV Total 555 ml 459 ml 708 ml Tube Feeding 502 ml 385 ml 150 ml Albumin 50 ml FFP 445 ml 225 ml Other 60 ml Output Urine Total 225 ml 150 ml 100 ml Stool Total 900 ml 100 ml 400 ml Drainage Total 50 ml 50 ml Laboratory Tests Test 08/23/16 08/24/16 04:39 06:15 White Blood Count 20.6 TH/MM3 25.1 TH/MM3 Red Blood Count 4.22 MIL/MM3 4.20 MIL/MM3 Hemoglobin 13.5 GM/DL 13.1 GM/DL Hematocrit 40.7 % 40.9 % Mean Corpuscular Volume 96.6 FL 97.6 FL Mean Corpuscular Hemoglobin 32.0 PG 31.3 PG Mean Corpuscular Hemoglobin 33.2 % 32.0 % Concent Red Cell Distribution Width 20.7 % 21.6 % Platelet Count 135 TH/MM3 130 TH/MM3 Mean Platelet Volume 10.6 FL 10.0 FL Neutrophils (%) (Auto) 76.2 % 75.9 % Lymphocytes (%) (Auto) 13.0 % 13.1 % Monocytes (%) (Auto) 9.5 % 10.0 % Eosinophils (%) (Auto) 0.9 % 0.5 % Basophils (%) (Auto) 0.4 % 0.5 % Neutrophils # (Auto) 15.7 TH/MM3 19.0 TH/MM3 Lymphocytes # (Auto) 2.7 TH/MM3 3.3 TH/MM3 Monocytes # (Auto) 2.0 TH/MM3 2.5 TH/MM3 Eosinophils # (Auto) 0.2 TH/MM3 0.1 TH/MM3 Basophils # (Auto) 0.1 TH/MM3 0.1 TH/MM3 CBC Comment DIFF FINAL AUTO DIFF Differential Comment AUTO DIFF CONFIRMED Laboratory Tests Test 08/22/16 08/23/16 08/24/16 20:30 04:39 06:15 Lactic Acid Level 7.2 mmol/L Sodium Level 143 MEQ/L 143 MEQ/L Potassium Level 4.8 MEQ/L 4.6 MEQ/L Chloride Level 109 MEQ/L 106 MEQ/L Carbon Dioxide Level 16.0 MEQ/L 16.3 MEQ/L Anion Gap 18 MEQ/L 21 MEQ/L Blood Urea Nitrogen 113 MG/DL 124 MG/DL Creatinine 5.71 MG/DL 6.63 MG/DL Estimat Glomerular Filtration 10 ML/MIN 8 ML/MIN Rate Random Glucose 132 MG/DL 155 MG/DL Calcium Level 7.9 MG/DL 8.2 MG/DL Total Bilirubin 15.7 MG/DL 16.2 MG/DL Aspartate Amino Transf 680 U/L 501 U/L (AST/SGOT) Alanine Aminotransferase 307 U/L 233 U/L (ALT/SGPT) Alkaline Phosphatase 149 U/L 152 U/L Ammonia 59 MCMOL/L Total Protein 5.7 GM/DL 5.9 GM/DL Albumin 2.6 GM/DL 2.6 GM/DL IMAGING: Abdomen/Pelvis CT 08/22/16 0000 Signed Impressions: Service Date/Time: Monday, August 22, 2016 16:16 - CONCLUSION: 1. No definitive findings to explain patient's lactic acidosis. Limited evaluation of the bowel due to lack of IV and oral contrast, demonstrates no evidence for obstruction, infarction, or perforation. 2. Cirrhotic appearing liver with evidence for portal hypertension including moderate ascites and splenomegaly. 3. Trace left and small to moderate right pleural effusionswith associated airspace disease in the lower lobes. 4. 9 mm solid nodule in the right lower lobe, new since 2010. Followup examination in 3 months to document stability per 2017 Fleischner criteria is recommended. Sung Gomez MD Abdomen X-Ray 08/22/16 0000 Signed Impressions: Service Date/Time: Monday, August 22, 2016 09:35 - CONCLUSION: Nonspecific abdomen. Aleshia Santoro MD Abdomen X-Ray 08/22/16 0000 Signed Impressions: Service Date/Time: Monday, August 22, 2016 09:35 - CONCLUSION: Nonspecific abdomen. Aleshia Santoro MD Chest X-Ray 08/21/16 0600 Signed Impressions: Service Date/Time: Sunday, August 21, 2016 04:22 - CONCLUSION: 1. Improving bibasilar densities. 2. Nasogastric tube with tip in stomach. Jeremy Garcia MD Upper Extremity Ultrasound 08/21/16 0000 Signed Impressions: Service Date/Time: Sunday, August 21, 2016 20:10 - CONCLUSION: No evidence of deep venous thrombosis. Visualization was suboptimal. Kevin Hadley MD Hepatobiliary Scan Nuclear Medicine 08/11/16 0000 Signed Impressions: Service Date/Time: July 10:13 - CONCLUSION: 1. Normal HIDA scan confirming patency of the cystic and common bile ducts. 2. Normal gallbladder EF. 3. The patient was asymptomatic with administration of CCK. Sung Gomez MD Cholangiopancreatography MRI 08/11/16 0000 Signed Impressions: Service Date/Time: July 08:38 - CONCLUSION: 1. Hepatosplenomegaly 2. Distended gallbladder otherwise no evidence of biliary obstructive disease. 3. Small to moderate ascites 4. Altered flow in the portal vein which may be indicative of portal hypertension. 5. No other significant abnormalities identified. Steve Acuna MD Abdomen Ultrasound 08/10/16 0000 Signed Impressions: Service Date/Time: Wednesday, August 10, 2016 14:47 - CONCLUSION: There is no significant ascites. Tong Read MD FACR PHYSICAL EXAMINATION: GENERAL: Somnolent and moaning. HEAD, EYES, EARS, NOSE, THROAT: Positive icterus. Oropharynx has dry mucosa without lesions. NECK: No swelling or adenopathy. LUNGS: Bilateral rhonchi. HEART: Regular S1 and S2 without murmurs or rubs or gallops. ABDOMEN: Distended, soft. EXTREMITIES: No clubbing or cyanosis. Trace edema. SKIN: Markedly jaundiced. NEUROLOGIC: Unable to assess. PSYCHIATRIC: Unable to assess. IMPRESSION: 1. Sepsis. likely from peritoneum. However acute hep B could be mimicking infection. 2. Acute renal failure. 3. Hepatic failure. 4. Probable hepatorenal syndrome. 5. Acute hepatitis B, cirrhosis, hepatic encephalopathy. RECOMMENDATIONS: 1. Continue linezolid. 2. Continue cefepime. 3. Monitor temp. 4. Monitor clinical status. Emigrant poor. Akhil Bundy MD Aug 24, 2016 14:04
--- NOTE | 2016-08-24 14:28 | HHI.NPPN ---
Subjective Additional Remarks Renal function is worse. Objective Data Data 08/23/16 08/24/16 19:00 07:00 Intake Total 1787 ml 1752 ml Output Total 1125 ml 850 ml Balance 662 ml 902 ml IV Total 555 ml 1167 ml Tube Feeding 502 ml 535 ml Albumin 50 ml FFP 670 ml Other 60 ml Output Urine Total 225 ml 250 ml Stool Total 900 ml 500 ml Drainage Total 100 ml Vital Signs Date Time Temp Pulse Resp B/P Pulse Ox O2 Delivery O2 Flow Rate FiO2 08/24/16 07:25 92 Nasal Cannula 08/24/16 06:00 111 08/24/16 04:00 99.0 103 15 103/62 94 08/24/16 04:00 103 08/24/16 02:00 104 08/24/16 00:00 105 08/24/16 00:00 98.9 105 18 114/65 93 08/23/16 22:00 113 08/23/16 20:00 99.2 111 22 147/75 91 08/23/16 20:00 111 08/23/16 19:49 93 Nasal Cannula 2.00 08/23/16 19:00 112 32 160/82 90 08/23/16 19:00 112 08/23/16 18:00 115 08/23/16 18:00 115 32 138/72 91 08/23/16 17:00 113 08/23/16 17:00 113 32 136/77 91 08/23/16 16:00 100.3 112 30 139/80 90 08/23/16 16:00 112 08/23/16 15:00 111 38 149/83 91 08/23/16 15:00 111 08/23/16 14:30 100.9 111 36 147/75 91 08/23/16 14:30 110 38 147/75 91 -: 08/24/16 0615 08/24/16 0615 Physical Exam General Appearance: Well Nourished, Pale Neck Neck Exam: Neck Supple Pulmonary Resp Exam: Clear Bilaterally, Breath Sounds Equal Cardiology CV Exam: Regular, Normal Sinus Rhythm Gastrointestinal/Abdomen GI Exam: Soft, Distended Extremeties Extremities Exam: Moderate Edema Assessment/Plan Problem List: (1) Acute renal failure Plan: Worsening renal function: poor prognosis, Hep B uop Improved Cr higher Apparently not a candidate for liver transplantation. he indeed has HRS, his condition is terminal. palliative care consult. poor candidate for hemodialysis outcome would not change with liver failure as bad prognostic indicator he is on Midodrine/Octreotide/albumin UOP 1.4 L Acidosis on IVF D5 AND Biacrb 50 meq 50 cc.hr (2) Acute hepatitis B Plan: Acute infection GI is following. Notes were reviewed. (3) Acute liver disease Plan: Elevated liver enzymes due to hepatitis B (4) Leukemia Plan: History of CLL in the past (5) Hyponatremia Plan: Resolved. Problem Qualifiers (1) Leukemia: Qualified Code: C95.10 - Chronic leukemia, not having achieved remission Dante Cruz MD Aug 24, 2016 14:28
[2016-08-24] MEDS: MORPHINE SULFATE 4 MG/ML INJ IV PUSH PRN (14:46)
--- NOTE | 2016-08-24 15:43 | HHI.GIFU ---
Subjective Remarks Pt confused, restless, moaning. Resp. labored, tachypneic. Spoke to Janna- has not been able to locate/contact son as of yet. Objective Vitals I&O Vital Signs Date Time Temp Pulse Resp B/P Pulse Ox O2 Delivery O2 Flow Rate FiO2 08/24/16 07:25 92 Nasal Cannula 08/24/16 06:00 111 08/24/16 04:00 99.0 103 15 103/62 94 08/24/16 04:00 103 08/24/16 02:00 104 08/24/16 00:00 105 08/24/16 00:00 98.9 105 18 114/65 93 08/23/16 22:00 113 08/23/16 20:00 99.2 111 22 147/75 91 08/23/16 20:00 111 08/23/16 19:49 93 Nasal Cannula 2.00 08/23/16 19:00 112 32 160/82 90 08/23/16 19:00 112 08/23/16 18:00 115 08/23/16 18:00 115 32 138/72 91 08/23/16 17:00 113 08/23/16 17:00 113 32 136/77 91 08/23/16 16:00 100.3 112 30 139/80 90 08/23/16 16:00 112 I/O 08/23/16 08/23/16 08/23/16 08/24/16 08/24/16 08/24/16 07:00 15:00 23:00 07:00 15:00 23:00 Intake Total 1567 ml 1562 ml 1069 ml 908 ml 1071 ml Output Total 1005 ml 1125 ml 300 ml 550 ml 1130 ml Balance 562 ml 437 ml 769 ml 358 ml -59 ml IV Total 1332 ml 555 ml 459 ml 708 ml 462 ml Tube Feeding 175 ml 502 ml 385 ml 150 ml 499 ml Albumin 50 ml 50 ml FFP 445 ml 225 ml Tube Irrigant 60 ml Other 60 ml 60 ml Output Urine Total 175 ml 225 ml 150 ml 100 ml 30 ml Stool Total 830 ml 900 ml 100 ml 400 ml 1100 ml Drainage Total 50 ml 50 ml Laboratory Laboratory Tests Test 08/23/16 08/24/16 16:20 06:15 Prothrombin Time 28.4 28.4 Prothromb Time International 2.5 2.5 Ratio White Blood Count 25.1 Red Blood Count 4.20 Hemoglobin 13.1 Hematocrit 40.9 Mean Corpuscular Volume 97.6 Mean Corpuscular Hemoglobin 31.3 Mean Corpuscular Hemoglobin 32.0 Concent Red Cell Distribution Width 21.6 Platelet Count 130 Mean Platelet Volume 10.0 Neutrophils (%) (Auto) 75.9 Lymphocytes (%) (Auto) 13.1 Monocytes (%) (Auto) 10.0 Eosinophils (%) (Auto) 0.5 Basophils (%) (Auto) 0.5 Neutrophils # (Auto) 19.0 Lymphocytes # (Auto) 3.3 Monocytes # (Auto) 2.5 Eosinophils # (Auto) 0.1 Basophils # (Auto) 0.1 CBC Comment AUTO DIFF Differential Comment AUTO DIFF CONFIRMED Sodium Level 143 Potassium Level 4.6 Chloride Level 106 Carbon Dioxide Level 16.3 Anion Gap 21 Blood Urea Nitrogen 124 Creatinine 6.63 Estimat Glomerular Filtration 8 Rate Random Glucose 155 Calcium Level 8.2 Total Bilirubin 16.2 Aspartate Amino Transf 501 (AST/SGOT) Alanine Aminotransferase 233 (ALT/SGPT) Alkaline Phosphatase 152 Total Protein 5.9 Albumin 2.6 Date/Time Procedure Status Source Growth 08/20/16 15:09 Aerobic Blood Culture - Preliminary Resulted Blood Peripheral NO GROWTH IN 4 DAYS 08/20/16 15:09 Anaerobic Blood Culture - Preliminary Resulted Blood Peripheral NO GROWTH IN 4 DAYS 08/20/16 15:00 Gram Stain - Final Complete Fluid Peritoneal Fluid 08/20/16 15:00 Body Fluid Culture - Final Complete Fluid Peritoneal Fluid NO GROWTH IN 72 HRS.--AEROBICALLY OR ... Imaging Last Impressions Abdomen/Pelvis CT 08/22/16 0000 Signed Impressions: Service Date/Time: Monday, August 22, 2016 16:16 - CONCLUSION: 1. No definitive findings to explain patient's lactic acidosis. Limited evaluation of the bowel due to lack of IV and oral contrast, demonstrates no evidence for obstruction, infarction, or perforation. 2. Cirrhotic appearing liver with evidence for portal hypertension including moderate ascites and splenomegaly. 3. Trace left and small to moderate right pleural effusionswith associated airspace disease in the lower lobes. 4. 9 mm solid nodule in the right lower lobe, new since 2010. Followup examination in 3 months to document stability per 2017 Fleischner criteria is recommended. Sung Gomez MD Abdomen X-Ray 08/22/16 0000 Signed Impressions: Service Date/Time: Monday, August 22, 2016 09:35 - CONCLUSION: Nonspecific abdomen. K. Salvatore Santoro MD Chest X-Ray 08/21/16 0600 Signed Impressions: Service Date/Time: Sunday, August 21, 2016 04:22 - CONCLUSION: 1. Improving bibasilar densities. 2. Nasogastric tube with tip in stomach. Jeremy Garcia MD Upper Extremity Ultrasound 08/21/16 0000 Signed Impressions: Service Date/Time: Sunday, August 21, 2016 20:10 - CONCLUSION: No evidence of deep venous thrombosis. Visualization was suboptimal. Kevin Hadley MD Hepatobiliary Scan Nuclear Medicine 08/11/16 0000 Signed Impressions: Service Date/Time: July 10:13 - CONCLUSION: 1. Normal HIDA scan confirming patency of the cystic and common bile ducts. 2. Normal gallbladder EF. 3. The patient was asymptomatic with administration of CCK. Sung Gomez MD Cholangiopancreatography MRI 08/11/16 0000 Signed Impressions: Service Date/Time: July 08:38 - CONCLUSION: 1. Hepatosplenomegaly 2. Distended gallbladder otherwise no evidence of biliary obstructive disease. 3. Small to moderate ascites 4. Altered flow in the portal vein which may be indicative of portal hypertension. 5. No other significant abnormalities identified. Steve Acuna MD Abdomen Ultrasound 08/10/16 0000 Signed Impressions: Service Date/Time: Wednesday, August 10, 2016 14:47 - CONCLUSION: There is no significant ascites. Tong Read MD FACR Physical Exam HEENT: Normocephalic; atraumatic + jaundice CHEST: Resp shallow, labored, course breath sounds, tachypneic CARDIAC: Tachy, regular ABDOMEN: Abdomen soft, distended, hepatomegaly. bowel sounds are hypoactive EXTREMITIES: bilateral LE cool, pulses present SKIN: + jaundice. CUSTOMS GUARD: Lethargic/confused- restless. Assessment and Plan Plan ASSESSMENT: - Elevated LFTs, likely secondary to acute hepatitis B. Pt with past hx of heavy ETOH use, now drinks 1 beer per day for several years (has rx at [facility]). Denies any known hx of liver cirrhosis or gallbladder disease. Does have hx of CLL. US (08/10/16)---> hepatomegaly with diffusely coarse hepatic echogenicity similar to prior CT examination consistent with early cirrhotic changes other differential consideration includes leukemic infiltration in this patient with a history of leukemia. Persistent splenomegaly with a small amount of ascites likely due to portal hypertension. Again leukemic infiltration is in the differential. Sludge and small number of stones in the gallbladder with associated gallbladder wall thickening and pericholecystic fluid suspect the gallbladder wall thickening and pericholecystic fluid or due to patient's ascites on the sludge/stones or chronic in nature. MRCP (08/11/16)-----> 1. Hepatosplenomegaly 2. Distended gallbladder otherwise no evidence of biliary obstructive disease. Small to moderate ascites Altered flow in the portal vein which may be indicative of portal hypertension. HIDA (08/11/16)----> 1. Normal HIDA scan confirming patency of the cystic and common bile ducts. 2. Normal gallbladder EF. 3. The patient was asymptomatic with administration of CCK. AFP 1.6, iron sat 21.1%, ferritin 793, Ceruloplasmin 45, alpha 1 antitrypsin 235, HA negative, ASMA negative, AMA neg. This is most likely secondary to acute hepatitis B. He also has worsening renal function and is being treated for possible hepatorenal syndrome by renal- midodrine, octreotide. Worsening liver failure and renal function. T. Bili 15.7, AST 680, ALT 307, Alk Phosph 149. Worsening coagulopathy with PT-62.3, INR 5.2. No active bleeding. Spoke to Dr. Novoa at [facility] hepatology department, patient is not a candidate for transplant and was not accepted as medical management transfer, as they do not feel that they have anything to offer at their facility that we cannot provide, given the fact that he is not a transplant candidate 08/19. Mucomyst BID, Octreotide, Midodrine, Baraclude. Worsening condition, MELD is now 45, pt is in liver failure with worsening renal/liver function. Declined at [facility] for transfer. Pt with extremely poor prognosis - Acute hepatitis B, with Heb Bs Ag (+), Hep B Core IgM ab (+), viral load 17, 000,000 BE ag pos. Baraclude. - Hepatic encephalopathy. Lactulose. Xifaxan. - Liver cirrhosis with possible portal vein thrombosis. Pt appears to be going into fulminant liver failure. Declined at [facility] for transfer. - Ascites. US with small amount of ascites, not amenable to paracentesis on . Had paracentesis at bedside on 08/18/16 and on 08/20/16 with removal of 2L on 08/20. Peritoneal WBC 82, RBC 629. Peritoneal culture no growth 24 hours (08/20). Pt with worsening leukocytosis and elevated lactic acid. Rpt. CT as above, moderate ascites, INR elevated, cant have paracentesis. Likely would reaccumulate. - Hepatitis C Antibodies (+). viral load <15. HE DOES NOT HAVE AN ACTIVE HCV INFECTION. This is either a false positive or he cleared the the virus on his own. - Chronic constipation, takes Linzess, Lactulose at home. S/P Miralax. On Lactulose. Worsening distention. Going for CT scan. - Hepatic Encephalopathy. Ammonia level 43. Lactulose, Xifaxan. Remains somnolent, AMS is likely multifactorial at this point. - ARF/hepatorenal syndrome with worsening renal function, decreasing UOP, and electrolyte abnormalities. Octreotide, Midodrine. Albumin. Avoid dye study and nephrotoxins.Nephrology following. - Worsening Leukocytosis, Lactic acidosis. Abdomen/Pelvis CT (08/22/16)-----> 1. No definitive findings to explain patient's lactic acidosis. Limited evaluation of the bowel due to lack of IV and oral contrast, demonstrates no evidence for obstruction, infarction, or perforation. 2. Cirrhotic appearing liver with evidence for portal hypertension including moderate ascites and splenomegaly. 3. Trace left and small to moderate right pleural effusions with associated airspace disease in the lower lobes. 4. 9 mm solid nodule in the right lower lobe, new since 2010. Followup examination in 3 months to document stability per 2017 Fleischner criteria is recommended. Pt does have worsening ascites/distention. He is on Cefepime, Zyvox. ? Rpt. Paracentesis with cx. WBC 25.1. ID following - Hyponatremia, Chronic pain, COPD, Gout, Anxiety/Depression per primary - Chronic lymphocytic leukemia and 2014 and treated with Rituxan/Bendamustine x 6 and completed this in May of 2014. He is followed by Dr. Ball. PLAN: - Nepro w/goal rate of 40 ml/hr - Cont. Abx per ID recommendations - Cont. Mucamyst - Cont. Baraclude - Cont. Lactulose - Cont. Xifaxan - Midodrine, Octreotide per renal - Monitor labs - Renal following - ID following - CCM following - Palliative care following, attempting to find son, they do have a name, but have not had luck in locating him so far. - Per Dr. Novoa at [facility], patient is not a candidate for transplant. Not accepted for tx, as they feel that they do not have anything to offer that cannot be done at this facility, given the fact that he is not a candidate for transplant. - Pt is in liver failure and has poor prognosis, recommend comfort measures once family identified and contacted. - The pt was seen and examined by myself and Dr Hyman and this note is written on his behalf Michelle Rajan Aug 24, 2016 15:43
[2016-08-24] MEDS ORDERED: SODIUM CHLOR 0.9% 1000 ML INJ 1,000 ML IV ONE (16:00)
[2016-08-24] MEDS ORDERED: PROPOFOL 1000 MG/100 ML INJ 100 ML IV SCH (16:00)
[2016-08-24] MEDS ORDERED: ROCURONIUM INJ 100 MG/10 ML VIAL IV ONE (16:00)
[2016-08-24] MEDS ORDERED: ETOMIDATE 40 MG/20 ML VIAL IV PUSH ONE (16:00)
[2016-08-24] MEDS ORDERED: TERBUTALINE INJ 1 MG/ML AMP SQ PRN (16:15)
--- NOTE | 2016-08-24 16:19 | PD.PROCEDR ---
Procedure Note Procedure DATE: 08/24/2016 PROCEDURE: Orotracheal intubation INDICATION: Acute hypoxemic hypercapnic respiratory failure DETAILS OF PROCEDURE The patient was placed in optimal position and preoxygenated with 100% FiO2 via bag valve mask. At the start oxygen saturation was 95%. The patient was administered 20 mg etomidate IV. I entered the oropharynx with a size 4 GVL glidescope laryngoscope blade and obtained a grade 3 view of the airway. On single attempt a size 8.5 cuffed endotracheal tube was passed through the vocal cords. Correct tube location was confirmed with end tidal CO2 detector and by auscultating over bilateral lung feliz. The endotracheal tube was secured with adhesive tape at a depth of 24 cm at the lips. The patient was connected to the ventilator. The patient tolerated the procedure well without any apparent complications. Oxygen saturations were maintained greater than 95% all times. STAT chest x-ray pending at time of dictation. Delmar Hair MD Aug 24, 2016 16:19
[2016-08-24] MEDS: fentaNYL DRIP 250 ML IV SCH (16:49)
--- NOTE | 2016-08-24 16:53 | RADRPT ---
EXAM DATE/TIME: 08/24/2016 16:18 [place] COMPARISON: CT ABDOMEN & PELVIS W/O CONTRAST, August 22, 2016, 16:16. CHEST SINGLE AP, August 21, 2016, 4:22. INDICATIONS : Post intubation. MEDICAL HISTORY : Cardiovascular disease. Hypertension Chronic obstructive pulmonary disease. SURGICAL HISTORY : None. ENCOUNTER: Initial ACUITY: 1 day PAIN SCORE: Non-responsive. LOCATION: Bilateral chest FINDINGS: A single portable frontal view of the chest shows the tip of the endotracheal tube 1 cm from the marcelino na. Left subclavian central line with the tip in the SVC. No pneumothorax. Bibasilar consolidations a re unchanged. Heart is mildly enlarged but stable. Bony structures are unremarkable. CONCLUSION: 1. Unchanged bibasilar infiltrates/effusions. 2. Endotracheal tube. David Crepso Jr., MD on August 24, 2016 at 16:50 Board Certified Radiologist. This report was verified electronically.
[2016-08-24] MEDS ORDERED: PHENYLEPHRINE INJ 160 MG in DEXTROSE 5% IN WATE 500 ML INJ 484 ML IV SCH ×2 (17:00)
[2016-08-24] MEDS: PHYTONADIONE 5 MG TAB DOBHOFF SCH (17:08)
[2016-08-24 17:33] LABS: BLOOD GAS BASE EXCESS -17.9 mmol/L (-2-2); BLOOD GAS CARBOXYHEMOGLOBIN 0.8 % (0-4); BLOOD GAS HCO3 11 mmol/L (22-26); BLOOD GAS METHEMOGLOBIN 0.9 % (0-2); BLOOD GAS O2 HGB SATURATION 97 % (90-100); BLOOD GAS OXYGEN CONTENT 17.6 Vol % (12.0-20.0); BLOOD GAS PCO2 45 mmHg (38-42); BLOOD GAS PO2 205 mmHg (61-120); BLOOD GAS TOTAL HGB 12.6 G/DL (12.0-16.0); TEMP CORR TO 98.6
[2016-08-24 17:34] LABS: CRITICAL VALUE YES; DRAW SITE RT RADIAL; NUMBER OF ARTERIAL PUNCTURES 1; OXYGEN DEVICE VENTILATOR; STAT NO; ULNAR PULSE PRESENT
[2016-08-24] MEDS ORDERED: SODIUM BICARBONATE 8.4% INJ 50 MEQ/50 ML SYR IV PUSH ONE (17:45)
[2016-08-24 19:28] LABS: BLOOD GAS BASE EXCESS -14.6 mmol/L (-2-2); BLOOD GAS CARBOXYHEMOGLOBIN 0.9 % (0-4); BLOOD GAS HCO3 14 mmol/L (22-26); BLOOD GAS METHEMOGLOBIN 1.3 % (0-2); BLOOD GAS O2 HGB SATURATION 87 % (90-100); BLOOD GAS OXYGEN CONTENT 15.8 Vol % (12.0-20.0); BLOOD GAS PCO2 51 mmHg (38-42); BLOOD GAS PO2 76 mmHg (61-120); TEMP CORR TO 98.6
[2016-08-24] MEDS: SODIUM BICARBONATE 8.4% INJ 150 MEQ in WATER STERILE FOR INJ 850 ML IV SCH (19:28)
[2016-08-24 19:29] LABS: CRITICAL VALUE YES; OXYGEN DEVICE VENT
[2016-08-24 19:30] LABS: DRAW SITE RT RADIAL; FIO2 80 %; NUMBER OF ARTERIAL PUNCTURES 1; STAT NO; ULNAR PULSE PRESENT; VENT SETTINGS SEE COMMENTS
[2016-08-24] MEDS ORDERED: SODIUM BICARBONATE 8.4% INJ 50 ML ONE (20:47)
[2016-08-24] MEDS: CHLORHEXIDINE 0.12% (ORAL KIT) 15 ML CUP MT SCH (21:03)
[2016-08-25] VITALS (54 sets, daily range): BP systolic 72–122; BP diastolic 42–60; PULSE 87–106; RESP 24–98; TEMP 98.7–100; O2SAT 97–100
[2016-08-25] MEDS: OCTREOTIDE INJ 50 MCG/ML AMP IV PUSH SCH ×3 (01:00→16:00)
[2016-08-25] MEDS: SODIUM BICARBONATE 8.4% INJ 150 MEQ in WATER STERILE FOR INJ 850 ML IV SCH ×4 (02:19→20:41)
[2016-08-25] MEDS: LACTULOSE SYRUP 20 GM/30 ML CUP PO SCH ×6 (02:20→20:41)
[2016-08-25 04:44] LABS: HEMATOCRIT 39.3 % (39.0-51.0); MEAN CELL VOLUME 98.6 FL (80.0-100.0); MEAN CORPUSCULAR HEMOGLOBIN 32.1 PG (27.0-34.0); MEAN CORPUSCULAR HGB CONC 32.5 % (32.0-36.0); PLATELET COUNT 145 TH/MM3 (150-450); RED BLOOD COUNT 3.98 MIL/MM3 (4.50-5.90); RED CELL DISTRIBUTION WIDTH 21.9 % (11.6-17.2); WHITE BLOOD COUNT 27.3 TH/MM3 (4.0-11.0)
[2016-08-25 05:01] LABS: APTT (PATIENT) 59.2 SEC (24.3-30.1); HEMO FLAGS AUTO DIFF; INTERNATIONAL NORMALIZED RATIO 2.8 RATIO; PROTHROMBIN TIME - PATIENT 32.2 SEC (9.8-11.6)
[2016-08-25 05:35] LABS: BICARBONATE 11.5 MEQ/L (21.0-32.0); CALCIUM-PROTEIN CORRECTED 8.3 MG/DL (8.5-10.1); MAGNESIUM 3.5 MG/DL (1.5-2.5); POTASSIUM 5.7 MEQ/L (3.5-5.1); TOTAL BILIRUBIN ADULT 18.5 MG/DL (0.2-1.0)
[2016-08-25] MEDS: LINEZOLID 600 MG PREMIX 300 ML IV SCH ×2 (06:20→16:07)
[2016-08-25] MEDS: CEFEPIME INJ 1,000 MG in SODIUM CHLORIDE 0.9% INJ 100 ML IV SCH ×3 (06:20→20:45)
[2016-08-25] MEDS: NOREPINEPHRINE-DEXTROSE DRIP 250 ML IV SCH ×3 (06:20→19:07)
[2016-08-25] MEDS: ENTECAVIR 0.5 MG TAB PO SCH (06:21)
[2016-08-25] MEDS: MIDODRINE 5 MG TAB PO SCH ×3 (06:22→16:01)
[2016-08-25] MEDS ORDERED: CALCIUM GLUCONATE 10% 1 GM/10 ML VIAL SLOW IVP ONE (06:30)
[2016-08-25] MEDS ORDERED: SODIUM POLYSTYRENE SULFONATE SUSP 15 GM/60 ML CUP PO ONE (06:30)
[2016-08-25] MEDS ORDERED: SODIUM BICARBONATE 8.4% SOLN 50 MEQ/50 ML VIAL SLOW IVP ONE (06:30)
[2016-08-25] MEDS ORDERED: DEXTROSE 50% IN WATER 50 ML VIAL(D50) IV PUSH ONE (06:30)
[2016-08-25] MEDS ORDERED: INSULIN HUMAN REGULAR 1,000 UNITS/10 ML VIAL IV PUSH ONE (06:45)
[2016-08-25 07:11] LABS: BANDS 8 % (0-6); MYELOCYTES 1 % (0-0); NEUTROPHIL # MANUAL DIFF 24.6 TH/MM3 (1.8-7.7); POLYS (SEG NEUTROPHILS) 80 % (16-70); PROMYELOCYTES 1 % (0-0); WBC DIFF SAMPLE 100
[2016-08-25 07:13] LABS: OVALOCYTES 1+ (NORMAL); PLATELET ESTIMATE SMEAR LOW (NORMAL); PLATELET MORPHOLOGY NORMAL (NORMAL)
[2016-08-25 07:14] LABS: SCAN/DIFF FINAL DIFF MANUAL
[2016-08-25] MEDS: DOCUSATE SODIUM 50 MG/SENNA 8.6 MG TAB PO SCH ×2 (07:20→20:41)
[2016-08-25] MEDS: CHLORHEXIDINE 0.12% (ORAL KIT) 15 ML CUP MT SCH ×2 (08:00→20:00)
[2016-08-25] MEDS ORDERED: DEXTROSE 50% IN WATER 50 ML SYRINGE IV PUSH ONE (08:00)
[2016-08-25] MEDS: ALBUMIN HUMAN 25% 12.5 GM/50 ML BAGP IV SCH ×2 (08:25→20:41)
[2016-08-25] MEDS: PANTOPRAZOLE SODIUM 40 MG VIAL IV PUSH SCH (08:25)
[2016-08-25] MEDS: RIFAXIMIN 550 MG TAB PO SCH ×2 (08:26→20:41)
[2016-08-25] MEDS: PHYTONADIONE 5 MG TAB DOBHOFF SCH (08:26)
[2016-08-25] MEDS: BUDESONIDE-FORMOTEROL 160/4.5 MCG INHALER INH SCH (08:26)
[2016-08-25] MEDS: ACETYLCYSTEINE 20% 6,000 MG/30 ML ORAL SOLN VIAL PO SCH ×2 (08:27→20:59)
[2016-08-25] MEDS: SODIUM CHLORIDE 0.9% FLUSH 10 ML FLUSH IV FLUSH SCH ×2 (08:27→20:43)
[2016-08-25] MEDS: METOPROLOL TARTRATE 25 MG TAB PO SCH ×2 (08:27→20:42)
--- NOTE | 2016-08-25 09:41 | HHI.GIFU ---
Subjective Remarks Intubated yesterday evening for respiratory distress. Resting in bed, sedated on ventilator. Family has not been located. Objective Vitals I&O Vital Signs Date Time Temp Pulse Resp B/P Pulse Ox O2 Delivery O2 Flow Rate FiO2 08/25/16 08:00 80 08/25/16 07:42 98 80 08/25/16 07:15 89 30 88/51 99 08/25/16 07:00 90 30 81/48 99 08/25/16 06:51 91 30 77/46 99 08/25/16 06:45 94 30 74/42 99 08/25/16 06:30 91 30 73/45 99 08/25/16 06:15 93 98 72/47 99 08/25/16 06:00 98 08/25/16 06:00 98 30 76/47 99 08/25/16 05:47 94 30 77/49 99 08/25/16 05:45 92 30 78/45 08/25/16 05:30 96 31 91/54 97 08/25/16 05:15 98 31 91/54 97 08/25/16 05:00 98 30 87/53 97 08/25/16 04:45 95 30 85/53 98 08/25/16 04:30 95 30 79/49 98 08/25/16 04:15 93 30 88/53 98 08/25/16 04:00 80 08/25/16 04:00 91 28 84/52 98 08/25/16 04:00 91 08/25/16 03:45 92 30 88/50 98 08/25/16 03:43 97 80 08/25/16 03:30 94 30 89/54 98 08/25/16 03:15 93 31 89/52 98 08/25/16 03:00 93 30 86/52 98 08/25/16 02:45 96 28 89/50 98 08/25/16 02:30 93 30 89/55 98 08/25/16 02:15 97 30 90/51 98 08/25/16 02:00 97 30 94/55 98 08/25/16 02:00 97 08/25/16 01:45 95 30 86/51 98 08/25/16 01:30 95 30 83/49 98 08/25/16 01:29 98 80 08/25/16 01:15 94 30 85/54 98 08/25/16 01:00 95 30 84/54 98 7/17 00:45 97 30 82/50 98 7 00:30 93 30 81/50 98 08/25/16 00:15 98 30 83/51 98 17 00:15 98 30 83/51 98 17 00:00 95 08/25/16 00:00 80 08/25/16 00:00 95 30 82/53 98 17 23:45 94 30 83/51 98 1217 23:30 94 30 84/53 98 08/24/16 23:15 96 30 82/52 98 08/24/16 23:00 101 30 82/50 98 08/24/16 22:45 95 30 83/53 98 08/24/16 22:30 97 30 83/52 98 08/24/16 22:15 102 30 82/52 98 08/24/16 22:15 98 80 08/24/16 22:00 98 08/24/16 22:00 98 30 82/52 98 17 21:45 99 30 82/50 98 08/24/16 21:30 99 30 81/50 98 08/24/16 21:15 101 30 76/50 98 08/24/16 21:00 104 30 78/51 98 08/24/16 20:45 80 08/24/16 20:45 100 24 79/51 97 08/24/16 20:30 103 24 81/52 97 08/24/16 20:15 103 24 78/50 97 08/24/16 20:00 101 24 80/51 97 08/24/16 20:00 80 17 20:00 101 08/24/16 19:45 97 80 08/24/16 19:30 103 25 81/53 97 08/24/16 19:00 101 24 86/53 98 17 18:00 101 08/24/16 17:00 97 20 92/50 98 08/24/16 17:00 97 08/24/16 16:15 98 100 08/24/16 16:00 106 08/24/16 16:00 99.5 106 19 94/53 92 08/24/16 15:00 105 08/24/16 15:00 105 118/57 92 08/24/16 14:00 108 123/77 91 08/24/16 14:00 108 08/24/16 13:00 107 08/24/16 13:00 107 126/75 92 08/24/16 12:00 110 08/24/16 12:00 100.1 110 28 134/74 91 08/24/16 11:00 107 15 97/59 93 08/24/16 11:00 107 08/24/16 10:00 107 22 113/71 92 08/24/16 10:00 107 I/O 08/24/16 08/24/16 08/24/16 08/25/16 08/25/16 08/25/16 07:00 15:00 23:00 07:00 15:00 23:00 Intake Total 908 ml 1071 ml 2779 ml 2002 ml Output Total 550 ml 1130 ml 626 ml 605.0 ml Balance 358 ml -59 ml 2153 ml 1397.0 ml IV Total 708 ml 462 ml 2310 ml 1575 ml Tube Feeding 150 ml 499 ml 299 ml 307 ml Albumin 50 ml 50 ml 50 ml Tube Irrigant 120 ml 120 ml Other 60 ml Output Urine Total 100 ml 30 ml 26 ml 5 ml Stool Total 400 ml 1100 ml 600 ml 600 ml Tube Feeding Residual Discard 0 ml Drainage Total 50 ml Laboratory Laboratory Tests Test 08/24/16 08/24/16 08/25/16 17:20 19:14 04:30 Blood Gas Puncture Site RT RADIAL RT RADIAL Blood Gas Patient Temperature 98.6 98.6 Blood Gas HCO3 11 14 Blood Gas Base Excess -17.9 -14.6 Blood Gas Oxygen Saturation 97 87 Arterial Blood pH 7.02 7.06 Arterial Blood Partial 45 51 Pressure CO2 Arterial Blood Partial 205 76 Pressure O2 Arterial Blood Oxygen Content 17.6 15.8 Arterial Blood 0.8 0.9 Carboxyhemoglobin Arterial Blood Methemoglobin 0.9 1.3 Blood Gas Hemoglobin 12.6 13.0 Oxygen Delivery Device VENTILATOR VENT Blood Gas Ventilator Setting SEE COMMENTS Blood Gas Inspired Oxygen 80 White Blood Count 27.3 Red Blood Count 3.98 Hemoglobin 12.8 Hematocrit 39.3 Mean Corpuscular Volume 98.6 Mean Corpuscular Hemoglobin 32.1 Mean Corpuscular Hemoglobin 32.5 Concent Red Cell Distribution Width 21.9 Platelet Count 145 Mean Platelet Volume 9.7 Neutrophils (%) (Auto) Lymphocytes (%) (Auto) Monocytes (%) (Auto) Eosinophils (%) (Auto) Basophils (%) (Auto) Neutrophils # (Auto) Lymphocytes # (Auto) Monocytes # (Auto) Eosinophils # (Auto) Basophils # (Auto) CBC Comment AUTO DIFF Differential Total Cells 100 Counted Neutrophils % (Manual) 80 Band Neutrophils % 8 Lymphocytes % 6 Monocytes % 4 Neutrophils # (Manual) 24.6 Myelocytes 1 Promyelocytes 1 Differential Comment FINAL DIFF MANUAL Platelet Estimate LOW Platelet Morphology Comment NORMAL Ovalocytes 1+ Prothrombin Time 32.2 Prothromb Time International 2.8 Ratio Activated Partial 59.2 Thromboplast Time Sodium Level 144 Potassium Level 5.7 Chloride Level 104 Carbon Dioxide Level 11.5 Anion Gap 29 Blood Urea Nitrogen 138 Creatinine 7.69 Estimat Glomerular Filtration 7 Rate Random Glucose 82 Lactic Acid Level 15.5 Calcium Level 7.4 Protein Corrected Calcium 8.3 Phosphorus Level 10.4 Magnesium Level 3.5 Total Bilirubin 18.5 Aspartate Amino Transf 778 (AST/SGOT) Alanine Aminotransferase 243 (ALT/SGPT) Alkaline Phosphatase 146 Ammonia 102 Total Creatine Kinase 245 Total Protein 5.5 Albumin 2.6 Amylase Level 62 Lipase 588 Date/Time Procedure Status Source Growth 08/20/16 15:09 Aerobic Blood Culture - Preliminary Resulted Blood Peripheral NO GROWTH IN 4 DAYS 08/20/16 15:09 Anaerobic Blood Culture - Preliminary Resulted Blood Peripheral NO GROWTH IN 4 DAYS 08/20/16 15:00 Gram Stain - Final Complete Fluid Peritoneal Fluid 08/20/16 15:00 Body Fluid Culture - Final Complete Fluid Peritoneal Fluid NO GROWTH IN 72 HRS.--AEROBICALLY OR ... Imaging Last Impressions Chest X-Ray 08/24/16 0000 Signed Impressions: Service Date/Time: Wednesday, August 24, 2016 16:18 - CONCLUSION: 1. Unchanged bibasilar infiltrates/effusions. 2. Endotracheal tube. David Crespo Jr., MD Abdomen/Pelvis CT 08/22/16 0000 Signed Impressions: Service Date/Time: Monday, August 22, 2016 16:16 - CONCLUSION: 1. No definitive findings to explain patient's lactic acidosis. Limited evaluation of the bowel due to lack of IV and oral contrast, demonstrates no evidence for obstruction, infarction, or perforation. 2. Cirrhotic appearing liver with evidence for portal hypertension including moderate ascites and splenomegaly. 3. Trace left and small to moderate right pleural effusionswith associated airspace disease in the lower lobes. 4. 9 mm solid nodule in the right lower lobe, new since 2010. Followup examination in 3 months to document stability per 2017 Fleischner criteria is recommended. Sung Gomez MD Abdomen X-Ray 08/22/16 Signed Impressions: Service Date/Time: Monday, August 22, 2016 09:35 - CONCLUSION: Nonspecific abdomen. K. Salvatore Santoro MD Upper Extremity Ultrasound 08/21/16 Signed Impressions: Service Date/Time: Sunday, August 21, 2016 20:10 - CONCLUSION: No evidence of deep venous thrombosis. Visualization was suboptimal. Kevin Hadley MD Hepatobiliary Scan Nuclear Medicine 08/11/16 Signed Impressions: Service Date/Time: July 10:13 - CONCLUSION: 1. Normal HIDA scan confirming patency of the cystic and common bile ducts. 2. Normal gallbladder EF. 3. The patient was asymptomatic with administration of CCK. Sung Gomez MD Cholangiopancreatography MRI 08/11/16 Signed Impressions: Service Date/Time: July 08:38 - CONCLUSION: 1. Hepatosplenomegaly 2. Distended gallbladder otherwise no evidence of biliary obstructive disease. 3. Small to moderate ascites 4. Altered flow in the portal vein which may be indicative of portal hypertension. 5. No other significant abnormalities identified. Steve Acuna MD Abdomen Ultrasound 08/10/16 Signed Impressions: Service Date/Time: Wednesday, August 10, 2016 14:47 - CONCLUSION: There is no significant ascites. Tong Read MD FACR Physical Exam HEENT: Normocephalic; atraumatic + jaundice CHEST: OETT to vent. Course breath sounds. CARDIAC: Tachy, regular ABDOMEN: Abdomen soft, mildly distended, hepatomegaly. bowel sounds are hypoactive EXTREMITIES: bilateral LE cool, pulses present SKIN: + jaundice. ELEVATOR BUILDER: Sedated on vent. Assessment and Plan Plan ASSESSMENT: - Elevated LFTs, likely secondary to acute hepatitis B. Pt with past hx of heavy ETOH use, now drinks 1 beer per day for several years (has rx at [facility]). Denies any known hx of liver cirrhosis or gallbladder disease. Does have hx of CLL. US (08/10/16)---> hepatomegaly with diffusely coarse hepatic echogenicity similar to prior CT examination consistent with early cirrhotic changes other differential consideration includes leukemic infiltration in this patient with a history of leukemia. Persistent splenomegaly with a small amount of ascites likely due to portal hypertension. Again leukemic infiltration is in the differential. Sludge and small number of stones in the gallbladder with associated gallbladder wall thickening and pericholecystic fluid suspect the gallbladder wall thickening and pericholecystic fluid or due to patient's ascites on the sludge/stones or chronic in nature. MRCP (08/11/16)-----> 1. Hepatosplenomegaly 2. Distended gallbladder otherwise no evidence of biliary obstructive disease. Small to moderate ascites Altered flow in the portal vein which may be indicative of portal hypertension. HIDA (08/11/16)----> 1. Normal HIDA scan confirming patency of the cystic and common bile ducts. 2. Normal gallbladder EF. 3. The patient was asymptomatic with administration of CCK. AFP 1.6, iron sat 21.1%, ferritin 793, Ceruloplasmin 45, alpha 1 antitrypsin 235, HA negative, ASMA negative, AMA neg. This is most likely secondary to acute hepatitis B. He also has worsening renal function and is being treated for possible hepatorenal syndrome by renal- midodrine, octreotide. Worsening liver failure and renal functio T. Bili 18.5, AST 778, ALT 243, Alk Phosph 146. Worsening coagulopathy with PT-32.2, INR 2.8. No active bleeding. Spoke to Dr. Novoa at [facility]-per hepatology department, patient is not a candidate for transplant and was not accepted as medical management transfer, as they do not feel that they have anything to offer at their facility that we cannot provide, given the fact that he is not a transplant candidate 08/19. Mucomyst BID, Octreotide, Midodrine, Baraclude. Worsening condition, MELD is now 49, pt is in liver failure with worsening renal/liver function. Declined at [facility] for transfer. Pt with extremely poor prognosis with worsening liver and kidney failure. - Acute hepatitis B, with Heb Bs Ag (+), Hep B Core IgM ab (+), viral load 17, 000,000 BE ag pos. Baraclude. - Hepatic encephalopathy. Ammonia 102. Lactulose increased to q4h today. Xifaxan. - Liver cirrhosis with possible portal vein thrombosis. Pt appears to be going into fulminant liver failure. Declined at [facility] for transfer. - Ascites. US with small amount of ascites, not amenable to paracentesis on . Had paracentesis at bedside on 08/18/16 and on 08/20/16 with removal of 2L on 08/20. Peritoneal WBC 82, RBC 629. Peritoneal culture no growth 24 hours (08/20). Pt with worsening leukocytosis and elevated lactic acid. Rpt. CT as above, moderate ascites, INR elevated, cant have paracentesis. Likely would reaccumulate. - Worsening coagulopathy. Vit. K daily - Hepatitis C Antibodies (+). viral load <15. HE DOES NOT HAVE AN ACTIVE HCV INFECTION. This is either a false positive or he cleared the the virus on his own. - Chronic constipation, takes Linzess, Lactulose at home. S/P Miralax. On Lactulose. Worsening distention. Going for CT scan. - ARF/hepatorenal syndrome with worsening renal function, decreasing UOP, and electrolyte abnormalities. Octreotide, Midodrine. Albumin. Avoid dye study and nephrotoxins.Nephrology following. Not a candidate for hemodialysis - Worsening Leukocytosis, Lactic acidosis. Abdomen/Pelvis CT (08/22/16)----> 1. No definitive findings to explain patient's lactic acidosis. Limited evaluation of the bowel due to lack of IV and oral contrast , demonstrates no evidence for obstruction, infarction, or perforation. 2. Cirrhotic appearing liver with evidence for portal hypertension including moderate ascites and splenomegaly. 3. Trace left and small to moderate right pleural effusions with associated airspace disease in the lower lobes. 4. 9 mm solid nodule in the right lower lobe, new since 2010. Followup examination in 3 months to document stability per 2017 Fleischner criteria is recommended. BCx no growth 4 days, Peritoneal fluid no growth 72 hours. He is on Cefepime , Zyvox. WBC 27.3. ID following - HChronic pain, COPD, Gout, Anxiety/Depression per primary - Chronic lymphocytic leukemia and 2014 and treated with Rituxan/Bendamustine x 6 and completed this in May of 2014. He is followed by Dr. Ball. PLAN: - Nepro w/goal rate of 40 ml/hr - Cont. Abx per ID recommendations - Cont. Mucamyst - Cont. Baraclude - Cont. Lactulose (increased dose) - Cont. Xifaxan - Midodrine, Octreotide per renal - Monitor labs - Renal following - ID following - CCM following - Palliative care following, trying to locate son. - Per Dr. Novoa at [facility], patient is not a candidate for transplant. Not accepted for tx, as they feel that they do not have anything to offer that cannot be done at this facility, given the fact that he is not a candidate for transplant. - Pt is in liver failure and has poor prognosis, recommend comfort measure/ hospice care once family identified and contacted. - The pt was seen and examined by myself and Dr Hyman and this note is written on his behalf Michelle Rajan Aug 25, 2016 09:41
--- NOTE | 2016-08-25 09:41 | HHI.HCPN ---
Informed yesterday afternoon nursing staff found paper with many names and phone numbers in patient's wheelchair. Charge nurse was able to speak with one person, Burt #[phone] (cell phone-pay by minutes) or [phone] (work) who appeared knowledgeable with patients past medical history, reports he has been trying to get in touch with the patient for many days. Also reports names on list are patient's friends/acquaintances that would give him rides or attend Monday free concerns at the [facility] with him. 1030am- received call from Burt. He reports he has known the patient for 15+ years, introduces himself as his best friend, very knowledgeable in patient's past history. Able to provide insight into patient's recent history as well. Burt also informs me the patient has never mentioned any family since they have known each other. Per [place] Statutes, medical proxy decision making falls to a close friend. Burt is willing to serve in this role. No return calls from POTENTIAL son matches, not known for sure if these are even family members. 1- JUAN JOSE OSEGUERA AGE 30 [facility] [phone]--no return call 2- JUAN JOSE OSEGUERA AGE 47 [facility] [phone] / [phone] POS CELL-- Received call back from Juan Jose @ #[phone]-- no relationship with patient. 4- JUAN JOSE OSEGUERA AGE 37 [facility] [phone] AND [phone]-- no return call Google search produced following results: #[phone]: just rings unable to leave message; will continue to try #[phone]: just rings unable to leave message; will continue to try #[phone]: just rings unable to leave message; will continue to try #[phone]: just rings unable to leave message; will continue to try Continued to try above numbers, no answer or call back Names on paper found in patient's wheelchair, all friends/acquaintances : Yvonne [phone] Jagdeep [phone] Hope [phone] Jennifer [phone] [facility] [phone] ("Ride") Chantel Luna [phone] Adier [phone] Santos [phone] Tommie [phone] Adrián [phone] [facility] Janna Crespo, [facility] Aug 25, 2016 09:41 [place] [phone] Santos [phone] Tommie [phone] Adrián [phone] [facility] Janna Crespo, [facility] Aug 25, 2016 09:41
--- NOTE | 2016-08-25 10:35 | HHI.CCPN ---
Subjective Remarks/Hospital Course Patient is a is a 70 year old male patient with history of chronic lymphocytic leukemia, in remission, who was admitted to the hospital for evaluation of elevated LFTs. His lab work on 08/09/16 showed elevated LFTs, total bilirubin 2.3, AST 759, ALT 270, alkaline phosphatase 390. US on 08/10/16 showed early cirrhotic change. Gastroenterology was consulted and further workup revealed patient had acute hepatitis B. Hepatitis C was also positive. Patient was placed on Xifaxan and lactulose by GI for elevated ammonia. Admission creatinine was normal but started climbing up by day 2 of admission. Creatinine was 1.3 on 08/13/16 nephrology was consulted for probable hepatorenal syndrome. Patient was placed on IV albumin, octreotide, and Midodrine for possible HRS. Despite these measures, patient's creatinine continued to deteriorate and he becameoliguric. Urine output was only 300 mL in the last 24 hours. AM labs today showed BUN 75 creatinine 3 with a potassium of 6. This was treated with Kayexalate, IV insulin and dextrose Halicat was called due to blood pressure 82/38. Patient was very lethargic and Dr. Brian transferred to ICU. Patient was started Norepinephrine and critical care was consulted. I evaluated the patient immediately. Patient is currently lethargic hypotensive with systolic blood pressure in mid 80s on 4 mcg/m of Levophed. I have ordered 1 L normal saline bolus, and 25 g IV albumin. I placed a left subclavian central line. A bedside ultrasound showed moderate ascites, I performed a paracentesis and removed 600 ml biliary tinged ascitic fluid. GI and Nephrology following. Repeat labs are pending at this time. Started on cefepime 1 g IV every 8 hours. 08/19 No events overnight. Afebrile. Off Levophed. Renal function worse today with Cr: 3.60 from 3.40 with UO: 850 ml in 08/20: Patient is more encephalopathic today, less responsive. Very lethargic, low grade fever. Bedside ultrasound shows reaccumulation of ascites fluid left lower quadrant. Renal function slightly worsened with increasing creatinine, urine output 850 mL in 24 hours. Tachycardic with heart rate in the 130s sinus rhythm, SIRS response most likely due to new infection 08/21: Patient had paracentesis yesterday 2 L. remains critical but slightly improved level of consciousness. Wakes up and following commands but, wakes up and tracks. UO 800 ml in 24 hours, creatinine getting worse. Dr. Ahumada has started IV Bumex BID. Prognosis appears guarded. Liver enzymes slightly trending down 08/22 Patient is lying in bed in NAD. Renal function worse today with Cr:4.91 from 4.28 with UOP:1750ml in 24 hrs 08/23 No events overnight. On 2L oxygen. Cr: 5.71 from 4.91 with UO: 553 ml in 24 hrs. Afebrile. 08/24: Tmax 100.9. Currently 99. On 3 L nasal cannula saturation 92%. Positive BM. Patient is minimally responsive. Subjective 08/25: Intubated for airway protection yesterday. Severely acidotic. Family not available. Worsening renal function. Worsening hepatic failure. Actively dying. Objective Vital Signs Date Time Temp Pulse Resp B/P Pulse Ox O2 Delivery O2 Flow Rate FiO2 08/25/16 10:00 96 08/25/16 09:00 30 106/55 100 08/25/16 08:00 80 08/25/16 08:00 98.7 08/24/16 07:25 Nasal Cannula 08/23/16 19:49 2.00 Intake and Output 08/24/16 08/24/16 08/25/16 08:00 16:00 00:00 Intake Total 908 ml 1071 ml 2779 ml Output Total 550 ml 1130 ml 626 ml Balance 358 ml -59 ml 2153 ml Result Diagram: 08/25/16 0430 08/25/16 0430 Other Results Microbiology Date/Time Procedure Status Source Growth 08/20/16 15:09 Aerobic Blood Culture - Preliminary Resulted Blood Peripheral NO GROWTH IN 4 DAYS 08/20/16 15:09 Anaerobic Blood Culture - Preliminary Resulted Blood Peripheral NO GROWTH IN 4 DAYS 08/20/16 15:00 Gram Stain - Final Complete Fluid Peritoneal Fluid 08/20/16 15:00 Body Fluid Culture - Final Complete Fluid Peritoneal Fluid NO GROWTH IN 72 HRS.--AEROBICALLY OR ... Imaging Last 72 hours Impressions Chest X-Ray 08/24/16 0000 Signed Impressions: Service Date/Time: Wednesday, August 24, 2016 16:18 - CONCLUSION: 1. Unchanged bibasilar infiltrates/effusions. 2. Endotracheal tube. David Crespo Jr., MD Objective Remarks GENERAL: 70-year-old male, critically ill currently resting in bed unresponsive SKIN: Jaundiced. Cool and dry. HEAD: Normocephalic. EYES: Pupils are about 3 mm bilaterally and reactive . Positive scleral icterus. No injection or drainage. ENT: Oral cavity is dry. Airway patent NECK: Supple, trachea midline. No JVD or lymphadenopathy. CARDIOVASCULAR: Tachycardic, RR. S1, S2.Currently without murmurs, gallops, or rubs. RESPIRATORY: Breath sounds diminished at the bases bilaterally. No accessory muscle use. GASTROINTESTINAL: Abdomen soft, distended, mildly tender to palpation, s/p paracentesis with 2L fluid removed 08/20/16 MUSCULOSKELETAL: No cyanosis. Lower ext 2+ edema. Chronic venous stasis changes BACK: Nontender without obvious deformity. No CVA tenderness. NEURO: Patient is minimally unresponsive on the ventilator. Occasionally moves bilateral upper x-rays spontaneously but not to command. Procedures None. A/P Assessment and Plan NEURO/PSYCH: Acute toxic metabolic encephalopathy Hepatic encephalopathy EtOH use Chronic pain syndrome Propofol/fentanyl drips for sedation/analgesia while intubated Goal of RA SS -2 Daily sedation vacation - Encephalopathy secondary to metabolic hyperammonemia, Uremia, sepsis. Ammonia level greater than 100 today - Continue lactulose 30ml Q4 and Xifaxan 550 twice a day. Daily thiamine 100 mg IV daily RESP: Bilateral lower lobe infiltrates/atelectasis History of COPD Right lower lobe pulmonary nodule 9 mm - 3 month follow-up recommended - Continue with oxygen keep sat >92% - DuoNeb every 6 hours with albuterol nebs every 2 hours when necessary when necessary On Symbicort 160/4.52 puffs twice a day will be switched to Pulmicort twice a day while intubated CV: Shock - SIRS/sinus tachycardia Lactic acidosis Currently on Louie-Synephrine/norepinephrine to maintain MAP greater than 65 -Discontinue Lopressor 25mg BID- Monitor HR and BP keep MAP>65mmHg - Serial lactic acid monitoring. Last 15.5 Elevated lactic acid likely 2nd sepsis and Liver disease -On Midodrine 5 mg 3 times a day GI: Hepatorenal syndrome/likely Acute hepatic failure Acute hepatitis B/IgM positive with viral load 17 million Liver cirrhosis Hepatitis C antibody positive Hyperammonia - GI and nephrology following. GI had contacted [facility] for transplant eval-GI spoke to Dr. Novoa at [facility]- states that he is not a candidate for transplant. - Trial of Baraclude 0.5 mg daily for Hep B treatment - Continue supportive care, with IV albumin 12.5 g IV every 12 hours, Midodrine 10 mg 3 times a day, Octreotide 50 mcg subcutaneous every 8 hours and Mucomyst 600 twice a day - s/p paracentesis 08/18/16 with 600 mL of biliary tinged ascites fluid removed- fluid studies sent. Repeat paracentesis 08/20 with 2L removed -CT abdomen/pelvis 08/22: Cirrhosis of liver with evidence of portal HTN, ascites. -On tube feeds via NGT- Nepro with goal rate 40ml/hr On lactulose/Xifaxan as above. See orders Renal//FEN: Acute kidney failure/hepatorenal syndrome Hyperkalemia - Monitor renal function, I/O's, avoid nephrotoxins. Interval worsening of kidney function -Recommend increasing -Renal is following- Dr. Cruz, discussed with renal patient is not a candidate for HD prognosis poor given likely HRS, -US abdomen: No hydronephrosis -Continue IVF to sterile water with 3 amp bicarb @150ml/hr Bicarbonate, calcium, D50 insulin given. Recheck potassium in 3 hours ID: Severe sepsis Leukocytosis E faecalis UTI - Continue with abx ( Cefepime, Zyvox) avoid Vanco given his renal dysfunction. monitor for signs of infections ( Fever, WBC) follow up on cxs- NGTD - ID is following 08/18 Urine cx: Enterococcus faecalis 08/10 Urine cx: Staph Epi F/U Repeat cultures, blood urine and sputum HEME: History CLL Coagulopathy secondary to liver failure Leukocytosis Thrombocytopenia - Monitor CBC, CMP, INR 2.5 today, for 2units FFP per GI. - FFP has been given past, Vit K 10 mg 2 days ordered. Recheck coags in a.m. ENDO: History of gout - SSI if needed for glycemic control PROPH: - Bilateral lower extremity SCDs. Avoid chemical DVT prophylaxis secondary to coagulopathy. IV Protonix LINES: - Left subclavian central line placed 08/18 Palliative care is following Level 3 Critically ill with encephalopathy SIRS, worsening renal failure most likely from hepatorenal syndrome. Prognosis very poor Delmar Hair MD Aug 25, 2016 10:35
[2016-08-25 12:02] LABS: BLOOD GAS BASE EXCESS -12.5 mmol/L (-2-2); BLOOD GAS CARBOXYHEMOGLOBIN 0.9 % (0-4); BLOOD GAS HCO3 14 mmol/L (22-26); BLOOD GAS METHEMOGLOBIN 1.2 % (0-2); BLOOD GAS O2 HGB SATURATION 96 % (90-100); BLOOD GAS OXYGEN CONTENT 18.7 Vol % (12.0-20.0); BLOOD GAS PCO2 40 mmHg (38-42); BLOOD GAS PO2 147 mmHg (61-120); BLOOD GAS TOTAL HGB 13.6 G/DL (12.0-16.0); CRITICAL VALUE YES; TEMP CORR TO 98.6
[2016-08-25 12:03] LABS: OXYGEN DEVICE VENTILATOR; VENT SETTINGS 24/600/PEEP8
[2016-08-25 12:04] LABS: DRAW SITE RT RADIAL; FIO2 80 %; NUMBER OF ARTERIAL PUNCTURES 1; STAT NO; ULNAR PULSE PRESENT
--- NOTE | 2016-08-25 13:55 | HHI.NPPN ---
Subjective Additional Remarks Renal function is worse. intubated yesterday Objective Data Data 08/24/16 08/25/16 19:00 07:00 Intake Total 1071 ml 2779 ml Output Total 1130 ml 626 ml Balance -59 ml 2153 ml IV Total 462 ml 2310 ml Tube Feeding 499 ml 299 ml Albumin 50 ml 50 ml Tube Irrigant 120 ml Other 60 ml Output Urine Total 30 ml 26 ml Stool Total 1100 ml 600 ml Vital Signs Date Time Temp Pulse Resp B/P Pulse Ox O2 Delivery O2 Flow Rate FiO2 08/25/16 13:22 97 60 08/25/16 10:50 99 80 08/25/16 10:00 96 08/25/16 09:00 106 30 106/55 100 08/25/16 08:45 97 30 122/60 99 08/25/16 08:30 88 30 93/55 99 08/25/16 08:15 87 30 97/51 99 08/25/16 08:00 80 08/25/16 08:00 87 08/25/16 08:00 98.7 87 30 96/53 99 08/25/16 07:45 87 30 93/52 99 08/25/16 07:42 98 80 08/25/16 07:30 88 30 87/48 99 08/25/16 07:15 89 30 88/51 99 08/25/16 07:15 89 30 88/51 99 08/25/16 07:00 90 30 81/48 99 08/25/16 07:00 90 30 81/48 99 08/25/16 06:51 91 30 77/46 99 08/25/16 06:45 94 30 74/42 99 08/25/16 06:30 91 30 73/45 99 08/25/16 06:15 93 98 72/47 99 08/25/16 06:00 98 08/25/16 06:00 98 30 76/47 99 08/25/16 05:47 94 30 77/49 99 08/25/16 05:45 92 30 78/45 08/25/16 05:30 96 31 91/54 97 08/25/16 05:15 98 31 91/54 97 08/25/16 05:00 98 30 87/53 97 08/25/16 04:45 95 30 85/53 98 08/25/16 04:30 95 30 79/49 98 7/13/17 04:15 93 30 88/53 98 13/17 04:00 80 08/25/16 04:00 91 28 84/52 98 08/25/16 04:00 91 17 03:45 92 30 88/50 98 13/17 03:43 97 80 17 03:30 94 30 89/54 98 13/17 03:15 93 31 89/52 98 08/25/16 03:00 93 30 86/52 98 08/25/16 02:45 96 28 89/50 98 08/25/16 02:30 93 30 89/55 98 08/25/16 02:15 97 30 90/51 98 08/25/16 02:00 97 30 94/55 98 08/25/16 02:00 97 08/25/16 01:45 95 30 86/51 98 08/25/16 01:30 95 30 83/49 98 08/25/16 01:29 98 80 08/25/16 01:15 94 30 85/54 98 08/25/16 01:00 95 30 84/54 98 08/25/16 00:45 97 30 82/50 98 13/17 00:30 93 30 81/50 98 08/25/16 00:15 98 30 83/51 98 08/25/ 00:15 98 30 83/51 98 13/17 00:00 95 17 00:00 80 17 00:00 95 30 82/53 98 12/17 23:45 94 30 83/51 98 08/24/17 23:30 94 30 84/53 98 712/17 23:15 96 30 82/52 98 12/17 23:00 101 30 82/50 98 7/12/17 22:45 95 30 83/53 98 712/17 22:30 97 30 83/52 98 712/17 22:15 102 30 82/52 98 7/12/17 22:15 98 80 712/17 22:00 98 12/17 22:00 98 30 82/52 98 7/12/17 21:45 99 30 82/50 98 7/12/17 21:30 99 30 81/50 98 12/17 21:15 101 30 76/50 98 08/24/16 21:00 104 30 78/51 98 08/24/16 20:45 80 08/24/16 20:45 100 24 79/51 97 08/24/16 20:30 103 24 81/52 97 08/24/16 20:15 103 24 78/50 97 08/24/16 20:00 101 24 80/51 97 08/24/16 20:00 80 08/24/16 20:00 101 08/24/16 19:45 97 80 08/24/16 19:30 103 25 81/53 97 08/24/16 19:00 101 24 86/53 98 08/24/16 18:00 101 08/24/16 17:00 97 20 92/50 98 08/24/16 17:00 97 08/24/16 16:15 98 100 08/24/16 16:00 106 08/24/16 16:00 99.5 106 19 94/53 92 08/24/16 15:00 105 08/24/16 15:00 105 118/57 92 08/24/16 14:00 108 123/77 91 08/24/16 14:00 108 -: 08/25/16 0430 08/25/16 0430 Physical Exam General Appearance: Well Nourished, Pale Neck Neck Exam: Neck Supple Pulmonary Resp Exam: Clear Bilaterally, Breath Sounds Equal Cardiology CV Exam: Regular, Normal Sinus Rhythm Gastrointestinal/Abdomen GI Exam: Soft, Distended Extremeties Extremities Exam: Moderate Edema Assessment/Plan Problem List: (1) Acute renal failure Plan: Worsening renal function: poor prognosis, Hep B uop Improved Cr higher Apparently not a candidate for liver transplantation. he indeed has HRS, his condition is terminal. palliative care consult. poor candidate for hemodialysis outcome would not change with liver failure as bad prognostic indicator he is on Midodrine/Octreotide/albumin UOP 1.7 L Acidosis on IVF D5 AND Biacrb 150 meq 150 cc.hr worse appears terminal Lactic acid 15 palliative care involved to locate family and friends (2) Acute hepatitis B Plan: Acute infection GI is following. Notes were reviewed. (3) Acute liver disease Plan: Elevated liver enzymes due to hepatitis B (4) Leukemia Plan: History of CLL in the past (5) Hyponatremia Plan: Resolved. Problem Qualifiers (1) Leukemia: Qualified Code: C95.10 - Chronic leukemia, not having achieved remission Dante Cruz MD Aug 25, 2016 13:55
--- NOTE | 2016-08-25 15:18 | HHI.IDPN ---
Note Infectious Disease Note Patient is intubated 07/25. On the vent. Not following commands. Afebrile. Has low grade fever. Started on tube feedings. Tube feeds coming through his oral cavity. PAST MEDICAL HISTORY: 1. COPD. 2. Chronic lymphocytic leukemia treated with chemotherapy until May of 2014. 3. Gout. 4. Anxiety. 5. Depression. 6. Squamous cell carcinoma of the back in 2010. 7. Hip surgery. ALLERGIES: NO KNOWN DRUG ALLERGIES. MEDICATIONS: OBJECTIVE: Vital Signs Date Time Temp Pulse Resp B/P Pulse Ox O2 Delivery O2 Flow Rate FiO2 08/25/16 14:00 92 08/25/16 14:00 92 08/25/16 13:22 97 60 08/25/16 12:00 93 08/25/16 12:00 93 08/25/16 10:50 99 80 08/25/16 10:00 96 08/25/16 09:00 106 30 106/55 100 08/25/16 08:45 97 30 122/60 99 08/25/16 08:30 88 30 93/55 99 08/25/16 08:15 87 30 97/51 99 08/25/16 08:00 80 08/25/16 08:00 87 08/25/16 08:00 98.7 87 30 96/53 99 08/25/16 07:45 87 30 93/52 99 08/25/16 07:42 98 80 08/25/16 07:30 88 30 87/48 99 08/25/16 07:15 89 30 88/51 99 08/25/16 07:15 89 30 88/51 99 08/25/16 07:00 90 30 81/48 99 08/25/16 07:00 90 30 81/48 99 08/25/16 06:51 91 30 77/46 99 08/25/16 06:45 94 30 74/42 99 08/25/16 06:30 91 30 73/45 99 08/25/16 06:15 93 98 72/47 99 08/25/16 06:00 98 08/25/16 06:00 98 30 76/47 99 08/25/16 05:47 94 30 77/49 99 08/25/16 05:45 92 30 78/45 08/25/16 05:30 96 31 91/54 97 08/25/16 05:15 98 31 91/54 97 08/25/16 05:00 98 30 87/53 97 08/25/16 04:45 95 30 85/53 98 08/25/16 04:30 95 30 79/49 98 17 04:15 93 30 88/53 98 08/25/16 04:00 80 08/25/16 04:00 91 28 84/52 98 08/25/16 04:00 91 08/25/16 03:45 92 30 88/50 98 08/25/16 03:43 97 80 17 03:30 94 30 89/54 98 08/25/16 03:15 93 31 89/52 98 08/25/16 03:00 93 30 86/52 98 08/25/16 02:45 96 28 89/50 98 08/25/16 02:30 93 30 89/55 98 08/25/16 02:15 97 30 90/51 98 08/25/16 02:00 97 30 94/55 98 08/25/16 02:00 97 08/25/16 01:45 95 30 86/51 98 08/25/16 01:30 95 30 83/49 98 08/25/16 01:29 98 80 08/25/16 01:15 94 30 85/54 98 08/25/16 01:00 95 30 84/54 98 08/25/16 00:45 97 30 82/50 98 08/25/16 00:30 93 30 81/50 98 08/25/16 00:15 98 30 83/51 98 08/25/16 00:15 98 30 83/51 98 08/25/16 00:00 95 08/25/16 00:00 80 08/25/16 00:00 95 30 82/53 98 1217 23:45 94 30 83/51 98 17 23:30 94 30 84/53 98 1217 23:15 96 30 82/52 98 08/24/16 23:00 101 30 82/50 98 12/17 22:45 95 30 83/53 98 17 22:30 97 30 83/52 98 12/17 22:15 102 30 82/52 98 12/17 22:15 98 80 17 22:00 98 08/24/16 22:00 98 30 82/52 98 08/24/16 21:45 99 30 82/50 98 08/24/16 21:30 99 30 81/50 98 08/24/16 21:15 101 30 76/50 98 08/24/16 21:00 104 30 78/51 98 08/24/16 20:45 80 08/24/16 20:45 100 24 79/51 97 08/24/16 20:30 103 24 81/52 97 08/24/16 20:15 103 24 78/50 97 08/24/16 20:00 101 24 80/51 97 08/24/16 20:00 80 08/24/16 20:00 101 08/24/16 19:45 97 80 08/24/16 19:30 103 25 81/53 97 08/24/16 19:00 101 24 86/53 98 08/24/16 18:00 101 08/24/16 17:00 97 20 92/50 98 08/24/16 17:00 97 08/24/16 16:15 98 100 08/24/16 16:00 106 08/24/16 16:00 99.5 106 19 94/53 92 08/24/16 08/24/16 08/25/16 15:00 23:00 07:00 Intake Total 1071 ml 2779 ml Output Total 1130 ml 626 ml Balance -59 ml 2153 ml IV Total 462 ml 2310 ml Tube Feeding 499 ml 299 ml Albumin 50 ml 50 ml Tube Irrigant 120 ml Other 60 ml Output Urine Total 30 ml 26 ml Stool Total 1100 ml 600 ml Laboratory Tests Test 08/24/16 08/25/16 06:15 04:30 White Blood Count 25.1 TH/MM3 27.3 TH/MM3 Red Blood Count 4.20 MIL/MM3 3.98 MIL/MM3 Hemoglobin 13.1 GM/DL 12.8 GM/DL Hematocrit 40.9 % 39.3 % Mean Corpuscular Volume 97.6 FL 98.6 FL Mean Corpuscular Hemoglobin 31.3 PG 32.1 PG Mean Corpuscular Hemoglobin 32.0 % 32.5 % Concent Red Cell Distribution Width 21.6 % 21.9 % Platelet Count 130 TH/MM3 145 TH/MM3 Mean Platelet Volume 10.0 FL 9.7 FL Neutrophils (%) (Auto) 75.9 % % Lymphocytes (%) (Auto) 13.1 % % Monocytes (%) (Auto) 10.0 % % Eosinophils (%) (Auto) 0.5 % % Basophils (%) (Auto) 0.5 % % Neutrophils # (Auto) 19.0 TH/MM3 TH/MM3 Lymphocytes # (Auto) 3.3 TH/MM3 TH/MM3 Monocytes # (Auto) 2.5 TH/MM3 TH/MM3 Eosinophils # (Auto) 0.1 TH/MM3 TH/MM3 Basophils # (Auto) 0.1 TH/MM3 TH/MM3 CBC Comment AUTO DIFF AUTO DIFF Differential Comment AUTO DIFF FINAL DIFF CONFIRMED MANUAL Differential Total Cells 100 Counted Neutrophils % (Manual) 80 % Band Neutrophils % 8 % Lymphocytes % 6 % Monocytes % 4 % Neutrophils # (Manual) 24.6 TH/MM3 Myelocytes 1 % Promyelocytes 1 % Platelet Estimate LOW Platelet Morphology Comment NORMAL Ovalocytes 1+ Laboratory Tests Test 08/24/16 08/25/16 08/25/16 06:15 04:30 12:18 Sodium Level 143 MEQ/L 144 MEQ/L Potassium Level 4.6 MEQ/L 5.7 MEQ/L Chloride Level 106 MEQ/L 104 MEQ/L Carbon Dioxide Level 16.3 MEQ/L 11.5 MEQ/L Anion Gap 21 MEQ/L 29 MEQ/L Blood Urea Nitrogen 124 MG/DL 138 MG/DL Creatinine 6.63 MG/DL 7.69 MG/DL Estimat Glomerular Filtration 8 ML/MIN 7 ML/MIN Rate Random Glucose 155 MG/DL 82 MG/DL Calcium Level 8.2 MG/DL 7.4 MG/DL Total Bilirubin 16.2 MG/DL 18.5 MG/DL Aspartate Amino Transf 501 U/L 778 U/L (AST/SGOT) Alanine Aminotransferase 233 U/L 243 U/L (ALT/SGPT) Alkaline Phosphatase 152 U/L 146 U/L Total Protein 5.9 GM/DL 5.5 GM/DL Albumin 2.6 GM/DL 2.6 GM/DL Lactic Acid Level 15.5 mmol/L 15.0 mmol/L Protein Corrected Calcium 8.3 MG/DL Phosphorus Level 10.4 MG/DL Magnesium Level 3.5 MG/DL Ammonia 102 MCMOL/L Total Creatine Kinase 245 U/L Amylase Level 62 U/L Lipase 588 U/L IMAGING: Abdomen/Pelvis CT 08/22/16 0000 Signed Impressions: Service Date/Time: Monday, August 22, 2016 16:16 - CONCLUSION: 1. No definitive findings to explain patient's lactic acidosis. Limited evaluation of the bowel due to lack of IV and oral contrast, demonstrates no evidence for obstruction, infarction, or perforation. 2. Cirrhotic appearing liver with evidence for portal hypertension including moderate ascites and splenomegaly. 3. Trace left and small to moderate right pleural effusionswith associated airspace disease in the lower lobes. 4. 9 mm solid nodule in the right lower lobe, new since 2010. Followup examination in 3 months to document stability per 2017 Fleischner criteria is recommended. Sung Gomez MD Abdomen X-Ray 08/22/16 0000 Signed Impressions: Service Date/Time: Monday, August 22, 2016 09:35 - CONCLUSION: Nonspecific abdomen. Aleshia Santoro MD Abdomen X-Ray 08/22/16 0000 Signed Impressions: Service Date/Time: Monday, August 22, 2016 09:35 - CONCLUSION: Nonspecific abdomen. Aleshia Santoro MD Chest X-Ray 08/21/16 0600 Signed Impressions: Service Date/Time: Sunday, August 21, 2016 04:22 - CONCLUSION: 1. Improving bibasilar densities. 2. Nasogastric tube with tip in stomach. Jeremy Garcia MD Upper Extremity Ultrasound 08/21/16 0000 Signed Impressions: Service Date/Time: Sunday, August 21, 2016 20:10 - CONCLUSION: No evidence of deep venous thrombosis. Visualization was suboptimal. Kevin Hadley MD Hepatobiliary Scan Nuclear Medicine 08/11/16 0000 Signed Impressions: Service Date/Time: July 10:13 - CONCLUSION: 1. Normal HIDA scan confirming patency of the cystic and common bile ducts. 2. Normal gallbladder EF. 3. The patient was asymptomatic with administration of CCK. Sung Gomez MD Cholangiopancreatography MRI 08/11/16 0000 Signed Impressions: Service Date/Time: July 08:38 - CONCLUSION: 1. Hepatosplenomegaly 2. Distended gallbladder otherwise no evidence of biliary obstructive disease. 3. Small to moderate ascites 4. Altered flow in the portal vein which may be indicative of portal hypertension. 5. No other significant abnormalities identified. Steve Acuna MD Abdomen Ultrasound 08/10/16 0000 Signed Impressions: Service Date/Time: Wednesday, August 10, 2016 14:47 - CONCLUSION: There is no significant ascites. Tong Read MD FACR PHYSICAL EXAMINATION: GENERAL: Intubated on the vent. HEAD, EYES, EARS, NOSE, THROAT: Positive icterus. intubated. tube feeds falling onto pillow via the oral cavity. laying on right side. NECK: No swelling or adenopathy. LUNGS: Bilateral rhonchi. HEART: Regular S1 and S2 without murmurs or rubs or gallops. ABDOMEN: Distended, soft. EXTREMITIES: No clubbing or cyanosis. Trace edema. SKIN: Markedly jaundiced. NEUROLOGIC: Unable to assess. PSYCHIATRIC: Unable to assess. IMPRESSION: 1. Sepsis. likely from peritoneum. However acute hep B could be mimicking infection. 2. ? Aspiration. 3. Acute respiratory failure. 4. Acute renal failure. 5. Hepatic failure. 6. Probable hepatorenal syndrome. 7. Acute hepatitis B, cirrhosis, hepatic encephalopathy. RECOMMENDATIONS: 1. Continue linezolid. 2. Continue cefepime. 3. RN notified about tube feeds. Feeds turned off. 4. Monitor temp. 5. Monitor clinical status. Akhil Bundy MD Aug 25, 2016 15:18
[2016-08-25] MEDS: fentaNYL DRIP 250 ML IV SCH (16:00)
--- NOTE | 2016-08-25 16:10 | HHI.HCPN ---
Reason for visit a. To assist with evaluation and management of symptoms including: dyspnea, pain. b. To assist medical decision maker(s) with: better understanding of current medical conditions; weighing benefits/burdens of medical treatment options; making medical treatment decisions. . Subjective/Interval History Patient seen and assessed in room 517. Patient was intubated and placed on mechanical ventilation for airway protection 08/24/16. He is sedated on and Fentanyl. He is requiring pressor support. He is encephalopathic secondary to metabolic hyperammonemia, Uremia, sepsis. Pertinent labs today: Ammonia 102, WBC 27.3, lactic acid 15.3, BUN 138, creatinine 7.69. Family/friend interactions Decision-making: Patient is incapacitated, will not regain capacity. Single. Questionable son, Juan Jose Rogers, all contacts have declined knowing patient or have not returned calls. No other known family based on friends reports, [employer] , [employer] search and [employer] search. Therefore according to [place] statutes, health care proxy decision-making would fall to close friend. Friend Burt ( #[phone] (cell phone-pay by minutes) or [phone] (work)) who has known patient for the past 15 years is willing to serve as health care proxy decision maker. Spoke with Burt via phone, he elects NO CODE. He wants to come see the patient. He verbalizes the patient was full of life and would not want to live on machines. Burt plans to arrive later this afternoon to discuss goals of care. Later spoke with Burt at bedside, he is emotional about seeing Mr. Rogers like this. He again indicates he has known the patient for 15 years and has never known of any family. He wants to give him more time, he feels still a "little hope" for recovery. He is realistic and understands prognosis is poor given multi-organ failure. He agrees to speak again 08/27/16. . Advance Directives Living Will: Never completed Health Care Surrogate: Never completed Durable Power of Preventive Maintenance Engineer: Never completed Advance Directive Specifics Health Care Surrogate(s): Decision-making: Patient is incapacitated, will not regain capacity. Single. Questionable sonJuan Jose, all contacts have declined knowing patient or have not returned calls. No other known family based on friends reports, [employer] , [employer] search and [employer] search. Therefore according to [place] statutes, health care proxy decision-making would fall to close friend. Friend Burt ( #[phone] (cell phone-pay by minutes) or [phone] (work)) who has known patient for the past 15 years is willing to serve as health care proxy decision maker. Documented care wishes: No documented care wishes are available. . Significant change in goals: NO CODE. Goals remain aggressive at this time short of NO CODE, agree to speak again 08/26/16. . Objective Vital Signs Date Time Temp Pulse Resp B/P Pulse Ox O2 Delivery O2 Flow Rate FiO2 08/25/16 14:00 92 08/25/16 14:00 92 08/25/16 13:22 97 60 08/25/16 12:00 93 08/25/16 12:00 93 08/25/16 10:50 99 80 08/25/16 10:00 96 08/25/16 09:00 106 30 106/55 100 08/25/16 08:45 97 30 122/60 99 08/25/16 08:30 88 30 93/55 99 08/25/16 08:15 87 30 97/51 99 08/25/16 08:00 80 08/25/16 08:00 87 08/25/16 08:00 98.7 87 30 96/53 99 08/25/16 07:45 87 30 93/52 99 08/25/16 07:42 98 80 08/25/16 07:30 88 30 87/48 99 08/25/16 07:15 89 30 88/51 99 08/25/16 07:15 89 30 88/51 99 08/25/16 07:00 90 30 81/48 99 08/25/16 07:00 90 30 81/48 99 08/25/16 06:51 91 30 77/46 99 08/25/16 06:45 94 30 74/42 99 08/25/16 06:30 91 30 73/45 99 08/25/16 06:15 93 98 72/47 99 08/25/16 06:00 98 08/25/16 06:00 98 30 76/47 99 08/25/16 05:47 94 30 77/49 99 08/25/16 05:45 92 30 78/45 7/13/17 05:30 96 31 91/54 97 08/25/17 05:15 98 31 91/54 97 08/25/17 05:00 98 30 87/53 97 08/25/17 04:45 95 30 85/53 98 08/25/17 04:30 95 30 79/49 98 13/17 04:15 93 30 88/53 98 13/17 04:00 80 17 04:00 91 28 84/52 98 17 04:00 91 17 03:45 92 30 88/50 98 13/17 03:43 97 80 08/25/17 03:30 94 30 89/54 98 13/17 03:15 93 31 89/52 98 08/25/16 03:00 93 30 86/52 98 08/25/17 02:45 96 28 89/50 98 17 02:30 93 30 89/55 98 08/25/17 02:15 97 30 90/51 98 08/25/ 02:00 97 30 94/55 98 17 02:00 97 08/25/17 01:45 95 30 86/51 98 08/25/17 01:30 95 30 83/49 98 08/25/17 01:29 98 80 17 01:15 94 30 85/54 98 08/25/17 01:00 95 30 84/54 98 08/25/17 00:45 97 30 82/50 98 13/17 00:30 93 30 81/50 98 08/25/17 00:15 98 30 83/51 98 13/17 00:15 98 30 83/51 98 13/17 00:00 95 08/25/17 00:00 80 08/25/17 00:00 95 30 82/53 98 712/17 23:45 94 30 83/51 98 12/17 23:30 94 30 84/53 98 12/17 23:15 96 30 82/52 98 12/17 23:00 101 30 82/50 98 7/12/17 22:45 95 30 83/53 98 7/12/17 22:30 97 30 83/52 98 7/12/17 22:15 102 30 82/52 98 7/12/17 22:15 98 80 7/12/17 22:00 98 08/24/16 22:00 98 30 82/52 98 08/24/16 21:45 99 30 82/50 98 08/24/16 21:30 99 30 81/50 98 08/24/16 21:15 101 30 76/50 98 08/24/16 21:00 104 30 78/51 98 08/24/16 20:45 80 08/24/16 20:45 100 24 79/51 97 08/24/16 20:30 103 24 81/52 97 08/24/16 20:15 103 24 78/50 97 08/24/16 20:00 101 24 80/51 97 08/24/16 20:00 80 08/24/16 20:00 101 08/24/16 19:45 97 80 08/24/16 19:30 103 25 81/53 97 08/24/16 19:00 101 24 86/53 98 08/24/16 18:00 101 08/24/16 17:00 97 20 92/50 98 08/24/16 17:00 97 08/24/16 16:15 98 100 08/24/16 16:00 106 08/24/16 16:00 99.5 106 19 94/53 92 Intake & Output 08/25/16 08/25/16 07:00 19:00 Intake Total 2779 ml 2002 ml Output Total 626 ml 605.0 ml Balance 2153 ml 1397.0 ml IV Total 2310 ml 1575 ml Tube Feeding 299 ml 307 ml Albumin 50 ml Tube Irrigant 120 ml 120 ml Output Urine Total 26 ml 5 ml Stool Total 600 ml 600 ml Tube Feeding Residual Discard 0 ml Physical Exam CONSTITUTIONAL/GENERAL: This is a critically ill, elderly male patient no acute distress TUBES/LINES/DRAINS: CVL, Altman, [place], NGT, SCD, nasal cannula SKIN: Jaundice. Ecchymoses on upper extremities. Skin temperature appropriate. Not diaphoretic. HEAD: Atraumatic. Normocephalic. EYES: Pupils 2mm, equal and sluggish Fundi not examined. ENT: Hearing grossly normal. Nose without bleeding or purulent drainage. NECK: Trachea midline. Supple, nontender. No palpable thyroid enlargement or nodularity. CARDIOVASCULAR: Tachycardic. No JVD. Peripheral pulses symmetric. RESPIRATORY/CHEST: Respirations symmetrical and unlabored; no accessory muscles being used. Breath sounds diminished bilaterally. + Term cough GASTROINTESTINAL: Abdomen firm, distended, diffuse tenderness to palpation. Bowel sounds present. GENITOURINARY: Without palpable bladder distension. Altman catheter in place. MUSCULOSKELETAL: BLE cool to touch, trace edema. Hands swollen bilaterally. LYMPHATICS: No palpable cervical or supraclavicular adenopathy. NEUROLOGICAL: Patient is lethargic and disoriented; garbled speech. Intermittent moaning. Does not follow commands, unable to make needs known. PSYCHIATRIC: Unable to assess due to patient's current clinical condition. . Diagnostic Tests Laboratory Laboratory Tests Test 08/22/16 08/23/16 08/23/16 08/23/16 20:30 04:39 09:53 16:20 Lactic Acid Level 7.2 mmol/L (0.4-2.0) White Blood Count 20.6 TH/MM3 (4.0-11.0) Red Blood Count 4.22 MIL/MM3 (4.50-5.90) Hemoglobin 13.5 GM/DL (13.0-17.0) Hematocrit 40.7 % (39.0-51.0) Mean Corpuscular Volume 96.6 FL (80.0-100.0) Mean Corpuscular Hemoglobin 32.0 PG (27.0-34.0) Mean Corpuscular Hemoglobin 33.2 % Concent (32.0-36.0) Red Cell Distribution Width 20.7 % (11.6-17.2) Platelet Count 135 TH/MM3 (150-450) Mean Platelet Volume 10.6 FL (7.0-11.0) Neutrophils (%) (Auto) 76.2 % (16.0-70.0) Lymphocytes (%) (Auto) 13.0 % (9.0-44.0) Monocytes (%) (Auto) 9.5 % (0.0-8.0) Eosinophils (%) (Auto) 0.9 % (0.0-4.0) Basophils (%) (Auto) 0.4 % (0.0-2.0) Neutrophils # (Auto) 15.7 TH/MM3 (1.8-7.7) Lymphocytes # (Auto) 2.7 TH/MM3 (1.0-4.8) Monocytes # (Auto) 2.0 TH/MM3 (0-0.9) Eosinophils # (Auto) 0.2 TH/MM3 (0-0.4) Basophils # (Auto) 0.1 TH/MM3 (0-0.2) CBC Comment DIFF FINAL Differential Comment Prothrombin Time 62.3 SEC 28.4 SEC (9.8-11.6) (9.8-11.6) Prothromb Time International 5.2 RATIO 2.5 RATIO Ratio Sodium Level 143 MEQ/L (136-145) Potassium Level 4.8 MEQ/L (3.5-5.1) Chloride Level 109 MEQ/L (98-107) Carbon Dioxide Level 16.0 MEQ/L (21.0-32.0) Anion Gap 18 MEQ/L (5-15) Blood Urea Nitrogen 113 MG/DL (7-18) Creatinine 5.71 MG/DL (0.60-1.30) Estimat Glomerular Filtration 10 ML/MIN (>89) Rate Random Glucose 132 MG/DL (74-106) Calcium Level 7.9 MG/DL (8.5-10.1) Total Bilirubin 15.7 MG/DL (0.2-1.0) Aspartate Amino Transf 680 U/L (15-37) (AST/SGOT) Alanine Aminotransferase 307 U/L (12-78) (ALT/SGPT) Alkaline Phosphatase 149 U/L (45-117) Ammonia 59 MCMOL/L (11-32) Total Protein 5.7 GM/DL (6.4-8.2) Albumin 2.6 GM/DL (3.4-5.0) Blood Bank Comment Test 08/24/16 08/24/16 08/24/16 08/25/16 06:15 17:20 19:14 04:30 White Blood Count 25.1 TH/MM3 27.3 TH/MM3 (4.0-11.0) (4.0-11.0) Red Blood Count 4.20 MIL/MM3 3.98 MIL/MM3 (4.50-5.90) (4.50-5.90) Hemoglobin 13.1 GM/DL 12.8 GM/DL (13.0-17.0) (13.0-17.0) Hematocrit 40.9 % 39.3 % (39.0-51.0) (39.0-51.0) Mean Corpuscular Volume 97.6 FL 98.6 FL (80.0-100.0) (80.0-100.0) Mean Corpuscular Hemoglobin 31.3 PG 32.1 PG (27.0-34.0) (27.0-34.0) Mean Corpuscular Hemoglobin 32.0 % 32.5 % Concent (32.0-36.0) (32.0-36.0) Red Cell Distribution Width 21.6 % 21.9 % (11.6-17.2) (11.6-17.2) Platelet Count 130 TH/MM3 145 TH/MM3 (150-450) (150-450) Mean Platelet Volume 10.0 FL 9.7 FL (7.0-11.0) (7.0-11.0) Neutrophils (%) (Auto) 75.9 % % (16.0-70.0) (16.0-70.0) Lymphocytes (%) (Auto) 13.1 % % (9.0-44.0) (9.0-44.0) Monocytes (%) (Auto) 10.0 % % (0.0-8.0) (0.0-8.0) Eosinophils (%) (Auto) 0.5 % (0.0-4.0) % (0.0-4.0) Basophils (%) (Auto) 0.5 % (0.0-2.0) % (0.0-2.0) Neutrophils # (Auto) 19.0 TH/MM3 TH/MM3 (1.8-7.7) (1.8-7.7) Lymphocytes # (Auto) 3.3 TH/MM3 TH/MM3 (1.0-4.8) (1.0-4.8) Monocytes # (Auto) 2.5 TH/MM3 TH/MM3 (0-0.9) (0-0.9) Eosinophils # (Auto) 0.1 TH/MM3 TH/MM3 (0-0.4) (0-0.4) Basophils # (Auto) 0.1 TH/MM3 TH/MM3 (0-0.2) (0-0.2) CBC Comment AUTO DIFF AUTO DIFF Differential Comment AUTO DIFF FINAL DIFF CONFIRMED MANUAL Prothrombin Time 28.4 SEC 32.2 SEC (9.8-11.6) (9.8-11.6) Prothromb Time International 2.5 RATIO 2.8 RATIO Ratio Sodium Level 143 MEQ/L 144 MEQ/L (136-145) (136-145) Potassium Level 4.6 MEQ/L 5.7 MEQ/L (3.5-5.1) (3.5-5.1) Chloride Level 106 MEQ/L 104 MEQ/L (98-107) (98-107) Carbon Dioxide Level 16.3 MEQ/L 11.5 MEQ/L (21.0-32.0) (21.0-32.0) Anion Gap 21 MEQ/L (5-15) 29 MEQ/L (5-15) Blood Urea Nitrogen 124 MG/DL 138 MG/DL (7-18) (7-18) Creatinine 6.63 MG/DL 7.69 MG/DL (0.60-1.30) (0.60-1.30) Estimat Glomerular Filtration 8 ML/MIN (>89) 7 ML/MIN (>89) Rate Random Glucose 155 MG/DL 82 MG/DL (74-106) (74-106) Calcium Level 8.2 MG/DL 7.4 MG/DL (8.5-10.1) (8.5-10.1) Total Bilirubin 16.2 MG/DL 18.5 MG/DL (0.2-1.0) (0.2-1.0) Aspartate Amino Transf 501 U/L (15-37) 778 U/L (15-37) (AST/SGOT) Alanine Aminotransferase 233 U/L (12-78) 243 U/L (12-78) (ALT/SGPT) Alkaline Phosphatase 152 U/L 146 U/L (45-117) (45-117) Total Protein 5.9 GM/DL 5.5 GM/DL (6.4-8.2) (6.4-8.2) Albumin 2.6 GM/DL 2.6 GM/DL (3.4-5.0) (3.4-5.0) Blood Gas Puncture Site RT RADIAL RT RADIAL Blood Gas Patient Temperature 98.6 98.6 Blood Gas HCO3 11 mmol/L 14 mmol/L (22-26) (22-26) Blood Gas Base Excess -17.9 mmol/L -14.6 mmol/L (-2-2) (-2-2) Blood Gas Oxygen Saturation 97 % (90-100) 87 % (90-100) Arterial Blood pH 7.02 7.06 (7.380-7.420) (7.380-7.420) Arterial Blood Partial 45 mmHg (38-42) 51 mmHg (38-42) Pressure CO2 Arterial Blood Partial 205 mmHg 76 mmHg Pressure O2 (61-120) (61-120) Arterial Blood Oxygen Content 17.6 Vol % 15.8 Vol % (12.0-20.0) (12.0-20.0) Arterial Blood 0.8 % (0-4) 0.9 % (0-4) Carboxyhemoglobin Arterial Blood Methemoglobin 0.9 % (0-2) 1.3 % (0-2) Blood Gas Hemoglobin 12.6 G/DL 13.0 G/DL (12.0-16.0) (12.0-16.0) Oxygen Delivery Device VENTILATOR VENT Blood Gas Ventilator Setting SEE COMMENTS Blood Gas Inspired Oxygen 80 % Differential Total Cells 100 Counted Neutrophils % (Manual) 80 % (16-70) Band Neutrophils % 8 % (0-6) Lymphocytes % 6 % (9-44) Monocytes % 4 % (0-8) Neutrophils # (Manual) 24.6 TH/MM3 (1.8-7.7) Myelocytes 1 % (0-0) Promyelocytes 1 % (0-0) Platelet Estimate LOW (NORMAL) Platelet Morphology Comment NORMAL (NORMAL) Ovalocytes 1+ (NORMAL) Activated Partial 59.2 SEC Thromboplast Time (24.3-30.1) Lactic Acid Level 15.5 mmol/L (0.4-2.0) Protein Corrected Calcium 8.3 MG/DL (8.5-10.1) Phosphorus Level 10.4 MG/DL (2.5-4.9) Magnesium Level 3.5 MG/DL (1.5-2.5) Ammonia 102 MCMOL/L (11-32) Total Creatine Kinase 245 U/L (39-308) Amylase Level 62 U/L (25-115) Lipase 588 U/L (73-393) Test 08/25/16 08/25/16 11:45 12:18 Blood Gas Puncture Site RT RADIAL Blood Gas Patient Temperature 98.6 Blood Gas HCO3 14 mmol/L (22-26) Blood Gas Base Excess -12.5 mmol/L (-2-2) Blood Gas Oxygen Saturation 96 % (90-100) Arterial Blood pH 7.18 (7.380-7.420) Arterial Blood Partial 40 mmHg (38-42) Pressure CO2 Arterial Blood Partial 147 mmHg Pressure O2 (61-120) Arterial Blood Oxygen Content 18.7 Vol % (12.0-20.0) Arterial Blood 0.9 % (0-4) Carboxyhemoglobin Arterial Blood Methemoglobin 1.2 % (0-2) Blood Gas Hemoglobin 13.6 G/DL (12.0-16.0) Oxygen Delivery Device VENTILATOR Blood Gas Ventilator Setting 24/600/PEEP8 Blood Gas Inspired Oxygen 80 % Lactic Acid Level 15.0 mmol/L (0.4-2.0) Result Diagram: 08/25/16 0430 08/25/16 0430 Procedures 08/18/16: CVL placement 08/18/16: Paracentesis 08/20/16: Paracentesis . Assessment and Plan Disease Oriented Problem List: (1) COPD (chronic obstructive pulmonary disease) (2) Gout (3) Acute renal failure (4) Leukocytosis (5) Acute liver disease (6) Acute hepatitis B (7) CLL (chronic lymphocytic leukemia) (8) LFT elevation (9) Ascites (10) Hepatic encephalopathy Symptom Scale: (1) Debility 0-10 Scale: Unable to quantify (2) Pain 0-10 Scale: Unable to quantify (3) Malnutrition 0-10 Scale: Unable to quantify Pertinent Non-Medical Issues Psychosocial: Patient worked in construction, cabinet work. Reported long history of exposure to dust. Spiritual: None anabaptism per Legal: Patient is incapacitated, will not regain capacity. Single. Questionable son, Juan Jose Rogers, all contacts have declined knowing patient or have not returned calls. No other known family based on friends reports, [employer], social media search and [employer] search. Therefore according to [place] statutes, health care proxy decision-making would fall to close friend. Friend Burt ( # [phone] (cell phone-pay by minutes) or [phone] (work)) who has known patient for the past 15 years is willing to serve as health care proxy decision maker. Ethical issues impacting care: No known ethical issues impacting care at this time. Important Contacts No known family/friends. . Prognosis Patient is a 70-year-old male who was recently hospitalized with acute liver failure. Now with newly diagnosed acute hepatitis B, cirrhosis, hepatic encephalopathy, suspected sepsis likely from peritoneum. Patient is not a candidate for liver transplant. Concern for hepatorenal syndrome with decreased urine output secondary to liver dysfunction; if hepatorenal syndrome patient would be terminal. Prognosis is poor. . Code Status: No Code Plan * NO CODE * Decision-making: Patient is incapacitated, will not regain capacity. Single. Questionable son, Juan Jose Rogers, all contacts have declined knowing patient or have not returned calls. No other known family based on friends reports, [employer] , social media search and [employer] search. Therefore according to [place] statutes, health care proxy decision-making would fall to close friend. Friend Burt ( #[phone] (cell phone-pay by minutes) or [phone] (work)) who has known patient for the past 15 years is willing to serve as health care proxy decision maker. * Discussed with nurse, Rachel and Dr. Hair. * Symptom managementmalnutrition: Nutritional intake is poor. Patient reported a 65 pound weight loss over the past 2 years. Tolerating tube feeding. * Symptom managementpain: Intermittent moaning is noted Possible causes of pain include infection, abdominal distention/ascites, edema, invasive lines, NGT , immobility, bedbound status, impaired skin integrity. Has Fentanyl drip. * Symptom managementconfusion: Likely secondary to hepatic encephalopathy; on lactulose. Continue to monitor, no further medications. Ammonia level of 59 on 08/23/2016. * Palliative care number provided. * Palliative care will continue to follow to assist with symptom management and clarification of treatment goals as needed. . Attestation To help prompt me to consider important information that might be impacting today's encounter and assessment, information from prior notes written by myself or my colleagues may have been "brought forward" into today's note. My signature on this note, however, is an attestation that I personally performed the exam, history, and/or decision-making noted today, and, unless otherwise indicated, the interactions with patient, family, and staff as well as the review of records all occurred today. I also attest that the listed assessment and stated plan reflect my best clinical judgment today based on the combination of historical information, prior notes, and today's exam/ interactions. When time spent is documented, it refers only to time spent today by the signer, or if indicated, combined time spent today by collaborating physician/nurse practitioner. Karis Streeter Aug 25, 2016 16:09
[2016-08-25] MEDS: RESP: BUDESONIDE 0.5 MG/2 ML NEB NEB SCH (19:33)
[2016-08-26] VITALS (27 sets, daily range): BP systolic 85–99; BP diastolic 42–53; PULSE 80–97; RESP 0–27; TEMP 98.2–99.8; O2SAT 94–100
[2016-08-26] MEDS: LACTULOSE SYRUP 20 GM/30 ML CUP PO SCH ×6 (00:11→21:00)
[2016-08-26] MEDS: OCTREOTIDE INJ 50 MCG/ML AMP IV PUSH SCH ×3 (00:11→17:00)
[2016-08-26] MEDS: NOREPINEPHRINE-DEXTROSE DRIP 250 ML IV SCH ×4 (00:12→21:45)
[2016-08-26 05:34] LABS: APTT (PATIENT) 67.8 SEC (24.3-30.1); AUTOMATED NEUTROPHIL # 23.3 TH/MM3 (1.8-7.7); BASOPHIL # 0.2 TH/MM3 (0-0.2); BASOPHIL % 0.7 % (0.0-2.0); HEMATOCRIT 38.7 % (39.0-51.0); LYMPH % 8.8 % (9.0-44.0); LYMPHOCYTE # 2.5 TH/MM3 (1.0-4.8); MEAN CELL VOLUME 99.2 FL (80.0-100.0); MEAN CORPUSCULAR HEMOGLOBIN 31.9 PG (27.0-34.0); MEAN CORPUSCULAR HGB CONC 32.2 % (32.0-36.0); MONO % 7.9 % (0.0-8.0); NEUT % 82.6 % (16.0-70.0); PLATELET COUNT 162 TH/MM3 (150-450); RED CELL DISTRIBUTION WIDTH 22.6 % (11.6-17.2); WHITE BLOOD COUNT 28.2 TH/MM3 (4.0-11.0)
[2016-08-26] MEDS: CEFEPIME INJ 1,000 MG in SODIUM CHLORIDE 0.9% INJ 100 ML IV SCH ×3 (05:34→21:47)
[2016-08-26] MEDS: SODIUM BICARBONATE 8.4% INJ 150 MEQ in WATER STERILE FOR INJ 850 ML IV SCH ×2 (05:34→11:00)
[2016-08-26] MEDS: ENTECAVIR 0.5 MG TAB PO SCH (05:34)
[2016-08-26] MEDS: MIDODRINE 5 MG TAB PO SCH ×3 (05:34→17:43)
[2016-08-26] MEDS: LINEZOLID 600 MG PREMIX 300 ML IV SCH ×2 (05:35→17:43)
[2016-08-26 05:59] LABS: HEMO FLAGS AUTO DIFF
[2016-08-26 06:14] LABS: BICARBONATE 12.5 MEQ/L (21.0-32.0); MAGNESIUM 3.5 MG/DL (1.5-2.5)
[2016-08-26 06:24] LABS: CALCIUM-PROTEIN CORRECTED 7.1 MG/DL (8.5-10.1); TOTAL BILIRUBIN ADULT 18.9 MG/DL (0.2-1.0)
[2016-08-26 06:25] LABS: POTASSIUM 6.6 MEQ/L (3.5-5.1)
[2016-08-26] MEDS ORDERED: DEXTROSE 50% IN WATER 50 ML SYRINGE ONE (06:25)
[2016-08-26 07:47] LABS: PLATELET ESTIMATE SMEAR NORMAL (NORMAL); PLATELET MORPHOLOGY NORMAL (NORMAL)
[2016-08-26 07:54] LABS: BANDS 1 % (0-6); CORRECTED NUCLEATED RBC 1 /100 WBC (0-0); METAMYELOCYTES 2 % (0-1); MYELOCYTES 1 % (0-0); NEUTROPHIL # MANUAL DIFF 24.5 TH/MM3 (1.8-7.7); POLYS (SEG NEUTROPHILS) 83 % (16-70); WBC DIFF SAMPLE 100
[2016-08-26 07:55] LABS: HYPERSEGMENTED POLYS 2+ (NORMAL); SCAN/DIFF FINAL DIFF MANUAL
[2016-08-26] MEDS: RESP: BUDESONIDE 0.5 MG/2 ML NEB NEB SCH ×2 (08:16→19:28)
[2016-08-26] MEDS: CHLORHEXIDINE 0.12% (ORAL KIT) 15 ML CUP MT SCH ×2 (08:45→21:45)
[2016-08-26] MEDS: METOPROLOL TARTRATE 25 MG TAB PO SCH ×2 (09:00→21:00)
[2016-08-26] MEDS: DOCUSATE SODIUM 50 MG/SENNA 8.6 MG TAB PO SCH ×2 (09:00→21:00)
[2016-08-26] MEDS: ALBUMIN HUMAN 25% 12.5 GM/50 ML BAGP IV SCH ×2 (09:06→21:46)
[2016-08-26] MEDS: PHYTONADIONE 5 MG TAB DOBHOFF SCH (09:12)
[2016-08-26] MEDS: ACETYLCYSTEINE 20% 6,000 MG/30 ML ORAL SOLN VIAL PO SCH (09:12)
[2016-08-26] MEDS: PANTOPRAZOLE SODIUM 40 MG VIAL IV PUSH SCH (09:12)
[2016-08-26] MEDS: SODIUM CHLORIDE 0.9% FLUSH 10 ML FLUSH IV FLUSH SCH ×2 (09:13→21:45)
[2016-08-26] MEDS: RIFAXIMIN 550 MG TAB PO SCH ×2 (09:14→21:00)
[2016-08-26] MEDS ORDERED: SODIUM BICARBONATE 8.4% SOLN 50 MEQ/50 ML VIAL SLOW IVP ONE ×2 (10:00→14:45)
[2016-08-26] MEDS ORDERED: CALCIUM GLUCONATE 10% 1 GM/10 ML VIAL SLOW IVP ONE ×2 (10:00→14:45)
[2016-08-26] MEDS ORDERED: SODIUM POLYSTYRENE SULFONATE SUSP 15 GM/60 ML CUP PO ONE ×2 (10:00→14:45)
[2016-08-26] MEDS ORDERED: INSULIN HUMAN REGULAR 1,000 UNITS/10 ML VIAL IV PUSH ONE ×2 (10:00→14:45)
[2016-08-26] MEDS ORDERED: DEXTROSE 50% IN WATER 50 ML SYRINGE IV ONE (10:30)
--- NOTE | 2016-08-26 11:55 | HHI.HCPN ---
Reason for visit a. To assist with evaluation and management of symptoms including: Dyspnea, pain, malnutrition b. To assist medical decision maker(s) with: better understanding of current medical conditions; weighing benefits/burdens of medical treatment options; making medical treatment decisions. . Subjective/Interval History Patient seen and assessed in room 517. Patient remains on mech vent (FiO2 60%) with labored respirations using accessory muscles. Increased abdominal distention. Remains on Levo and Louie. Worsening labs including WBC 28.2, Potassium 6.6, Creatinine 8.84, Lactic acid 22.3, total protein 18.9, AST 1589 from 778, ALT 358. . Family/friend interactions Left message for friend Burt to provide update. Awaiting return call. . Advance Directives Living Will: Never completed Health Care Surrogate: Never completed Durable Power of Compliance Mgr: Never completed Advance Directive Specifics Health Care Surrogate(s): Decision-making: Patient is incapacitated, will not regain capacity. Single. Questionable son, Rob Osegurea, all contacts have declined knowing patient or have not returned calls. No other known family based on friends reports, [employer] , social media search and [employer] search. Therefore according to [place] statutes, health care proxy decision-making would fall to close friend. Friend Burt who has known patient for the past 15 years is willing to serve as health care proxy decision maker. . Documented care wishes: No documented care wishes are available. . Significant change in goals: NO CODE. Objective Vital Signs Date Time Temp Pulse Resp B/P Pulse Ox O2 Delivery O2 Flow Rate FiO2 08/26/16 11:15 100 60 08/26/16 10:00 80 08/26/16 08:45 81 26 89/42 97 08/26/16 08:30 82 25 88/47 98 08/26/16 08:15 82 24 88/45 100 08/26/16 08:08 99 60 08/26/16 08:05 82 24 90/50 08/26/16 08:00 99.5 82 24 90/50 94 08/26/16 08:00 81 24 85/48 08/26/16 08:00 60 08/26/16 08:00 81 08/26/16 07:45 82 23 90/53 08/26/16 07:30 83 24 93/50 08/26/16 07:15 82 26 89/46 7/14/17 07:00 87 24 88/49 08/26/16 06:00 83 08/26/16 04:04 98 60 08/26/16 04:00 86 08/26/16 04:00 99.0 86 26 88/53 95 08/26/16 04:00 60 08/26/16 02:00 88 08/26/16 01:18 97 60 08/26/16 00:00 99.8 94 27 88/52 97 08/26/16 00:00 60 08/26/16 00:00 94 08/25/16 22:58 100 60 08/25/16 22:00 93 08/25/16 20:00 92 08/25/16 20:00 60 08/25/16 20:00 100.0 92 24 93/50 98 08/25/16 19:36 98 60 08/25/16 18:00 91 08/25/16 16:43 99 60 08/25/16 16:00 94 08/25/16 16:00 60 08/25/16 16:00 98.9 94 25 104/59 98 08/25/16 14:00 92 08/25/16 14:00 92 08/25/16 13:22 97 60 08/25/16 12:00 93 08/25/16 12:00 98.9 93 24 114/57 98 08/25/16 12:00 60 08/25/16 12:00 93 Intake & Output 08/26/16 08/26/16 07:00 19:00 Intake Total 4110 ml Output Total 100 ml 0 ml Balance 4010 ml 0 ml IV Total 4072 ml Tube Feeding 38 ml Stool Total 100 ml Tube Feeding Residual Discard 0 ml 0 ml Physical Exam CONSTITUTIONAL/GENERAL: This is a critically ill, elderly male patient no acute distress TUBES/LINES/DRAINS: CVL, Altman, Dignashield, NGT, SCD, nasal cannula SKIN: Jaundice. Ecchymoses on upper extremities. Skin temperature appropriate. Not diaphoretic. EYES: Pupils 2mm, equal and sluggish Fundi not examined. CARDIOVASCULAR: Tachycardic. RESPIRATORY/CHEST: Respirations symmetrical and unlabored; no accessory muscles being used. Breath sounds diminished bilaterally. GASTROINTESTINAL: Abdomen firm, distended, diffuse tenderness to palpation. Bowel sounds present. GENITOURINARY: Without palpable bladder distension. Altman catheter in place. MUSCULOSKELETAL: BLE cool to touch, trace edema. Hands swollen bilaterally. NEUROLOGICAL: Unresponsive. PSYCHIATRIC: Unable to assess due to patient's current clinical condition. . Diagnostic Tests Laboratory Laboratory Tests Test 08/23/16 08/24/16 08/24/16 08/24/16 16:20 06:15 17:20 19:14 Prothrombin Time 28.4 SEC 28.4 SEC (9.8-11.6) (9.8-11.6) Prothromb Time International 2.5 RATIO 2.5 RATIO Ratio White Blood Count 25.1 TH/MM3 (4.0-11.0) Red Blood Count 4.20 MIL/MM3 (4.50-5.90) Hemoglobin 13.1 GM/DL (13.0-17.0) Hematocrit 40.9 % (39.0-51.0) Mean Corpuscular Volume 97.6 FL (80.0-100.0) Mean Corpuscular Hemoglobin 31.3 PG (27.0-34.0) Mean Corpuscular Hemoglobin 32.0 % Concent (32.0-36.0) Red Cell Distribution Width 21.6 % (11.6-17.2) Platelet Count 130 TH/MM3 (150-450) Mean Platelet Volume 10.0 FL (7.0-11.0) Neutrophils (%) (Auto) 75.9 % (16.0-70.0) Lymphocytes (%) (Auto) 13.1 % (9.0-44.0) Monocytes (%) (Auto) 10.0 % (0.0-8.0) Eosinophils (%) (Auto) 0.5 % (0.0-4.0) Basophils (%) (Auto) 0.5 % (0.0-2.0) Neutrophils # (Auto) 19.0 TH/MM3 (1.8-7.7) Lymphocytes # (Auto) 3.3 TH/MM3 (1.0-4.8) Monocytes # (Auto) 2.5 TH/MM3 (0-0.9) Eosinophils # (Auto) 0.1 TH/MM3 (0-0.4) Basophils # (Auto) 0.1 TH/MM3 (0-0.2) CBC Comment AUTO DIFF Differential Comment AUTO DIFF CONFIRMED Sodium Level 143 MEQ/L (136-145) Potassium Level 4.6 MEQ/L (3.5-5.1) Chloride Level 106 MEQ/L (98-107) Carbon Dioxide Level 16.3 MEQ/L (21.0-32.0) Anion Gap 21 MEQ/L (5-15) Blood Urea Nitrogen 124 MG/DL (7-18) Creatinine 6.63 MG/DL (0.60-1.30) Estimat Glomerular Filtration 8 ML/MIN (>89) Rate Random Glucose 155 MG/DL (74-106) Calcium Level 8.2 MG/DL (8.5-10.1) Total Bilirubin 16.2 MG/DL (0.2-1.0) Aspartate Amino Transf 501 U/L (15-37) (AST/SGOT) Alanine Aminotransferase 233 U/L (12-78) (ALT/SGPT) Alkaline Phosphatase 152 U/L (45-117) Total Protein 5.9 GM/DL (6.4-8.2) Albumin 2.6 GM/DL (3.4-5.0) Blood Gas Puncture Site RT RADIAL RT RADIAL Blood Gas Patient Temperature 98.6 98.6 Blood Gas HCO3 11 mmol/L 14 mmol/L (22-26) (22-26) Blood Gas Base Excess -17.9 mmol/L -14.6 mmol/L (-2-2) (-2-2) Blood Gas Oxygen Saturation 97 % (90-100) 87 % (90-100) Arterial Blood pH 7.02 7.06 (7.380-7.420) (7.380-7.420) Arterial Blood Partial 45 mmHg (38-42) 51 mmHg (38-42) Pressure CO2 Arterial Blood Partial 205 mmHg 76 mmHg Pressure O2 (61-120) (61-120) Arterial Blood Oxygen Content 17.6 Vol % 15.8 Vol % (12.0-20.0) (12.0-20.0) Arterial Blood 0.8 % (0-4) 0.9 % (0-4) Carboxyhemoglobin Arterial Blood Methemoglobin 0.9 % (0-2) 1.3 % (0-2) Blood Gas Hemoglobin 12.6 G/DL 13.0 G/DL (12.0-16.0) (12.0-16.0) Oxygen Delivery Device VENTILATOR VENT Blood Gas Ventilator Setting SEE COMMENTS Blood Gas Inspired Oxygen 80 % Test 08/25/16 08/25/16 08/25/16 08/25/16 04:30 11:45 12:18 12:30 White Blood Count 27.3 TH/MM3 (4.0-11.0) Red Blood Count 3.98 MIL/MM3 (4.50-5.90) Hemoglobin 12.8 GM/DL (13.0-17.0) Hematocrit 39.3 % (39.0-51.0) Mean Corpuscular Volume 98.6 FL (80.0-100.0) Mean Corpuscular Hemoglobin 32.1 PG (27.0-34.0) Mean Corpuscular Hemoglobin 32.5 % Concent (32.0-36.0) Red Cell Distribution Width 21.9 % (11.6-17.2) Platelet Count 145 TH/MM3 (150-450) Mean Platelet Volume 9.7 FL (7.0-11.0) Neutrophils (%) (Auto) % (16.0-70.0) Lymphocytes (%) (Auto) % (9.0-44.0) Monocytes (%) (Auto) % (0.0-8.0) Eosinophils (%) (Auto) % (0.0-4.0) Basophils (%) (Auto) % (0.0-2.0) Neutrophils # (Auto) TH/MM3 (1.8-7.7) Lymphocytes # (Auto) TH/MM3 (1.0-4.8) Monocytes # (Auto) TH/MM3 (0-0.9) Eosinophils # (Auto) TH/MM3 (0-0.4) Basophils # (Auto) TH/MM3 (0-0.2) CBC Comment AUTO DIFF Differential Total Cells 100 Counted Neutrophils % (Manual) 80 % (16-70) Band Neutrophils % 8 % (0-6) Lymphocytes % 6 % (9-44) Monocytes % 4 % (0-8) Neutrophils # (Manual) 24.6 TH/MM3 (1.8-7.7) Myelocytes 1 % (0-0) Promyelocytes 1 % (0-0) Differential Comment FINAL DIFF MANUAL Platelet Estimate LOW (NORMAL) Platelet Morphology Comment NORMAL (NORMAL) Ovalocytes 1+ (NORMAL) Prothrombin Time 32.2 SEC (9.8-11.6) Prothromb Time International 2.8 RATIO Ratio Activated Partial 59.2 SEC Thromboplast Time (24.3-30.1) Sodium Level 144 MEQ/L (136-145) Potassium Level 5.7 MEQ/L 5.0 MEQ/L (3.5-5.1) (3.5-5.1) Chloride Level 104 MEQ/L (98-107) Carbon Dioxide Level 11.5 MEQ/L (21.0-32.0) Anion Gap 29 MEQ/L (5-15) Blood Urea Nitrogen 138 MG/DL (7-18) Creatinine 7.69 MG/DL (0.60-1.30) Estimat Glomerular Filtration 7 ML/MIN (>89) Rate Random Glucose 82 MG/DL (74-106) Lactic Acid Level 15.5 mmol/L 15.0 mmol/L (0.4-2.0) (0.4-2.0) Calcium Level 7.4 MG/DL (8.5-10.1) Protein Corrected Calcium 8.3 MG/DL (8.5-10.1) Phosphorus Level 10.4 MG/DL (2.5-4.9) Magnesium Level 3.5 MG/DL (1.5-2.5) Total Bilirubin 18.5 MG/DL (0.2-1.0) Aspartate Amino Transf 778 U/L (15-37) (AST/SGOT) Alanine Aminotransferase 243 U/L (12-78) (ALT/SGPT) Alkaline Phosphatase 146 U/L (45-117) Ammonia 102 MCMOL/L (11-32) Total Creatine Kinase 245 U/L (39-308) Total Protein 5.5 GM/DL (6.4-8.2) Albumin 2.6 GM/DL (3.4-5.0) Amylase Level 62 U/L (25-115) Lipase 588 U/L (73-393) Blood Gas Puncture Site RT RADIAL Blood Gas Patient Temperature 98.6 Blood Gas HCO3 14 mmol/L (22-26) Blood Gas Base Excess -12.5 mmol/L (-2-2) Blood Gas Oxygen Saturation 96 % (90-100) Arterial Blood pH 7.18 (7.380-7.420) Arterial Blood Partial 40 mmHg (38-42) Pressure CO2 Arterial Blood Partial 147 mmHg Pressure O2 (61-120) Arterial Blood Oxygen Content 18.7 Vol % (12.0-20.0) Arterial Blood 0.9 % (0-4) Carboxyhemoglobin Arterial Blood Methemoglobin 1.2 % (0-2) Blood Gas Hemoglobin 13.6 G/DL (12.0-16.0) Oxygen Delivery Device VENTILATOR Blood Gas Ventilator Setting 24/600/PEEP8 Blood Gas Inspired Oxygen 80 % Test 08/26/16 05:00 White Blood Count 28.2 TH/MM3 (4.0-11.0) Red Blood Count 3.90 MIL/MM3 (4.50-5.90) Hemoglobin 12.5 GM/DL (13.0-17.0) Hematocrit 38.7 % (39.0-51.0) Mean Corpuscular Volume 99.2 FL (80.0-100.0) Mean Corpuscular Hemoglobin 31.9 PG (27.0-34.0) Mean Corpuscular Hemoglobin 32.2 % Concent (32.0-36.0) Red Cell Distribution Width 22.6 % (11.6-17.2) Platelet Count 162 TH/MM3 (150-450) Mean Platelet Volume 10.4 FL (7.0-11.0) Neutrophils (%) (Auto) 82.6 % (16.0-70.0) Lymphocytes (%) (Auto) 8.8 % (9.0-44.0) Monocytes (%) (Auto) 7.9 % (0.0-8.0) Eosinophils (%) (Auto) 0.0 % (0.0-4.0) Basophils (%) (Auto) 0.7 % (0.0-2.0) Neutrophils # (Auto) 23.3 TH/MM3 (1.8-7.7) Lymphocytes # (Auto) 2.5 TH/MM3 (1.0-4.8) Monocytes # (Auto) 2.2 TH/MM3 (0-0.9) Eosinophils # (Auto) 0.0 TH/MM3 (0-0.4) Basophils # (Auto) 0.2 TH/MM3 (0-0.2) CBC Comment AUTO DIFF Differential Total Cells 100 Counted Neutrophils % (Manual) 83 % (16-70) Band Neutrophils % 1 % (0-6) Lymphocytes % 8 % (9-44) Monocytes % 5 % (0-8) Neutrophils # (Manual) 24.5 TH/MM3 (1.8-7.7) Metamyelocytes 2 % (0-1) Myelocytes 1 % (0-0) Nucleated Red Blood Cells 1 /100 WBC (0-0) Differential Comment FINAL DIFF MANUAL Hypersegmented Polys 2+ (NORMAL) Platelet Estimate NORMAL (NORMAL) Platelet Morphology Comment NORMAL (NORMAL) Red Cell Morphology Comment NORMAL (NORMAL) Activated Partial 67.8 SEC Thromboplast Time (24.3-30.1) Fibrinogen 128 mg/dL (227-377) Sodium Level 144 MEQ/L (136-145) Potassium Level 6.6 MEQ/L (3.5-5.1) Chloride Level 95 MEQ/L (98-107) Carbon Dioxide Level 12.5 MEQ/L (21.0-32.0) Anion Gap 37 MEQ/L (5-15) Blood Urea Nitrogen 149 MG/DL (7-18) Creatinine 8.84 MG/DL (0.60-1.30) Estimat Glomerular Filtration 6 ML/MIN (>89) Rate Random Glucose 25 MG/DL (74-106) Lactic Acid Level 22.3 mmol/L (0.4-2.0) Calcium Level 6.3 MG/DL (8.5-10.1) Protein Corrected Calcium 7.1 MG/DL (8.5-10.1) Phosphorus Level 12.9 MG/DL (2.5-4.9) Magnesium Level 3.5 MG/DL (1.5-2.5) Total Bilirubin 18.9 MG/DL (0.2-1.0) Aspartate Amino Transf 1589 U/L (AST/SGOT) (15-37) Alanine Aminotransferase 358 U/L (12-78) (ALT/SGPT) Alkaline Phosphatase 168 U/L (45-117) Total Protein 5.4 GM/DL (6.4-8.2) Albumin 2.5 GM/DL (3.4-5.0) Lipase 738 U/L (73-393) Result Diagram: 08/26/16 0500 08/26/16 0500 Imaging Last Impressions Chest X-Ray 08/24/16 0000 Signed Impressions: Service Date/Time: Wednesday, August 24, 2016 16:18 - CONCLUSION: 1. Unchanged bibasilar infiltrates/effusions. 2. Endotracheal tube. David Crespo Jr., MD Abdomen/Pelvis CT 08/22/16 0000 Signed Impressions: Service Date/Time: Monday, August 22, 2016 16:16 - CONCLUSION: 1. No definitive findings to explain patient's lactic acidosis. Limited evaluation of the bowel due to lack of IV and oral contrast, demonstrates no evidence for obstruction, infarction, or perforation. 2. Cirrhotic appearing liver with evidence for portal hypertension including moderate ascites and splenomegaly. 3. Trace left and small to moderate right pleural effusionswith associated airspace disease in the lower lobes. 4. 9 mm solid nodule in the right lower lobe, new since 2010. Followup examination in 3 months to document stability per 2017 Fleischner criteria is recommended. Sung Gomez MD Abdomen X-Ray 08/22/16 0000 Signed Impressions: Service Date/Time: Monday, August 22, 2016 09:35 - CONCLUSION: Nonspecific abdomen. K. Salvatore Santoro MD Upper Extremity Ultrasound 08/21/16 0000 Signed Impressions: Service Date/Time: Sunday, August 21, 2016 20:10 - CONCLUSION: No evidence of deep venous thrombosis. Visualization was suboptimal. Kevin Hadley MD Hepatobiliary Scan Nuclear Medicine 08/11/16 0000 Signed Impressions: Service Date/Time: July 10:13 - CONCLUSION: 1. Normal HIDA scan confirming patency of the cystic and common bile ducts. 2. Normal gallbladder EF. 3. The patient was asymptomatic with administration of CCK. Sung Gomez MD Cholangiopancreatography MRI 08/11/16 0000 Signed Impressions: Service Date/Time: July 08:38 - CONCLUSION: 1. Hepatosplenomegaly 2. Distended gallbladder otherwise no evidence of biliary obstructive disease. 3. Small to moderate ascites 4. Altered flow in the portal vein which may be indicative of portal hypertension. 5. No other significant abnormalities identified. Steve Acuna MD Abdomen Ultrasound 08/10/16 0000 Signed Impressions: Service Date/Time: Wednesday, August 10, 2016 14:47 - CONCLUSION: There is no significant ascites. Tong Read MD FACR . Procedures 08/18/16: CVL placement 08/18/16: Paracentesis 08/20/16: Paracentesis . Assessment and Plan Disease Oriented Problem List: (1) COPD (chronic obstructive pulmonary disease) (2) Gout (3) Acute renal failure (4) Leukocytosis (5) Acute liver disease (6) Acute hepatitis B (7) CLL (chronic lymphocytic leukemia) (8) LFT elevation (9) Ascites (10) Hepatic encephalopathy Symptom Scale: (1) Debility 0-10 Scale: Unable to quantify (2) Pain 0-10 Scale: Unable to quantify (3) Malnutrition 0-10 Scale: Unable to quantify Comment: Albumin 2.5. Pertinent Non-Medical Issues Psychosocial: Patient worked in construction, cabinet work. Reported long history of exposure to dust. Spiritual: None gnosticist per Legal: Patient is incapacitated, will not regain capacity. Single. Questionable son, Rob Oseguera, all contacts have declined knowing patient or have not returned calls. No other known family based on friends reports, [employer], social media search and [employer] search. Therefore according to [place] statutes, health care proxy decision-making would fall to close friend. Friend Burt ( # [phone] (cell phone-pay by minutes) or [phone] (work)) who has known patient for the past 15 years is willing to serve as health care proxy decision maker. Ethical issues impacting care: No known ethical issues impacting care at this time. Important Contacts * Friend Burt, health care proxy: #[phone] (cell phone-pay by minutes) or [phone] (work) Names on paper found in patient's wheelchair, all friends/acquaintances: Yvonne [phone] Jagdeep [phone] Hope [phone] Jennifer [phone] [facility] [phone] ("Ride") Chantel Luna [phone] Christel [phone] Santos [phone] Tommie [phone] Adrián [phone] [facility] No return calls from POTENTIAL son matches, not known for sure if these are even family members. 1- ROB OSEGUERA AGE 30 [facility] [phone]--no return call 2- ROB OSEGUERA AGE 47 [facility] [phone] / [phone] POS CELL-- Received call back from Rob @ #[phone]-- no relationship with patient. 4- ROB OSEGUERA AGE 37 [facility] [phone] AND [phone]-- no return call . Prognosis Patient is a 70-year-old male who was recently hospitalized with acute liver failure. Now with newly diagnosed acute hepatitis B, cirrhosis, hepatic encephalopathy, suspected sepsis likely from peritoneum. Patient is not a candidate for liver transplant. Concern for hepatorenal syndrome with decreased urine output secondary to liver dysfunction; if hepatorenal syndrome patient would be terminal. Prognosis is poor. . Code Status: No Code Plan * NO CODE * Decision-making: Patient is incapacitated, will not regain capacity. Single. Questionable son, Rob Oseguera, all contacts have declined knowing patient or have not returned calls. No other known family based on friends reports, [employer] , social media search and [employer] search. Therefore according to [place] statutes, health care proxy decision-making would fall to close friend. Friend Burt ( #[phone] (cell phone-pay by minutes) or [phone] (work)) who has known patient for the past 15 years is willing to serve as health care proxy decision maker. * Discussed with nurse and Dr. Hair. * Symptom managementmalnutrition: Nutritional intake is poor. Patient reported a 65 pound weight loss over the past 2 years. Tolerating artificial nutrition via TF at 35 mL/hour. * Symptom management pain: Possible causes of pain include infection, abdominal distention/ascites, edema, invasive lines, NGT, immobility, bedbound status, impaired skin integrity. Off sedation due to hypotension. Will monitor. * Symptom managementconfusion: Likely secondary to hepatic encephalopathy; on lactulose. Continue to monitor, no further medications. * Palliative care will continue to follow. . . Attestation To help prompt me to consider important information that might be impacting today's encounter and assessment, information from prior notes written by myself or my colleagues may have been "brought forward" into today's note. My signature on this note, however, is an attestation that I personally performed the exam, history, and/or decision-making noted today, and, unless otherwise indicated, the interactions with patient, family, and staff as well as the review of records all occurred today. I also attest that the listed assessment and stated plan reflect my best clinical judgment today based on the combination of historical information, prior notes, and today's exam/ interactions. When time spent is documented, it refers only to time spent today by the signer, or if indicated, combined time spent today by collaborating physician/nurse practitioner. . Karis Streeter Aug 26, 2016 11:55
[2016-08-26] MEDS: DEXT 5%-NACL 0.9% 1000 ML INJ 1,000 ML IV SCH ×2 (12:00→21:47)
[2016-08-26 13:57] LABS: INTERNATIONAL NORMALIZED RATIO 3.6 RATIO; PROTHROMBIN TIME - PATIENT 41.5 SEC (9.8-11.6)
--- NOTE | 2016-08-26 14:40 | HHI.CCPN ---
Subjective Remarks/Hospital Course Patient is a is a 70 year old male patient with history of chronic lymphocytic leukemia, in remission, who was admitted to the hospital for evaluation of elevated LFTs. His lab work on 08/09/16 showed elevated LFTs, total bilirubin 2.3, AST 759, ALT 270, alkaline phosphatase 390. US on 08/10/16 showed early cirrhotic change. Gastroenterology was consulted and further workup revealed patient had acute hepatitis B. Hepatitis C was also positive. Patient was placed on Xifaxan and lactulose by GI for elevated ammonia. Admission creatinine was normal but started climbing up by day 2 of admission. Creatinine was 1.3 on 08/13/16 nephrology was consulted for probable hepatorenal syndrome. Patient was placed on IV albumin, octreotide, and Midodrine for possible HRS. Despite these measures, patient's creatinine continued to deteriorate and he becameoliguric. Urine output was only 300 mL in the last 24 hours. AM labs today showed BUN 75 creatinine 3 with a potassium of 6. This was treated with Kayexalate, IV insulin and dextrose Halicat was called due to blood pressure 82/38. Patient was very lethargic and Dr. Brian transferred to ICU. Patient was started Norepinephrine and critical care was consulted. I evaluated the patient immediately. Patient is currently lethargic hypotensive with systolic blood pressure in mid 80s on 4 mcg/m of Levophed. I have ordered 1 L normal saline bolus, and 25 g IV albumin. I placed a left subclavian central line. A bedside ultrasound showed moderate ascites, I performed a paracentesis and removed 600 ml biliary tinged ascitic fluid. GI and Nephrology following. Repeat labs are pending at this time. Started on cefepime 1 g IV every 8 hours. 08/19 No events overnight. Afebrile. Off Levophed. Renal function worse today with Cr: 3.60 from 3.40 with UO: 850 ml in 08/20: Patient is more encephalopathic today, less responsive. Very lethargic, low grade fever. Bedside ultrasound shows reaccumulation of ascites fluid left lower quadrant. Renal function slightly worsened with increasing creatinine, urine output 850 mL in 24 hours. Tachycardic with heart rate in the 130s sinus rhythm, SIRS response most likely due to new infection 08/21: Patient had paracentesis yesterday 2 L. remains critical but slightly improved level of consciousness. Wakes up and following commands but, wakes up and tracks. UO 800 ml in 24 hours, creatinine getting worse. Dr. Ahumada has started IV Bumex BID. Prognosis appears guarded. Liver enzymes slightly trending down 08/22 Patient is lying in bed in NAD. Renal function worse today with Cr:4.91 from 4.28 with UOP:1750ml in 24 hrs 08/23 No events overnight. On 2L oxygen. Cr: 5.71 from 4.91 with UO: 553 ml in 24 hrs. Afebrile. 08/24: Tmax 100.9. Currently 99. On 3 L nasal cannula saturation 92%. Positive BM. Patient is minimally responsive. 08/25: Intubated for airway protection yesterday. Severely acidotic. Family not available. Worsening renal function. Worsening hepatic failure. Actively dying. Subjective 08/26: Actively dying. Really acidotic. In multisystem organ failure. Potassium continues to elevate. Not tolerating tube feeds. DNR status. Objective Vital Signs Date Time Temp Pulse Resp B/P Pulse Ox O2 Delivery O2 Flow Rate FiO2 08/26/16 14:30 100 60 08/26/16 14:00 85 08/26/16 12:00 99.4 14 89/45 08/24/16 07:25 Nasal Cannula 08/23/16 19:49 2.00 Intake and Output 08/25/16 08/25/16 08/25/16 07:59 15:59 23:59 Intake Total 2002 ml 1818 ml 2168 ml Output Total 605 ml 810 ml 100 ml Balance 1397 ml 1008 ml 2068 ml Result Diagram: 08/26/16 0500 08/26/16 1324 Imaging Last 72 hours Impressions Chest X-Ray 08/24/16 0000 Signed Impressions: Service Date/Time: Wednesday, August 24, 2016 16:18 - CONCLUSION: 1. Unchanged bibasilar infiltrates/effusions. 2. Endotracheal tube. David Crespo Jr., MD Objective Remarks GENERAL: 70-year-old male, critically ill currently resting in bed unresponsive SKIN: Jaundiced. Cool and dry. HEAD: Normocephalic. EYES: Pupils are about 3 mm bilaterally and reactive . Positive scleral icterus. No injection or drainage. ENT: Oral cavity is dry. Airway patent NECK: Supple, trachea midline. No JVD or lymphadenopathy. CARDIOVASCULAR: Tachycardic, RR. S1, S2.Currently without murmurs, gallops, or rubs. RESPIRATORY: Breath sounds diminished at the bases bilaterally. No accessory muscle use. GASTROINTESTINAL: Abdomen soft, distended, mildly tender to palpation, s/p paracentesis with 2L fluid removed 08/20/16 MUSCULOSKELETAL: No cyanosis. Lower ext 2+ edema. Chronic venous stasis changes BACK: Nontender without obvious deformity. No CVA tenderness. NEURO: Patient is minimally unresponsive on the ventilator. Occasionally moves bilateral upper extremities spontaneously but not to command. Procedures None. Vascular Central Line Catheter: Yes Assessment to: Continue Line: Central Venous Catheter A/P Assessment and Plan NEURO/PSYCH: Acute toxic metabolic encephalopathy Hepatic encephalopathy EtOH use Chronic pain syndrome Propofol 20 mcg/kg/m/fentanyl drips 200 mg an hour for sedation/analgesia while intubated Goal of RA SS -2 Daily sedation vacation - Encephalopathy secondary to metabolic hyperammonemia, Uremia, sepsis. Ammonia level greater than 100 today - Continue lactulose 30ml Q4 and Xifaxan 550 twice a day. Daily thiamine 100 mg IV daily RESP: Bilateral lower lobe infiltrates/atelectasis History of COPD Right lower lobe pulmonary nodule 9 mm - 3 month follow-up recommended - Continue with oxygen keep sat >92% - DuoNeb every 6 hours with albuterol nebs every 2 hours when necessary when necessary On Symbicort 160/4.52 puffs twice a day will be switched to Pulmicort twice a day while intubated CV: Shock - SIRS/sinus tachycardia Lactic acidosis Currently on Louie-Synephrine at 120 micrograms per minute/norepinephrine 16 mcg/ m to maintain MAP greater than 65 -Discontinue Lopressor 25mg BID- Monitor HR and BP keep MAP>65mmHg - Serial lactic acid monitoring. Last greater than 20 Elevated lactic acid likely 2nd sepsis and Liver disease -On Midodrine 5 mg 3 times a day GI: Hepatorenal syndrome/likely Acute hepatic failure Acute hepatitis B/IgM positive with viral load 17 million Liver cirrhosis Hepatitis C antibody positive. Viral load negative Hyperammonia - GI and nephrology following. GI had contacted [facility] for transplant eval-GI spoke to Dr. Novoa at [facility]- states that he is not a candidate for transplant. - Trial of Baraclude 0.5 mg daily for Hep B treatment - Continue supportive care, with IV albumin 12.5 g IV every 12 hours, Midodrine 10 mg 3 times a day, Octreotide 50 mcg subcutaneous every 8 hours and Mucomyst 600 twice a day - s/p paracentesis 08/18/16 with 600 mL of biliary tinged ascites fluid removed- fluid studies sent. Repeat paracentesis 08/20 with 2L removed -CT abdomen/pelvis 08/22: Cirrhosis of liver with evidence of portal HTN, ascites. -On tube feeds via NGT- Nepro with goal rate 40ml/hr On lactulose/Xifaxan as above. See orders Renal//FEN: Acute kidney failure/hepatorenal syndrome Hyperkalemia - Monitor renal function, I/O's, avoid nephrotoxins. Interval worsening of kidney function -Recommend increasing -Renal is following- Dr. Cruz, discussed with renal patient is not a candidate for HD prognosis poor given likely HRS, -US abdomen: No hydronephrosis -Continue IVF to sterile water with 3 amp bicarb @150ml/hr Bicarbonate, calcium, D50 insulin given. Recheck potassium in 3 hours ID: Severe sepsis Leukocytosis E faecalis UTI - Continue with abx (Cefepime, Zyvox) avoid Vanco given his renal dysfunction. monitor for signs of infections ( Fever, WBC) follow up on cxs- NGTD - ID is following 08/18 Urine cx: Enterococcus faecalis 08/10 Urine cx: Staph Epi F/U Repeat cultures, blood urine and sputum HEME: History CLL Coagulopathy secondary to liver failure Leukocytosis Thrombocytopenia - Monitor CBC, CMP, INR 2.5 today, for 2units FFP per GI. - FFP has been given past, Vit K 10 mg 2 days ordered. Recheck coags in a.m. ENDO: History of gout - SSI if needed for glycemic control PROPH: - Bilateral lower extremity SCDs. Avoid chemical DVT prophylaxis secondary to coagulopathy. IV Protonix LINES: - Left subclavian central line placed 08/18 Palliative care is following Level 3 Critically ill with encephalopathy SIRS, worsening renal failure most likely from hepatorenal syndrome. Prognosis very poor Delmar Hair MD Aug 26, 2016 14:39
[2016-08-26] MEDS ORDERED: DEXTROSE 50% IN WATER 50 ML VIAL(D50) IV PUSH ONE (14:45)
--- NOTE | 2016-08-26 15:15 | HHI.GIFU ---
Subjective Remarks Resting in bed, sedated on ventilator. Tolerating TF. Friend Burt, health care proxy: #[phone] (cell phone-pay by minutes) or [phone] (work), pt has been made DNR. Objective Vitals I&O Vital Signs Date Time Temp Pulse Resp B/P Pulse Ox O2 Delivery O2 Flow Rate FiO2 08/26/16 14:30 100 60 08/26/16 14:00 85 08/26/16 12:00 99.4 84 14 89/45 94 08/26/16 12:00 60 08/26/16 12:00 83 08/26/16 11:15 100 60 08/26/16 10:00 80 08/26/16 08:45 81 26 89/42 97 08/26/16 08:30 82 25 88/47 98 08/26/16 08:15 82 24 88/45 100 08/26/16 08:08 99 60 08/26/16 08:05 82 24 90/50 08/26/16 08:00 99.5 82 24 90/50 94 08/26/16 08:00 81 24 85/48 08/26/16 08:00 60 08/26/16 08:00 81 08/26/16 07:45 82 23 90/53 08/26/16 07:30 83 24 93/50 08/26/16 07:15 82 26 89/46 08/26/16 07:00 87 24 88/49 08/26/16 06:00 83 08/26/16 04:04 98 60 08/26/16 04:00 86 08/26/16 04:00 99.0 86 26 88/53 95 08/26/16 04:00 60 08/26/16 02:00 88 08/26/16 01:18 97 60 08/26/16 00:00 99.8 94 27 88/52 97 08/26/16 00:00 60 08/26/16 00:00 94 08/25/16 22:58 100 60 08/25/16 22:00 93 08/25/16 20:00 92 08/25/16 20:00 60 08/25/16 20:00 100.0 92 24 93/50 98 08/25/16 19:36 98 60 08/25/16 18:00 91 08/25/16 16:43 99 60 08/25/16 16:00 94 08/25/16 16:00 60 08/25/16 16:00 98.9 94 25 104/59 98 I/O 08/25/16 08/25/16 08/25/16 08/26/16 08/26/16 08/26/16 06:59 14:59 22:59 06:59 14:59 22:59 Intake Total 3820 ml 2168 ml 1942 ml 2393 ml Output Total 1415.0 ml 100 ml 335 ml Balance 2405.0 ml 2068 ml 1942 ml 2058 ml IV Total 2932 ml 2168 ml 1904 ml 2029 ml Tube Feeding 468 ml 38 ml 194 ml Albumin 50 ml 50 ml Tube Irrigant 120 ml 120 ml Other 250 ml Output Urine Total 5 ml 10 ml Stool Total 1400 ml 100 ml 200 ml Tube Feeding Residual Discard 0 ml 0 ml 0 ml Drainage Total 10 ml 125 ml Laboratory Laboratory Tests Test 08/26/16 08/26/16 05:00 13:24 White Blood Count 28.2 Red Blood Count 3.90 Hemoglobin 12.5 Hematocrit 38.7 Mean Corpuscular Volume 99.2 Mean Corpuscular Hemoglobin 31.9 Mean Corpuscular Hemoglobin 32.2 Concent Red Cell Distribution Width 22.6 Platelet Count 162 Mean Platelet Volume 10.4 Neutrophils (%) (Auto) 82.6 Lymphocytes (%) (Auto) 8.8 Monocytes (%) (Auto) 7.9 Eosinophils (%) (Auto) 0.0 Basophils (%) (Auto) 0.7 Neutrophils # (Auto) 23.3 Lymphocytes # (Auto) 2.5 Monocytes # (Auto) 2.2 Eosinophils # (Auto) 0.0 Basophils # (Auto) 0.2 CBC Comment AUTO DIFF Differential Total Cells 100 Counted Neutrophils % (Manual) 83 Band Neutrophils % 1 Lymphocytes % 8 Monocytes % 5 Neutrophils # (Manual) 24.5 Metamyelocytes 2 Myelocytes 1 Nucleated Red Blood Cells 1 Differential Comment FINAL DIFF MANUAL Hypersegmented Polys 2+ Platelet Estimate NORMAL Platelet Morphology Comment NORMAL Red Cell Morphology Comment NORMAL Activated Partial 67.8 Thromboplast Time Fibrinogen 128 Sodium Level 144 Potassium Level 6.6 6.1 Chloride Level 95 Carbon Dioxide Level 12.5 Anion Gap 37 Blood Urea Nitrogen 149 Creatinine 8.84 Estimat Glomerular Filtration 6 Rate Random Glucose 25 Lactic Acid Level 22.3 22.4 Calcium Level 6.3 Protein Corrected Calcium 7.1 Phosphorus Level 12.9 Magnesium Level 3.5 Total Bilirubin 18.9 Aspartate Amino Transf 1589 (AST/SGOT) Alanine Aminotransferase 358 (ALT/SGPT) Alkaline Phosphatase 168 Total Protein 5.4 Albumin 2.5 Lipase 738 Prothrombin Time 41.5 Prothromb Time International 3.6 Ratio Imaging Last Impressions Chest X-Ray 08/24/16 0000 Signed Impressions: Service Date/Time: Wednesday, August 24, 2016 16:18 - CONCLUSION: 1. Unchanged bibasilar infiltrates/effusions. 2. Endotracheal tube. David Crespo Jr., MD Abdomen/Pelvis CT 08/22/16 0000 Signed Impressions: Service Date/Time: Monday, August 22, 2016 16:16 - CONCLUSION: 1. No definitive findings to explain patient's lactic acidosis. Limited evaluation of the bowel due to lack of IV and oral contrast, demonstrates no evidence for obstruction, infarction, or perforation. 2. Cirrhotic appearing liver with evidence for portal hypertension including moderate ascites and splenomegaly. 3. Trace left and small to moderate right pleural effusionswith associated airspace disease in the lower lobes. 4. 9 mm solid nodule in the right lower lobe, new since 2010. Followup examination in 3 months to document stability per 2017 Fleischner criteria is recommended. Sung Gomez MD Abdomen X-Ray 08/22/16 0000 Signed Impressions: Service Date/Time: Monday, August 22, 2016 09:35 - CONCLUSION: Nonspecific abdomen. K. Salvatore Santoro MD Upper Extremity Ultrasound 08/21/16 0000 Signed Impressions: Service Date/Time: Sunday, August 21, 2016 20:10 - CONCLUSION: No evidence of deep venous thrombosis. Visualization was suboptimal. Kevin Hadley MD Hepatobiliary Scan Nuclear Medicine 08/11/16 0000 Signed Impressions: Service Date/Time: July 10:13 - CONCLUSION: 1. Normal HIDA scan confirming patency of the cystic and common bile ducts. 2. Normal gallbladder EF. 3. The patient was asymptomatic with administration of CCK. Sung Gomez MD Cholangiopancreatography MRI 08/11/16 0000 Signed Impressions: Service Date/Time: July 08:38 - CONCLUSION: 1. Hepatosplenomegaly 2. Distended gallbladder otherwise no evidence of biliary obstructive disease. 3. Small to moderate ascites 4. Altered flow in the portal vein which may be indicative of portal hypertension. 5. No other significant abnormalities identified. Steve Acuna MD Abdomen Ultrasound 08/10/16 0000 Signed Impressions: Service Date/Time: Monday, August 10, 2016 14:47 - CONCLUSION: There is no significant ascites. Tong Read MD FACR Physical Exam HEENT: Normocephalic; atraumatic + jaundice CHEST: OETT to vent. Course breath sounds. CARDIAC: Tachy, regular ABDOMEN: Abdomen soft, mildly distended, hepatomegaly. bowel sounds are hypoactive EXTREMITIES: bilateral LE cool, pulses present SKIN: + jaundice. 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 Assessment and Plan Plan ASSESSMENT: - Elevated LFTs, likely secondary to acute hepatitis B. Pt with past hx of heavy ETOH use, now drinks 1 beer per day for several years (has rx at [facility]). Denies any known hx of liver cirrhosis or gallbladder disease. Does have hx of CLL. US (08/10/16)---> hepatomegaly with diffusely coarse hepatic echogenicity similar to prior CT examination consistent with early cirrhotic changes other differential consideration includes leukemic infiltration in this patient with a history of leukemia. Persistent splenomegaly with a small amount of ascites likely due to portal hypertension. Again leukemic infiltration is in the differential. Sludge and small number of stones in the gallbladder with associated gallbladder wall thickening and pericholecystic fluid suspect the gallbladder wall thickening and pericholecystic fluid or due to patient's ascites on the sludge/stones or chronic in nature. MRCP (08/11/16)-----> 1. Hepatosplenomegaly 2. Distended gallbladder otherwise no evidence of biliary obstructive disease. Small to moderate ascites Altered flow in the portal vein which may be indicative of portal hypertension. HIDA (08/11/16)----> 1. Normal HIDA scan confirming patency of the cystic and common bile ducts. 2. Normal gallbladder EF. 3. The patient was asymptomatic with administration of CCK. AFP 1.6, iron sat 21.1%, ferritin 793, Ceruloplasmin 45, alpha 1 antitrypsin 235, HA negative, ASMA negative, AMA neg. This is most likely secondary to acute hepatitis B. He also has worsening renal function and is being treated for possible hepatorenal syndrome by renal- midodrine, octreotide. Worsening liver failure and renal function T. Bili 18.9, AST 1589, ALT 358, Alk Phosph 146. Worsening coagulopathy with PT-41.5, INR 3.6. No active bleeding. Per Dr. Novoa at [facility]-per hepatology department, patient is not a candidate for transplant and was not accepted as medical management transfer, as they do not feel that they have anything to offer at their facility that we cannot provide, given the fact that he is not a transplant candidate 08/19. Mucomyst BID, Octreotide, Midodrine, Baraclude. Worsening condition, MELD is now 53, pt is in liver failure with worsening renal/liver function. Declined at [facility] for transfer. Pt is in liver failure with worsening kidney failure and is terminal. - Acute hepatitis B, with Heb Bs Ag (+), Hep B Core IgM ab (+), viral load 17, 000,000 BE ag pos. Baraclude. - Hepatic encephalopathy. Ammonia 102. Lactulose, Xifaxan. - Liver cirrhosis with possible portal vein thrombosis. Pt appears to be going into fulminant liver failure. Declined at [facility] for transfer. - Ascites. US with small amount of ascites, not amenable to paracentesis on . Had paracentesis at bedside on 08/18/16 and on 08/20/16 with removal of 2L on 08/20. Peritoneal WBC 82, RBC 629. Peritoneal culture no growth 24 hours (08/20). Pt with worsening leukocytosis and elevated lactic acid. Rpt. CT as above, moderate ascites, INR elevated, cant have paracentesis. Likely would reaccumulate. - Worsening coagulopathy. Vit. K daily - Hepatitis C Antibodies (+). viral load <15. HE DOES NOT HAVE AN ACTIVE HCV INFECTION. This is either a false positive or he cleared the the virus on his own. - Chronic constipation, takes Linzess, Lactulose at home. S/P Miralax. On Lactulose. - ARF/hepatorenal syndrome with worsening renal function, decreasing UOP, and electrolyte abnormalities. Octreotide, Midodrine. Albumin. Avoid dye study and nephrotoxins.Nephrology following. Not a candidate for hemodialysis - Worsening Leukocytosis, Lactic acidosis. Abdomen/Pelvis CT (08/22/16)----> 1. No definitive findings to explain patient's lactic acidosis. Limited evaluation of the bowel due to lack of IV and oral contrast , demonstrates no evidence for obstruction, infarction, or perforation. 2. Cirrhotic appearing liver with evidence for portal hypertension including moderate ascites and splenomegaly. 3. Trace left and small to moderate right pleural effusions with associated airspace disease in the lower lobes. 4. 9 mm solid nodule in the right lower lobe, new since 2010. Followup examination in 3 months to document stability per 2017 Fleischner criteria is recommended. BCx no growth 4 days, Peritoneal fluid no growth 72 hours. He is on Cefepime , Zyvox. WBC 28.2. ID following - Chronic pain, COPD, Gout, Anxiety/Depression per primary - Chronic lymphocytic leukemia and 2014 and treated with Rituxan/Bendamustine x 6 and completed this in May of 2014. He is followed by Dr. Ball. PLAN: - Nepro w/goal rate of 40 ml/hr - Cont. Abx per ID recommendations - Cont. Mucamyst - Cont. Baraclude - Cont. Lactulose (increased dose) - Cont. Xifaxan - Midodrine, Octreotide per renal - Monitor labs - Renal following - ID following - CCM following - Per Dr. Novoa at [facility], patient is not a candidate for transplant. Not accepted for tx, as they feel that they do not have anything to offer that cannot be done at this facility, given the fact that he is not a candidate for transplant. - Pt is in liver failure and is terminal, recommend comfort measure/hospice care - The pt was seen and examined by myself and Dr Hyman and this note is written on his behalf Michelle Rajan Aug 26, 2016 15:15
--- NOTE | 2016-08-26 15:20 | HHI.HCPN ---
Reason for visit a. To assist with evaluation and management of symptoms including: dyspnea, pain. b. To assist medical decision maker(s) with: better understanding of current medical conditions; weighing benefits/burdens of medical treatment options; making medical treatment decisions. . Subjective/Interval History Patient seen and assessed in room 517. Patient was intubated and placed on mechanical ventilation for airway protection 08/24/16. He is sedated on and Fentanyl. He is requiring pressor support. He is encephalopathic secondary to metabolic hyperammonemia, Uremia, sepsis. Pertinent labs today: Ammonia 102, WBC 27.3, lactic acid 15.3, BUN 138, creatinine 7.69. Family/friend interactions Spoke with HCP, Burt Al who desires NO FURTHER ESCALATION OF CARE. He feels patient would want no want life prolonging measures or procedures. He will be here on 08/27/16 (if pt survives) to sign exhibits for withdrawal of life support. He is certain patient would not want dialysis or other life support. . Advance Directives Living Will: Never completed Health Care Surrogate: Never completed Durable Power of Cephalometric Technician: Never completed Advance Directive Specifics Health Care Surrogate(s): Decision-making: Patient is incapacitated, will not regain capacity. Single. Questionable son, Rob Oseguera, all contacts have declined knowing patient or have not returned calls. No other known family based on friends reports, Google , social media search and [employer] search. Therefore according to [place] statutes, health care proxy decision-making would fall to close friend. Friend Burt ( #[phone] (cell phone-pay by minutes) or [phone] (work)) who has known patient for the past 15 years is willing to serve as health care proxy decision maker. Documented care wishes: No documented care wishes are available. . Significant change in goals: NO CODE. No further escalation of care. Plan for transition to comfort measures with withdrawal of life support on 08/27/16 when Burt Al (HCP) can arrive to sign Exhibit. . Objective Vital Signs Date Time Temp Pulse Resp B/P Pulse Ox O2 Delivery O2 Flow Rate FiO2 08/26/16 14:30 100 60 08/26/16 14:00 85 08/26/16 12:00 99.4 84 14 89/45 94 08/26/16 12:00 60 08/26/16 12:00 83 08/26/16 11:15 100 60 08/26/16 10:00 80 08/26/16 08:45 81 26 89/42 97 08/26/16 08:30 82 25 88/47 98 08/26/16 08:15 82 24 88/45 100 08/26/16 08:08 99 60 08/26/16 08:05 82 24 90/50 08/26/16 08:00 99.5 82 24 90/50 94 08/26/16 08:00 81 24 85/48 08/26/16 08:00 60 08/26/16 08:00 81 08/26/16 07:45 82 23 90/53 08/26/16 07:30 83 24 93/50 08/26/16 07:15 82 26 89/46 08/26/16 07:00 87 24 88/49 08/26/16 06:00 83 08/26/16 04:04 98 60 08/26/16 04:00 86 08/26/16 04:00 99.0 86 26 88/53 95 08/26/16 04:00 60 08/26/16 02:00 88 08/26/16 01:18 97 60 08/26/16 00:00 99.8 94 27 88/52 97 08/26/16 00:00 60 08/26/16 00:00 94 08/25/16 22:58 100 60 08/25/16 22:00 93 08/25/16 20:00 92 08/25/16 20:00 60 08/25/16 20:00 100.0 92 24 93/50 98 08/25/16 19:36 98 60 08/25/16 18:00 91 08/25/16 16:43 99 60 08/25/16 16:00 94 08/25/16 16:00 60 08/25/16 16:00 98.9 94 25 104/59 98 Intake & Output 08/26/16 08/26/16 06:59 18:59 Intake Total 4110 ml 2393 ml Output Total 100 ml 335 ml Balance 4010 ml 2058 ml IV Total 4072 ml 2029 ml Tube Feeding 38 ml 194 ml Albumin 50 ml Tube Irrigant 120 ml Output Urine Total 10 ml Stool Total 100 ml 200 ml Tube Feeding Residual Discard 0 ml 0 ml Drainage Total 125 ml Physical Exam CONSTITUTIONAL/GENERAL: This is a critically ill, elderly male patient no acute distress TUBES/LINES/DRAINS: CVL, Altman, Dignashield, NGT, SCD, nasal cannula SKIN: Jaundice. Ecchymoses on upper extremities. Skin temperature appropriate. Not diaphoretic. EYES: Pupils 2mm, equal and sluggish Fundi not examined. CARDIOVASCULAR: Tachycardic. RESPIRATORY/CHEST: Respirations symmetrical and unlabored; no accessory muscles being used. Breath sounds diminished bilaterally. GASTROINTESTINAL: Abdomen firm, distended, diffuse tenderness to palpation. Bowel sounds present. GENITOURINARY: Without palpable bladder distension. Altman catheter in place. MUSCULOSKELETAL: BLE cool to touch, trace edema. Hands swollen bilaterally. NEUROLOGICAL: Unresponsive. PSYCHIATRIC: Unable to assess due to patient's current clinical condition. . Diagnostic Tests Laboratory Laboratory Tests Test 08/23/16 08/24/16 08/24/16 08/24/16 16:20 06:15 17:20 19:14 Prothrombin Time 28.4 SEC 28.4 SEC (9.8-11.6) (9.8-11.6) Prothromb Time International 2.5 RATIO 2.5 RATIO Ratio White Blood Count 25.1 TH/MM3 (4.0-11.0) Red Blood Count 4.20 MIL/MM3 (4.50-5.90) Hemoglobin 13.1 GM/DL (13.0-17.0) Hematocrit 40.9 % (39.0-51.0) Mean Corpuscular Volume 97.6 FL (80.0-100.0) Mean Corpuscular Hemoglobin 31.3 PG (27.0-34.0) Mean Corpuscular Hemoglobin 32.0 % Concent (32.0-36.0) Red Cell Distribution Width 21.6 % (11.6-17.2) Platelet Count 130 TH/MM3 (150-450) Mean Platelet Volume 10.0 FL (7.0-11.0) Neutrophils (%) (Auto) 75.9 % (16.0-70.0) Lymphocytes (%) (Auto) 13.1 % (9.0-44.0) Monocytes (%) (Auto) 10.0 % (0.0-8.0) Eosinophils (%) (Auto) 0.5 % (0.0-4.0) Basophils (%) (Auto) 0.5 % (0.0-2.0) Neutrophils # (Auto) 19.0 TH/MM3 (1.8-7.7) Lymphocytes # (Auto) 3.3 TH/MM3 (1.0-4.8) Monocytes # (Auto) 2.5 TH/MM3 (0-0.9) Eosinophils # (Auto) 0.1 TH/MM3 (0-0.4) Basophils # (Auto) 0.1 TH/MM3 (0-0.2) CBC Comment AUTO DIFF Differential Comment AUTO DIFF CONFIRMED Sodium Level 143 MEQ/L (136-145) Potassium Level 4.6 MEQ/L (3.5-5.1) Chloride Level 106 MEQ/L (98-107) Carbon Dioxide Level 16.3 MEQ/L (21.0-32.0) Anion Gap 21 MEQ/L (5-15) Blood Urea Nitrogen 124 MG/DL (7-18) Creatinine 6.63 MG/DL (0.60-1.30) Estimat Glomerular Filtration 8 ML/MIN (>89) Rate Random Glucose 155 MG/DL (74-106) Calcium Level 8.2 MG/DL (8.5-10.1) Total Bilirubin 16.2 MG/DL (0.2-1.0) Aspartate Amino Transf 501 U/L (15-37) (AST/SGOT) Alanine Aminotransferase 233 U/L (12-78) (ALT/SGPT) Alkaline Phosphatase 152 U/L (45-117) Total Protein 5.9 GM/DL (6.4-8.2) Albumin 2.6 GM/DL (3.4-5.0) Blood Gas Puncture Site RT RADIAL RT RADIAL Blood Gas Patient Temperature 98.6 98.6 Blood Gas HCO3 11 mmol/L 14 mmol/L (22-26) (22-26) Blood Gas Base Excess -17.9 mmol/L -14.6 mmol/L (-2-2) (-2-2) Blood Gas Oxygen Saturation 97 % (90-100) 87 % (90-100) Arterial Blood pH 7.02 7.06 (7.380-7.420) (7.380-7.420) Arterial Blood Partial 45 mmHg (38-42) 51 mmHg (38-42) Pressure CO2 Arterial Blood Partial 205 mmHg 76 mmHg Pressure O2 (61-120) (61-120) Arterial Blood Oxygen Content 17.6 Vol % 15.8 Vol % (12.0-20.0) (12.0-20.0) Arterial Blood 0.8 % (0-4) 0.9 % (0-4) Carboxyhemoglobin Arterial Blood Methemoglobin 0.9 % (0-2) 1.3 % (0-2) Blood Gas Hemoglobin 12.6 G/DL 13.0 G/DL (12.0-16.0) (12.0-16.0) Oxygen Delivery Device VENTILATOR VENT Blood Gas Ventilator Setting SEE COMMENTS Blood Gas Inspired Oxygen 80 % Test 08/25/16 08/25/16 08/25/16 08/25/16 04:30 11:45 12:18 12:30 White Blood Count 27.3 TH/MM3 (4.0-11.0) Red Blood Count 3.98 MIL/MM3 (4.50-5.90) Hemoglobin 12.8 GM/DL (13.0-17.0) Hematocrit 39.3 % (39.0-51.0) Mean Corpuscular Volume 98.6 FL (80.0-100.0) Mean Corpuscular Hemoglobin 32.1 PG (27.0-34.0) Mean Corpuscular Hemoglobin 32.5 % Concent (32.0-36.0) Red Cell Distribution Width 21.9 % (11.6-17.2) Platelet Count 145 TH/MM3 (150-450) Mean Platelet Volume 9.7 FL (7.0-11.0) Neutrophils (%) (Auto) % (16.0-70.0) Lymphocytes (%) (Auto) % (9.0-44.0) Monocytes (%) (Auto) % (0.0-8.0) Eosinophils (%) (Auto) % (0.0-4.0) Basophils (%) (Auto) % (0.0-2.0) Neutrophils # (Auto) TH/MM3 (1.8-7.7) Lymphocytes # (Auto) TH/MM3 (1.0-4.8) Monocytes # (Auto) TH/MM3 (0-0.9) Eosinophils # (Auto) TH/MM3 (0-0.4) Basophils # (Auto) TH/MM3 (0-0.2) CBC Comment AUTO DIFF Differential Total Cells 100 Counted Neutrophils % (Manual) 80 % (16-70) Band Neutrophils % 8 % (0-6) Lymphocytes % 6 % (9-44) Monocytes % 4 % (0-8) Neutrophils # (Manual) 24.6 TH/MM3 (1.8-7.7) Myelocytes 1 % (0-0) Promyelocytes 1 % (0-0) Differential Comment FINAL DIFF MANUAL Platelet Estimate LOW (NORMAL) Platelet Morphology Comment NORMAL (NORMAL) Ovalocytes 1+ (NORMAL) Prothrombin Time 32.2 SEC (9.8-11.6) Prothromb Time International 2.8 RATIO Ratio Activated Partial 59.2 SEC Thromboplast Time (24.3-30.1) Sodium Level 144 MEQ/L (136-145) Potassium Level 5.7 MEQ/L 5.0 MEQ/L (3.5-5.1) (3.5-5.1) Chloride Level 104 MEQ/L (98-107) Carbon Dioxide Level 11.5 MEQ/L (21.0-32.0) Anion Gap 29 MEQ/L (5-15) Blood Urea Nitrogen 138 MG/DL (7-18) Creatinine 7.69 MG/DL (0.60-1.30) Estimat Glomerular Filtration 7 ML/MIN (>89) Rate Random Glucose 82 MG/DL (74-106) Lactic Acid Level 15.5 mmol/L 15.0 mmol/L (0.4-2.0) (0.4-2.0) Calcium Level 7.4 MG/DL (8.5-10.1) Protein Corrected Calcium 8.3 MG/DL (8.5-10.1) Phosphorus Level 10.4 MG/DL (2.5-4.9) Magnesium Level 3.5 MG/DL (1.5-2.5) Total Bilirubin 18.5 MG/DL (0.2-1.0) Aspartate Amino Transf 778 U/L (15-37) (AST/SGOT) Alanine Aminotransferase 243 U/L (12-78) (ALT/SGPT) Alkaline Phosphatase 146 U/L (45-117) Ammonia 102 MCMOL/L (11-32) Total Creatine Kinase 245 U/L (39-308) Total Protein 5.5 GM/DL (6.4-8.2) Albumin 2.6 GM/DL (3.4-5.0) Amylase Level 62 U/L (25-115) Lipase 588 U/L (73-393) Blood Gas Puncture Site RT RADIAL Blood Gas Patient Temperature 98.6 Blood Gas HCO3 14 mmol/L (22-26) Blood Gas Base Excess -12.5 mmol/L (-2-2) Blood Gas Oxygen Saturation 96 % (90-100) Arterial Blood pH 7.18 (7.380-7.420) Arterial Blood Partial 40 mmHg (38-42) Pressure CO2 Arterial Blood Partial 147 mmHg Pressure O2 (61-120) Arterial Blood Oxygen Content 18.7 Vol % (12.0-20.0) Arterial Blood 0.9 % (0-4) Carboxyhemoglobin Arterial Blood Methemoglobin 1.2 % (0-2) Blood Gas Hemoglobin 13.6 G/DL (12.0-16.0) Oxygen Delivery Device VENTILATOR Blood Gas Ventilator Setting 24/600/PEEP8 Blood Gas Inspired Oxygen 80 % Test 08/26/16 08/26/16 05:00 13:24 White Blood Count 28.2 TH/MM3 (4.0-11.0) Red Blood Count 3.90 MIL/MM3 (4.50-5.90) Hemoglobin 12.5 GM/DL (13.0-17.0) Hematocrit 38.7 % (39.0-51.0) Mean Corpuscular Volume 99.2 FL (80.0-100.0) Mean Corpuscular Hemoglobin 31.9 PG (27.0-34.0) Mean Corpuscular Hemoglobin 32.2 % Concent (32.0-36.0) Red Cell Distribution Width 22.6 % (11.6-17.2) Platelet Count 162 TH/MM3 (150-450) Mean Platelet Volume 10.4 FL (7.0-11.0) Neutrophils (%) (Auto) 82.6 % (16.0-70.0) Lymphocytes (%) (Auto) 8.8 % (9.0-44.0) Monocytes (%) (Auto) 7.9 % (0.0-8.0) Eosinophils (%) (Auto) 0.0 % (0.0-4.0) Basophils (%) (Auto) 0.7 % (0.0-2.0) Neutrophils # (Auto) 23.3 TH/MM3 (1.8-7.7) Lymphocytes # (Auto) 2.5 TH/MM3 (1.0-4.8) Monocytes # (Auto) 2.2 TH/MM3 (0-0.9) Eosinophils # (Auto) 0.0 TH/MM3 (0-0.4) Basophils # (Auto) 0.2 TH/MM3 (0-0.2) CBC Comment AUTO DIFF Differential Total Cells 100 Counted Neutrophils % (Manual) 83 % (16-70) Band Neutrophils % 1 % (0-6) Lymphocytes % 8 % (9-44) Monocytes % 5 % (0-8) Neutrophils # (Manual) 24.5 TH/MM3 (1.8-7.7) Metamyelocytes 2 % (0-1) Myelocytes 1 % (0-0) Nucleated Red Blood Cells 1 /100 WBC (0-0) Differential Comment FINAL DIFF MANUAL Hypersegmented Polys 2+ (NORMAL) Platelet Estimate NORMAL (NORMAL) Platelet Morphology Comment NORMAL (NORMAL) Red Cell Morphology Comment NORMAL (NORMAL) Activated Partial 67.8 SEC Thromboplast Time (24.3-30.1) Fibrinogen 128 mg/dL (227-377) Sodium Level 144 MEQ/L (136-145) Potassium Level 6.6 MEQ/L 6.1 MEQ/L (3.5-5.1) (3.5-5.1) Chloride Level 95 MEQ/L (98-107) Carbon Dioxide Level 12.5 MEQ/L (21.0-32.0) Anion Gap 37 MEQ/L (5-15) Blood Urea Nitrogen 149 MG/DL (7-18) Creatinine 8.84 MG/DL (0.60-1.30) Estimat Glomerular Filtration 6 ML/MIN (>89) Rate Random Glucose 25 MG/DL (74-106) Lactic Acid Level 22.3 mmol/L 22.4 mmol/L (0.4-2.0) (0.4-2.0) Calcium Level 6.3 MG/DL (8.5-10.1) Protein Corrected Calcium 7.1 MG/DL (8.5-10.1) Phosphorus Level 12.9 MG/DL (2.5-4.9) Magnesium Level 3.5 MG/DL (1.5-2.5) Total Bilirubin 18.9 MG/DL (0.2-1.0) Aspartate Amino Transf 1589 U/L (AST/SGOT) (15-37) Alanine Aminotransferase 358 U/L (12-78) (ALT/SGPT) Alkaline Phosphatase 168 U/L (45-117) Total Protein 5.4 GM/DL (6.4-8.2) Albumin 2.5 GM/DL (3.4-5.0) Lipase 738 U/L (73-393) Prothrombin Time 41.5 SEC (9.8-11.6) Prothromb Time International 3.6 RATIO Ratio Result Diagram: 08/26/16 0500 08/26/16 1324 Imaging Last Impressions Chest X-Ray 08/24/16 0000 Signed Impressions: Service Date/Time: Wednesday, August 24, 2016 16:18 - CONCLUSION: 1. Unchanged bibasilar infiltrates/effusions. 2. Endotracheal tube. David Crespo Jr., MD Abdomen/Pelvis CT 08/22/16 0000 Signed Impressions: Service Date/Time: Monday, August 22, 2016 16:16 - CONCLUSION: 1. No definitive findings to explain patient's lactic acidosis. Limited evaluation of the bowel due to lack of IV and oral contrast, demonstrates no evidence for obstruction, infarction, or perforation. 2. Cirrhotic appearing liver with evidence for portal hypertension including moderate ascites and splenomegaly. 3. Trace left and small to moderate right pleural effusionswith associated airspace disease in the lower lobes. 4. 9 mm solid nodule in the right lower lobe, new since 2010. Followup examination in 3 months to document stability per 2017 Fleischner criteria is recommended. Sung Gomez MD Abdomen X-Ray 08/22/16 0000 Signed Impressions: Service Date/Time: Monday, August 22, 2016 09:35 - CONCLUSION: Nonspecific abdomen. K. Salvatore Santoro MD Upper Extremity Ultrasound 08/21/16 0000 Signed Impressions: Service Date/Time: Sunday, August 21, 2016 20:10 - CONCLUSION: No evidence of deep venous thrombosis. Visualization was suboptimal. Kevin Hadley MD Hepatobiliary Scan Nuclear Medicine 08/11/16 0000 Signed Impressions: Service Date/Time: July 10:13 - CONCLUSION: 1. Normal HIDA scan confirming patency of the cystic and common bile ducts. 2. Normal gallbladder EF. 3. The patient was asymptomatic with administration of CCK. Sung Gomez MD Cholangiopancreatography MRI 08/11/16 0000 Signed Impressions: Service Date/Time: July 08:38 - CONCLUSION: 1. Hepatosplenomegaly 2. Distended gallbladder otherwise no evidence of biliary obstructive disease. 3. Small to moderate ascites 4. Altered flow in the portal vein which may be indicative of portal hypertension. 5. No other significant abnormalities identified. Steev Acuna MD Abdomen Ultrasound 08/10/16 0000 Signed Impressions: Service Date/Time: Wednesday, August 10, 2016 14:47 - CONCLUSION: There is no significant ascites. Tong Read MD FACR Procedures 08/18/16: CVL placement 08/18/16: Paracentesis 08/20/16: Paracentesis . Assessment and Plan Disease Oriented Problem List: (1) COPD (chronic obstructive pulmonary disease) (2) Gout (3) Acute renal failure (4) Leukocytosis (5) Acute liver disease (6) Acute hepatitis B (7) CLL (chronic lymphocytic leukemia) (8) LFT elevation (9) Ascites (10) Hepatic encephalopathy Symptom Scale: (1) Debility 0-10 Scale: Unable to quantify (2) Pain 0-10 Scale: Unable to quantify (3) Malnutrition 0-10 Scale: Unable to quantify Pertinent Non-Medical Issues Psychosocial: Patient worked in construction, cabinet work. Reported long history of exposure to dust. Spiritual: None sabianism per Legal: Patient is incapacitated, will not regain capacity. Single. Questionable son, Rob Oseguera, all contacts have declined knowing patient or have not returned calls. No other known family based on friends reports, Google, social media search and [employer] search. Therefore according to [place] statutes, health care proxy decision-making would fall to close friend. Friend Burt Al ( #[phone] (cell phone-pay by minutes) or [phone] (work)) who has known patient for the past 15 years is willing to serve as health care proxy decision maker. Ethical issues impacting care: No known ethical issues impacting care at this time. Important Contacts * Friend Burt Al, health care proxy: #[phone] (cell phone-pay by minutes) or [phone] (work) Names on paper found in patient's wheelchair, all friends/acquaintances: Yvonne [phone] Jagdeep [phone] Hope [phone] Jennifer [phone] Joanie [phone] ("Ride") Chantel Luna [phone] Garretphani [phone] Santos [phone] Tommie [phone] Adrián [phone] [facility] No return calls from POTENTIAL son matches, not known for sure if these are even family members. 1- ROB OSEGUERA AGE 30 [facility] [phone]--no return call 2- ROB OSEGUERA [facility]GE 47 [facility] [phone] / [phone] POS CELL-- Received call back from Rob @ #[phone]-- no relationship with patient. 4- ROB OSEGUERA AGE 37 [facility] [phone] AND [phone]-- no return call . Prognosis Patient is a 70-year-old male who was recently hospitalized with acute liver failure. Now with newly diagnosed acute hepatitis B, cirrhosis, hepatic encephalopathy, suspected sepsis likely from peritoneum. Patient is not a candidate for liver transplant. Concern for hepatorenal syndrome with decreased urine output secondary to liver dysfunction; if hepatorenal syndrome patient would be terminal. Prognosis is poor. . Code Status: No Code Plan * NO CODE * Decision-making: Patient is incapacitated, will not regain capacity. Single. Questionable son, Rob Oseguera, all contacts have declined knowing patient or have not returned calls. No other known family based on friends reports, Google , social media search and [employer] search. Therefore according to [place] statutes, health care proxy decision-making would fall to close friend. Friend Burt ( #[phone] (cell phone-pay by minutes) or [phone] (work)) who has known patient for the past 15 years is willing to serve as health care proxy decision maker. * Discussed with nurse and Dr. Hair. * 08/26/16 - Spoke with HCP, Burt Al who desires NO FURTHER ESCALATION OF CARE (No labs, imaging, dialysis, NO increase pressor or vent support). Do not hold Fentanyl for hypotension, HCP desires comfort meds. He feels patient would want no want life prolonging measures or procedures. He will be here on 08/27/16 probably around noon (if pt survives) to sign exhibits for withdrawal of life support. He is certain patient would not want dialysis or other life support. * Exhibits B & C on chart signed by Dr. Hair and Dr. Aly. * Symptom managementmalnutrition: Nutritional intake is poor. Patient reported a 65 pound weight loss over the past 2 years. Tolerating tube feeding. * Symptom managementpain: Intermittent moaning is noted Possible causes of pain include infection, abdominal distention/ascites, edema, invasive lines, NGT , immobility, bedbound status, impaired skin integrity. Has Fentanyl drip, requested nurse restart per HCP request. He does not want patient to suffer. * Symptom managementconfusion: Likely secondary to hepatic encephalopathy; on lactulose. Continue to monitor, no further medications. Ammonia level of 59 on 08/23/2016. * Palliative care number provided. * Palliative care will continue to follow to assist with symptom management and clarification of treatment goals as needed. . Attestation To help prompt me to consider important information that might be impacting today's encounter and assessment, information from prior notes written by myself or my colleagues may have been "brought forward" into today's note. My signature on this note, however, is an attestation that I personally performed the exam, history, and/or decision-making noted today, and, unless otherwise indicated, the interactions with patient, family, and staff as well as the review of records all occurred today. I also attest that the listed assessment and stated plan reflect my best clinical judgment today based on the combination of historical information, prior notes, and today's exam/ interactions. When time spent is documented, it refers only to time spent today by the signer, or if indicated, combined time spent today by collaborating physician/nurse practitioner. Karis Streeter Aug 26, 2016 15:20
--- NOTE | 2016-08-26 18:49 | HHI.NPPN ---
Subjective Additional Remarks Renal function is worse. intubated yesterday Objective Data Data 08/25/16 08/26/16 19:00 07:00 Intake Total 3820 ml 4110 ml Output Total 1415.0 ml 100 ml Balance 2405.0 ml 4010 ml IV Total 2932 ml 4072 ml Tube Feeding 468 ml 38 ml Albumin 50 ml Tube Irrigant 120 ml Other 250 ml Output Urine Total 5 ml Stool Total 1400 ml 100 ml Tube Feeding Residual Discard 0 ml 0 ml Drainage Total 10 ml Vital Signs Date Time Temp Pulse Resp B/P Pulse Ox O2 Delivery O2 Flow Rate FiO2 08/26/16 18:00 89 08/26/16 17:39 100 45 08/26/16 16:00 99.5 85 24 96/45 100 08/26/16 16:00 60 08/26/16 16:00 97 08/26/16 14:30 100 60 08/26/16 14:00 85 08/26/16 12:00 99.4 84 14 89/45 94 08/26/16 12:00 60 08/26/16 12:00 83 08/26/16 11:15 100 60 08/26/16 10:00 80 08/26/16 08:45 81 26 89/42 97 08/26/16 08:30 82 25 88/47 98 08/26/16 08:15 82 24 88/45 100 08/26/16 08:08 99 60 08/26/16 08:05 82 24 90/50 08/26/16 08:00 99.5 82 24 90/50 94 08/26/16 08:00 81 24 85/48 08/26/16 08:00 60 08/26/16 08:00 81 08/26/16 07:45 82 23 90/53 08/26/16 07:30 83 24 93/50 08/26/16 07:15 82 26 89/46 08/26/16 07:00 87 24 88/49 08/26/16 06:00 83 08/26/16 04:04 98 60 08/26/16 04:00 86 08/26/16 04:00 99.0 86 26 88/53 95 08/26/16 04:00 60 08/26/16 02:00 88 08/26/16 01:18 97 60 08/26/16 00:00 99.8 94 27 88/52 97 08/26/16 00:00 60 08/26/16 00:00 94 08/25/16 22:58 100 60 08/25/16 22:00 93 08/25/16 20:00 92 08/25/16 20:00 60 08/25/16 20:00 100.0 92 24 93/50 98 08/25/16 19:36 98 60 -: 08/26/16 0500 08/26/16 1324 Physical Exam General Appearance: Well Nourished, Pale Neck Neck Exam: Neck Supple Pulmonary Resp Exam: Clear Bilaterally, Breath Sounds Equal Cardiology CV Exam: Regular, Normal Sinus Rhythm Gastrointestinal/Abdomen GI Exam: Soft, Distended Extremeties Extremities Exam: Moderate Edema Assessment/Plan Problem List: (1) Acute renal failure Plan: Worsening renal function: poor prognosis, Hep B uop Improved Cr higher Apparently not a candidate for liver transplantation. he indeed has HRS, his condition is terminal. palliative care consult. poor candidate for hemodialysis outcome would not change with liver failure as bad prognostic indicator he is on Midodrine/Octreotide/albumin non improvement potassium is 6.1 Acidosis on IVF D5 AND Biacrb `100 cc.hr worse appears terminal Lactic acid 15 palliative care involved to locate family and friends Withdrawal life support tomorrow (2) Acute hepatitis B Plan: Acute infection GI is following. Notes were reviewed. (3) Acute liver disease Plan: Elevated liver enzymes due to hepatitis B (4) Leukemia Plan: History of CLL in the past (5) Hyponatremia Plan: Resolved. Problem Qualifiers (1) Leukemia: Qualified Code: C95.10 - Chronic leukemia, not having achieved remission Dante Cruz MD Aug 26, 2016 18:49
[2016-08-27] VITALS (11 sets, daily range): BP systolic 87–94; BP diastolic 42–46; PULSE 73–84; RESP 24–25; TEMP 98–99.2; O2SAT 93–97
[2016-08-27] MEDS: OCTREOTIDE INJ 50 MCG/ML AMP IV PUSH SCH ×2 (01:00→08:07)
[2016-08-27] MEDS: NOREPINEPHRINE-DEXTROSE DRIP 250 ML IV SCH ×2 (02:12→06:08)
[2016-08-27] MEDS: LACTULOSE SYRUP 20 GM/30 ML CUP PO SCH ×3 (02:12→08:06)
[2016-08-27] MEDS: CEFEPIME INJ 1,000 MG in SODIUM CHLORIDE 0.9% INJ 100 ML IV SCH (04:34)
[2016-08-27] MEDS: ENTECAVIR 0.5 MG TAB PO SCH (04:34)
[2016-08-27] MEDS: MIDODRINE 5 MG TAB PO SCH ×2 (04:34→10:53)
[2016-08-27] MEDS: LINEZOLID 600 MG PREMIX 300 ML IV SCH (04:35)
[2016-08-27] MEDS: fentaNYL DRIP 250 ML IV SCH (06:08)
[2016-08-27] MEDS: RESP: BUDESONIDE 0.5 MG/2 ML NEB NEB SCH (07:19)
[2016-08-27] MEDS: PHYTONADIONE 5 MG TAB DOBHOFF SCH (08:07)
[2016-08-27] MEDS: RIFAXIMIN 550 MG TAB PO SCH (08:07)
[2016-08-27] MEDS: METOPROLOL TARTRATE 25 MG TAB PO SCH (08:08)
[2016-08-27] MEDS: ACETYLCYSTEINE 20% 6,000 MG/30 ML ORAL SOLN VIAL PO SCH (08:08)
[2016-08-27] MEDS: DOCUSATE SODIUM 50 MG/SENNA 8.6 MG TAB PO SCH (08:08)
[2016-08-27] MEDS: DEXT 5%-NACL 0.9% 1000 ML INJ 1,000 ML IV SCH (08:09)
[2016-08-27] MEDS: SODIUM CHLORIDE 0.9% FLUSH 10 ML FLUSH IV FLUSH SCH (08:09)
[2016-08-27] MEDS: CHLORHEXIDINE 0.12% (ORAL KIT) 15 ML CUP MT SCH (08:10)
--- NOTE | 2016-08-27 08:12 | HHI.CCPN ---
Subjective Remarks/Hospital Course Patient is a is a 70 year old male patient with history of chronic lymphocytic leukemia, in remission, who was admitted to the hospital for evaluation of elevated LFTs. His lab work on 08/09/16 showed elevated LFTs, total bilirubin 2.3, AST 759, ALT 270, alkaline phosphatase 390. US on 08/10/16 showed early cirrhotic change. Gastroenterology was consulted and further workup revealed patient had acute hepatitis B. Hepatitis C was also positive. Patient was placed on Xifaxan and lactulose by GI for elevated ammonia. Admission creatinine was normal but started climbing up by day 2 of admission. Creatinine was 1.3 on 08/13/16 nephrology was consulted for probable hepatorenal syndrome. Patient was placed on IV albumin, octreotide, and Midodrine for possible HRS. Despite these measures, patient's creatinine continued to deteriorate and he becameoliguric. Urine output was only 300 mL in the last 24 hours. AM labs today showed BUN 75 creatinine 3 with a potassium of 6. This was treated with Kayexalate, IV insulin and dextrose Halicat was called due to blood pressure 82/38. Patient was very lethargic and Dr. Brian transferred to ICU. Patient was started Norepinephrine and critical care was consulted. I evaluated the patient immediately. Patient is currently lethargic hypotensive with systolic blood pressure in mid 80s on 4 mcg/m of Levophed. I have ordered 1 L normal saline bolus, and 25 g IV albumin. I placed a left subclavian central line. A bedside ultrasound showed moderate ascites, I performed a paracentesis and removed 600 ml biliary tinged ascitic fluid. GI and Nephrology following. Repeat labs are pending at this time. Started on cefepime 1 g IV every 8 hours. 08/19 No events overnight. Afebrile. Off Levophed. Renal function worse today with Cr: 3.60 from 3.40 with UO: 850 ml in 08/20: Patient is more encephalopathic today, less responsive. Very lethargic, low grade fever. Bedside ultrasound shows reaccumulation of ascites fluid left lower quadrant. Renal function slightly worsened with increasing creatinine, urine output 850 mL in 24 hours. Tachycardic with heart rate in the 130s sinus rhythm, SIRS response most likely due to new infection 08/21: Patient had paracentesis yesterday 2 L. remains critical but slightly improved level of consciousness. Wakes up and following commands but, wakes up and tracks. UO 800 ml in 24 hours, creatinine getting worse. Dr. Ahumada has started IV Bumex BID. Prognosis appears guarded. Liver enzymes slightly trending down 08/22 Patient is lying in bed in NAD. Renal function worse today with Cr:4.91 from 4.28 with UOP:1750ml in 24 hrs 08/23 No events overnight. On 2L oxygen. Cr: 5.71 from 4.91 with UO: 553 ml in 24 hrs. Afebrile. 08/24: Tmax 100.9. Currently 99. On 3 L nasal cannula saturation 92%. Positive BM. Patient is minimally responsive. 08/25: Intubated for airway protection yesterday. Severely acidotic. Family not available. Worsening renal function. Worsening hepatic failure. Actively dying. 08/26: Actively dying. Really acidotic. In multisystem organ failure. Potassium continues to elevate. Not tolerating tube feeds. DNR status.\ Subjective 08/27: No Escalation of care per healthcare proxy ordered yesterday. No laboratories done this AM. Actively dying. Objective Vital Signs Date Time Temp Pulse Resp B/P Pulse Ox O2 Delivery O2 Flow Rate FiO2 08/27/16 07:19 93 45 08/27/16 06:00 78 08/27/16 04:00 98.0 25 94/46 08/24/16 07:25 Nasal Cannula 08/23/16 19:49 2.00 Intake and Output 08/26/16 08/26/16 08/27/16 08:00 16:00 00:00 Intake Total 1942 ml 2393 ml 2162 ml Output Total 0 ml 335 ml 1320 ml Balance 1942 ml 2058 ml 842 ml Result Diagram: 08/26/16 0500 08/26/16 1324 Objective Remarks GENERAL: 70-year-old male, critically ill currently resting in bed unresponsive SKIN: Jaundiced. Cool and dry. HEAD: Normocephalic. EYES: Pupils are about 3 mm bilaterally and reactive . Positive scleral icterus. No injection or drainage. ENT: Oral cavity is dry. Airway patent NECK: Supple, trachea midline. No JVD or lymphadenopathy. CARDIOVASCULAR: Tachycardic, RR. S1, S2.Currently without murmurs, gallops, or rubs. RESPIRATORY: Breath sounds diminished at the bases bilaterally. No accessory muscle use. GASTROINTESTINAL: Abdomen soft, distended, mildly tender to palpation, s/p paracentesis with 2L fluid removed 08/20/16 MUSCULOSKELETAL: No cyanosis. Lower ext 2+ edema. Chronic venous stasis changes BACK: Nontender without obvious deformity. No CVA tenderness. NEURO: Patient is minimally unresponsive on the ventilator. Occasionally moves bilateral upper extremities spontaneously but not to command. Procedures None. Line: Central Venous Catheter A/P Assessment and Plan NEURO/PSYCH: Acute toxic metabolic encephalopathy Hepatic encephalopathy EtOH use Chronic pain syndrome Propofol 20 mcg/kg/m/fentanyl drips 200 mg an hour for sedation/analgesia while intubated Goal of RA SS -2 Daily sedation vacation - Encephalopathy secondary to metabolic hyperammonemia, Uremia, sepsis. Ammonia level greater than 100 today - Continue lactulose 30ml Q4 and Xifaxan 550 twice a day. Daily thiamine 100 mg IV daily RESP: Bilateral lower lobe infiltrates/atelectasis History of COPD Right lower lobe pulmonary nodule 9 mm - 3 month follow-up recommended - Continue with oxygen keep sat >92% - DuoNeb every 6 hours with albuterol nebs every 2 hours when necessary when necessary On Symbicort 160/4.52 puffs twice a day will be switched to Pulmicort twice a day while intubated CV: Shock - SIRS/sinus tachycardia Lactic acidosis Currently on Louie-Synephrine at 120 micrograms per minute/norepinephrine 16 mcg/ m to maintain MAP greater than 65 -Discontinue Lopressor 25mg BID- Monitor HR and BP keep MAP>65mmHg - Serial lactic acid monitoring as been discontinued. Last greater than 20 Elevated lactic acid likely 2nd sepsis and Liver disease -On Midodrine 5 mg 3 times a day GI: Hepatorenal syndrome/likely Acute hepatic failure Acute hepatitis B/IgM positive with viral load 17 million Liver cirrhosis Hepatitis C antibody positive. Viral load negative Hyperammonia - GI and nephrology following. GI had contacted [facility] for transplant eval-GI spoke to Dr. Novoa at [facility]- states that he is not a candidate for transplant. - Trial of Baraclude 0.5 mg daily for Hep B treatment - Continue supportive care, with IV albumin 12.5 g IV every 12 hours, Midodrine 10 mg 3 times a day, Octreotide 50 mcg subcutaneous every 8 hours and Mucomyst 600 twice a day - s/p paracentesis 08/18/16 with 600 mL of biliary tinged ascites fluid removed- fluid studies sent. Repeat paracentesis 08/20 with 2L removed -CT abdomen/pelvis 08/22: Cirrhosis of liver with evidence of portal HTN, ascites. -On tube feeds via NGT- Nepro with goal rate 40ml/hr On lactulose/Xifaxan as above. See orders Renal//FEN: Acute kidney failure/hepatorenal syndrome Hyperkalemia - Monitor renal function, I/O's, avoid nephrotoxins. Interval worsening of kidney function -Recommend increasing -Renal is following- Dr. Cruz, discussed with renal patient is not a candidate for HD prognosis poor given likely HRS, -US abdomen: No hydronephrosis 08/26 discontinued IVF to sterile water with 3 amp bicarb @150ml/hr ID: Severe sepsis Leukocytosis E faecalis UTI - Continue with abx (Cefepime, Zyvox) avoid Vanco given his renal dysfunction. monitor for signs of infections ( Fever, WBC) follow up on cxs- NGTD - ID is following 08/18 Urine cx: Enterococcus faecalis 08/10 Urine cx: Staph Epi F/U Repeat cultures, blood urine and sputum HEME: History CLL Coagulopathy secondary to liver failure Leukocytosis Thrombocytopenia -No more further monitoring of laboratories ENDO: History of gout - SSI if needed for glycemic control PROPH: - Bilateral lower extremity SCDs. Avoid chemical DVT prophylaxis secondary to coagulopathy. IV Protonix LINES: - Left subclavian central line placed 08/18 Palliative care is following Level 3 Critically ill with encephalopathy SIRS, worsening renal failure most likely from hepatorenal syndrome. Prognosis very poor. Likely withdrawal care today Delmar Hair MD Aug 27, 2016 08:12
[2016-08-27] MEDS: ALBUMIN HUMAN 25% 12.5 GM/50 ML BAGP IV SCH (10:53)
[2016-08-27] MEDS: PANTOPRAZOLE SODIUM 40 MG VIAL IV PUSH SCH (10:53)
[2016-08-27] MEDS ORDERED: LORazepam 2 MG/ML VIAL IV ONE ×2 (12:15→12:30)
[2016-08-27] MEDS ORDERED: MORPHINE SULFATE 8 MG/ML INJ IV PUSH ONE (12:15)
[2016-08-27] MEDS ORDERED: HYOSCYAMINE 0.125 MG TAB PO/SL ONE (12:15)
[2016-08-27] MEDS ORDERED: MORPHINE SULFATE 4 MG/ML INJ IV ONE (12:30)
[2016-08-27] MEDS ORDERED: ACETAMINOPHEN 650 MG SUPP RECTAL PRN (12:45)
[2016-08-27] MEDS ORDERED: BISACODYL 10 MG SUPP RECTAL PRN (12:45)
[2016-08-27] MEDS ORDERED: FUROSEMIDE 20 MG/2 ML VIAL IV PRN (12:45)
[2016-08-27] MEDS ORDERED: LORazepam 2 MG/ML VIAL IV PRN ×2 (12:45)
[2016-08-27] MEDS ORDERED: MORPHINE SULFATE 8 MG/ML INJ IV PUSH PRN (12:45)
[2016-08-27] MEDS ORDERED: LORazepam 2 MG/ML VIAL IVS PRN (12:45)
[2016-08-27] MEDS ORDERED: MORPHINE SULFATE 4 MG/ML INJ IV PRN (12:45)
--- NOTE | 2016-08-27 14:24 | HHI.DS ---
Summary Note Date of : Aug 27, 2016 Time Of : 13:20 Admission Date Aug 13, 2016 at 11:19 Admitting Diagnosis Acute elevation of liver enzymes Diagnosis at Time of : (1) Hepatic encephalopathy ICD Code: K72.90 Diagnosis: Principal (2) Acute hepatitis B ICD Code: B16.9 Diagnosis: Principal (3) Acute renal failure ICD Code: N17.9 Diagnosis: Principal (4) COPD (chronic obstructive pulmonary disease) ICD Code: J44.9 Diagnosis: Principal (5) Acute respiratory failure ICD Code: J96.00 Diagnosis: Principal (6) LFT elevation ICD Code: R79.89 Diagnosis: Principal Procedures None. Brief History This is a 70-year-old male past medical history chronic lymphocytic leukemia in remission who presented to the emergency department due to abnormal labs. Patient is a poor historian. He stated that he saw Dr. Ball his oncologist today and he was told to go to the emergency department due to abnormal labs. He stated that his abdomen became larger about 2 weeks ago but he is unsure. He stated that he chronically has shortness of breathing and has not worsened. Patient denies any fevers or chills. He also denies any cough. Patient stated that he has been constipated for many days but is not able to give me any estimated time. He did admit to having small amounts of diarrhea today. Patient stated that he is not a heavy drinker and that he was told by his physician that he has a prescription to drink 1 beer day. Patient stated that he has not seen his primary care physician in a few months and that he has not been given any of his medication because of this. He stated that he is only taking 5 medication and one of them is Lortab. He denies any dependence on alcohol. Patient stated that he is due for his Lortab at 2 PM today. Patient denies any past liver disease or ascites. He stated that this is the first occurrence. CBC/BMP: 08/26/16 0500 08/26/16 1324 Significant Findings Laboratory Tests Test 08/24/16 08/24/16 08/25/16 08/25/16 17:20 19:14 04:30 11:45 Blood Gas HCO3 11 mmol/L 14 mmol/L 14 mmol/L (22-26) (22-26) (22-26) Blood Gas Base Excess -17.9 mmol/L -14.6 mmol/L -12.5 mmol/L (-2-2) (-2-2) (-2-2) Arterial Blood pH 7.02 7.06 7.18 (7.380-7.420) (7.380-7.420) (7.380-7.420) Arterial Blood Partial 45 mmHg (38-42) 51 mmHg (38-42) Pressure CO2 Arterial Blood Partial 205 mmHg 147 mmHg Pressure O2 (61-120) (61-120) Blood Gas Oxygen Saturation 87 % (90-100) White Blood Count 27.3 TH/MM3 (4.0-11.0) Red Blood Count 3.98 MIL/MM3 (4.50-5.90) Hemoglobin 12.8 GM/DL (13.0-17.0) Red Cell Distribution Width 21.9 % (11.6-17.2) Platelet Count 145 TH/MM3 (150-450) Neutrophils % (Manual) 80 % (16-70) Band Neutrophils % 8 % (0-6) Lymphocytes % 6 % (9-44) Neutrophils # (Manual) 24.6 TH/MM3 (1.8-7.7) Myelocytes 1 % (0-0) Promyelocytes 1 % (0-0) Platelet Estimate LOW (NORMAL) Ovalocytes 1+ (NORMAL) Prothrombin Time 32.2 SEC (9.8-11.6) Activated Partial 59.2 SEC Thromboplast Time (24.3-30.1) Potassium Level 5.7 MEQ/L (3.5-5.1) Carbon Dioxide Level 11.5 MEQ/L (21.0-32.0) Anion Gap 29 MEQ/L (5-15) Blood Urea Nitrogen 138 MG/DL (7-18) Creatinine 7.69 MG/DL (0.60-1.30) Estimat Glomerular Filtration 7 ML/MIN (>89) Rate Lactic Acid Level 15.5 mmol/L (0.4-2.0) Calcium Level 7.4 MG/DL (8.5-10.1) Protein Corrected Calcium 8.3 MG/DL (8.5-10.1) Phosphorus Level 10.4 MG/DL (2.5-4.9) Magnesium Level 3.5 MG/DL (1.5-2.5) Total Bilirubin 18.5 MG/DL (0.2-1.0) Aspartate Amino Transf 778 U/L (15-37) (AST/SGOT) Alanine Aminotransferase 243 U/L (12-78) (ALT/SGPT) Alkaline Phosphatase 146 U/L (45-117) Ammonia 102 MCMOL/L (11-32) Total Protein 5.5 GM/DL (6.4-8.2) Albumin 2.6 GM/DL (3.4-5.0) Lipase 588 U/L (73-393) Test 08/25/16 08/26/16 08/26/16 12:18 05:00 13:24 Lactic Acid Level 15.0 mmol/L 22.3 mmol/L 22.4 mmol/L (0.4-2.0) (0.4-2.0) (0.4-2.0) White Blood Count 28.2 TH/MM3 (4.0-11.0) Red Blood Count 3.90 MIL/MM3 (4.50-5.90) Hemoglobin 12.5 GM/DL (13.0-17.0) Hematocrit 38.7 % (39.0-51.0) Red Cell Distribution Width 22.6 % (11.6-17.2) Neutrophils (%) (Auto) 82.6 % (16.0-70.0) Lymphocytes (%) (Auto) 8.8 % (9.0-44.0) Neutrophils # (Auto) 23.3 TH/MM3 (1.8-7.7) Monocytes # (Auto) 2.2 TH/MM3 (0-0.9) Neutrophils % (Manual) 83 % (16-70) Lymphocytes % 8 % (9-44) Neutrophils # (Manual) 24.5 TH/MM3 (1.8-7.7) Metamyelocytes 2 % (0-1) Myelocytes 1 % (0-0) Nucleated Red Blood Cells 1 /100 WBC (0-0) Hypersegmented Polys 2+ (NORMAL) Activated Partial 67.8 SEC Thromboplast Time (24.3-30.1) Fibrinogen 128 mg/dL (227-377) Potassium Level 6.6 MEQ/L 6.1 MEQ/L (3.5-5.1) (3.5-5.1) Chloride Level 95 MEQ/L (98-107) Carbon Dioxide Level 12.5 MEQ/L (21.0-32.0) Anion Gap 37 MEQ/L (5-15) Blood Urea Nitrogen 149 MG/DL (7-18) Creatinine 8.84 MG/DL (0.60-1.30) Estimat Glomerular Filtration 6 ML/MIN (>89) Rate Random Glucose 25 MG/DL (74-106) Calcium Level 6.3 MG/DL (8.5-10.1) Protein Corrected Calcium 7.1 MG/DL (8.5-10.1) Phosphorus Level 12.9 MG/DL (2.5-4.9) Magnesium Level 3.5 MG/DL (1.5-2.5) Total Bilirubin 18.9 MG/DL (0.2-1.0) Aspartate Amino Transf 1589 U/L (AST/SGOT) (15-37) Alanine Aminotransferase 358 U/L (12-78) (ALT/SGPT) Alkaline Phosphatase 168 U/L (45-117) Total Protein 5.4 GM/DL (6.4-8.2) Albumin 2.5 GM/DL (3.4-5.0) Lipase 738 U/L (73-393) Prothrombin Time 41.5 SEC (9.8-11.6) Imaging Last Impressions Chest X-Ray 08/24/16 0000 Signed Impressions: Service Date/Time: Wednesday, August 24, 2016 16:18 - CONCLUSION: 1. Unchanged bibasilar infiltrates/effusions. 2. Endotracheal tube. David Crespo Jr., MD Abdomen/Pelvis CT 08/22/16 0000 Signed Impressions: Service Date/Time: Monday, August 22, 2016 16:16 - CONCLUSION: 1. No definitive findings to explain patient's lactic acidosis. Limited evaluation of the bowel due to lack of IV and oral contrast, demonstrates no evidence for obstruction, infarction, or perforation. 2. Cirrhotic appearing liver with evidence for portal hypertension including moderate ascites and splenomegaly. 3. Trace left and small to moderate right pleural effusionswith associated airspace disease in the lower lobes. 4. 9 mm solid nodule in the right lower lobe, new since 2010. Followup examination in 3 months to document stability per 2017 Fleischner criteria is recommended. Sung Gomez MD Abdomen X-Ray 08/22/16 0000 Signed Impressions: Service Date/Time: Monday, August 22, 2016 09:35 - CONCLUSION: Nonspecific abdomen. K. Salvatore Santoro MD Upper Extremity Ultrasound 08/21/16 0000 Signed Impressions: Service Date/Time: Sunday, August 21, 2016 20:10 - CONCLUSION: No evidence of deep venous thrombosis. Visualization was suboptimal. Kevin Hadley MD Hepatobiliary Scan Nuclear Medicine 08/11/16 0000 Signed Impressions: Service Date/Time: July 10:13 - CONCLUSION: 1. Normal HIDA scan confirming patency of the cystic and common bile ducts. 2. Normal gallbladder EF. 3. The patient was asymptomatic with administration of CCK. Sung Gomez MD Cholangiopancreatography MRI 08/11/16 0000 Signed Impressions: Service Date/Time: July 08:38 - CONCLUSION: 1. Hepatosplenomegaly 2. Distended gallbladder otherwise no evidence of biliary obstructive disease. 3. Small to moderate ascites 4. Altered flow in the portal vein which may be indicative of portal hypertension. 5. No other significant abnormalities identified. Steve Acuna MD Abdomen Ultrasound 08/10/16 0000 Signed Impressions: Service Date/Time: Wednesday, August 10, 2016 14:47 - CONCLUSION: There is no significant ascites. Tong Read MD [facility] Hospital Course NEURO/PSYCH: Acute toxic metabolic encephalopathy Hepatic encephalopathy EtOH use Chronic pain syndrome Propofol 20 mcg/kg/m/fentanyl drips 200 mg an hour for sedation/analgesia while intubated Goal of RA SS -2 Daily sedation vacation - Encephalopathy secondary to metabolic hyperammonemia, Uremia, sepsis. Ammonia level greater than 100 today - Continue lactulose 30ml Q4 and Xifaxan 550 twice a day. Daily thiamine 100 mg IV daily RESP: Bilateral lower lobe infiltrates/atelectasis History of COPD Right lower lobe pulmonary nodule 9 mm - 3 month follow-up recommended - Continue with oxygen keep sat >92% - DuoNeb every 6 hours with albuterol nebs every 2 hours when necessary when necessary On Symbicort 160/4.52 puffs twice a day will be switched to Pulmicort twice a day while intubated CV: Shock - SIRS/sinus tachycardia Lactic acidosis Currently on Louie-Synephrine at 120 micrograms per minute/norepinephrine 16 mcg/ m to maintain MAP greater than 65 -Discontinue Lopressor 25mg BID- Monitor HR and BP keep MAP>65mmHg - Serial lactic acid monitoring as been discontinued. Last greater than 20 Elevated lactic acid likely 2nd sepsis and Liver disease -On Midodrine 5 mg 3 times a day GI: Hepatorenal syndrome/likely Acute hepatic failure Acute hepatitis B/IgM positive with viral load 17 million Liver cirrhosis Hepatitis C antibody positive. Viral load negative Hyperammonia - GI and nephrology following. GI had contacted [facility] for transplant eval-GI spoke to Dr. Novoa at [facility]- states that he is not a candidate for transplant. - Trial of Baraclude 0.5 mg daily for Hep B treatment - Continue supportive care, with IV albumin 12.5 g IV every 12 hours, Midodrine 10 mg 3 times a day, Octreotide 50 mcg subcutaneous every 8 hours and Mucomyst 600 twice a day - s/p paracentesis 08/18/16 with 600 mL of biliary tinged ascites fluid removed- fluid studies sent. Repeat paracentesis 08/20 with 2L removed -CT abdomen/pelvis 08/22: Cirrhosis of liver with evidence of portal HTN, ascites. -On tube feeds via NGT- Nepro with goal rate 40ml/hr On lactulose/Xifaxan as above. See orders Renal//FEN: Acute kidney failure/hepatorenal syndrome Hyperkalemia - Monitor renal function, I/O's, avoid nephrotoxins. Interval worsening of kidney function -Recommend increasing -Renal is following- Dr. Cruz, discussed with renal patient is not a candidate for HD prognosis poor given likely HRS, -US abdomen: No hydronephrosis 08/26 discontinued IVF to sterile water with 3 amp bicarb @150ml/hr ID: Severe sepsis Leukocytosis E faecalis UTI - Continue with abx (Cefepime, Zyvox) avoid Vanco given his renal dysfunction. monitor for signs of infections ( Fever, WBC) follow up on cxs- NGTD - ID is following 08/18 Urine cx: Enterococcus faecalis 08/10 Urine cx: Staph Epi F/U Repeat cultures, blood urine and sputum HEME: History CLL Coagulopathy secondary to liver failure Leukocytosis Thrombocytopenia -No more further monitoring of laboratories ENDO: History of gout - SSI if needed for glycemic control PROPH: - Bilateral lower extremity SCDs. Avoid chemical DVT prophylaxis secondary to coagulopathy. IV Protonix LINES: - Left subclavian central line placed 08/18 Palliative care is following Level 3 Critically ill with encephalopathy SIRS, worsening renal failure most likely from hepatorenal syndrome. Prognosis very poor. Likely withdrawal care today Delmar Hair MD Aug 27, 2016 14:24
[2016-08-27] MEDS ORDERED: LORazepam 2 MG/ML VIAL IV SCH (16:00)
[2016-08-27] MEDS ORDERED: MORPHINE SULFATE 4 MG/ML INJ IV SCH (16:00)
== END 2016-08-27 13:20 | disposition expired | DRG 441 ==
LOC: NEPC 11:22 → INTOOBSV 12:55 → NEDA 12:55 → HOCA 14:26 → OBSVTOIN 08-13 11:19 → HIMN 08-18 12:05
PROVIDERS: ADMIT Internal Medicine; ATTEND Internal Medicine
PROC: 02HV33Z Insertion of Infusion Device into Superior Vena Cava, Percutaneous Approach (ICD-10-PCS; 2016-08-13)
PROC: 0W9G3ZZ Drainage of Peritoneal Cavity, Percutaneous Approach (ICD-10-PCS; 2016-08-18)
PROC: 0W9G3ZX Drainage of Peritoneal Cavity, Percutaneous Approach, Diagnostic (ICD-10-PCS; 2016-08-20)
PROC: 0W9G3ZZ Drainage of Peritoneal Cavity, Percutaneous Approach (ICD-10-PCS; 2016-08-20)
PROC: 5A1945Z Respiratory Ventilation, 24-96 Consecutive Hours (ICD-10-PCS; principal; 2016-08-24)
PROC: 0BH17EZ Insertion of Endotracheal Airway into Trachea, Via Natural or Artificial Opening (ICD-10-PCS; 2016-08-24)
DX: K72.00 Acute and subacute hepatic failure without coma (principal); J96.01 Acute respiratory failure with hypoxia; K76.7 Hepatorenal syndrome; R65.21 Severe sepsis with septic shock; J96.02 Acute respiratory failure with hypercapnia; A41.9 Sepsis, unspecified organism; G92 Toxic encephalopathy; N17.9 Acute kidney failure, unspecified; B16.9 Acute hepatitis B without delta-agent and without hepatic coma; E87.1 Hypo-osmolality and hyponatremia; K76.6 Portal hypertension; C91.11 Chronic lymphocytic leukemia of B-cell type in remission; N39.0 Urinary tract infection, site not specified; J98.11 Atelectasis; E87.2 Acidosis; D68.4 Acquired coagulation factor deficiency; E46 Unspecified protein-calorie malnutrition; Z51.5 Encounter for palliative care; E87.5 Hyperkalemia; J44.9 Chronic obstructive pulmonary disease, unspecified; K59.09 Other constipation; I10 Essential (primary) hypertension; M10.9 Gout, unspecified; G47.00 Insomnia, unspecified; G89.4 Chronic pain syndrome; K80.20 Calculus of gallbladder without cholecystitis without obstruction; K70.31 Alcoholic cirrhosis of liver with ascites; D69.6 Thrombocytopenia, unspecified; R91.1 Solitary pulmonary nodule; M19.90 Unspecified osteoarthritis, unspecified site; F32.9 Major depressive disorder, single episode, unspecified; F41.9 Anxiety disorder, unspecified; Z66 Do not resuscitate; Z85.828 Personal history of other malignant neoplasm of skin; Z86.14 Personal history of Methicillin resistant Staphylococcus aureus infection; Z86.19 Personal history of other infectious and parasitic diseases; Z87.891 Personal history of nicotine dependence; Z92.21 Personal history of antineoplastic chemotherapy; Z96.641 Presence of right artificial hip joint
CPT/HCPCS: 31500; 36430; 36556; 36600; 49082; 71010; 71020; 74000; 74176; 74181; 76377; 76700; 76705; 76937; 78227; 80048; 80053; 80074; 80076; 80307; 81001; 82042; 82103; 82105; 82140; 82150; 82390; 82550; 82570; 82728; 82805; 82945; 82948; 83520; 83540; 83550; 83605; 83615; 83690; 83735; 83880; 83935; 84100; 84132; 84155; 84157; 84300; 85007; 85025; 85027; 85384; 85610; 85730; 86038; 86256; 86403; 86900; 86901; 86927; 87040; 87070; 87077; 87086; 87186; 87205; 87350; 87517; 87522; 87640; 87641; 87902; 88112; 88305; 89051; 93005; 93971; 94002; 94003; 94640; 94664; A9537; C9113; G0378; J0610; J0692; J1815; J1940; J1956; J2020; J2060; J2270; J2354; J2370; J2405; J2805; J3010; J3430; J7030; J7040; J7042; J7060; J7070; J7611; J7626; P9017; P9047